=== PATIENT | male | born 1950 | race Caucasian/White ===

== ENCOUNTER 2017-02-15 12:33 | Emergency (ER) | payer OTHER ==
[~2017-02-15] VITALS: Ht 182.9 cm; Wt 84.5 kg
[~2017-02-15 12:33] MED LIST: IBUP-103 PO; PROP60TA19 PO
[2017-02-15 12:34] VITALS: TEMP 36.5; Ht 182.9 cm; Wt 84.5 kg
--- NOTE | 2017-02-15 13:03 | EMERGENCY ROOM VISIT NOTE ---
History First contact with patient: 12:52 Chief Complaint: WOUND INFECTION Stated Complaint: CYST/LUMP ON R BUTTOCK Nursing Triage Summary: pt developed "a lump on right buttock" red and hot and growing, no drainage History of Present Illness The patient is a 67 year old male who presents to the Emergency Room via private vehicle with complaints of "Cyst/lump on R buttock"/ the patient states that he has history of systems developing on his body however he developed pain in the right cranial region this past and notes swelling that has been progressing. He states that there is been no drainage. He does have a fissure on the other side. He notes that he has had cysts for years but has not seen anybody specifically for these. He rates the right gluteal pain as a 5/10. He notes night sweats but is unsure if he's had fevers. Review of Systems A complete 10-point Review of Systems was discussed with the patient, with pertinent positives and negatives listed in the History of Present Illness. All remaining Review of Systems questions can be considered negative unless otherwise specified. Past Medical/Surgical History Hernia repair, renal calculi, essential tremor, cysts Family History Essential tremor Social History Smoking Status: Never Smoker Patient lives locally with . Current/Historical Medications Scheduled Ciprofloxacin Hcl (Cipro), 500 MG PO BID Metronidazole (Flagyl), 500 MG PO TID Propranolol HCl (Propranolol HCl), 60 MG PO BID Physical Exam Vital Signs Date Time Temp Pulse Resp B/P (MAP) Pulse Ox O2 Delivery O2 Flow Rate FiO2 02/15/17 17:05 72 18 138/78 97 02/15/17 15:00 80 20 140/80 98 Room Air 02/15/17 13:57 83 20 141/78 97 Room Air 02/15/17 12:34 36.5 85 20 153/81 96 Room Air Physical Exam VITAL SIGNS - Vital signs and nursing notes were reviewed. Stable. Afebrile. GENERAL -67-year-old male appearing his stated age who is in no acute distress. Communicates well with provider and answers questions appropriately. SKIN - Without rashes. On the right medial and superior portion of the right gluteal/right posterior scrotal region there is a 3 cm circular palpable region that appears to be low density. There is no erythema. Minimal tenderness to palpation. HEAD - NC/AT. Medical Decision & Procedures ER Provider Diagnostic Interpretation: RIGHT PERINEUM ULTRASOUND CLINICAL HISTORY: R anterior gluteal/posterior scrotal palpable lump. COMPARISON STUDY: None. FINDINGS: Increase echogenicity within the subcutaneous fat consistent with inflammatory change. There is a 4.5 x 3.3 x 2.1 cm subcutaneous fluid collection within the right perineum. IMPRESSION: A 4.5 x 3.3 x 2.1 cm subcutaneous fluid collection within the right perineum. This likely represents an abscess. Electronically signed by: Home Harrell M.D. 02/15/2017 2:37 PM Dictated Date/Time: 02/15/2017 2:35 PM PELVIS W/IV CONT ONLY (CT) HISTORY: Right perirectal lump/scrotal collection. TECHNIQUE: Multiaxial CT images of the pelvis are performed following the use of intravenous contrast. COMPARISON STUDY: Gluteal ultrasound 02/15/2017. FINDINGS: Confirmation of the 4.0 x 2.5 cm right anterior perianal/perineal peripheral enhancing fluid collection consistent with an abscess. There is associated soft tissue thickening within the right side of the external sphincter of the rectum and edema within the right intersphincteric space suggestive of a small fistula. The prostate gland is enlarged measuring 6.4 cm in diameter. Normal bladder. Small fat-containing right inguinal hernia. Colonic diverticulosis. Small fat-containing umbilical hernia. Trace bilateral hydroceles. No suspicious lytic or blastic osseous lesions. IMPRESSION: A 4.0 x 2.5 cm right perianal abscess. There is also suggestion of a small fistula extending into the right perirectal location which would be expected with the perianal abscess. Electronically signed by: Home Harrell M.D. 02/15/2017 3:39 PM Dictated Date/Time: 02/15/2017 3:30 PM Laboratory Results 02/15/17 14:50 Red Blood Count 5.45, Mean Corpuscular Volume 82.8, Mean Corpuscular Hemoglobin 27.2, Mean Corpuscular Hemoglobin Concent 32.8, Mean Platelet Volume 9.3, Neutrophils (%) (Auto) 56.5, Lymphocytes (%) (Auto) 34.8, Monocytes (%) (Auto) 7.9, Eosinophils (%) (Auto) 0.4, Basophils (%) (Auto) 0.1, Neutrophils # (Auto) 6.21, Lymphocytes # (Auto) 3.82, Monocytes # (Auto) 0.87, Eosinophils # (Auto) 0.04, Basophils # (Auto) 0.01 02/15/17 14:50 Test 02/15/17 14:50 White Blood Count 10.98 K/uL (4.8-10.8) Red Blood Count 5.45 M/uL (4.7-6.1) Hemoglobin 14.8 g/dL (14.0-18.0) Hematocrit 45.1 % (42-52) Mean Corpuscular Volume 82.8 fL (80-100) Mean Corpuscular Hemoglobin 27.2 pg (25-34) Mean Corpuscular Hemoglobin Concent 32.8 g/dl (32-36) Platelet Count 121 K/uL (130-400) Mean Platelet Volume 9.3 fL (7.4-10.4) Neutrophils (%) (Auto) 56.5 % Lymphocytes (%) (Auto) 34.8 % Monocytes (%) (Auto) 7.9 % Eosinophils (%) (Auto) 0.4 % Basophils (%) (Auto) 0.1 % Neutrophils # (Auto) 6.21 K/uL (1.4-6.5) Lymphocytes # (Auto) 3.82 K/uL (1.2-3.4) Monocytes # (Auto) 0.87 K/uL (0.11-0.59) Eosinophils # (Auto) 0.04 K/uL (0-0.5) Basophils # (Auto) 0.01 K/uL (0-0.2) RDW Standard Deviation 43.8 fL (36.4-46.3) RDW Coefficient of Variation 14.5 % (11.5-14.5) Immature Granulocyte % (Auto) 0.3 % Immature Granulocyte # (Auto) 0.03 K/uL (0.00-0.02) Anion Gap 3.0 mmol/L (3-11) Est Creatinine Clear Calc Drug Dose 134.3 ml/min Estimated GFR () 121.4 Estimated GFR (Non- 104.8 BUN/Creatinine Ratio 27.0 (10-20) Calcium Level 9.1 mg/dl (8.5-10.1) Medical Decision Patient was seen and evaluated as above. He presents to us today with swelling/ cyst of the right anterior medial buttock. On exam this region does appear to be tender but there is no induration, or erythema. He does have other cysts throughout his body appreciated to visual inspection externally. His vital signs were stable. Decision was made to obtain an ultrasound of the region to identify its contents/composition. It is no evidence of foreign gangrene on exam. Ultrasound reveals what is likely to be an abscess however the concern on exam is that this is in between the perirectal and scrotal region likely in the perineum. With the history of fissure in the past I will order a CT scan of the pelvis with IV contrast to evaluate for such. Abscess noted. Reviewed with attending, Dr. Bowers. Patient presented, region was dressed with Betadine, and sterilely draped. The patient was anesthetized with 3 mL's 1% buffered lidocaine with epinephrine. An 18-gauge was then directed away from the sphincter without success. Dr. Bowers and I then, bluntly dissected to successfully reach the pocket which was expressed, and thoroughly irrigated. Culture was sent to the lab for evaluation. He'll be placed upon Cipro and Flagyl. Patient's sphincter tone was intact post procedure. He appears stable for outpatient management. Region was dressed. He is to return in 2 days for packing removal. They were educated upon management, educated upon worrisome symptoms which to return, had questions prior to discharge, and was discharged home in good condition. In evaluation treatment this patient following differential diagnoses were entertained: Perirectal abscess, 48 gangrene, cellulitis, cyst, among others. He is also to follow up regarding the lump on the left side of the neck. He notes that he is to follow-up with Dr. Mcmanus later this week/early next week. Medication Reconcilliation Current Medication List: was personally reviewed by wa Blood Pressure Screening Patient's blood pressure: Elevated blood pressure Blood pressure disposition: Elevated BP felt to be situational, Referred to PCP Impression Primary Impression: Perianal abscess Departure Information Dispostion Home / Self-Care Condition GOOD Prescriptions Metronidazole (Flagyl) 500 Mg Tab 500 MG PO TID for 7 Days, #21 TAB Prov: Arturo Pond PA-C 02/15/17 Ciprofloxacin Hcl (CIPRO) 500 Mg Tab 500 MG PO BID for 7 Days, #14 TAB Prov: Arturo Pond PA-C 02/15/17 Referrals No Doctor, Assigned (PCP) Patient Instructions My [facility] Additional Instructions You were seen in the emergency Department for a perirectal abscess. At this time even prescribed Flagyl and Cipro. Please do not drink alcohol with these medications. Please stay well hydrated and eat healthy. Please keep the area clean. The packing is to be removed in 2 days. Please return to have this performed. Please follow-up regarding the mass on the left side of her neck with her family doctor. Please call to establish this. Please return with any new/concerning symptoms.
[2017-02-15] MEDS ORDERED: LIDOCAINE/EPINEPHRINE 1% 20 ML VIAL INFIL STA (14:08)
--- NOTE | 2017-02-15 14:39 | DIAGNOSTIC IMAGING REPORT ---
RIGHT PERINEUM ULTRASOUND CLINICAL HISTORY: R anterior gluteal/posterior scrotal palpable lump. COMPARISON STUDY: None. FINDINGS: Increase echogenicity within the subcutaneous fat consistent with inflammatory change. There is a 4.5 x 3.3 x 2.1 cm subcutaneous fluid collection within the right perineum. IMPRESSION: A 4.5 x 3.3 x 2.1 cm subcutaneous fluid collection within the right perineum. This likely represents an abscess. Electronically signed by: Home Harrell M.D. 02/15/2017 2:37 PM Dictated Date/Time: 02/15/2017 2:35 PM
[2017-02-15 15:02] LABS: BASO % 0.1 %; BASO ABS # 0.01 K/uL (0-0.2); COMPLETE YES; EOS % 0.4 %; HEMATOCRIT 45.1 % (42-52); IG% 0.3 %; LYMPH % 34.8 %; LYMPH ABS # 3.82 K/uL (1.2-3.4); MEAN CELL VOLUME 82.8 fL (80-100); MEAN CORPUSCULAR HEMOGLOBIN 27.2 pg (25-34); MEAN CORPUSCULAR HGB CONC 32.8 g/dl (32-36); MEAN PLATELET VOLUME 9.3 fL (7.4-10.4); MONO % 7.9 %; NEUT % 56.5 %; PLATELET COUNT 121 K/uL (130-400); RED BLOOD COUNT 5.45 M/uL (4.7-6.1); WHITE BLOOD COUNT 10.98 K/uL (4.8-10.8)
[2017-02-15 15:25] LABS: CALCIUM 9.1 mg/dl (8.5-10.1); CREATININE 0.57 mg/dl (0.60-1.40); POTASSIUM 4.1 mmol/L (3.5-5.1)
[2017-02-15] MEDS ORDERED: OPTIRAY 320 IV PRN (15:30)
--- NOTE | 2017-02-15 15:40 | DIAGNOSTIC IMAGING REPORT ---
PELVIS W/IV CONT ONLY (CT) HISTORY: Right perirectal lump/scrotal collection. TECHNIQUE: Multiaxial CT images of the pelvis are performed following the use of intravenous contrast. COMPARISON STUDY: Gluteal ultrasound 02/15/2017. FINDINGS: Confirmation of the 4.0 x 2.5 cm right anterior perianal/perineal peripheral enhancing fluid collection consistent with an abscess. There is associated soft tissue thickening within the right side of the external sphincter of the rectum and edema within the right intersphincteric space suggestive of a small fistula. The prostate gland is enlarged measuring 6.4 cm in diameter. Normal bladder. Small fat-containing right inguinal hernia. Colonic diverticulosis. Small fat-containing umbilical hernia. Trace bilateral hydroceles. No suspicious lytic or blastic osseous lesions. IMPRESSION: A 4.0 x 2.5 cm right perianal abscess. There is also suggestion of a small fistula extending into the right perirectal location which would be expected with the perianal abscess. Electronically signed by: Home Harrell M.D. 02/15/2017 3:39 PM Dictated Date/Time: 02/15/2017 3:30 PM
--- NOTE | 2017-02-15 16:25 | EMERGENCY ROOM VISIT NOTE ---
ED Visit Note First contact with patient: 12:52 I have personally seen and evaluated the patient with the PA. I agree with the diagnosis and management decisions and have been personally involved in the case. I was present for the I&D procedure. Patient tolerated the procedure well. Patient will be discharged on Cipro and Flagyl 7 days. Patient was cleansed and packed by Arturo Pond PA-C, please see his notes for further details of the history, physical and visit.
[2017-02-15] MEDS ORDERED: CIPR-255 PO (16:37)
[2017-02-15] MEDS ORDERED: METR-163 PO (16:37)
[2017-02-15 17:05] VITALS: BP 138/78; PULSE 72; O2SAT 97
[2017-02-15 18:43] LABS: ISTAT CREATININE 0.6 mg/dl (0.6-1.3); ISTAT HEMOGLOBIN 14.6 g/dl (14.0-18.0); ISTAT IONIZED CALCIUM 1.18 mmol/l (1.12-1.32)
== END 2017-02-15 17:07 | disposition home or self-care (01) ==
LOC: C.EDB 12:34 → C.EDD 17:07
DX: K61.0 Anal abscess (principal); G25.0 Essential tremor

== ENCOUNTER 2017-02-18 10:43 | Emergency (ER) | payer OTHER ==
[~2017-02-18] VITALS: Ht 208.3 cm; Wt 81.0 kg
[~2017-02-18 10:43] MED LIST changes: +CIPR-255 PO; +METR-163 PO
[2017-02-18 10:52] VITALS: Ht 208.3 cm; Wt 81.0 kg
[2017-02-18 11:33] VITALS: BP 140/90; PULSE 60; TEMP 36.4
--- NOTE | 2017-02-18 16:14 | EMERGENCY ROOM VISIT NOTE ---
History First contact with patient: 10:53 Chief Complaint: OTHER COMPLAINT Stated Complaint: NEEDS PACKING REMOVED;HAD AN ASSIT History of Present Illness The patient is a 67 year old male who presents to the Emergency Room for packing removal from a perianal cyst that was drained in our department 2 days ago. The patient has been taking Cipro and Flagyl antibiotics as prescribed. He does report improving pain and minimal drainage. He has been having bowel movements without any significant discomfort, and denies any fever or chills. Review of Systems 6 system review was performed and was negative except for pertinent positives and negatives as indicated in history of present illness Past Medical/Surgical History Medical Problems: (1) Elevated Prostate Specific Antigen [Psa] (2) Iron Defic Anemia Nos Family History Unremarkable Social History Smoking Status: Never Smoker Alcohol Use: none Occupation Status: retired Current/Historical Medications Scheduled Ciprofloxacin Hcl (Cipro), 500 MG PO BID Metronidazole (Flagyl), 500 MG PO TID Propranolol HCl (Propranolol HCl), 60 MG PO BID Physical Exam Vital Signs Date Time Temp Pulse Resp B/P (MAP) Pulse Ox O2 Delivery O2 Flow Rate FiO2 02/18/17 11:33 36.4 60 19 140/90 02/18/17 10:52 36.4 60 19 140/90 Room Air Physical Exam GASTROINTESTINAL: Examination shows no packing in the perianal cyst. There is no significant erythema. Moderate edema is still noted without any purulent drainage. The wound was thoroughly explored to show no evidence for retained packing. Medical Decision & Procedures ED Course Patient history and physical exam were performed. Nurse's notes were reviewed. I did review culture results from 2 days ago, showing Escherichia coli that is pansensitive. The patient was instructed to continue and finish his Cipro and Flagyl antibiotics as previously prescribed. Return to the emergency department for progressively worsening swelling, pain or drainage. The patient was happy with plan of care, and voiced understanding of all discharge instructions. Medical Decision Blood Pressure Screening Patient's blood pressure: Normal blood pressure Impression Primary Impression: Perianal abscess Departure Information Dispostion Home / Self-Care Forms HOME CARE DOCUMENTATION FORM, IMPORTANT VISIT INFORMATION Patient Instructions My [facility] Additional Instructions Continue and finish the current antibiotics that you are taking. Keep the wound clean and covered with an antibiotic ointment until it heals. Return to the emergency department for any re-developing swelling, pain, redness or fever.
== END 2017-02-18 11:35 | disposition home or self-care (01) ==
LOC: C.EDB 10:45 → C.EDD 11:35
DX: K61.0 Anal abscess (principal); R97.20 Elevated prostate specific antigen [PSA]; D50.9 Iron deficiency anemia, unspecified

== ENCOUNTER → 2017-02-26 | Outpatient (CLI) | payer OTHER ==
[~2017-02-26] MED LIST changes: -IBUP-103 PO; -METR-163 PO; +MULT-506 PO; +OXYC-57 PO
--- NOTE | 2017-02-26 11:52 | DIAGNOSTIC IMAGING REPORT ---
ULTRASOUND SOFT TISSUES NECK CLINICAL HISTORY: Left-sided neck mass. COMPARISON STUDY: No priors. FINDINGS: Real-time, grayscale, and color flow sonography of the left neck is performed at the site of palpable concern. There is a heterogeneously hypoechoic nodule identified adjacent to the left parotid gland. This measures 2.5 x 1.2 x 2.0 cm and demonstrates internal flow on color imaging. There is a second slightly more inferior adjacent irregular and heterogeneously hypoechoic nodule. This is located just deep to the dermal surface and measures 1.9 x 1.0 x 1.6 cm. This also shows flow on color imaging. IMPRESSION: There are 2 heterogeneous and irregular hypoechoic nodules identified in the left neck at the indicated site of interest. The appearance is most suggestive of abnormal lymph nodes. Follow-up with ENT is recommended. Fine-needle aspiration should be considered for further assessment. Electronically signed by: Shiva Brownlee M.D. 02/26/2017 11:51 AM Dictated Date/Time: 02/26/2017 11:48 AM
== END | disposition home or self-care (01) ==
LOC: C.ULTR 10:48
PROVIDERS: ATTEND Neuromusculoskeletal Medicine & OMM
DX: R22.1 Localized swelling, mass and lump, neck (principal)

== ENCOUNTER → 2017-03-04 | Outpatient (CLI) | payer OTHER ==
[~2017-03-04] MED LIST changes: -MULT-506 PO; -OXYC-57 PO
--- NOTE | 2017-03-04 13:10 | DIAGNOSTIC IMAGING REPORT ---
ULTRASOUND GUIDED FINE NEEDLE ASPIRATION OF LEFT NECK SUPERFICIAL MASS AND ENLARGED LEFT LEVEL 2 CERVICAL LYMPH NODE CLINICAL HISTORY: Mass of lateral left neck. COMPARISON STUDY: Neck ultrasound February 26, 2017. PROCEDURE: Sonography of the left neck again demonstrated a 1.9 cm superficial left upper neck mass centered within the dermis. An enlarged 2.5 cm left level 2 cervical lymph node was also noted. These findings were targeted for fine needle aspiration. The procedure, risks and benefits were discussed with the patient and informed written consent was obtained. The procedure was performed by Dr. Myers following a timeout. Skin of the left neck was prepped and draped in sterile fashion and local anesthesia was achieved with 1% lidocaine. Under direct ultrasound guidance, 2 25-gauge fine needle aspirations of the superficial lesion were performed followed by 2 22-gauge fine needle aspirations of this lesion. 3 25-gauge fine needle aspirations of the left level 2 cervical lymph node were then performed. The patient tolerated the procedure well and no immediate complications were evident. IMPRESSION: Ultrasound guided fine needle aspiration of a 1.9 cm left neck superficial mass and an enlarged left level 2 cervical lymph node. Electronically signed by: Nithin Myers M.D. 03/04/2017 1:08 PM Dictated Date/Time: 03/04/2017 1:04 PM
== END | disposition home or self-care (01) ==
LOC: C.ULTR 10:15
PROVIDERS: ATTEND Surgery
DX: R22.1 Localized swelling, mass and lump, neck (principal); C79.89 Secondary malignant neoplasm of other specified sites

== ENCOUNTER → 2017-03-12 | Outpatient (CLI) | payer OTHER ==
[~2017-03-12] MED LIST changes: +MULT-506 PO
[2017-03-12 14:43] LABS: ALT/SGPT 35 U/L (12-78); AST/SGOT 22 U/L (15-37); BLOOD UREA NITROGEN 18 mg/dl (7-18); CALCIUM 9.7 mg/dl (8.5-10.1); CARBON DIOXIDE 29 mmol/L (21-32); CREATININE 0.55 mg/dl (0.60-1.40); GLUCOSE 119 mg/dl (70-99); SODIUM 139 mmol/L (136-145)
[2017-03-12 14:46] LABS: ALKALINE PHOSPHATASE 66 U/L (45-117); TOTAL PROTEIN 7.5 gm/dl (6.4-8.2)
== END | disposition home or self-care (01) ==
LOC: C.LAB 12:33
PROVIDERS: ATTEND Surgery
DX: C79.9 Secondary malignant neoplasm of unspecified site (principal); C43.9 Malignant melanoma of skin, unspecified

== ENCOUNTER → 2017-03-14 | Day surgery (SDC) | payer OTHER ==
[2017-03-12 11:48] VITALS: Ht 181.6 cm; Wt 84.1 kg
[~2017-03-14] VITALS: Ht 181.6 cm; Wt 84.1 kg
[~2017-03-14] MED LIST changes: +ATROPINE SULFATE 0.1 MG/ML 5ML SYR IV PRN; +BUPIVACAINE 0.5 % 5 MG/1 ML MPF 30ML VIAL ONE; +CEFAZOLIN 2000MG IV PUSH 10 ML IV SCH; -CIPR-255 PO; +DEXAMETHASONE SOD INJ 4 MG/ML VIAL ONE; +EpHEDrine SULFATE INJ 50 MG/ML AMP IV PRN; +EpHEDrine SULFATE INJ 50 MG/ML AMP ONE; +FENTANYL CITRATE INJ 50 MCG/1 ML 2 ML VIAL IV PRN; +FENTANYL CITRATE INJ 50 MCG/1 ML 2 ML VIAL ONE; +GLYCOPYRROLATE INJ 0.2 MG/ML VIAL ONE; +KETOROLAC TROMETHAMINE 15 MG/ML VIAL IV. PRN; +LACTATED RINGER'S 1000ML 1,000 ML IV SCH; +LIDOCAINE HCL 2% 2 ML VIAL (20MG/ML) ONE; +MIDAZOLAM HCL 1 MG/ML 2ML VIAL ONE; +MoRPHine SULFATE 2 MG/ML CARP IV PRN; +MoRPHine SULFATE 4 MG/ML 1 ML CARP\\VIAL IV PRN; +ONDANSETRON INJ 2 MG/ML 2 ML VIAL IV PRN; +ONDANSETRON INJ 2 MG/ML 2 ML VIAL ONE; +OXYC-57 PO; +OXYCODONE/ACETAMINOPHEN 5-325 TAB PO PRN; +PATIENT'S HEIGHT AND/OR WEIGHT NEEDED SCH; +PROPOFOL IV EMULSION 10 MG/ML 20 ML VIAL IV ONE; +SODIUM CHLORIDE 0.9% 1000ML 1,000 ML IV SCH; +SODIUM CHLORIDE 0.9% INJ 10 ML VIAL ONE
--- NOTE | 2017-03-14 07:09 | History & Physical Bridge - SC ---
H&P Re-Evaluation Bridge Note: I have examined the patient, reviewed the History & Physical and in the interval since the performance of the History & Physical I have noted the following changes of clinical significance: plan for excision left neck mass, left cervical lymph node biopsy, consent signed, risks discussed. No changes noted
--- NOTE | 2017-03-14 08:08 | [facility] Post Operative Brief Note ---
Immediate Operative Summary Operative Date Mar 14, 2017. Pre-Operative Diagnosis Left Mass Lateral Neck, Skin Lesion, Subcutaneous Cyst Post-Operative Diagnosis Same Procedure(s) Performed Left Neck Mass And Left Cervical Lymph Node Excisional Biopsy Surgeon Dr. Avina Clinical Supervisor Surgeon(s) None Estimated Blood Loss 3 ML Findings Consistent with Post-Op Diagnosis Specimens A. Left Neck Mass, Long Suture Lateral, Short Suture Superior, sent PERMANENT B. Left Cervical Lymph Node, Sent FRESH, History of FNA of Melanoma Drains None Anesthesia Type General Complication(s) none Disposition Accompanied Pt To Recover: no Disposition: Recovery Room / PACU
--- NOTE | 2017-03-14 08:24 | [facility] Operative Report ---
Operative Report Operative Date Mar 14, 2017. Pre-Operative Diagnosis Left Mass Lateral Neck, Skin Lesion, Subcutaneous Cyst Post-Operative Diagnosis Same Procedure(s) Performed Left Neck Mass And Left Cervical Lymph Node Excisional Biopsy Surgeon Dr. Avina Oven Builder Surgeon(s) None Estimated Blood Loss 3 ML Findings 7 cm x 2.5 cm elliptical incision performed in oblique fashion and left neck to excise skin lesion. Platysma was divided overlying the lymph node of lymph node was excised. Good hemostasis. Specimens A. Left Neck Mass, Long Suture Lateral, Short Suture Superior, sent PERMANENT B. Left Cervical Lymph Node, Sent FRESH, History of FNA of Melanoma Drains none Anesthesia LMA Complication(s) None Disposition Recovery Room / PACU Indications 67-year-old male with left neck skin lesion, FNA showed epithelial cells and possible basal cell carcinoma. He also has a left submandibular lymph node that had an FNA performed and revealed metastatic melanoma, and not enough tissue was obtained for further pathologic testing. Plan for wide local excision of left neck mass and excisional biopsy of left cervical lymph node. The risks of the procedure were discussed, all questions were answered, and the patient agreed to proceed with surgery as planned. Description of Procedure The patient was properly identified, consented, and taken to the operating room where he was placed in the supine position. General anesthesia was induced. SCDs and a safety belt were placed. Preoperative antibiotics were administered. The patient's head was rotated to the right and his left neck and lower face was prepped and draped in the standard sterile fashion. Surgical timeout was performed and all parties were in agreement that this was the correct patient and procedure to be performed and we continued as planned. Local anesthetic was injected along the skin incision. A 7 x 2.5 cm elliptical incision was made overlying the mass in a natural skin crease in order to obtain clear margins on the cutaneous lesion. This was deepened down through the full thickness of the dermis and lifted off the subcutaneous tissue. The specimen was oriented with 3-0 silk suture. The submandibular lymph node was palpable in the medial portion of the incision. The platysma was opened for a short distance overlying the lymph node. The lymph node had a very dark appearance consistent with melanoma. The lymph node was circumferentially dissected, the lymphovascular bundle was ligated with 3-0 silk tie. The lymph node was completely excised and sent fresh to pathology. The wound was irrigated and hemostasis was confirmed. The platysma was closed with interrupted 3-0 Vicryl sutures. There was some tension at the midpoint of the incision and flaps were raised overlying the platysma superiorly and inferiorly for 2 cm. The skin was closed with interrupted 3-0 Vicryl deep dermal sutures. Due to the tension, the skin was closed with 4-0 Prolene simple interrupted sutures on the medial and lateral edges, and 3-0 Prolene interrupted simple sutures in the midportion of the incision. A sterile dressing was placed over the wound. The patient was extubated in the operating room and taken to the PACU where he recovered without apparent incident. All sponge, instrument and needle counts were correct at the conclusion of the procedure. The patient tolerated the procedure well. I attest to the content of the Intraoperative Record and any orders documented therein. Any exceptions are noted below.
--- NOTE | 2017-03-14 08:33 | Discharge Instructions-SurgCtr ---
Discharge Instructions Date of Service Mar 14, 2017. Visit Reason for Visit: Mass Lateral Neck, Skin Lesion, Subcutaneous Cyst Discharge Discharge Diagnosis / Problem: left neck skin mass, left cervical lymphadenopathy Discharge Goals Goal(s): Decrease discomfort Activity Recommendations Activity Limitations: resume your previous activity Lifting Limitations: gradually increase as tolerated Shower/Bathe: tomorrow Driving or Machine Use: resume 1 day after discharge Anesthesia . Post Anesthesia Instructions: If you have had General Anesthesia or IV Sedation: * Do not drive today. * Resume driving when surgeon permits. * Do not make important decisions or sign legal documents today. * Call surgeon for: 1. Temperature elevations greater than 101 degrees F. 2. Uncontrollable pain. 3. Excessive bleeding. 4. Persistent nausea and vomiting. 5. Medication intolerance (nausea, vomiting or rash). * For nausea and vomiting use only clear liquids such as: tea, soda, bouillon until nausea subsides, then gradually increase diet as tolerated. * If you have any concerns or questions, call your surgeon's office. If physician is unavailable and it is an emergency, call 911 or go to the nearest emergency room. . Instructions / Follow-Up Instructions / Follow-Up Follow-up in 7-10 days for suture removal and pathology results. Diet Recommendations Home Diet: resume previous diet Procedures Procedures Performed: Left Neck Mass And Left Cervical Lymph Node Excisional Biopsy Pending Studies Studies pending at discharge: yes List of pending studies: Pathology results Medical Emergencies . Who to Call and When: Medical Emergencies: If at any time you feel your situation is an emergency, please call 911 immediately. . Non-Emergent Contact Non-Emergency issues call your: Surgeon Contact Number: [phone] . . "Provider Documentation" section prepared by Giancarlo Avina. . [place] Drug Monitoring Program Search Results: no issues identified
[2017-03-14 08:45] VITALS: TEMP 36.5
[2017-03-14 09:11] VITALS: BP 145/89; PULSE 60; O2SAT 98
--- NOTE | 2017-03-14 09:49 | Anesthesia Progress Nt - [facility] ---
Anesthesia Post Op Note Date & Time Mar 14, 2017 at 09:49 Vital Signs Pain Intensity: 0 Vital Signs Past 12 Hours Date Time Temp Pulse Resp B/P (MAP) Pulse Ox O2 Delivery O2 Flow Rate FiO2 03/14/17 09:11 60 16 145/89 (107) 98 Room Air 03/14/17 08:45 36.5 63 16 138/81 (100) 96 Room Air 03/14/17 08:42 61 92 03/14/17 08:42 61 03/14/17 08:37 63 10 03/14/17 08:37 64 10 97 03/14/17 08:36 71 16 96 03/14/17 08:36 69 16 03/14/17 08:35 36.5 64 12 125/77 94 Room Air 03/14/17 08:35 125/77 03/14/17 08:34 119/79 03/14/17 08:31 67 12 97 03/14/17 08:31 67 12 03/14/17 08:30 124/78 03/14/17 08:26 66 10 122/81 97 03/14/17 08:26 68 10 03/14/17 08:21 68 16 03/14/17 08:21 67 16 132/76 98 03/14/17 08:16 66 11 133/75 97 03/14/17 08:16 66 11 03/14/17 08:11 36.4 55 16 123/76 97 Mask 6 03/14/17 08:11 61 11 03/14/17 08:11 61 11 123/76 97 03/14/17 06:31 36.4 52 18 121/71 (88) 96 Room Air Notes Mental Status: alert / awake / arousable, participated in evaluation Pt Amnestic to Procedure: Yes Nausea / Vomiting: adequately controlled Pain: adequately controlled Airway Patency, RR, SpO2: stable & adequate BP & HR: stable & adequate Hydration State: stable & adequate Anesthetic Complications: no major complications apparent
== END | disposition home or self-care (01) ==
LOC: X.SURG 06:20
PROVIDERS: ATTEND Surgery
DX: L98.9 Disorder of the skin and subcutaneous tissue, unspecified (principal); C77.0 Secondary and unspecified malignant neoplasm of lymph nodes of head, face and neck; C44.91 Basal cell carcinoma of skin, unspecified; I10 Essential (primary) hypertension; G20 Parkinson's disease; Z98.890 Other specified postprocedural states

== ENCOUNTER → 2017-03-17 | Outpatient (CLI) | payer OTHER ==
[~2017-03-17] MED LIST changes: -ATROPINE SULFATE 0.1 MG/ML 5ML SYR IV PRN; -BUPIVACAINE 0.5 % 5 MG/1 ML MPF 30ML VIAL ONE; -CEFAZOLIN 2000MG IV PUSH 10 ML IV SCH; -DEXAMETHASONE SOD INJ 4 MG/ML VIAL ONE; -EpHEDrine SULFATE INJ 50 MG/ML AMP IV PRN; -EpHEDrine SULFATE INJ 50 MG/ML AMP ONE; -FENTANYL CITRATE INJ 50 MCG/1 ML 2 ML VIAL IV PRN; -FENTANYL CITRATE INJ 50 MCG/1 ML 2 ML VIAL ONE; -GLYCOPYRROLATE INJ 0.2 MG/ML VIAL ONE; -KETOROLAC TROMETHAMINE 15 MG/ML VIAL IV. PRN; -LACTATED RINGER'S 1000ML 1,000 ML IV SCH; -LIDOCAINE HCL 2% 2 ML VIAL (20MG/ML) ONE; -MIDAZOLAM HCL 1 MG/ML 2ML VIAL ONE; -MoRPHine SULFATE 2 MG/ML CARP IV PRN; -MoRPHine SULFATE 4 MG/ML 1 ML CARP\\VIAL IV PRN; -ONDANSETRON INJ 2 MG/ML 2 ML VIAL IV PRN; -ONDANSETRON INJ 2 MG/ML 2 ML VIAL ONE; -OXYCODONE/ACETAMINOPHEN 5-325 TAB PO PRN; -PATIENT'S HEIGHT AND/OR WEIGHT NEEDED SCH; -PROPOFOL IV EMULSION 10 MG/ML 20 ML VIAL IV ONE; -SODIUM CHLORIDE 0.9% 1000ML 1,000 ML IV SCH; -SODIUM CHLORIDE 0.9% INJ 10 ML VIAL ONE
== END | disposition home or self-care (01) ==
LOC: C.LABBFT 14:07
PROVIDERS: ATTEND Neuromusculoskeletal Medicine & OMM
DX: R30.0 Dysuria (principal); Z00.00 Encounter for general adult medical examination without abnormal findings; R97.20 Elevated prostate specific antigen [PSA]

== ENCOUNTER → 2017-03-19 | Outpatient (CLI) | payer OTHER ==
--- NOTE | 2017-03-19 13:05 | DIAGNOSTIC IMAGING REPORT ---
PET/CT FULL BODY HISTORY: Melanoma C43.9 MALIGNANT MELANOMA SKIN TECHNIQUE: PET/CT was performed from the base of the skull through the pelvis following the intravenous administration of 13.37 mCi of F18-FDG. Non-contrast CT imaging was performed over the same range without breath-hold for attenuation correction of PET images and anatomic correlation, but not for primary interpretation as it is not of standard diagnostic quality. CT DOSE: COMPARISON: None. FINDINGS: HEAD AND NECK: There is no FDG-avid disease or significant lymphadenopathy in the imaged portions of the head and the neck. CHEST: There is no FDG-avid disease in the chest. There is no axillary, mediastinal, or hilar lymphadenopathy. There is no pleural or pericardial effusion. There is no air-space disease or suspicious lung nodule. ABDOMEN/PELVIS: Below the diaphragm, tracer is distributed physiologically in the gastrointestinal and genitourinary tracts. There is no significant lymphadenopathy and no FDG-avid disease. MUSCULOSKELETAL: There is no FDG-avid or destructive bone lesion. Increased activity in the palmar aspects of the hands presumably secondary to muscular activity. EXTREMITIES: No abnormal activity characteristics IMPRESSION: There is no definite evidence of recurrent FDG-avid disease. The above report was generated using voice recognition software. It may contain grammatical, syntax or spelling errors. Electronically signed by: Benjamin Mock M.D. 03/19/2017 1:04 PM Dictated Date/Time: 03/19/2017 12:59 PM
== END | disposition home or self-care (01) ==
LOC: C.PET 10:14
PROVIDERS: ATTEND Surgery
DX: C43.9 Malignant melanoma of skin, unspecified (principal); C79.9 Secondary malignant neoplasm of unspecified site

== ENCOUNTER → 2017-03-27 | Outpatient (CLI) | payer OTHER | END | disposition home or self-care (01) | LOC: C.PATHSPEC 17:35 | PROVIDERS: ATTEND Dermatology | DX: L81.4 Other melanin hyperpigmentation (principal); C44.619 Basal cell carcinoma of skin of left upper limb, including shoulder; C44.519 Basal cell carcinoma of skin of other part of trunk; C44.311 Basal cell carcinoma of skin of nose ==

== ENCOUNTER → 2017-06-13 | Outpatient (CLI) | payer OTHER | END | disposition home or self-care (01) | LOC: C.LABSPEC 14:10 | PROVIDERS: ATTEND Internal Medicine Hematology | DX: C77.0 Secondary and unspecified malignant neoplasm of lymph nodes of head, face and neck (principal) ==

== ENCOUNTER 2018-02-19 16:21 | Inpatient (IN) ==
[2018-02-19 18:30] LABS: Hematocrit (blood only) 43.4 % (42-52); Hemoglobin 14.6 g/dL (14.0-18.0); Mean Corpuscular Hgb Conc 33.6 g/dL (32-36); Mean Corpuscular Volume 79.9 fL (80-100); RDW Coefficient of Variation 14.6 % (11.5-14.5); RDW Standard Deviation 42.2 fL (36.4-46.3); Red Blood Count 5.43 M/uL (4.7-6.1); White Blood Count 10.31 K/uL (4.8-10.8)
[2018-02-19 18:35] LABS: Albumin Level 2.9 gm/dl (3.4-5.0); BUN Creatinine Ratio 44.3 (10-20); Calcium 9.4 mg/dl (8.5-10.1); Creatinine Clr Calc Pharmacy 124.1 ml/min; Est GFR (African American) 118.9; Est GFR (Non-African American) 102.6; Potassium 3.6 mmol/L (3.5-5.1)
[2018-02-19 18:37] LABS: Albumin Globulin Ratio 0.6 (0.9-2); Bilirubin,Total 1.4 mg/dl (0.1-1); Globulin 4.6 gm/dl (2.5-4.0); Total Protein 7.5 gm/dl (6.4-8.2)
[2018-02-19 18:58] LABS: Appearance Urine Clear (Clear); Bacteria Urine Automated 2+ (Negative); Bilirubin Urine Negative (Negative); Color Urine Dark Yellow; Glucose Urine UA Negative (Negative); Ketones Urine Negative (Negative); Leukocyte Esterase Urine Trace (Negative); Nitrite Urine Positive (Negative); Protein Urine 1+ (Negative); Specific Gravity Urine 1.025 (1.000-1.030); Urobilinogen Urine Positive (Negative)
--- NOTE | 2018-02-19 19:35 | Ultrasound Report ---
ABDOMINAL ULTRASOUND, RIGHT UPPER QUADRANT HISTORY: RUQ pain. COMPARISON: PET CT 03/19/2017. FINDINGS: Pancreas: Not well visualized due to overlying bowel gas. Liver: Unremarkable. Gallbladder: Thickened and heterogeneous wall measuring up to 7 mm. There appears to be trace pericho lecystic fluid. There is a single gallstone measuring 3 cm. CBD: 5 mm. Right kidney: No hydronephrosis. A 7 mm stone, unchanged. IMPRESSION: 1. Thickened and heterogeneous gallbladder wall with trace pericholecystic fluid and a 3 cm gallstone . Findings are suspicious for acute cholecystitis. 2. Right-sided nephrolithiasis. No hydronephrosis. Electronically signed by: Home Harrell M.D. 02/19/2018 7:34 PM
[2018-02-19 20:14] LABS: Mean Platelet Volume 10.8 fL (7.4-10.4); Platelet Count 79 K/uL (130-400)
[2018-02-19 20:15] LABS: ALC (manual) 4.79 K/uL (1.2-3.4); Lymphocytes # (manual) 4.79 K/uL (1.2-3.4); Lymphocytes % (manual) 46.5 %; Monocytes # (manual) 0.55 K/uL (0.11-0.59); Monocytes % (manual) 5.3 %; Neutrophils % (manual) 48.2 %
[2018-02-19] MEDS ORDERED: SODIUM CHLORIDE 0.9% 1000ML 1,000 ML IV STA (21:42)
[2018-02-19] MEDS ORDERED: cefOXitin 2,000 MG/60 ML BAG IV STA (21:42)
--- NOTE | 2018-02-19 21:52 | Emergency Department Note ---
Entered by Rosalva Lou acting as a scribe for ED Provider Note CHIEF COMPLAINT: Illness. HISTORY OF PRESENT ILLNESS: The patient is a 68 year old male who presents to the Emergency Room with complaints of RUQ abdominal pain. His states he ate dinner last night around 2029, and after eating, took his Propanolol and then developed RUQ pain and the hiccups. His pain eventually resolved but the hiccups have not and he has been unable to sleep because of that. He reports he ate two pieces of toast today. The patient has a history of metastatic melanoma for which he is currently taking chemotherapy. Pt denies LOC, headache, fevers, chills, diaphoresis, visual changes, neck pain , chest pain, breathing difficulties, nausea, vomiting, back pain, melena, hematochezia, urinary symptoms, numbness, weakness, lymphadenopathy, rash, or other complaints. REVIEW OF SYSTEMS: See HPI for pertinent positives and negatives. A total of ten systems were reviewed and were otherwise negative. PMHx/PSHx: Metastatic Melanoma. Essential Tremor. SOCIAL HISTORY: Patient lives at home. PHYSICAL EXAM: GENERAL: Awake, alert, well-appearing, in no distress HENT: Normocephalic, atraumatic. Oropharynx unremarkable. EYES: Normal conjunctiva. Sclera non-icteric. NECK: Inspection normal. Non-tender. Supple. No nuchal rigidity. FROM. No masses. RESPIRATORY: Clear to auscultation. No wheezes. No rales. Normal respiratory effort. CARDIAC: Normal rate. Normal rhythm. No murmurs. No rubs. Extremities warm and well perfused. Pulses equal. No JVD. GI: Soft, non-distended. No tenderness to palpation. No rebound or guarding. No masses. RECTAL: Deferred. MUSCULOSKELETAL: Atraumatic. Chest examination reveals no tenderness. The back is symmetrical on inspection without obvious abnormality. There is no CVA tenderness to palpation. No joint edema. LOWER EXTREMITIES: Calves are equal size bilaterally and non-tender. No edema. No discoloration. NEURO: Normal sensorium. No sensory or motor deficits noted. SKIN: No rash or jaundice noted. EMERGENCY DEPARTMENT COURSE: 1807: Past medical records reviewed. The patient was evaluated in room C6, and a complete history and physical examination were performed. 2019: I reevaluated the patient. He is resting comfortably. I discussed his results and my recommendation he remain in the hospital for further evaluation and management and he verbalized complete understanding and agreement. 2021: I discussed the patients case with Dr. Mejía, [facility] General Surgery. The patient will be further evaluated. 2033: I discussed the patients case with Dr. Hernandez, [facility] Hospitalist. The patient will be further evaluated. MEDICAL DECISION MAKING: Triage Nursing notes reviewed and agree them. Additional history obtained from his significant other. The patient's history was concerning for abdominal pain. Differential diagnosis: Etiologies such as biliary pathology, UTI, pancreatitis, obstruction, appendicitis, diverticulitis, PUD, mesenteric ischemia, aortic pathology, infections, inflammatory bowel disease, renal colic, as well as others were entertained. Physical examination findings: As above. ER treatment provided: Saline hydration IV Mefoxin On reassessment the patient felt better. Diagnostics interpreted by me: The labs revealed an unremarkable CBC. Chemistry panel did reveal elevated LFTs. These are new compared to his prior values of 3 weeks ago. Imaging studies: Ultrasound revealed findings concerning for acute cholecystitis. Consultation: A consultation was placed with the [facility] surgery and internal medicine team. The case was discussed and diagnostics were reviewed. The patient was evaluated in the ER for further treatment by internal medicine. IMPRESSION: Acute cholecystitis. PLAN: Admit. The scribe's documentation has been prepared under my direction and personally reviewed by me in its entirety. I confirm that the note above accurately reflects all work, treatment, procedures, and medical decision making performed by me. Impression & Plan Acute cholecystitis Past Med/Surg History Medical History Essential tremor Social History Feels Safe at Home: Yes Smoking Status: Never smoker Results & Data Vital Signs Vital Signs - 24 hr 02/19/18 17:03 02/19/18 17:59 02/19/18 18:38 Temperature 36.9 C Temperature Source Oral Sepsis Recent Fever Within 48 Hours No Sepsis New/Unexplained Change in Mental Status No Sepsis Action Taken by Nursing No Action Required Pulse Rate 65 Pulse Rate [Finger] 68 Pulse Rhythm Regular Pulse Rhythm [Finger] Pulse Strength Normal Pulse Strength [Finger] Respiratory Rate 20 20 Respiratory Effort / Characteristics Non-Labored Respiratory Depth Normal Respiratory Pattern Regular Blood Pressure 126/65 Blood Pressure [Right Arm] 107/66 Blood Pressure Mean 85 Blood Pressure Mean [Right Arm] 79 Blood Pressure Position Sitting Blood Pressure Position [Right Arm] Pulse Oximetry 95 97 97 Oxygen Delivery Method Room Air Room Air Room Air 02/19/18 19:32 02/19/18 21:09 Temperature Temperature Source Sepsis Recent Fever Within 48 Hours Sepsis New/Unexplained Change in Mental Status Sepsis Action Taken by Nursing Pulse Rate Pulse Rate [Finger] 68 69 Pulse Rhythm Pulse Rhythm [Finger] Regular Regular Pulse Strength Pulse Strength [Finger] Normal Normal Respiratory Rate 20 20 Respiratory Effort / Characteristics Non-Labored Spontaneous Non-Labored Spontaneous Respiratory Depth Normal Normal Respiratory Pattern Regular Regular Blood Pressure Blood Pressure [Right Arm] 117/73 117/73 Blood Pressure Mean Blood Pressure Mean [Right Arm] 87 87 Blood Pressure Position Blood Pressure Position [Right Arm] Sitting Sitting Pulse Oximetry 95 94 Oxygen Delivery Method Room Air Room Air Home Medications Current Medication List: was personally reviewed by me Laboratory Data Attestation: I reviewed the patient's lab results. Result diagrams: 02/19/18 18:10 02/19/18 18:10 Lab Results 02/19/18 02/19/18 02/19/18 Range/Units 18:10 18:10 18:35 WBC 10.31 (4.8-10.8) K/uL RBC 5.43 (4.7-6.1) M/uL Hgb 14.6 (14.0-18.0) g/dL Hct 43.4 (42-52) % MCV 79.9 L (80-100) fL MCH 26.9 (25-34) pg MCHC 33.6 (32-36) g/dL RDW Std Deviation 42.2 (36.4-46.3) fL RDW Coeff of Stella 14.6 H (11.5-14.5) % Plt Count 79 L (130-400) K/uL MPV 10.8 H (7.4-10.4) fL Neutrophils % (Manual) 48.2 % Lymphocytes % (Manual) 46.5 % Monocytes % (Manual) 5.3 % Neutrophils # (Manual) 4.97 (1.4-6.5) K/uL Total Absolute Neuts 4.97 (1.4-6.5) K/uL Lymphocytes # (Manual) 4.79 H (1.2-3.4) K/uL Total Abs Lymphocytes 4.79 H (1.2-3.4) K/uL Monocytes # (Manual) 0.55 (0.11-0.59) K/uL Platelet Estimate Decreased (Normal) Sodium 134 L (136-145) mmol/L Potassium 3.6 (3.5-5.1) mmol/L Chloride 100 (98-107) mmol/L Carbon Dioxide 27 (21-32) mmol/L Anion Gap 7.0 (3-11) BUN 26 H (7-18) mg/dl Creatinine 0.59 L (0.6-1.4) mg/dl Est Cr Clr Drug Dosing 124.1 ml/min Est GFR ( Amer) 118.9 Est GFR (Non-Af Amer) 102.6 BUN/Creatinine Ratio 44.3 H (10-20) Glucose 105 H (70-99) mg/dl Calcium 9.4 (8.5-10.1) mg/dl Magnesium 2.0 (1.8-2.4) mg/dl Total Bilirubin 1.4 H (0.1-1) mg/dl AST 65 H (15-37) U/L ALT 84 H (12-78) U/L Alkaline Phosphatase 97 (45-117) U/L Total Protein 7.5 (6.4-8.2) gm/dl Albumin 2.9 L (3.4-5.0) gm/dl Globulin 4.6 H (2.5-4.0) gm/dl Albumin/Globulin Ratio 0.6 L (0.9-2) Lipase 135 (73-393) U/L Urine Color Dark Yellow Urine Appearance Clear (Clear) Urine pH 6.0 (4.5-7.5) Ur Specific [place] 1.025 (1.000-1.030) Urine Protein 1+ H (Negative) Urine Glucose (UA) Negative (Negative) Urine Ketones Negative (Negative) Urine Blood 1+ H (Negative) Urine Nitrite Positive H (Negative) Urine Bilirubin Negative (Negative) Urine Urobilinogen Positive H (Negative) Ur Leukocyte Esterase Trace H (Negative) Urine WBC (Auto) 5-10 H (0-5) /hpf Urine RBC (Auto) 5-10 H (0-4) /hpf U Hyaline Cast (Auto) 1-5 (0-5) /lpf U Epithel Cells (Auto) 10-20 H (0-5) /lpf Urine Bacteria (Auto) 2+ H (Negative) Imaging Data Radiologist's Impression: Radiology results as stated below per my review and the radiologist's interpretation: ABDOMINAL ULTRASOUND, RIGHT UPPER QUADRANT HISTORY: RUQ pain. COMPARISON: PET CT 03/19/2017. FINDINGS: Pancreas: Not well visualized due to overlying bowel gas. Liver: Unremarkable. Gallbladder: Thickened and heterogeneous wall measuring up to 7 mm. There appears to be trace pericholecystic fluid. There is a single gallstone measuring 3 cm. CBD: 5 mm. Right kidney: No hydronephrosis. A 7 mm stone, unchanged. IMPRESSION: 1. Thickened and heterogeneous gallbladder wall with trace pericholecystic fluid and a 3 cm gallstone. Findings are suspicious for acute cholecystitis. 2. Right-sided nephrolithiasis. No hydronephrosis. Electronically signed by: Home Harrell M.D. 02/19/2018 7:34 PM Blood Pressure Blood Pressure Findings: Normal blood pressure Blood Pressure Disposition: did not require urgent referral Discharge Plan Visit Data Chief Complaint: Illness Stated Complaint: HICCUPS, GALLBLADDER ED Provider: Marbin Gonzalez Discharge Problem: Acute cholecystitis Patient Disposition: Being Evaluated by Hospitalist Forms Stand Alone Forms: My [facility] Prescriptions Prescriptions: No Action multivitamin Tablet 1 tab PO DAILY RF: 0 propranolol 60 mg tablet 60 mg PO BID RF: 0 calcium carbonate [Tums] 200 mg calcium (500 mg) Tablet,Chewable 200 mg PO TID PRN (Reason: REFLUX) RF: 0 nivolumab [Opdivo] 100 mg/10 mL Solution 1 dose IV MONTHLY RF: 0 Referrals Referrals: Keith Mcmanus DO [Primary Care Provider] - The scribe's documentation has been prepared under my direction and personally reviewed by me in its entirety. I confirm that the note above accurately reflects all work, treatment, procedures, and medical decision making performed by me.
--- NOTE | 2018-02-19 22:21 | History & Physical Report ---
Date of Service February 19, 2018 Assessment & Plan (1) Acute cholecystitis: Mr. 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 -Admit to med/surg -Patient received a dose of 2 g of cefoxitin in the emergency department - continue cefoxitin -Consult general surgery for help with management -N.p.o. at midnight in case of intervention -AST and ALT elevated, as well as total bilirubin. Lipase normal -LR at 120 mls/hour -Of note, UA is contaminated, but concerning for an infection. Patient is asymptomatic from a urinary standpoint. Urine culture sent. Cefoxitin will cover for urinary source as well. (2) Thrombocytopenia: -Patient's platelets, as per review of outpatient records, have generally run low at 130-140 -Patient's platelet count 79 at this time - ?possibly related to treatment with nivolumab -continue to monitor (3) Intractable hiccups: -Trial of 25mg of chlorpromazine to help with intractable hiccups (4) Malignant melanoma metastatic to lymph node: -Patient follows with Courtney Harvey PA-C at [facility]c ( [facility] [place]) -Patient planning to receive 1 year therapy with the Nivolumab -Due for next dose on March 04 (5) Essential tremor: -Continue home propanolol (6) DVT prophylaxis: -SCD knees CODE STATUS: Full Disposition: Admit to med/surg F/E/N: N.p.o. in case of intervention tomorrow. Maintenance fluids with LR at 120 mls/hr. History of Present Illness Primary Care Provider: Keith Mcmanus DO Mr. 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 He states that this began at 8:30 PM last night and has occurred nonstop since then. He states that the most that he would get is 2 minutes of rest at any given time. He denies any abdominal pain, nausea, vomiting, fever or chills. He does state that on Friday night, he had one episode of pain in his back that radiated to his right side, however this resolved without any intervention. He also reports having had loose bowel movements lately, without overt diarrhea or the presence of blood in his stool. He notes that his urine is darker than usual, however denies dysuria or frequency. He states that he was told that darker urine could be a side effect of his medication (nivolumab). He has never had any surgeries on his abdomen, and has no history of trouble with his gallbladder. Of note, he is a non-smoker and does not use recreational drugs. He is an occasional alcohol drinker. With regards to his malignant melanoma, he receives the Nivolumab on a monthly basis, and is due for his next dose on March 04. His last dose was given to him 2 weeks ago. Allergies Allergy/AdvReac Type Severity Reaction Status Date / Time No Known Allergies Allergy Unverified 02/19/18 20:38 Home Medications Home Medications Medication Instructions Recorded Confirmed Type calcium carbonate [Tums] 200 mg PO TID PRN 02/19/18 02/19/18 History multivitamin 1 tab PO DAILY 02/19/18 02/19/18 History nivolumab [Opdivo] 1 dose IV MONTHLY 02/19/18 02/19/18 History propranolol 60 mg PO BID 02/19/18 02/19/18 History Past Med/Surg History Medical History Essential tremor (Chronic) Malignant melanoma Surgical History H/O inguinal hernia repair H/O lymph node excision Social History Current Living Situation: Spouse Other Information That Helps Us Care for You: No Feels Safe at Home: Yes Safety Concerns: Feels Safe At This Time Smoking Status: Never smoker Do You Dip or Chew Tobacco: No Hx Alcohol Use: Yes Alcohol type: beer and hard liquor Alcohol Intake Frequency : holidays/special occasions only Hx Substance Use: No Beliefs That Will Affect Care: None Communication Ability: Effective Review of Systems Constitutional: no fever, no chills, no fatigue and no weakness Respiratory: no cough and no dyspnea Cardiovascular: no chest pain, no palpitations, no syncope, no edema and no calf pain Gastrointestinal: + heartburn and + diarrhea/loose stools; no abdominal pain, no nausea, no vomiting, no constipation and no blood in stools hiccups Genitourinary (Male): no dysuria, no urinary frequency, no urinary hesitancy and no flank pain Right-sided low back pain Integumentary: no rash and no new lesions Physical Exam 2 Vital Signs (Past 24 Hours): Last Vital Signs Temp 36.9 C 02/19/18 17:03 Pulse 66 02/19/18 22:03 Resp 17 02/19/18 22:03 BP 117/73 02/19/18 21:09 Pulse Ox 98 02/19/18 22:03 Constitutional: WD/WN, vitals as above Frequently hiccuping. Tremor present in bilateral arms Eyes: PERRL, conjunctivae normal, anicteric sclerae ENMT: external ear and nose normal, oropharynx normal Respiratory: normal respiratory effort, lungs clear to auscultation Cardiovascular: RRR, no murmur, no edema Vessels: radial pulses present Extremities: no calf tenderness and no pedal edema Gastrointestinal (Abdomen): normal bowel sounds, soft, nontender, no hepatosplenomegaly Goodman sign negative. No flank pain. Musculoskeletal: Lower backup engineer to palpation, worse on the right side Results & Data Laboratory Results Laboratory Results - last 24 hr 02/19/18 02/19/18 02/19/18 18:10 18:10 18:35 WBC 10.31 RBC 5.43 Hgb 14.6 Hct 43.4 MCV 79.9 L MCH 26.9 MCHC 33.6 RDW Std Deviation 42.2 RDW Coeff of Stella 14.6 H Plt Count 79 L MPV 10.8 H Neutrophils % (Manual) 48.2 Lymphocytes % (Manual) 46.5 Monocytes % (Manual) 5.3 Neutrophils # (Manual) 4.97 Total Absolute Neuts 4.97 Lymphocytes # (Manual) 4.79 H Total Abs Lymphocytes 4.79 H Monocytes # (Manual) 0.55 Platelet Estimate Decreased Sodium 134 L Potassium 3.6 Chloride 100 Carbon Dioxide 27 Anion Gap 7.0 BUN 26 H Creatinine 0.59 L Est Cr Clr Drug Dosing 124.1 Est GFR ( Amer) 118.9 Est GFR (Non-Af Amer) 102.6 BUN/Creatinine Ratio 44.3 H Glucose 105 H Calcium 9.4 Magnesium 2.0 Total Bilirubin 1.4 H AST 65 H ALT 84 H Alkaline Phosphatase 97 Total Protein 7.5 Albumin 2.9 L Globulin 4.6 H Albumin/Globulin Ratio 0.6 L Lipase 135 Urine Color Dark Yellow Urine Appearance Clear Urine pH 6.0 Ur Specific [place] 1.025 Urine Protein 1+ H Urine Glucose (UA) Negative Urine Ketones Negative Urine Blood 1+ H Urine Nitrite Positive H Urine Bilirubin Negative Urine Urobilinogen Positive H Ur Leukocyte Esterase Trace H Urine WBC (Auto) 5-10 H Urine RBC (Auto) 5-10 H U Hyaline Cast (Auto) 1-5 U Epithel Cells (Auto) 10-20 H Urine Bacteria (Auto) 2+ H Supervising Physician Co-Signing Physician Notes Attending addendum: I have physically seen this patient, have supervised the medical residents activities, and agree with the H&P unless as otherwise noted. Assessment and Plan: Acute cholecystitis-- Admit to medical surgical nonmonitored bed. NPO except essential medications. Serial CBC with differential, chemistry profile and magnesium levels. LR at 20 mils per hour. Continue cefoxitin begun in ED. Consult general surgery. Remainder of orders and notations as noted. Resident Activity Tracking Resident Involvement: Resident Care Provided Care Provided: Adult Hospital Medicine
[2018-02-19] MEDS ORDERED: CHLORPROMAZINE HCL 25 MG TABLET PO ONE (23:26)
[2018-02-20] MEDS ORDERED: CALCIUM CARBONATE 500 MG CHEWABLE TAB PO PRN (00:27)
[2018-02-20] MEDS: LACTATED RINGER'S 1,000 ML IV SCH ×3 (00:47→18:19)
[2018-02-20] MEDS: PROPRANOLOL HCL 20 MG TAB PO SCH ×3 (01:47→21:05)
[2018-02-20] MEDS: cefOXitin 2,000 MG in DEXTROSE 5% 50 ML IV SCH ×3 (05:36→21:05)
--- NOTE | 2018-02-20 08:51 | Surgery Consultation ---
Date of Consultation February 20, 2018 Assessment & Plan (1) Acute cholecystitis: 68 year old male with history of malignant melanoma and essential tremor presented to emergency department with nonstop hiccups and RUQ abdominal pain and back pain after eating. Labs show no leukocytosis but elevated t. bili and LFTS. Lipase wnl. US showing thickened gallbladder wall with pericholecystic fluid and 3 cm gallstone. Repeat am labs still pending. Nontender benign abdomen on examination today. Plan: Will plan for laparoscopic cholecystectomy possible open by Dr. Becerra tomorrow am. Will discuss with medical team in regards to his thrombocytopenia and medical clearance for surgery given his chemotherapy regimen. Continue IV antibiotics Continue IV fluids Continue PO Meds today Awaiting results of repeat labs today Will call later today after medicine team evaluates for final plan and optimization for procedure tomorrow. Discussed patient with Dr. Becerra who agrees with above and will evaluate patient later today. (2) Thrombocytopenia: History of Present Illness Reason for Consultation: Acute Cholecystitis Requesting Physician: Guerda Martin Attending Physician: Ronen Mroales DO History of Present Illness Kobe is a pleasant 68 year-old male with medical history including malignant melanoma and essential tremor who presented to emergency department last evening with complaint of RUQ abdominal pain and hiccups. Kobe states he has not been able to eat for the past couple of days. Had two pieces of toast yesterday. Last Friday he had a cheese steak sub in which he noticed pain in the back between his shoulder blades and then around his right abdomen. Has never had pain like this before. States he has had hiccups for the past few days which have been nonstop. Denies of any fever, chills, nausea, vomiting, chest pain/pressure, shortness of breath, difficulty breathing, constipation, blood in stools, black/tarry stools, difficulty urinating, blood in urine. States he has noticed some loose stools in the past couple of days. He is currently being treated for malignant melanoma with IV Opdivo monthly. He believes his next treatment in March 04. He states his urine tends to be darker since starting the Opdivo. No blood thinning agents. ER work-up included labs which showed no leukocytosis. CMP showed elevated LFTS and T. bili. Ultrasound of the RUQ showed thickening gallbladder wall at 7 mm with pericholecystic fluid and a 3 cm stone. No mention of CBD or caliber. Bo. bili 1.4 AST- 65 ALT- 84 ALK- 98 Lipase- 135 Since admission he states he still is having hiccups but denies of any abdominal pain. Denies fever, chills, nausea, or vomiting. Allergies Allergy/AdvReac Type Severity Reaction Status Date / Time No Known Allergies Allergy Unverified 02/19/18 20:38 Home Medications Home Medications Medication Instructions Recorded Confirmed Type calcium carbonate [Tums] 200 mg PO TID PRN 02/19/18 02/19/18 History multivitamin 1 tab PO DAILY 02/19/18 02/19/18 History nivolumab [Opdivo] 1 dose IV MONTHLY 02/19/18 02/19/18 History propranolol 60 mg PO BID 02/19/18 02/19/18 History Patient History Medical History Essential tremor Malignant melanoma Surgical History H/O inguinal hernia repair H/O lymph node excision Social History Current Living Situation: Spouse Other Information That Helps Us Care for You: No Feels Safe at Home: Yes Safety Concerns: Feels Safe At This Time Smoking Status: Never smoker Do You Dip or Chew Tobacco: No Hx Alcohol Use: Yes Alcohol type: beer and hard liquor Alcohol Intake Frequency : holidays/special occasions only Hx Substance Use: No Beliefs That Will Affect Care: None Preferred Language: Armenian Communication Ability: Effective Overlock Collar Setter Required: No Review of Systems Constitutional: as per Subjective / HPI Physical Exam 2 Vital Signs (Past 24 Hours): Last Vital Signs Temp 36.6 C 02/20/18 07:25 Pulse 63 02/20/18 07:25 Resp 14 02/20/18 07:25 BP 116/70 02/20/18 07:25 Pulse Ox 95 02/20/18 07:25 Constitutional: WD/WN, vitals as above no acute distress Eyes: PERRL, conjunctivae normal, anicteric sclerae Neck: trachea midline Respiratory: normal respiratory effort, lungs clear to auscultation no respiratory distress, no labored breathing, no retractions and does not use accessory muscles Cardiovascular: RRR, no murmur, no edema Gastrointestinal (Abdomen): Inspection/Auscultation: abdomen normal to inspection; abdomen not distended Percussion/Palpation: abdomen soft and + hernia (umbilical hernia, nontender, reducible); abdomen nontender, no guarding and abdomen not rigid Skin: no rashes, warm and dry Neurologic: Motor/Sensory: + tremor Psychiatric: A+Ox3, euthymic affect Results & Data Laboratory Results 02/20/18 02/20/18 02/19/18 Range/Units 08:35 08:35 18:35 WBC 5.31 (4.8-10.8) K/uL RBC 4.77 (4.7-6.1) M/uL Hgb 12.7 L (14.0-18.0) g/dL Hct 38.4 L (42-52) % MCV 80.5 (80-100) fL MCH 26.6 (25-34) pg MCHC 33.1 (32-36) g/dL RDW Std Deviation 43.1 (36.4-46.3) fL RDW Coeff of Stella 14.8 H (11.5-14.5) % Plt Count Pending (130-400) K/uL MPV (7.4-10.4) fL Neutrophils % (Manual) % Lymphocytes % (Manual) % Monocytes % (Manual) % Neutrophils # (Manual) (1.4-6.5) K/uL Total Absolute Neuts (1.4-6.5) K/uL Lymphocytes # (Manual) (1.2-3.4) K/uL Total Abs Lymphocytes (1.2-3.4) K/uL Monocytes # (Manual) (0.11-0.59) K/uL Platelet Estimate (Normal) Sodium Pending (136-145) mmol/L Potassium Pending (3.5-5.1) mmol/L Chloride Pending (98-107) mmol/L Carbon Dioxide Pending (21-32) mmol/L Anion Gap Pending (3-11) BUN Pending (7-18) mg/dl Creatinine Pending (0.6-1.4) mg/dl Est Cr Clr Drug Dosing Pending ml/min Est GFR ( Amer) Pending Est GFR (Non-Af Amer) Pending BUN/Creatinine Ratio Pending (10-20) Glucose Pending (70-99) mg/dl Calcium Pending (8.5-10.1) mg/dl Magnesium (1.8-2.4) mg/dl Total Bilirubin Pending (0.1-1) mg/dl AST Pending (15-37) U/L ALT Pending (12-78) U/L Alkaline Phosphatase Pending (45-117) U/L Total Protein Pending (6.4-8.2) gm/dl Albumin Pending (3.4-5.0) gm/dl Globulin Pending (2.5-4.0) gm/dl Albumin/Globulin Ratio Pending (0.9-2) Lipase (73-393) U/L Urine Color Dark Yellow Urine Appearance Clear (Clear) Urine pH 6.0 (4.5-7.5) Ur Specific [place] 1.025 (1.000-1.030) Urine Protein 1+ H (Negative) Urine Glucose (UA) Negative (Negative) Urine Ketones Negative (Negative) Urine Blood 1+ H (Negative) Urine Nitrite Positive H (Negative) Urine Bilirubin Negative (Negative) Urine Urobilinogen Positive H (Negative) Ur Leukocyte Esterase Trace H (Negative) Urine WBC (Auto) 5-10 H (0-5) /hpf Urine RBC (Auto) 5-10 H (0-4) /hpf U Hyaline Cast (Auto) 1-5 (0-5) /lpf U Epithel Cells (Auto) 10-20 H (0-5) /lpf Urine Bacteria (Auto) 2+ H (Negative) Hepatitis C Ab Screen 02/19/18 02/19/18 02/19/18 Range/Units 18:10 18:10 18:10 WBC 10.31 (4.8-10.8) K/uL RBC 5.43 (4.7-6.1) M/uL Hgb 14.6 (14.0-18.0) g/dL Hct 43.4 (42-52) % MCV 79.9 L (80-100) fL MCH 26.9 (25-34) pg MCHC 33.6 (32-36) g/dL RDW Std Deviation 42.2 (36.4-46.3) fL RDW Coeff of Stella 14.6 H (11.5-14.5) % Plt Count 79 L (130-400) K/uL MPV 10.8 H (7.4-10.4) fL Neutrophils % (Manual) 48.2 % Lymphocytes % (Manual) 46.5 % Monocytes % (Manual) 5.3 % Neutrophils # (Manual) 4.97 (1.4-6.5) K/uL Total Absolute Neuts 4.97 (1.4-6.5) K/uL Lymphocytes # (Manual) 4.79 H (1.2-3.4) K/uL Total Abs Lymphocytes 4.79 H (1.2-3.4) K/uL Monocytes # (Manual) 0.55 (0.11-0.59) K/uL Platelet Estimate Decreased (Normal) Sodium 134 L (136-145) mmol/L Potassium 3.6 (3.5-5.1) mmol/L Chloride 100 (98-107) mmol/L Carbon Dioxide 27 (21-32) mmol/L Anion Gap 7.0 (3-11) BUN 26 H (7-18) mg/dl Creatinine 0.59 L (0.6-1.4) mg/dl Est Cr Clr Drug Dosing 124.1 ml/min Est GFR ( Amer) 118.9 Est GFR (Non-Af Amer) 102.6 BUN/Creatinine Ratio 44.3 H (10-20) Glucose 105 H (70-99) mg/dl Calcium 9.4 (8.5-10.1) mg/dl Magnesium 2.0 (1.8-2.4) mg/dl Total Bilirubin 1.4 H (0.1-1) mg/dl AST 65 H (15-37) U/L ALT 84 H (12-78) U/L Alkaline Phosphatase 97 (45-117) U/L Total Protein 7.5 (6.4-8.2) gm/dl Albumin 2.9 L (3.4-5.0) gm/dl Globulin 4.6 H (2.5-4.0) gm/dl Albumin/Globulin Ratio 0.6 L (0.9-2) Lipase 135 (73-393) U/L Urine Color Urine Appearance (Clear) Urine pH (4.5-7.5) Ur Specific [place] (1.000-1.030) Urine Protein (Negative) Urine Glucose (UA) (Negative) Urine Ketones (Negative) Urine Blood (Negative) Urine Nitrite (Negative) Urine Bilirubin (Negative) Urine Urobilinogen (Negative) Ur Leukocyte Esterase (Negative) Urine WBC (Auto) (0-5) /hpf Urine RBC (Auto) (0-4) /hpf U Hyaline Cast (Auto) (0-5) /lpf U Epithel Cells (Auto) (0-5) /lpf Urine Bacteria (Auto) (Negative) Hepatitis C Ab Screen Pending Diagnostic Findings ABDOMINAL ULTRASOUND, RIGHT UPPER QUADRANT HISTORY: RUQ pain. COMPARISON: PET CT 03/19/2017. FINDINGS: Pancreas: Not well visualized due to overlying bowel gas. Liver: Unremarkable. Gallbladder: Thickened and heterogeneous wall measuring up to 7 mm. There appears to be trace pericholecystic fluid. There is a single gallstone measuring 3 cm. CBD: 5 mm. Right kidney: No hydronephrosis. A 7 mm stone, unchanged. IMPRESSION: 1. Thickened and heterogeneous gallbladder wall with trace pericholecystic fluid and a 3 cm gallstone. Findings are suspicious for acute cholecystitis. 2. Right-sided nephrolithiasis. No hydronephrosis.
[2018-02-20 08:52] LABS: Hematocrit (blood only) 38.4 % (42-52); Hemoglobin 12.7 g/dL (14.0-18.0); Mean Corpuscular Hgb Conc 33.1 g/dL (32-36); Mean Corpuscular Volume 80.5 fL (80-100); RDW Coefficient of Variation 14.8 % (11.5-14.5); RDW Standard Deviation 43.1 fL (36.4-46.3); Red Blood Count 4.77 M/uL (4.7-6.1); White Blood Count 5.31 K/uL (4.8-10.8)
[2018-02-20] MEDS: MULTIVITAMIN TAB PO SCH (09:01)
[2018-02-20 09:18] LABS: Mean Platelet Volume 9.8 fL (7.4-10.4); Platelet Count 50 K/uL (130-400)
[2018-02-20 09:19] LABS: Albumin Level 2.3 gm/dl (3.4-5.0); BUN Creatinine Ratio 28.8 (10-20); Calcium 8.5 mg/dl (8.5-10.1); Creatinine Clr Calc Pharmacy 93.9 ml/min; Est GFR (Non-African American) 91.5; Potassium 3.4 mmol/L (3.5-5.1)
[2018-02-20 09:24] LABS: Albumin Globulin Ratio 0.7 (0.9-2); Bilirubin,Total 1.3 mg/dl (0.1-1); Globulin 3.5 gm/dl (2.5-4.0); Total Protein 5.8 gm/dl (6.4-8.2)
[2018-02-20] MEDS ORDERED: SODIUM CHLORIDE 0.9% 250 ML IV PRN (10:11)
[2018-02-20] MEDS: ACETAMINOPHEN 325 MG TAB PO PRN ×2 (10:31→21:15)
--- NOTE | 2018-02-20 10:38 | Hospitalist Progress Note ---
Date of Service February 20, 2018 Assessment & Plan (1) Acute cholecystitis: - GB U/S with thickening of GB wall and fluid and evidence of gallstone - Cefoxitin 2 g IV Q8H - Clear liquid diet and NPO at midnight - LFTs and total bili are improving and will monitor with CMP in AM - LR at 80 mL/hrs - Gen Surg following - Discussed with Sulma Andrade - planning on surgical intervention in AM pending improvement in platelets Present on Admission?: Yes (2) Preoperative examination: - Patient denies H/O cardiac or pulmonary disease - no H/O DVT/PE/PA/CHF - Reports he can perform is ADLs without difficulty. Reports progressive weakness/fatigue from deconditioning and does take some time to ambulate stairs however denies exertional CP or SOB. 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 No active signs of bleeding but will transfuse 2 units platelets and monitor with labs - Pending improvement in platelets medically patient would be optimal for surgical intervention (3) Thrombocytopenia: - This is likely in the setting of multiple myeloma/Opdivo treatment - no active signs of bleeding - Average platelets for him are 130-140 however he states his platelets have been lower - Transfuse 2 units of platelets and monitor Present on Admission?: Yes (4) Intractable hiccups: - Reports temporary relief with Thorazine - Continue Thorazine 25 mg TID ROSELYN and monitor Present on Admission?: Yes (5) Essential tremor: - Follows with [facility] - has some elements of Parkinsonism as well - Propranolol 60 mg BID Present on Admission?: Yes (6) Multiple myeloma: - This is with progression into the lymph nodes - follows with Heme/Onc [facility] (Courtney Harvey PA-C) - Currently on Opdivo with next dose on March 04, 2018 Present on Admission?: Yes (7) DVT prophylaxis: - SCDs Disposition: Await surgical intervention Subjective Patient reports feeling well overall today. Continues to have intractable hiccups. Reports temporary relief with Thorazine and will schedule this TID and monitor for improvement. Denies abdominal pain, N/V/D. Platelets are at 50 today and likely some dilution as this dropped from 79. He reports he has been lower. No signs of bleeding. Will transfuse platelets given plan for surgery tomorrow. He denies H/O cardiac disease or PA/PE/DVT. He reports he is able to complete ADLs and walk a flight of stairs without exertional CP or SOB but does endorse progressive generalized weakness and fatigue with this type of activity as he reports deconditioning since retiring and his treatment Once his platelets counts are more acceptable. He would be medically optimal for surgical intervention Constitutional: no fever and no chills Eyes: no worsening vision Ear, Nose, Mouth, Throat: no sore throat, no hoarseness and no dysphagia Respiratory: no cough and no dyspnea Cardiovascular: no chest pain, no orthopnea, no palpitations, no edema and no calf pain Gastrointestinal: no abdominal pain, no nausea, no vomiting, no constipation and no diarrhea/loose stools Genitourinary (Male): no dysuria Musculoskeletal: no swelling, no myalgia and no body aches Integumentary: no rash Physical Exam 2 Vital Signs (Past 24 Hours): Last Vital Signs Temp 36.6 C 02/20/18 07:25 Pulse 63 02/20/18 07:25 Resp 14 02/20/18 07:25 BP 116/70 02/20/18 07:25 Pulse Ox 95 02/20/18 07:25 Constitutional: well developed and well nourished; no acute distress and not ill appearing Eyes: + anicteric sclerae ENMT: Throat: uvula midline; no posterior oropharynx abnormality Neck: trachea midline Respiratory: normal respiratory effort, lungs clear to auscultation Cardiovascular: Rate/Rhythm: regular rate and regular rhythm Heart Sounds: no murmur Gastrointestinal (Abdomen): Inspection/Auscultation: normal bowel sounds Percussion/Palpation: abdomen soft; abdomen nontender Musculoskeletal: Head/Neck/Chest: normocephalic, head atraumatic and neck supple Skin: no rashes, warm and dry Neurologic: moves all extremities Psychiatric: A+Ox3, euthymic affect _ (1) Multiple myeloma Multiple myeloma remission status: not in remission Qualified Code(s): C90.00 - Multiple myeloma not having achieved remission
[2018-02-20] MEDS: PANTOprazole 40 MG TAB PO SCH (11:07)
[2018-02-20] MEDS: CHLORPROMAZINE HCL 25 MG TABLET PO SCH ×2 (11:07→13:53)
[2018-02-20] MEDS ORDERED: CHLORPROMAZINE HCL 25 MG TABLET PO PRN (20:53)
[2018-02-20] MEDS ORDERED: SODIUM CHLORIDE 0.9% 1000ML 500 ML IV ONE (22:31)
[2018-02-20] MEDS: ACETAMINOPHEN 1,000 MG/100 ML VIAL IV SCH (23:43)
[2018-02-21] MEDS: LACTATED RINGER'S 1,000 ML IV SCH (04:02)
[2018-02-21] MEDS: cefOXitin 2,000 MG in DEXTROSE 5% 50 ML IV SCH ×3 (05:38→20:55)
[2018-02-21] MEDS: ACETAMINOPHEN 1,000 MG/100 ML VIAL IV SCH ×3 (06:26→23:26)
[2018-02-21 06:29] LABS: Hematocrit (blood only) 36.6 % (42-52); Mean Corpuscular Hgb Conc 32.8 g/dL (32-36); Mean Corpuscular Volume 81.2 fL (80-100); RDW Coefficient of Variation 14.9 % (11.5-14.5); RDW Standard Deviation 43.8 fL (36.4-46.3); Red Blood Count 4.51 M/uL (4.7-6.1); White Blood Count 4.33 K/uL (4.8-10.8)
[2018-02-21 06:31] LABS: Mean Platelet Volume 9.9 fL (7.4-10.4); Platelet Count 52 K/uL (130-400)
[2018-02-21] MEDS ORDERED: fentaNYL citrate 100 MCG/2 ML VIAL ONE (06:47)
[2018-02-21] MEDS ORDERED: MIDAZOLAM HCL 1 MG/ML 2ML VIAL ONE (07:03)
[2018-02-21 07:10] LABS: Albumin Globulin Ratio 0.7 (0.9-2); Albumin Level 2.1 gm/dl (3.4-5.0); BUN Creatinine Ratio 12.5 (10-20); Bilirubin,Total 1.8 mg/dl (0.1-1); Creatinine Clr Calc Pharmacy 64.2 ml/min; Est GFR (African American) 75.1; Est GFR (Non-African American) 64.8; Globulin 3.1 gm/dl (2.5-4.0); Potassium 3.5 mmol/L (3.5-5.1); Total Protein 5.2 gm/dl (6.4-8.2)
--- NOTE | 2018-02-21 07:10 | Anesthesiology Consultation ---
Date of Service February 21, 2018 Assessment & Plan (1) Encounter for pre-operative examination: Chart Review Chart Review: Acceptable Risk for Surgery and Patient NOT seen in Pre Admission Testing Consults Requested none The patient will be transfused 2 units of pheresed platelets before ssurgery. ASA ASA3 Proposed Anesthesia Anesthesia Type: General Risk / Benefits Reviewed With: PT / POA / Parent / Guardian, Accepts Plan and Informed Consent Obtained NPO Date Last Intake of Fluids: 02/21/18 Time Last Intake of Fluids: 00:00 Date Last Intake of Solids: 02/21/18 Time Last Intake of Solids: 00:00 History Surgery Operation Date: 02/21/18 07:30 Proposed Procedures p Laparoscopic Cholecystectomy, Possible Cholangiogram - Levy Becerra MD Height/Weight Height: 5 ft 11 in Weight: 80.9 kg Allergies Allergy/AdvReac Type Severity Reaction Status Date / Time No Known Allergies Allergy Unverified 02/19/18 20:38 Medications Home Medications Medication Instructions Recorded Confirmed Last Taken calcium carbonate [Tums] 200 mg PO TID PRN 02/19/18 02/19/18 Unknown multivitamin 1 tab PO DAILY 02/19/18 02/19/18 Unknown nivolumab [Opdivo] 1 dose IV MONTHLY 02/19/18 02/19/18 Unknown propranolol 60 mg PO BID 02/19/18 02/19/18 Unknown Active Medications Generic Name Dose Route Start Last Admin Trade Name Freq PRN Reason Stop Dose Admin Acetaminophen 650 mg 02/20/18 09:02 02/20/18 21:15 Tylenol PO 03/22/18 09:01 650 mg Q4H PRN Administration Mild Pain Lactated Ringer's 1,000 mls @ 80 mls/hr 02/20/18 00:27 02/21/18 06:42 Lr IV 03/22/18 00:26 80 mls/hr .[id number] ROSELYN Infusion Cefoxitin Sodium 2,000 mg/ 60 mls @ 100 mls/hr 02/20/18 06:00 02/21/18 06:22 Dextrose IV 03/02/18 05:59 Infused Q8H ROSELYN Infusion Acetaminophen 1,000 mg in 100 mls @ 400 mls/hr 02/20/18 23:00 02/21/18 06:42 Ofirmev IV 03/22/18 22:59 Infused Q8H ROSELYN Infusion Multivitamins 1 tab 02/20/18 09:00 02/20/18 09:01 Multivitamin PO 03/22/18 08:59 1 tab DAILY ROSELYN Administration Pantoprazole Sodium 40 mg 02/20/18 10:15 02/20/18 11:07 Protonix PO 03/22/18 10:14 40 mg QAM ROSELYN Administration Propranolol HCl 60 mg 02/20/18 00:27 02/20/18 21:05 Inderal PO 03/22/18 00:26 60 mg BID ROSELYN Administration Past Medical History Medical History Essential tremor (Chronic) Malignant melanoma Past Surgical History Surgical History H/O inguinal hernia repair H/O lymph node excision Social History Smoking Status: Never smoker Do You Dip or Chew Tobacco: No Hx Alcohol Use: Yes Alcohol type: beer and hard liquor alcohol intake frequency: holidays/special occasions only Hx Substance Use: No Review of Systems Respiratory: no dyspnea Cardiovascular: no chest pain Physical Exam Vital Signs Last Vital Signs Temp 36.6 C 02/21/18 06:44 Pulse 50 L 02/21/18 06:44 Resp 17 02/21/18 06:44 BP 106/53 L 02/21/18 06:44 Pulse Ox 95 02/21/18 06:44 Testing Electrocardiogram Date: 02/19/18 Findings: + NSR @ (69 bpm) Laboratory Results 02/21/18 06:11 02/21/18 06:11 Blood Type A Positive 02/20/18 10:23 Antibody Screen NEGATIVE 02/20/18 10:23 Urine Color Dark Yellow 02/19/18 18:35 Urine Appearance Clear (Clear) 02/19/18 18:35 Urine pH 6.0 (4.5-7.5) 02/19/18 18:35 Ur Specific [place] 1.025 (1.000-1.030) 02/19/18 18:35 Urine Protein 1+ (Negative) H 02/19/18 18:35 Urine Glucose (UA) Negative (Negative) 02/19/18 18:35 Urine Ketones Negative (Negative) 02/19/18 18:35 Urine Nitrite Positive (Negative) H 02/19/18 18:35 Ur Leukocyte Esterase Trace (Negative) H 02/19/18 18:35 Urine WBC (Auto) 5-10 /hpf (0-5) H 02/19/18 18:35 Urine RBC (Auto) 5-10 /hpf (0-4) H 02/19/18 18:35 U Hyaline Cast (Auto) 1-5 /lpf (0-5) 02/19/18 18:35 U Epithel Cells (Auto) 10-20 /lpf (0-5) H 02/19/18 18:35 Urine Bacteria (Auto) 2+ (Negative) H 02/19/18 18:35 02/19/18 18:35 Urine Culture - Preliminary Urine,Clean Catch Escherichia coli Laboratory Tests 02/21/18 02/21/18 06:11 06:11 WBC 4.33 L Hgb 12.0 L Hct 36.6 L Plt Count 52 L Sodium 139 Potassium 3.5 Chloride 105 Carbon Dioxide 29 BUN 14 Creatinine 1.14 D
[2018-02-21] MEDS ORDERED: SODIUM CHLORIDE 0.9% 250 ML IV PRN (07:23)
--- NOTE | 2018-02-21 07:33 | History & Physical Bridge Note ---
Date of Service February 21, 2018 History & Physical Bridge Note I have examined the patient, reviewed the History & Physical and in the interval since the performance of the History & Physical I have noted the following changes of clinical significance: no changes noted. We will, give two units of platelets prior to operative start. Risks explained to patient.
[2018-02-21] MEDS ORDERED: BUPIVACAINE/EPINEPHRINE 0.5% MPF 1:200,000 30 ML VIAL ONE (07:56)
[2018-02-21] MEDS ORDERED: DiphenhydrAMINE HCL 50 MG/ML VIAL ONE (08:02)
[2018-02-21] MEDS ORDERED: ePHEDrine sulfate 50 MG/ML AMP IV PRN (08:07)
[2018-02-21] MEDS ORDERED: ATROPINE SULFATE 0.1 MG/ML 5ML SYR IV PRN (08:07)
[2018-02-21] MEDS ORDERED: HYDROmorphone INJ 2 MG/ML SYR/VIAL IV PRN (08:07)
[2018-02-21] MEDS ORDERED: DEXAMETHASONE SOD INJ 4 MG/ML VIAL ONE (08:47)
[2018-02-21] MEDS ORDERED: LIDOCAINE HCL 2% 2 ML VIAL/AMP(20MG/ML) INFIL ONE (08:47)
[2018-02-21] MEDS ORDERED: GLYCOPYRROLATE 0.2 MG/ML VIAL ONE (08:47)
[2018-02-21] MEDS ORDERED: ONDANSETRON INJ 2 MG/ML 2 ML VIAL ONE (08:47)
[2018-02-21] MEDS ORDERED: NEOSTIGMINE METHYLSULFATE 5 MG/5 ML SYR ONE (08:47)
[2018-02-21] MEDS ORDERED: PROPOFOL IV EMULSION 10 MG/ML 20 ML VIAL IV ONE (08:47)
[2018-02-21] MEDS ORDERED: ePHEDrine sulfate 50 MG/ML SYR ONE (09:34)
--- NOTE | 2018-02-21 09:45 | Post Operative Brief Note ---
Immediate Post Op Note v1 Date of Surgery February 21, 2018 Pre & Post Diagnosis Operation Date: 02/21/18 07:30 Pre-Op Diagnosis: ACUTE CHOLECYSTITIS Post-Op Diagnosis: ACUTE GANGRENOUS CHOLECYSTITIS Procedure Operation Date: 02/21/18 07:30 Actual Procedures p Laparoscopic Cholecystectomy - Levy Becerra MD Surgeon Levy Becerra MD Bowling Alley Refinisher NONE Estimated Blood Loss 100 Findings Consistent with Post-Op Diagnosis Drains Kasi Drain (19fr)
--- NOTE | 2018-02-21 10:03 | Anesthesiology Progress Note ---
Date of Service February 21, 2018 Anesthesia Post Procedure Vital Signs Vital Signs: Temp Pulse Pulse Resp BP BP BP 02/21/18 07:57 36.8 C 49 L 16 95/55 L 02/21/18 06:44 36.6 C 50 L 17 106/53 L 02/21/18 03:12 36.7 C 106/56 L 107/61 02/20/18 23:33 37.7 C H 68 16 95/55 L 02/20/18 22:21 38.1 C H 02/20/18 22:15 38.5 C H 71 24 89/40 L 02/20/18 22:12 89/40 L 02/20/18 20:37 37.3 C 85 24 105/53 L 02/20/18 17:37 36.6 C 60 18 102/63 02/20/18 17:10 36.6 C 54 L 18 96/59 L 02/20/18 16:40 36.7 C 53 L 18 99/67 L 02/20/18 16:22 36.5 C 59 L 18 97/49 L 02/20/18 16:08 36.5 C 63 18 102/48 L 02/20/18 15:36 36.8 C 63 18 102/51 L 02/20/18 14:33 37.2 C 64 18 96/49 L 02/20/18 13:35 36.7 C 70 18 101/50 L 02/20/18 13:00 36.7 C 65 17 105/61 02/20/18 12:35 37.2 C 68 16 110/64 02/20/18 12:20 37.2 C 68 16 98/59 L 02/20/18 12:02 37.2 C 62 18 99/46 L Pulse Ox 02/21/18 07:57 94 02/21/18 06:44 95 02/21/18 03:12 02/20/18 23:33 93 02/20/18 22:21 02/20/18 22:15 92 02/20/18 22:12 02/20/18 20:37 94 02/20/18 17:37 95 02/20/18 17:10 02/20/18 16:40 95 02/20/18 16:22 95 02/20/18 16:08 96 02/20/18 15:36 96 02/20/18 14:33 95 02/20/18 13:35 02/20/18 13:00 93 02/20/18 12:35 94 02/20/18 12:20 94 02/20/18 12:02 94 Pain Intensity Right Back: Pain Intensity: 4 Right Hip: Pain Intensity: 5 Notes Mental Status: alert / awake / arousable Patient Amnestic to Procedure: Yes Nausea / Vomiting: adequately controlled Pain: adequately controlled Airway Patency, RR, SpO2: stable & adequate BP & HR: stable & adequate Hydration State: stable & adequate Anesthetic Complications: no major complications apparent and Pt Satisfied with anesthetic care
[2018-02-21] MEDS ORDERED: HYDROmorphone INJ 0.5 MG/0.5 ML SYR ONE (10:04)
--- NOTE | 2018-02-21 10:38 | Operative Report ---
DATE OF OPERATION: 02/21/2018 PREOPERATIVE DIAGNOSIS: Acute cholecystitis. POSTOPERATIVE DIAGNOSIS: Acute gangrenous cholecystitis. PROCEDURE PERFORMED: Laparoscopic cholecystectomy with extensive lysis of adhesions and difficult dissection. SURGEON: Levy Becerra MD. SCREEN TENDER: None. ANESTHESIA: General endotracheal of 0.5% Marcaine with epinephrine local. ESTIMATED BLOOD LOSS: 100 mL. DRAINS: Kasi drain left in the gallbladder fossa. COMPLICATIONS: None. SPECIMENS: Gallbladder sent to pathology. INDICATION FOR PROCEDURE: This is a 68-year-old male who was admitted with some vague abdominal discomfort. He had an ultrasound which shows acutely inflamed gallbladder. He had a thrombocytopenia, was admitted by medicine, was hydrated, given platelets and IV antibiotics, and will be taken to OR for laparoscopic cholecystectomy. He understands the risks of an open procedure, common bile duct injury, retained common bile duct stone, postop bile leak, bleeding, and wound problems. DESCRIPTION OF PROCEDURE: Patient was taken to the OR and underwent excellent general endotracheal anesthesia. His abdomen was prepped and draped in normal sterile fashion. A transverse supraumbilical incision was made. Dissection was taken down to identify his anterior fascia. Two Vicryls were placed in either side of midline. The midline was incised sharply. Madai trocar was then inserted. Good pneumoperitoneum achieved to 15 mmHg pressure. An 11 subxiphoid and two 5 lateral ports were placed in normal fashion. Gallbladder was identified, was acutely inflamed with gangrenous wall. This was aspirated, and this allowed the machuca to be grasped. The gallbladder was friable, had multiple dense adhesions. Fundus was grasped and retracted superiorly. The neck initially was identified as little higher, but once dissection was done, the neck was found to be somewhat lower. This was an extensive dissection. We took over 30 minutes to identify the structures with these dense adhesions and inflamed tissue. Once the neck was identified, this was put on tension. A good cystic duct was identified. This was skeletonized. The cystic artery was also identified. The medial and lateral window was created between the gallbladder and the gallbladder fossa to ensure that these structures were going into the gallbladder. Once this critical view was seen, 3 clips were placed distally on the cystic duct and 1 proximally. Cystic duct was transected. 2 clips were placed proximally in the cystic artery and 1 distally in the cystic artery, and cystic artery transected. The gallbladder which was friable basically had to be piecemealed out off the gallbladder fossa. Once this was done, there were 2 large stones within it. These were all placed within an Endobag and brought out. The abdomen was then irrigated out and suctioned clear. There was probably about 100 mL of blood loss. The gallbladder fossa did not show any active bleeding, but this was cauterized, and then a Surgicel was packed. A Kasi drain was then brought out from the lateral stab incisions and put into the gallbladder fossa. This was secured with a nylon suture. The ports were removed, and pneumoperitoneum was decompressed. 0 Vicryl was used to close the fascial defect. Interrupted Vicryl was used to close the subcutaneous and skin incisions. Steri-Strips and benzoin were used to reinforce the incision. Sterile dressing was applied. Patient tolerated the procedure well without complications, sent to recovery for a period of observation and be sent to floor for his care. I attest to the content of the Intraoperative Record and any orders documented therein. Any exception s are noted below.
[2018-02-21] MEDS ORDERED: OXYCODONE/ACETAMINOPHEN 5mg/325mg TAB PO PRN ×2 (11:01)
[2018-02-21] MEDS ORDERED: ONDANSETRON INJ 2 MG/ML 2 ML VIAL IV PRN (11:01)
[2018-02-21] MEDS ORDERED: MoRPHine SULFATE 4 MG/ML 1 ML CARP\\VIAL IV PRN (11:01)
[2018-02-21] MEDS ORDERED: MoRPHine SULFATE 2 MG/ML CARP IV PRN (11:01)
[2018-02-21] MEDS: PROPRANOLOL HCL 20 MG TAB PO SCH ×2 (11:12→20:55)
[2018-02-21] MEDS: MULTIVITAMIN TAB PO SCH (11:12)
[2018-02-21] MEDS: PANTOprazole 40 MG TAB PO SCH (11:13)
--- NOTE | 2018-02-21 12:53 | Hospitalist Progress Note ---
Date of Service February 21, 2018 Assessment & Plan (1) Acute cholecystitis: - S/P Lap Lorena with lysis adhesions and evidence of gangrenous gallbladder - Cefoxitin 2 g IV Q8H - Clear liquid diet and will advance as tolerated - Gen Surg following - appreciate surgical management Present on Admission?: Yes (2) Thrombocytopenia: - This is likely in the setting of multiple myeloma/Opdivo treatment however given the gangrenous findings maybe some suppression due to infection/ illness - Average platelets for him are 130-140 however he states his platelets have been lower - Transfused 2 units of platelets but minimal changes in labs; Had additional 2 units prior to surgery and will monitor Present on Admission?: Yes (3) Intractable hiccups: - Continue Thorazine 25 mg TID PRN but likely will stay resolved given surgical intervention Present on Admission?: Yes (4) Essential tremor: - Follows with [facility] - has some elements of Parkinsonism as well - Propranolol 60 mg BID Present on Admission?: Yes (5) Multiple myeloma: - This is with progression into the lymph nodes - follows with Heme/Onc [facility] (Courtney Harvey PA-C) - Currently on Opdivo with next dose on March 04, 2018 Present on Admission?: Yes (6) DVT prophylaxis: - SCDs Disposition: Continue antibiotics and advanced diet; Possible D/C next 2 days Subjective Reports feeling well post-operatively. Feels like he has a lot of gas but hasn' t pass much yet. Some mild radiation into the shoulder. Hiccups are resolved. Verbalizes no complaints at this time Constitutional: no fever and no chills Ear, Nose, Mouth, Throat: + dry mouth; no sore throat Respiratory: no cough and no dyspnea Cardiovascular: no chest pain Gastrointestinal: + abdominal pain (minimal at RLQ incision) and + bloating; no nausea, no vomiting, no constipation and no diarrhea/loose stools Genitourinary (Male): no dysuria Physical Exam 2 Vital Signs (Past 24 Hours): Last Vital Signs Temp 36.4 C L 02/21/18 12:45 Pulse 55 L 02/21/18 12:45 Resp 16 02/21/18 12:45 BP 119/72 02/21/18 12:45 Pulse Ox 92 02/21/18 12:45 Constitutional: well developed and well nourished; no acute distress and not ill appearing Eyes: + anicteric sclerae ENMT: Throat: uvula midline; no posterior oropharynx abnormality Neck: trachea midline Respiratory: normal respiratory effort, lungs clear to auscultation Cardiovascular: Rate/Rhythm: regular rate and regular rhythm Heart Sounds: no murmur Gastrointestinal (Abdomen): Inspection/Auscultation: normal bowel sounds Percussion/Palpation: abdomen soft MYRON drain present; mild tenderness around incision regions Musculoskeletal: Head/Neck/Chest: normocephalic, head atraumatic and neck supple Skin: no rashes, warm and dry Neurologic: moves all extremities Psychiatric: A+Ox3, euthymic affect _ (1) Multiple myeloma Multiple myeloma remission status: not in remission Qualified Code(s): C90.00 - Multiple myeloma not having achieved remission
[2018-02-21] MEDS ORDERED: SODIUM CHLORIDE 0.9% 1000ML 500 ML IV ONE (22:17)
[2018-02-21] MEDS: D5W AND 1/2NSS + 20MEQ KCL 20 MEQ/1,000 ML BAG IV SCH (23:07)
[2018-02-22] MEDS: cefOXitin 2,000 MG in DEXTROSE 5% 50 ML IV SCH ×3 (05:16→22:25)
[2018-02-22 06:40] LABS: Mean Corpuscular Hgb Conc 32.4 g/dL (32-36); Mean Corpuscular Volume 80.8 fL (80-100); Mean Platelet Volume 10.3 fL (7.4-10.4); Platelet Count 84 K/uL (130-400); RDW Standard Deviation 44.3 fL (36.4-46.3); Red Blood Count 4.58 M/uL (4.7-6.1); White Blood Count 7.19 K/uL (4.8-10.8)
[2018-02-22 07:01] LABS: Eosinophils # (auto) 0.02 K/uL (0-0.5); Eosinophils % (auto) 0.3 %; Immature Granulocytes # (auto) 0.03 K/uL (0.00-0.02); Immature Granulocytes % (auto) 0.4 %; Lymphocytes # (auto) 1.33 K/uL (1.2-3.4); Lymphocytes % (auto) 18.5 %; Monocytes # (auto) 0.38 K/uL (0.11-0.59); Monocytes % (auto) 5.3 %; Neutrophils # (auto) 5.43 K/uL (1.4-6.5); Neutrophils % (auto) 75.5 %
[2018-02-22] MEDS: D5W AND 1/2NSS + 20MEQ KCL 20 MEQ/1,000 ML BAG IV SCH ×3 (07:06→22:28)
[2018-02-22] MEDS: ACETAMINOPHEN 1,000 MG/100 ML VIAL IV SCH ×3 (07:08→23:44)
[2018-02-22 07:15] LABS: BUN Creatinine Ratio 9.3 (10-20); Calcium 8.1 mg/dl (8.5-10.1); Creatinine Clr Calc Pharmacy 67.8 ml/min; Est GFR (African American) 80.2; Est GFR (Non-African American) 69.2; Potassium 3.7 mmol/L (3.5-5.1)
[2018-02-22 07:18] LABS: Albumin Globulin Ratio 0.6 (0.9-2); Globulin 3.4 gm/dl (2.5-4.0); Total Protein 5.4 gm/dl (6.4-8.2)
[2018-02-22] MEDS: PROPRANOLOL HCL 20 MG TAB PO SCH ×2 (08:27→20:06)
[2018-02-22] MEDS: PANTOprazole 40 MG TAB PO SCH (08:27)
[2018-02-22] MEDS: MULTIVITAMIN TAB PO SCH (08:27)
--- NOTE | 2018-02-22 08:52 | Surgery Progress Note ---
Date of Service February 22, 2018 Assessment & Plan (1) Acute cholecystitis: -s/p lap beatrice for gangrenous cholecystitis -will need 1-2 more days of IV abx -low UOP responded to bolus -H/H stable -advance diet -ambulate Present on Admission?: Yes (2) Thrombocytopenia: -plts 84 this AM after 4 units Present on Admission?: Yes Subjective Constitutional: no fever and no chills Respiratory: + pain on inspiration; no cough Cardiovascular: no chest pain and no dyspnea Gastrointestinal: + abdominal pain (mild); no nausea and no vomiting Physical Exam 2 Vital Signs (Past 24 Hours): Last Vital Signs Temp 37.3 C 02/22/18 07:21 Pulse 63 02/22/18 07:21 Resp 14 02/22/18 07:21 BP 120/63 02/22/18 07:21 Pulse Ox 92 02/22/18 07:21 Constitutional: no acute distress Respiratory: normal respiratory effort, lungs clear to auscultation Cardiovascular: RRR, no murmur, no edema Gastrointestinal (Abdomen): Inspection/Auscultation: normal bowel sounds and + abdominal surgical scar Percussion/Palpation: + abdomen tender (mild) and abdomen soft Drain serosanguinous, slowing Musculoskeletal: Head/Neck/Chest: normocephalic and head atraumatic Skin: no rashes, warm and dry
--- NOTE | 2018-02-22 11:13 | Hospitalist Progress Note ---
Date of Service February 22, 2018 Assessment & Plan (1) Acute cholecystitis: - S/P Lap Lorena with lysis adhesions and evidence of gangrenous gallbladder - Cefoxitin 2 g IV Q8H - Diet has been advanced and tolerating without issue - Passing flatus but no BM yet - encourage ambulation - Gen Surg following - appreciate surgical management - anticipating 1-2 days IV Abx prior to discharge Present on Admission?: Yes (2) Thrombocytopenia: - This is likely in the setting of multiple myeloma/Opdivo treatment however given the gangrenous findings maybe some suppression due to infection/ illness in addition to dilution - Average platelets for him are 130-140 however he states his platelets have been lower - Platelets at 84 currently - has been transfused 4 units platelets this admission Present on Admission?: Yes (3) Intractable hiccups: - Continue Thorazine 25 mg TID PRN but currently remains resolved - this was likely due to diaphragmatic irritation given cholecystitis Present on Admission?: Yes (4) Essential tremor: - Follows with [facility] - has some elements of Parkinsonism as well - Propranolol 60 mg BID Present on Admission?: Yes (5) Multiple myeloma: - This is with progression into the lymph nodes - follows with Heme/Onc [facility] (Courtney Harvey PA-C) - Currently on Opdivo with next dose on March 04, 2018 Present on Admission?: Yes (6) DVT prophylaxis: - SCDs Disposition: Continue antibiotics; Encourage ambulation; Possible D/C next 1-2 days Subjective Patient feeling really well today. Passing gas but no bowel movement. Planning on ambulating the halls today. Tolerating diet and has been advanced. No further hiccups Platelets are trending up. Is growing pansensitive e. coli in his urine Constitutional: no fever and no chills Ear, Nose, Mouth, Throat: no sore throat and no dysphagia Respiratory: no cough and no dyspnea Cardiovascular: no chest pain, no palpitations and no edema Gastrointestinal: + abdominal pain (minimal at incisions sites - controlled); no bloating, no nausea, no vomiting and no diarrhea/loose stools Genitourinary (Male): no dysuria Integumentary: no rash Physical Exam 2 Vital Signs (Past 24 Hours): Last Vital Signs Temp 37.3 C 02/22/18 07:21 Pulse 63 02/22/18 07:21 Resp 14 02/22/18 07:21 BP 120/63 02/22/18 07:21 Pulse Ox 92 02/22/18 07:21 Constitutional: well developed and well nourished; no acute distress and not ill appearing Eyes: + anicteric sclerae ENMT: Throat: uvula midline; no posterior oropharynx abnormality Neck: trachea midline Respiratory: normal respiratory effort, lungs clear to auscultation Cardiovascular: Rate/Rhythm: regular rate and regular rhythm Heart Sounds: no murmur Gastrointestinal (Abdomen): Inspection/Auscultation: normal bowel sounds Percussion/Palpation: abdomen soft MYRON drain present Musculoskeletal: Head/Neck/Chest: normocephalic, head atraumatic and neck supple Skin: no rashes, warm and dry Neurologic: moves all extremities Psychiatric: A+Ox3, euthymic affect _ (1) Multiple myeloma Multiple myeloma remission status: not in remission Qualified Code(s): C90.00 - Multiple myeloma not having achieved remission
[2018-02-23] MEDS: cefOXitin 2,000 MG in DEXTROSE 5% 50 ML IV SCH ×3 (06:11→21:32)
[2018-02-23] MEDS: ACETAMINOPHEN 1,000 MG/100 ML VIAL IV SCH ×2 (08:24→17:06)
[2018-02-23] MEDS: PROPRANOLOL HCL 20 MG TAB PO SCH ×2 (08:24→21:38)
[2018-02-23] MEDS: MULTIVITAMIN TAB PO SCH (08:27)
[2018-02-23] MEDS: PANTOprazole 40 MG TAB PO SCH (08:27)
[2018-02-23 08:29] LABS: Hematocrit (blood only) 39.7 % (42-52); Mean Corpuscular Hgb Conc 32.7 g/dL (32-36); Mean Corpuscular Volume 80.4 fL (80-100); Platelet Count 128 K/uL (130-400); RDW Coefficient of Variation 15.2 % (11.5-14.5); RDW Standard Deviation 44.7 fL (36.4-46.3); Red Blood Count 4.94 M/uL (4.7-6.1); White Blood Count 13.89 K/uL (4.8-10.8)
[2018-02-23 08:58] LABS: BUN Creatinine Ratio 10.8 (10-20); Calcium 8.2 mg/dl (8.5-10.1); Creatinine Clr Calc Pharmacy 104.6 ml/min; Est GFR (African American) 110.8; Est GFR (Non-African American) 95.6; Potassium 3.8 mmol/L (3.5-5.1)
[2018-02-23 09:02] LABS: Albumin Globulin Ratio 0.5 (0.9-2); Bilirubin,Total 1.1 mg/dl (0.2-1); Globulin 3.9 gm/dl (2.5-4.0); Total Protein 5.9 gm/dl (6.4-8.2)
--- NOTE | 2018-02-23 09:39 | Anesthesiology Progress Note ---
Date of Service February 23, 2018 Anesthesia Post Procedure Vital Signs Vital Signs: Temp Pulse Resp BP BP Pulse Ox 02/23/18 07:15 36.8 C 56 L 15 131/84 94 02/22/18 23:19 37.3 C 60 16 127/69 94 02/22/18 20:02 37.0 C 65 15 135/75 95 02/22/18 15:50 36.5 C 65 18 116/69 95 02/22/18 11:12 36.8 C 58 L 16 102/55 L 96 Pain Intensity Right Back: Pain Intensity: 4 Right Hip: Pain Intensity: 5 Bilateral Abdomen: Pain Intensity: 1 Notes Mental Status: alert / awake / arousable and participated in evaluation Patient Amnestic to Procedure: Yes Nausea / Vomiting: adequately controlled Pain: adequately controlled Airway Patency, RR, SpO2: stable & adequate BP & HR: stable & adequate Hydration State: stable & adequate Anesthetic Complications: no major complications apparent and Pt Satisfied with anesthetic care
--- NOTE | 2018-02-23 12:14 | Surgery Progress Note ---
Date of Service February 23, 2018 Assessment & Plan (1) Acute cholecystitis: -POD # 2 s/p lap beatrice for gangrenous cholecystitis -afebrile - increase in wbc today to 13.89K - pain minimal - tolerating diet - kolby drain with 80 cc serosanguineous last shift Plan: Given increase in wbc today, plan to continue IV abx Repeat am cbc Continue prn pain medicaiton as needed OOB to chair and ambulate continue kolby drain to bulb suction Continue regular diet Dr. Hernandez has seen and examined pt, agrees with above (2) Thrombocytopenia: -plts 128 this AM after 4 units Subjective "feeling great" tolerated regular diet no nausea or vomiting no abdominal pain urinating without difficulty hiccups resolved Physical Exam 2 Vital Signs (Past 24 Hours): Last Vital Signs Temp 36.8 C 02/23/18 07:15 Pulse 56 L 02/23/18 07:15 Resp 15 02/23/18 07:15 BP 131/84 02/23/18 07:15 Pulse Ox 94 02/23/18 07:15 Constitutional: WD/WN, vitals as above no acute distress Respiratory: normal respiratory effort; no respiratory distress Gastrointestinal (Abdomen): Inspection/Auscultation: abdomen normal to inspection and + abdominal surgical drain present (serosanguineous); abdomen not distended Percussion/Palpation: abdomen soft; abdomen nontender, no guarding and abdomen not rigid Skin: no rashes, warm and dry + incision (Covered with dry dressings, intact) Psychiatric: A+Ox3, euthymic affect Results & Data Laboratory Results 02/23/18 02/23/18 Range/Units 08:13 08:13 WBC 13.89 H (4.8-10.8) K/uL RBC 4.94 (4.7-6.1) M/uL Hgb 13.0 L (14.0-18.0) g/dL Hct 39.7 L (42-52) % MCV 80.4 (80-100) fL MCH 26.3 (25-34) pg MCHC 32.7 (32-36) g/dL RDW Std Deviation 44.7 (36.4-46.3) fL RDW Coeff of Stella 15.2 H (11.5-14.5) % Plt Count 128 L D (130-400) K/uL MPV 11.0 H (7.4-10.4) fL Sodium 135 L (136-145) mmol/L Potassium 3.8 (3.5-5.1) mmol/L Chloride 103 (98-107) mmol/L Carbon Dioxide 25 (21-32) mmol/L Anion Gap 7.0 (3-11) BUN 8 (7-18) mg/dl Creatinine 0.70 D (0.6-1.4) mg/dl Est Cr Clr Drug Dosing 104.6 ml/min Est GFR ( Amer) 110.8 Est GFR (Non-Af Amer) 95.6 BUN/Creatinine Ratio 10.8 (10-20) Glucose 115 H (70-99) mg/dl Calcium 8.2 L (8.5-10.1) mg/dl Total Bilirubin 1.1 H (0.2-1) mg/dl AST 22 (15-37) U/L ALT 46 (12-78) U/L Alkaline Phosphatase 93 (45-117) U/L Total Protein 5.9 L (6.4-8.2) gm/dl Albumin 2.0 L (3.4-5.0) gm/dl Globulin 3.9 (2.5-4.0) gm/dl Albumin/Globulin Ratio 0.5 L (0.9-2)
--- NOTE | 2018-02-23 12:31 | Hospitalist Progress Note ---
Date of Service February 23, 2018 Assessment & Plan (1) Acute cholecystitis: - S/P Lap Lorena with lysis adhesions and evidence of gangrenous gallbladder - Cefoxitin 2 g IV Q8H - Diet has been advanced and tolerating without issue - Passing flatus but no BM yet and not feeling constipated - encourage ambulation - Did have an increase in WBC count on AM labs and will continue another day of IV Abx - CBC in AM - Gen Surg following - discussed with Sulma Andrade PA-C - plan as above (2) Thrombocytopenia: - This is likely in the setting of multiple myeloma/Opdivo treatment however given the gangrenous findings maybe some suppression due to infection/ illness in addition to dilution - Average platelets for him are 130-140 however he states his platelets have been lower - Platelets at 128 currently - has been transfused 4 units platelets this admission (3) Intractable hiccups: - Continue Thorazine 25 mg TID PRN but currently remains resolved - this was likely due to diaphragmatic irritation given cholecystitis (4) Essential tremor: - [place]s [place] [facility] - has some elements of Parkinsonism as well - Propranolol 60 mg BID (5) Multiple myeloma: - This is with progression into the lymph nodes - follows with Heme/Onc [facility] (Courtney Harvey PA-C) - Currently on Opdivo with next dose on March 04, 2018 (6) DVT prophylaxis: - SCDs Disposition: Continue antibiotics; Encourage ambulation; Possible D/C next 1-2 days Subjective Reports feeling well today. Tolerating a diet and having no pain per his report. Is up ambulating and continues to pass gas but reports no bowel movement yet but does not feel constipation Physical Exam 2 Vital Signs (Past 24 Hours): Last Vital Signs Temp 36.8 C 02/23/18 07:15 Pulse 56 L 02/23/18 07:15 Resp 15 02/23/18 07:15 BP 131/84 02/23/18 07:15 Pulse Ox 94 02/23/18 07:15 Constitutional: well developed and well nourished; no acute distress and not ill appearing Eyes: + anicteric sclerae ENMT: Throat: uvula midline; no posterior oropharynx abnormality Neck: trachea midline Respiratory: normal respiratory effort, lungs clear to auscultation Cardiovascular: Rate/Rhythm: regular rate and regular rhythm Heart Sounds: no murmur Gastrointestinal (Abdomen): Inspection/Auscultation: normal bowel sounds Percussion/Palpation: abdomen soft dressing applied that is C/D/I with MYRON present with minimal serosang draining Musculoskeletal: Head/Neck/Chest: normocephalic, head atraumatic and neck supple Skin: no rashes, warm and dry Neurologic: moves all extremities Psychiatric: A+Ox3, euthymic affect _ (1) Multiple myeloma Multiple myeloma remission status: not in remission Qualified Code(s): C90.00 - Multiple myeloma not having achieved remission
[2018-02-24] MEDS: ACETAMINOPHEN 1,000 MG/100 ML VIAL IV SCH ×3 (00:14→18:01)
[2018-02-24] MEDS: cefOXitin 2,000 MG in DEXTROSE 5% 50 ML IV SCH ×3 (05:30→21:09)
[2018-02-24 06:42] LABS: Hematocrit (blood only) 37.9 % (42-52); Hemoglobin 12.3 g/dL (14.0-18.0); Mean Corpuscular Hgb Conc 32.5 g/dL (32-36); Mean Corpuscular Volume 80.8 fL (80-100); Mean Platelet Volume 9.8 fL (7.4-10.4); Platelet Count 158 K/uL (130-400); RDW Coefficient of Variation 15.1 % (11.5-14.5); Red Blood Count 4.69 M/uL (4.7-6.1); White Blood Count 12.02 K/uL (4.8-10.8)
[2018-02-24 07:17] LABS: Albumin Level 2.1 gm/dl (3.4-5.0); BUN Creatinine Ratio 11.2 (10-20); Calcium 8.1 mg/dl (8.5-10.1); Creatinine Clr Calc Pharmacy 83.2 ml/min; Est GFR (African American) 100.9; Potassium 3.9 mmol/L (3.5-5.1)
[2018-02-24 07:19] LABS: Albumin Globulin Ratio 0.5 (0.9-2); Bilirubin,Total 1.2 mg/dl (0.2-1); Total Protein 6.1 gm/dl (6.4-8.2)
[2018-02-24] MEDS: PROPRANOLOL HCL 20 MG TAB PO SCH ×2 (08:50→20:56)
[2018-02-24] MEDS: PANTOprazole 40 MG TAB PO SCH (08:51)
[2018-02-24] MEDS: MULTIVITAMIN TAB PO SCH (08:51)
--- NOTE | 2018-02-24 12:07 | Hospitalist Progress Note ---
Date of Service February 24, 2018 Assessment & Plan (1) Acute cholecystitis: - S/p lap cholecystectomy with lysis adhesions and evidence of gangrenous gallbladder on 02/21/18. - General surgery following, appreciate input. - Tolerating diet without complications. - Continue Cefoxitin 2 gm IV q8hr in setting of leukocytosis. - Has not had a BM yet; will continue to monitor post operatively. - Monitor CBC qAM -- H/H has remained stable. (2) Thrombocytopenia: - Likely related to Opdivo therapy in addition to acute infection/ dilution from IV fluids. - Plt decreased to 50 on 02/20, now improved to 158 this morning. - Received transfusion support during this admission-2 packs on 02/20 and 2 packs on 02/21 just prior to surgery. (3) UTI (urinary tract infection): - UC positive for >100K colonies E. coli. - On Cefoxitin as noted above; can convert to PO abx at discharge per sensitivities. (4) Intractable hiccups: - Continue Thorazine 25 mg TID PRN. (5) Essential tremor: - Follows with [facility] [place] [facility]; has some elements of Parkinsonism as well. - Continue Propranolol 60 mg BID. (6) Malignant melanoma metastatic to lymph node: - Follows with heme/onc at [facility]-Courtney Harvey PA-C. - Currently receiving immunotherpay with Nivolumab; next dose due on 03/04/2018 - - will need to be evaluated prior to dose due to recent active infection. (7) DVT prophylaxis: - SCDs; no pharmacologic ppx indicated. Disposition: Discharge pending improvement in WBC count; likely over next 24- 48 hours. Supervising Physician Co-Signing Physician Notes PA Supervision Note: I did not personally see or examine the patient today, but I verified all urrutia points of DARA Quijano's assessment and plan with the following exceptions/ additions: None Subjective Patient is doing well overall today. He states pain in abdomen now improved, has drain in place with minimal output. He has not had a BM since admission but is passing gas. Has been tolerating diet without issues. Per surgery, will keep patient for another 24 hours due to leukocytosis/need for ongoing IV abx. Review of Systems All systems reviewed & are unremarkable except as noted in HPI & below Constitutional: no fever and no chills Respiratory: no cough and no dyspnea Cardiovascular: no chest pain, no palpitations and no edema Gastrointestinal: no abdominal pain, no nausea, no vomiting, no constipation and no diarrhea/loose stools Genitourinary (Male): no difficulty urinating Musculoskeletal: no joint pain Allergy / Immunological: no rash Physical Exam 2 Vital Signs (Past 24 Hours): Last Vital Signs Temp 37.4 C 02/24/18 07:15 Pulse 60 02/24/18 07:15 Resp 16 02/24/18 07:15 BP 139/77 02/24/18 07:15 Pulse Ox 93 02/24/18 07:15 Physical Exam: General: Resting comfortably in no apparent distress HEENT: NC/AT; PERRLA with EOMI; Dales conjunctiva, MMM. Neck: Supple and nontender Cardiac: RRR w/o murmurs, gallops or rubs Lungs: CTA bilaterally; No rhonchi, wheezing, or rales Abdomen: Dressing intact with drain/serosanguinous output; Bowel normoactive X 4; No tenderness to light palpation. Extremities: Warm. No cyanosis or edema present Neuro: No focal weakness Skin: Erythematous maculopapular lesions on back, chronic rash per patient. Results & Data Laboratory Results 02/24/18 02/24/18 Range/Units 06:13 06:13 WBC 12.02 H (4.8-10.8) K/uL RBC 4.69 L (4.7-6.1) M/uL Hgb 12.3 L (14.0-18.0) g/dL Hct 37.9 L (42-52) % MCV 80.8 (80-100) fL MCH 26.2 (25-34) pg MCHC 32.5 (32-36) g/dL RDW Std Deviation 44.0 (36.4-46.3) fL RDW Coeff of Stella 15.1 H (11.5-14.5) % Plt Count 158 (130-400) K/uL MPV 9.8 (7.4-10.4) fL Sodium 135 L (136-145) mmol/L Potassium 3.9 (3.5-5.1) mmol/L Chloride 100 (98-107) mmol/L Carbon Dioxide 29 (21-32) mmol/L Anion Gap 6.0 (3-11) BUN 10 (7-18) mg/dl Creatinine 0.88 (0.6-1.4) mg/dl Est Cr Clr Drug Dosing 83.2 ml/min Est GFR ( Amer) 100.9 Est GFR (Non-Af Amer) 87.0 BUN/Creatinine Ratio 11.2 (10-20) Glucose 86 (70-99) mg/dl Calcium 8.1 L (8.5-10.1) mg/dl Total Bilirubin 1.2 H (0.2-1) mg/dl AST 39 H (15-37) U/L ALT 57 (12-78) U/L Alkaline Phosphatase 105 (45-117) U/L Total Protein 6.1 L (6.4-8.2) gm/dl Albumin 2.1 L (3.4-5.0) gm/dl Globulin 4.0 (2.5-4.0) gm/dl Albumin/Globulin Ratio 0.5 L (0.9-2)
--- NOTE | 2018-02-24 12:08 | Surgery Progress Note ---
Date of Service February 24, 2018 doing better, no nausea, no vomiting, no BM yet, T 37.4, WBC 12,000 KOLBY 20ml/8h bloody Assessment & Plan (1) Acute cholecystitis: -POD # 2 s/p lap beatrice for gangrenous cholecystitis -afebrile - increase in wbc today to 13.89K - pain minimal - tolerating diet - kolby drain with 80 cc serosanguineous last shift Plan: Given increase in wbc today, plan to continue IV abx Repeat am cbc Continue prn pain medicaiton as needed OOB to chair and ambulate continue kolby drain to bulb suction Continue regular diet 02/24/2018 doing better, but T 37.4, wbc 12,000 continue IV antibiotic may repeat labs in am, will F/U Dr. Hernandez has seen and examined pt, agrees with above (2) Thrombocytopenia: -plts 128 this AM after 4 units Subjective "feeling great" tolerated regular diet no nausea or vomiting no abdominal pain urinating without difficulty hiccups resolved Respiratory: + pain on inspiration; no cough Gastrointestinal: + abdominal pain (mild); no nausea and no vomiting Physical Exam 2 Vital Signs (Past 24 Hours): Last Vital Signs Temp 37.4 C 02/24/18 07:15 Pulse 60 02/24/18 07:15 Resp 16 02/24/18 07:15 BP 139/77 02/24/18 07:15 Pulse Ox 93 02/24/18 07:15 Constitutional: WD/WN, vitals as above Neck: trachea midline, no thyromegaly Respiratory: normal respiratory effort, lungs clear to auscultation Cardiovascular: RRR, no murmur, no edema Gastrointestinal (Abdomen): normal bowel sounds, soft, nontender, no hepatosplenomegaly Percussion/Palpation: abdomen soft some tenderness, all incisions intact, no redness, Neurologic: awake Psychiatric: Orientation: alert and oriented x 3 Results & Data Laboratory Results Abnormal lab results 02/24/18 02/24/18 Range/Units 06:13 06:13 WBC 12.02 H (4.8-10.8) K/uL RBC 4.69 L (4.7-6.1) M/uL Hgb 12.3 L (14.0-18.0) g/dL Hct 37.9 L (42-52) % RDW Coeff of Stella 15.1 H (11.5-14.5) % Sodium 135 L (136-145) mmol/L Calcium 8.1 L (8.5-10.1) mg/dl Total Bilirubin 1.2 H (0.2-1) mg/dl AST 39 H (15-37) U/L Total Protein 6.1 L (6.4-8.2) gm/dl Albumin 2.1 L (3.4-5.0) gm/dl Albumin/Globulin Ratio 0.5 L (0.9-2)
[2018-02-25] MEDS: ACETAMINOPHEN 1,000 MG/100 ML VIAL IV SCH ×2 (00:46→07:49)
[2018-02-25] MEDS: cefOXitin 2,000 MG in DEXTROSE 5% 50 ML IV SCH (05:46)
[2018-02-25 07:17] LABS: Eosinophils # (auto) 0.02 K/uL (0-0.5); Eosinophils % (auto) 0.2 %; Hematocrit (blood only) 35.3 % (42-52); Hemoglobin 11.5 g/dL (14.0-18.0); Immature Granulocytes # (auto) 0.05 K/uL (0.00-0.02); Immature Granulocytes % (auto) 0.5 %; Lymphocytes # (auto) 2.69 K/uL (1.2-3.4); Lymphocytes % (auto) 27.8 %; Mean Corpuscular Hgb Conc 32.6 g/dL (32-36); Mean Corpuscular Volume 79.7 fL (80-100); Mean Platelet Volume 9.5 fL (7.4-10.4); Monocytes # (auto) 0.66 K/uL (0.11-0.59); Monocytes % (auto) 6.8 %; Neutrophils # (auto) 6.26 K/uL (1.4-6.5); Neutrophils % (auto) 64.7 %; Platelet Count 170 K/uL (130-400); RDW Coefficient of Variation 14.8 % (11.5-14.5); RDW Standard Deviation 43.1 fL (36.4-46.3); Red Blood Count 4.43 M/uL (4.7-6.1); White Blood Count 9.68 K/uL (4.8-10.8)
[2018-02-25 07:48] LABS: Albumin Level 1.9 gm/dl (3.4-5.0); BUN Creatinine Ratio 13.7 (10-20); Calcium 8.3 mg/dl (8.5-10.1); Creatinine Clr Calc Pharmacy 83.2 ml/min; Est GFR (African American) 100.9; Potassium 3.9 mmol/L (3.5-5.1)
[2018-02-25 07:51] LABS: Albumin Globulin Ratio 0.5 (0.9-2); Bilirubin,Total 1.2 mg/dl (0.2-1); Globulin 3.8 gm/dl (2.5-4.0); Total Protein 5.7 gm/dl (6.4-8.2)
[2018-02-25] MEDS: MULTIVITAMIN TAB PO SCH (09:28)
[2018-02-25] MEDS: PROPRANOLOL HCL 20 MG TAB PO SCH (09:28)
[2018-02-25] MEDS: PANTOprazole 40 MG TAB PO SCH (09:28)
--- NOTE | 2018-02-25 10:39 | Surgery Progress Note ---
Date of Service February 25, 2018 Assessment & Plan (1) Acute cholecystitis: -POD # 4 s/p lap beatrice for gangrenous cholecystitis - afebrile - leukocytosis resolved - no abdominal pain - tolerating diet - kolby drain with 12 cc serosanguineous output last shift Plan: Okay from surgical standpoint for discharge today Reviewed discharge instructions Rx for Augmentin for 7 days and PO Percocet prn pain F/u surgical office in 1 week removed KOLBY drain Dr. Gonzalez has seen pt, agrees with above. Subjective "feeling great" tolerated regular diet no nausea or vomiting no abdominal pain urinating without difficulty no fevers, chills, or sweats last night Physical Exam 2 Vital Signs (Past 24 Hours): Last Vital Signs Temp 37.3 C 02/25/18 07:24 Pulse 59 L 02/25/18 07:24 Resp 17 02/25/18 07:24 BP 129/76 02/25/18 07:24 Pulse Ox 95 02/25/18 07:24 Constitutional: WD/WN, vitals as above no acute distress Eyes: PERRL, conjunctivae normal, anicteric sclerae Neck: trachea midline Respiratory: normal respiratory effort; no respiratory distress, no labored breathing, no retractions and does not use accessory muscles Gastrointestinal (Abdomen): Inspection/Auscultation: abdomen normal to inspection and + abdominal surgical drain present (serosanguineous); abdomen not distended Percussion/Palpation: abdomen soft; abdomen nontender, no guarding and abdomen not rigid Skin: no rashes, warm and dry + incision (Covered with dry dressings, intact) Neurologic: Motor/Sensory: + tremor Psychiatric: A+Ox3, euthymic affect
--- NOTE | 2018-02-25 11:30 | Discharge Summary ---
Date of Service February 25, 2018 Admission HPI Per Admitting Provider Mr. 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 He states that this began at 8:30 PM last night and has occurred nonstop since then. He states that the most that he would get is 2 minutes of rest at any given time. He denies any abdominal pain, nausea, vomiting, fever or chills. He does state that on Friday night, he had one episode of pain in his back that radiated to his right side, however this resolved without any intervention. He also reports having had loose bowel movements lately, without overt diarrhea or the presence of blood in his stool. He notes that his urine is darker than usual, however denies dysuria or frequency. He states that he was told that darker urine could be a side effect of his medication (nivolumab). He has never had any surgeries on his abdomen, and has no history of trouble with his gallbladder. Of note, he is a non-smoker and does not use recreational drugs. He is an occasional alcohol drinker. With regards to his malignant melanoma, he receives the Nivolumab on a monthly basis, and is due for his next dose on March 04. His last dose was given to him 2 weeks ago. Admission Exam Per Admitting Provider Constitutional: WD/WN, vitals as above Frequently hiccuping. Tremor present in bilateral arms Eyes: PERRL, conjunctivae normal, anicteric sclerae ENMT: external ear and nose normal, oropharynx normal Respiratory: normal respiratory effort, lungs clear to auscultation Cardiovascular: RRR, no murmur, no edema Vessels: radial pulses present Extremities: no calf tenderness and no pedal edema Gastrointestinal (Abdomen): normal bowel sounds, soft, nontender, no hepatosplenomegaly Goodman sign negative. No flank pain. Musculoskeletal: Lower back hoe operator to palpation, worse on the right side Principal Diagnosis Acute Gangrenous Cholecystitis Discharge Exam General: Resting comfortably in no apparent distress HEENT: NC/AT; PERRLA with EOMI; Sutter conjunctiva, MMM. Neck: Supple and nontender Cardiac: RRR w/o murmurs, gallops or rubs Lungs: CTA bilaterally; No rhonchi, wheezing, or rales Abdomen: Dressing intact with drain/serosanguinous output; Bowel normoactive X 4; Nontender to light palpation. Extremities: Warm. No cyanosis or edema present Neuro: No focal weakness Skin: Erythematous maculopapular lesions on back Discharge Data Allergies Allergy/AdvReac Type Severity Reaction Status Date / Time No Known Allergies Allergy Unverified 02/19/18 20:38 Consultations Consult General Surgery Procedures Performed 1. Operation Date: 02/21/18 07:30 Laparoscopic Cholecystectomy - Levy Becerra MD 2. Transfusion of 4 units of platelets (apheresed) Ordered Studies gall bladder u/s - IMPRESSION: 1. Thickened and heterogeneous gallbladder wall with trace pericholecystic fluid and a 3 cm gallstone. Findings are suspicious for acute cholecystitis. 2. Right-sided nephrolithiasis. No hydronephrosis. Hospital Course (1) Acute cholecystitis: Patient was admitted on 02/19/18 for acute cholecystitis. General surgery was consulted and completed a lap beatrice on 02/21/18; he had a gangrenous gallbladder along with adhesions. Cefoxitin was ordered for empiric coverage and continued until day of discharge; CBC was monitored daily and leukocytosis resolved. Diet was advanced as tolerated. He will be transitioned to oral Augmentin & complete a course of oral abx at home. Drain was removed on day of discharge; f/u with surgery is scheduled on 03/05/2018. (2) Thrombocytopenia: Platelet count dropped to 50 on 02/20, likely related to acute infection/ dilution vs. therapy. He received transfusion support on 02/20 and 02/21. Platelet count improved prior to discharge and will be monitored via outpatient heme/onc provider. Discharge platelet count was 170. (3) UTI (urinary tract infection): Urine culture was positive for 100K colonies E. coli on admission. He completed a course of Cefoxitin IV. (4) Intractable hiccups: Thorazine was ordered as needed. (5) Essential tremor: Propanolol was continued as prescribed. (6) Malignant melanoma metastatic to lymph node: He follows with heme/onc at [facility] and is currently receiving immunotherapy with Nivolumab. He is scheduled for his next dose on 03/04/2018. (7) Rash: Patient had erythematous maculopapular lesions on his back, likely related to a contact dermatitis. He was instructed to use OTC topical hydrocortisone cream as needed. (8) DVT prophylaxis: SCDs were ordered. He was stable for discharge to home on 02/25/2018 and will follow up with his PCP and general surgery as an outpatient. Total Time Total Time Spent Total Time Spent (In Minutes): >30 minutes Total Time Includes: Examination of the Patient, Discharge Planning, Medication Reconciliation, Communication With Other Providers and Other Discharge Plan Discharge Items Patient Disposition: Home - Self-Care Reason For Visit: ACUTE CHOLECYSTITIS Discharge Diagnosis: Acute cholecystitis (gangrenous) Discharge Goals: Decrease discomfort and Increase independence Activity: Per 'Additional Instructions' section Bathing: Keep incision dry Exercise/Sports: Wait until after follow-up appointment Non-emergency contact: Primary Care Provider and Surgeon Call non-emergency contact if: your pain is not controlled, your pain is worsening, your pain is concerning for you, you have a fever, your temperature is above 101, your wound has increased redness and your wound has increased drainage Follow-up/Referrals: Keith Mcmanus DO [Primary Care Provider] - 03/04/18 10:00 am (Please, follow up with Dr. Keith Mcmanus on FridayMarch 04 at 10:00 am. *If you need to change this appointment, call the office at [phone].) Levy Becerra MD [Physician] - 03/05/18 2:30 pm (Please, follow up at [facility] with Dr. Becerra's junior assistant manager, Sulma Andarde PA-C on March 05 at 2:30 pm. *This office is located at [address] [place] [address] in [place]. The office phone number is [phone].) Diet: Regular Addtl Provider Instructions: Activity Instructions: No heavy lifting over 20 pounds for 3 weeks No strenuous activity until cleared by surgeon No submerging incisions underwater for 2 weeks (no bathing, swimming, or hot tubs) No driving while taking narcotic pain medication or until you are pain free You may shower. Gently allow water to run over incisions and pat dry. Walking and light activity is encouraged daily to prevent blood clots from forming in your legs. Wound Care: Leave steri strips on incisions for a total of 7 days from your surgery and then remove. They may fall off on their own that is okay. Medications: You will be given prescription for narcotic pain medication (Percocet) as needed for moderate to severe pain. Take as directed. This medication may cause drowsiness and constipation. You may take extra strength Ibuprofen (with food) as needed for mild pain. You may also take extra strength Tylenol for mild pain if you are no longer taking the Percocet as Percocet has Tylenol in it. To avoid constipation: Drink plenty of fluids daily, daily walking, and avoid foods that constipate. You may take OTC stool softener (Colace) daily or twice a day while taking pain medication. If those measures do not work, you may take Miralax or Milk of Magnesia. Please take Augmentin twice daily as prescribed for prevention of infection. Please use an over the counter Hydrocortisone cream for rash on back. Appointments: Please follow up with general surgery as scheduled on 03/05/2018. Please follow up with your primary care provider as scheduled on 03/04/2018. Prescriptions: New oxycodone-acetaminophen [Percocet] 5-325 mg tablet 1 tab PO Q6H PRN (Reason: pain) Qty: 12 RF: 0 amoxicillin-pot clavulanate [Augmentin] 875-125 mg tablet 1 tab PO BID Qty: 14 RF: 0 docusate sodium [Colace] 100 mg capsule 100 mg PO BID PRN (Reason: constipation) Qty: 10 RF: 0 ibuprofen 400 mg tablet 400 mg PO Q8H PRN (Reason: mild pain) Qty: 10 RF: 0 Continue multivitamin Tablet 1 tab PO DAILY RF: 0 propranolol 60 mg tablet 60 mg PO BID RF: 0 calcium carbonate [Tums] 200 mg calcium (500 mg) Tablet,Chewable 200 mg PO TID PRN (Reason: REFLUX) RF: 0 nivolumab [Opdivo] 100 mg/10 mL Solution 1 dose IV MONTHLY RF: 0 Visit Report Forms: [employer] Stand-Alone Forms: [facility] [employer], Opio[facility] Pain [facility] Discharge Orders: Discharge Order (Routine); Ordered 02/25/18 Ordered By: Marivel Quijano Admission Data Admit Date/Time: 02/19/18 23:26 Attending Provider: Ani Gaitan Admit Provider: Guerda Martin Primary Care Provider: Keith Mcmanus Other Providers: Delroy Hernandez ; Kobe Ryder ; Brittanie Moreno ; Mehran Martin ; Sulma Dao ; Mane Mejía ; Dima Roche Jr ; Bill Abebe ; Nir Diaz ; Kim Kendall ; Giancarlo Avina ; Dani Collado ; Ronen Morales Service: Medical Other Interventions: Discharge Summary Assessment (RN) Last Done: 02/25/18 12:51 Pending Studies at Discharge: No DC Date/Time DO NOT enter until pt leaves facility: 02/25/18 13:24 Supervising Physician Co-Signing Physician Notes Attending Discharge Note & Attestation - Pt seen/examined, chart reviewed, care plan d/w DARA Quijano on day of discharge. I agree w/ the urrutia components of her discharge summary. 68yo male who presented with acute cholecystitis. He ultimately underwent laparoscopic cholecystectomy by Dr. Levy Becerra. The gall bladder was found to be GANGRENOUS at the time of the operation. The case was complicated by extensive adhesions requiring additional dissection. His hospitalization was complicated by thrombocytopenia requiring the transfusion of 4 units of apheresed platelets (2 units the day before his surgery, and 2 units on the day of surgery). Post-op his diet was advanced as tolerated. He was continued on broad-spectrum IV antibiotics due to the gangrenous nature of his cholecystitis. At discharge he will complete a course of oral augmentin. Discharge exam - gen - NAD eyes - anicteric mouth - MMM heart - RRR, s1, s2 lungs - CTA b/l abd - soft, NT, ND, BS+ ext - no edema skin - abdominal wall incisions c/d/i He will f/u with gen surgery and PCP within 1 week of discharge. Josesito Cavanaugh MD
== END 2018-02-25 13:24 | disposition home or self-care (01) | DRG 418 ==
LOC: ED 16:21 → SUATTDRO 23:26 → 3N 23:26
DX: C79.89 Secondary malignant neoplasm of other specified sites; R06.6 Hiccough; K81.0 Acute cholecystitis; C90.00 Multiple myeloma not having achieved remission; G25.0 Essential tremor; K56.50 Intestinal adhesions [bands], unspecified as to partial versus complete obstruction; D69.59 Other secondary thrombocytopenia

== ENCOUNTER 2018-04-14 11:55 | Inpatient (IN) ==
[2018-04-14] MEDS ORDERED: SODIUM CHLORIDE 0.9% 1000ML 1,000 ML IV SCH (13:00)
[2018-04-14] MEDS ORDERED: ONDANSETRON INJ 2 MG/ML 2 ML VIAL IV STA (13:00)
[2018-04-14 13:09] LABS: Basophils # (auto) 0.01 K/uL (0-0.2); Basophils % (auto) 0.1 %; Hematocrit (blood only) 35.6 % (42-52); Hemoglobin 10.9 g/dL (14.0-18.0); Immature Granulocytes # (auto) 0.02 K/uL (0.00-0.02); Immature Granulocytes % (auto) 0.2 %; Lymphocytes # (auto) 1.84 K/uL (1.2-3.4); Lymphocytes % (auto) 16.8 %; Mean Corpuscular Hgb Conc 30.6 g/dL (32-36); Mean Corpuscular Volume 74.3 fL (80-100); Mean Platelet Volume 8.5 fL (7.4-10.4); Monocytes # (auto) 0.79 K/uL (0.11-0.59); Monocytes % (auto) 7.2 %; Neutrophils % (auto) 75.7 %; Platelet Count 139 K/uL (130-400); RDW Coefficient of Variation 15.5 % (11.5-14.5); Red Blood Count 4.79 M/uL (4.7-6.1); White Blood Count 10.96 K/uL (4.8-10.8)
[2018-04-14] MEDS: MoRPHine SULFATE 4 MG/ML 1 ML CARP\\VIAL IV PRN ×2 (13:10→15:08)
[2018-04-14 13:23] LABS: Albumin Level 2.6 gm/dl (3.4-5.0); BUN Creatinine Ratio 34.5 (10-20); Calcium 8.5 mg/dl (8.5-10.1); Creatinine Clr Calc Pharmacy 159.1 ml/min; Est GFR (African American) 131.7; Est GFR (Non-African American) 113.6; Potassium 3.6 mmol/L (3.5-5.1)
[2018-04-14 13:25] LABS: Albumin Globulin Ratio 0.6 (0.9-2); Globulin 4.1 gm/dl (2.5-4.0); INR 1.2 (0.9-1.1); Prothrombin Time 12.1 Seconds (9.0-12.0); Total Protein 6.7 gm/dl (6.4-8.2)
--- NOTE | 2018-04-14 13:28 | Emergency Department Note ---
Entered by Amee Crockett acting as a scribe for James Sadler DO History of Present Illness General Chief complaint: Back Injury/Pain Stated complaint: BACK PAIN Source: patient History of Present Illness Provider complaint: lower back pain Onset (ago): week(s) (over the last couple of weeks) Location: back Radiation: other (hips) Maximum Pain Intensity: 8 Quality: + other (pain) Associated symptoms: + denies other symptoms (denies bowel or urine incontinence ); no fever/chills The patient is a 68 year old male who presents to the Emergency Room with complaints of lower back pain over the last couple of weeks. The patient rates his pain at an 8/10. He states that his pain also radiates across his hips. The patient states that he walks with a walker and states that he has not felt steady enough to walk recently. He states that he had an X-Ray done 1 week ago which showed arthritis of his spine and states that he was told that there may be an infection there. The patient denies bowel and bladder incontinence but states that his urine has been darker over the last 2 months. The patient also denies having fevers. He states that Dr. Lilly referred him here. The patient states that he has malignant melanoma and states that he has been on chemotherapy for about 8 months. He states that he does not have a pacemaker and also denies a history of a stroke. He denies tobacco or alcohol use. The patient denies recent falls. 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 Home Medications Home Medications Medication Instructions Recorded Confirmed Type multivitamin 1 tab PO DAILY 02/19/18 04/14/18 History nivolumab [Opdivo] 1 dose IV MONTHLY 02/19/18 04/14/18 History propranolol 60 mg PO BID 02/19/18 04/14/18 History ibuprofen 400 mg PO Q8H PRN #10 tab 02/25/18 04/14/18 Rx Allergies Allergy/AdvReac Type Severity Reaction Status Date / Time No Known Allergies Allergy Unverified 04/14/18 12:38 Past Med/Surg History Medical History Essential tremor (Chronic) Kidney stones Malignant melanoma Surgical History Hx laparoscopic cholecystectomy H/O inguinal hernia repair H/O lymph node excision Social History Current Living Situation: Spouse Other Information That Helps Us Care for You: No Feels Safe at Home: Yes Safety Concerns: Feels Safe At This Time Smoking Status: Never smoker Do You Dip or Chew Tobacco: No Hx Alcohol Use: No Hx Substance Use: No Beliefs That Will Affect Care: None Preferred Language: Telugu Communication Ability: Effective Supervisor Finish End Required: No Review of Systems See HPI for pertinent positives & negatives. and A total of 10 systems reviewed and were otherwise negative Physical Exam Vital Signs Vital Signs - 24 hr 04/14/18 12:11 04/14/18 13:02 04/14/18 15:11 Temperature 36.3 C L Temperature Source Oral Sepsis Recent Fever Within 48 Hours No Sepsis Action Taken by Nursing No Action Required Pulse Rate 55 L Pulse Rate [Right Finger] 89 Pulse Rhythm [Right Finger] Regular Pulse Strength [Right Finger] Normal Respiratory Rate 16 22 Respiratory Effort / Characteristics Non-Labored Spontaneous Respiratory Depth Normal Respiratory Pattern Regular Blood Pressure 135/74 Blood Pressure [Left Arm] 137/102 H Blood Pressure Mean 94 Blood Pressure Mean [Left Arm] 113 Blood Pressure Position Sitting Blood Pressure Position [Left Arm] Lying Pulse Oximetry 98 98 Oxygen Delivery Method Room Air Room Air Room Air 04/14/18 18:25 Temperature 37.1 C Temperature Source Oral Sepsis Recent Fever Within 48 Hours Sepsis Action Taken by Nursing Pulse Rate Pulse Rate [Right Finger] 57 L Pulse Rhythm [Right Finger] Regular Pulse Strength [Right Finger] Normal Respiratory Rate 16 Respiratory Effort / Characteristics Non-Labored Respiratory Depth Normal Respiratory Pattern Regular Blood Pressure Blood Pressure [Left Arm] 146/83 H Blood Pressure Mean Blood Pressure Mean [Left Arm] 104 Blood Pressure Position Blood Pressure Position [Left Arm] Lying Pulse Oximetry 96 Oxygen Delivery Method Room Air GENERAL: Patient is awake and alert. He is somewhat anxious and appears to be uncomfortable. EYES: The conjunctivae are clear. The pupils are round and reactive. EARS, NOSE, MOUTH AND THROAT: The nose is without any evidence of any deformity. Mucous membranes are moist tongue is midline NECK: The neck is nontender and supple. RESPIRATORY: Normal respiratory effort is noted there is no evidence of wheezing rhonchi or rales CARDIOVASCULAR: Regular rate and rhythm noted there no murmurs rubs or gallops normal S1 normal S2 GASTROINTESTINAL: The abdomen is soft. Bowel sounds are present in all quadrants. Abdomen is nontender BACK: Significant lumbar midline tenderness is noted to palpation. Range of motion elicits significant pain. MUSCULOSKELETAL/EXTREMITIES: There is no evidence of gross deformity full range of motion is noted in the hips and shoulders SKIN: There is no obvious evidence of any rash. There are no petechiae, pallor or cyanosis noted. NEUROLOGIC: Patient is awake alert and oriented x3 strength is symmetric patellar reflexes are absent bilaterally. Patient has difficulty lifting each leg off the bed. Course 1350: Past medical records reviewed. The patient was evaluated in room C6, and a complete history and physical examination were performed. 1519: I discussed the patient's case with Dr. Steven who recommended antibiotics for the patient. 1538: I discussed the patient's case with Dr. Beverly Fitzgerald who will evaluate the patient for further management. 1540: I updated the patient who verbalized agreement and understanding of the treatment plan. Consultations Consultation #1: Dr. Steven Time: 15:19 Consultation #2: Dr. Beverly Fitzgerald Time: 15:38 Administered Medications Gadobutrol (Gadavist 65ml) 7.5 ml IV ONCE PRN PRN Reason: Interaction Checking Stop: 04/18/18 14:39 Last Admin: 04/14/18 14:40 Dose: 7.5 ml Morphine Sulfate (Morphine Sulfate) 4 mg IV Q15M PRN PRN Reason: Pain Stop: 04/28/18 12:59 Last Admin: 04/14/18 15:08 Dose: 4 mg Admin: 04/14/18 13:10 Dose: 4 mg Morphine Sulfate (Morphine Sulfate) 0.5 mg IV Q4H PRN PRN Reason: Pain Stop: 04/28/18 18:41 Last Admin: 04/14/18 19:32 Dose: 0.5 mg Propranolol HCl (Inderal) 60 mg PO BID ROSELYN Stop: 05/14/18 20:59 Last Admin: 04/14/18 20:17 Dose: 60 mg Discontinued Medications Sodium Chloride (Nss 1000ml) 1,000 mls @ 999 mls/hr IV .Q1H1M ROSELYN Stop: 04/14/18 14:00 Last Infusion: 04/14/18 14:52 Dose: 0 mls/hr Admin: 04/14/18 13:10 Dose: 999 mls/hr Ceftriaxone Sodium 2,000 mg/ (Dextrose) 70 mls @ 100 mls/hr IV NOW STA Stop: 04/14/18 16:00 Last Infusion: 04/14/18 17:15 Dose: 0 mls/hr Admin: 04/14/18 16:08 Dose: 100 mls/hr Vancomycin HCl 1,500 mg/ (Sodium Chloride) 530 mls @ 200 mls/hr IV NOW ONE Stop: 04/14/18 17:57 Last Infusion: 04/14/18 19:24 Dose: 0 mls/hr Admin: 04/14/18 16:38 Dose: 200 mls/hr Morphine Sulfate (Morphine Sulfate) Confirm Administered Dose 4 mg .ROUTE .STK- MED ONE Stop: 04/14/18 19:32 Last Admin: 04/14/18 19:55 Dose: Not Given Ondansetron HCl (Zofran) 4 mg IV NOW STA Stop: 04/14/18 13:01 Last Admin: 04/14/18 13:11 Dose: 4 mg Medical Decision Making Differential Diagnosis Differential diagnosis: Etiologies such as muscular strain, fracture, metastatic disease, disc herniation, sciatica, epidural abscess, vertebral osteomyelitis, discitis, spinal epidural hematoma, cord compression, cauda equina/conus medullaris syndrome, aortic disease, infection, shingles, renal colic, gastrointestinal, acute exacerbation of chronic back pain, as well as others were entertained. Medical Records Attestation: I reviewed the patient's medical records. Home Medications Current Medication List: was personally reviewed by me Laboratory Data Attestation: I reviewed the patient's lab results. Result diagrams: 04/14/18 12:56 04/14/18 12:56 Lab Results 04/14/18 04/14/18 04/14/18 Range/Units 12:56 12:56 12:56 WBC 10.96 H (4.8-10.8) K/uL RBC 4.79 (4.7-6.1) M/uL Hgb 10.9 L (14.0-18.0) g/dL Hct 35.6 L (42-52) % MCV 74.3 L (80-100) fL MCH 22.8 L (25-34) pg MCHC 30.6 L (32-36) g/dL RDW Std Deviation 42.0 (36.4-46.3) fL RDW Coeff of Stella 15.5 H (11.5-14.5) % Plt Count 139 (130-400) K/uL MPV 8.5 (7.4-10.4) fL Immature Gran % (Auto) 0.2 % Neut % (Auto) 75.7 % Lymph % (Auto) 16.8 % Richardson % (Auto) 7.2 % Eos % (Auto) 0.0 % Baso % (Auto) 0.1 % Immature Gran # (Auto) 0.02 (0.00-0.02) K/uL Neut # (Auto) 8.30 H (1.4-6.5) K/uL Lymph # (Auto) 1.84 (1.2-3.4) K/uL Richardson # (Auto) 0.79 H (0.11-0.59) K/uL Eos # (Auto) 0.00 (0-0.5) K/uL Baso # (Auto) 0.01 (0-0.2) K/uL Microcytosis Present Ovalocytes 1+ PT 12.1 H (9.0-12.0) Seconds INR 1.2 H (0.9-1.1) Sodium 134 L (136-145) mmol/L Potassium 3.6 (3.5-5.1) mmol/L Chloride 100 (98-107) mmol/L Carbon Dioxide 28 (21-32) mmol/L Anion Gap 6.0 (3-11) BUN 16 (7-18) mg/dl Creatinine 0.46 L (0.6-1.4) mg/dl Est Cr Clr Drug Dosing 159.1 ml/min Est GFR ( Amer) 131.7 Est GFR (Non-Af Amer) 113.6 BUN/Creatinine Ratio 34.5 H (10-20) Glucose 119 H (70-99) mg/dl Calcium 8.5 (8.5-10.1) mg/dl Total Bilirubin 1.0 (0.2-1) mg/dl AST 21 (15-37) U/L ALT 34 (12-78) U/L Alkaline Phosphatase 96 (45-117) U/L Total Protein 6.7 (6.4-8.2) gm/dl Albumin 2.6 L (3.4-5.0) gm/dl Globulin 4.1 H (2.5-4.0) gm/dl Albumin/Globulin Ratio 0.6 L (0.9-2) Lipase 146 (73-393) U/L Urine Color Urine Appearance (Clear) Urine pH (4.5-7.5) Ur Specific [place] (1.000-1.030) Urine Protein (Negative) Urine Glucose (UA) (Negative) Urine Ketones (Negative) Urine Blood (Negative) Urine Nitrite (Negative) Urine Bilirubin (Negative) Urine Urobilinogen (Negative) Ur Leukocyte Esterase (Negative) Urine WBC (Auto) (0-5) /hpf Urine RBC (Auto) (0-4) /hpf U Hyaline Cast (Auto) (0-5) /lpf U Epithel Cells (Auto) (0-5) /lpf Urine Bacteria (Auto) (Negative) 04/14/18 Range/Units 18:15 WBC (4.8-10.8) K/uL RBC (4.7-6.1) M/uL Hgb (14.0-18.0) g/dL Hct (42-52) % MCV (80-100) fL MCH (25-34) pg MCHC (32-36) g/dL RDW Std Deviation (36.4-46.3) fL RDW Coeff of Stella (11.5-14.5) % Plt Count (130-400) K/uL MPV (7.4-10.4) fL Immature Gran % (Auto) % Neut % (Auto) % Lymph % (Auto) % Richardson % (Auto) % Eos % (Auto) % Baso % (Auto) % Immature Gran # (Auto) (0.00-0.02) K/uL Neut # (Auto) (1.4-6.5) K/uL Lymph # (Auto) (1.2-3.4) K/uL Richardson # (Auto) (0.11-0.59) K/uL Eos # (Auto) (0-0.5) K/uL Baso # (Auto) (0-0.2) K/uL Microcytosis Ovalocytes PT (9.0-12.0) Seconds INR (0.9-1.1) Sodium (136-145) mmol/L Potassium (3.5-5.1) mmol/L Chloride (98-107) mmol/L Carbon Dioxide (21-32) mmol/L Anion Gap (3-11) BUN (7-18) mg/dl Creatinine (0.6-1.4) mg/dl Est Cr Clr Drug Dosing ml/min Est GFR ( Amer) Est GFR (Non-Af Amer) BUN/Creatinine Ratio (10-20) Glucose (70-99) mg/dl Calcium (8.5-10.1) mg/dl Total Bilirubin (0.2-1) mg/dl AST (15-37) U/L ALT (12-78) U/L Alkaline Phosphatase (45-117) U/L Total Protein (6.4-8.2) gm/dl Albumin (3.4-5.0) gm/dl Globulin (2.5-4.0) gm/dl Albumin/Globulin Ratio (0.9-2) Lipase (73-393) U/L Urine Color Dark Yellow Urine Appearance Clear (Clear) Urine pH 6.5 (4.5-7.5) Ur Specific [place] 1.024 (1.000-1.030) Urine Protein Negative (Negative) Urine Glucose (UA) Negative (Negative) Urine Ketones Trace H (Negative) Urine Blood Trace H (Negative) Urine Nitrite Negative (Negative) Urine Bilirubin Negative (Negative) Urine Urobilinogen Positive H (Negative) Ur Leukocyte Esterase Negative (Negative) Urine WBC (Auto) 1-5 (0-5) /hpf Urine RBC (Auto) 10-30 H (0-4) /hpf U Hyaline Cast (Auto) 1-5 (0-5) /lpf U Epithel Cells (Auto) 5-10 H (0-5) /lpf Urine Bacteria (Auto) Negative (Negative) Imaging Data Radiologist's Impression: Radiology results as stated below per my review and the radiologist's interpretation: MR lumbar spine wo/w con CLINICAL HISTORY: Persistent back pain. HISTORY OF MALIGNANT MELANOMA. TECHNIQUE: Sagittal and axial T1, T2 and STIR images were obtained. Images were acquired before and after the administration of 7.5 cc of intravenous Gadavist. COMPARISON STUDY: Image radiographic study dated 04/09/2018 OBSERVATIONS: There is abnormal marrow edema centered on the L1-2 disc, and L5-S1 disc. There is increased T2 signal involving the L1-2 disc at L5-S1 disc. There are endplate destructive changes at the L1-2 level. There is abnormal paraspinal edema at the L1-2 level with equivocal tiny paraspinal abscesses. The findings are viewed as highly suspicious for discitis osteomyelitis at the L1-2 level, and to a lesser extent the L5-S1 level. L1-2: As stated above there is suspected discitis/osteomyelitis. There is a circumferential disc bulge. There is minimal spinal canal narrowing. There is minimal enhancement of the anterior epidural soft tissues. L2-3: There is a circumferential disc bulge with mild spinal canal narrowing. There is no significant foraminal stenosis L3-4: There is a circumferential disc bulge with moderate spinal stenosis. There is no significant foraminal narrowing L4-5: No disc protrusions or extrusions. No evidence of spinal canal or neural foraminal compromise. L5-S1: As stated above, there is a suspected early discitis/osteomyelitis. There is no significant spinal or foraminal stenosis. The conus medullaris and cauda equina appear normal. IMPRESSION: 1. Endplate marrow edema, destructive endplate changes, increased T2 signal within the disc, an inflammatory changes within the paraspinal musculature at the L1-2 level. The findings are highly suspicious for discitis/osteomyelitis 2. Although less pronounced than at the L1-2 level, there is also evidence for endplate marrow edema at the L5-S1 level with increased T2 signal within the disc. A second level of discitis/osteomyelitis is suspected 3. In addition there are multilevel spondylitic changes with moderate spinal stenosis at the L3-4 level. Electronically signed by: Jimenez Begum M.D. 04/14/2018 3:00 PM Blood Pressure Blood Pressure Findings: Elevated blood pressure Blood Pressure Disposition: further management by hospitalist RAINE Arambula The patient is a 68-year-old male who presented to the emergency department for an evaluation of back pain. The patient is a history of metastatic melanoma. He was seen by his primary back surgeon and was sent to the emergency department for concerns of possible metastatic disease versus infection based on plain x-rays. I discussed patient's laboratory and radiographic studies with him. He was treated with IV pain medication but also IV antibiotics after the MRI was consistent with infection. I discussed the patient's condition with his primary back specialist as well as the on-call [facility] hospitalist group. They have agreed to evaluate the patient in the emergency department for further management and disposition. Impression & Plan Osteomyelitis of lumbar spine, Low back pain, Weakness Discharge Plan Visit Data *Final* Discharge Date/Time: 04/14/18 18:04 Chief Complaint: Back Injury/Pain Stated Complaint: BACK PAIN ED Provider: James Sadler Discharge Problem: Osteomyelitis of lumbar spine, Low back pain, Weakness Patient Disposition: Admitted As Inpatient Discharge Instructions Interventions: ED Discharge Assessment Last Done: 04/14/18 18:04 The scribe's documentation has been prepared under my direction and personally reviewed by me in its entirety. I confirm that the note above accurately reflects all work, treatment, procedures, and medical decision making performed by me.
[2018-04-14 13:35] LABS: Microcytosis Present; Ovalocytes 1+
[2018-04-14] MEDS ORDERED: GADOBUTROL 65ML VIAL IV PRN (14:40)
--- NOTE | 2018-04-14 15:01 | Magnetic Resonance Report ---
MR lumbar spine wo/w con CLINICAL HISTORY: Persistent back pain. HISTORY OF MALIGNANT MELANOMA. TECHNIQUE: Sagittal and axial T1, T2 and STIR images were obtained. Images were acquired before and a fter the administration of 7.5 cc of intravenous Gadavist. COMPARISON STUDY: Image radiographic study dated 04/09/2018 OBSERVATIONS: There is abnormal marrow edema centered on the L1-2 disc, and L5-S1 disc. There is increased T2 signa l involving the L1-2 disc at L5-S1 disc. There are endplate destructive changes at the L1-2 level. Th ere is abnormal paraspinal edema at the L1-2 level with equivocal tiny paraspinal abscesses. The find ings are viewed as highly suspicious for discitis osteomyelitis at the L1-2 level, and to a lesser ex tent the L5-S1 level. L1-2: As stated above there is suspected discitis/osteomyelitis. There is a circumferential disc bulg e. There is minimal spinal canal narrowing. There is minimal enhancement of the anterior epidural sof t tissues. L2-3: There is a circumferential disc bulge with mild spinal canal narrowing. There is no significant foraminal stenosis L3-4: There is a circumferential disc bulge with moderate spinal stenosis. There is no significant fo raminal narrowing L4-5: No disc protrusions or extrusions. No evidence of spinal canal or neural foraminal compromise. L5-S1: As stated above, there is a suspected early discitis/osteomyelitis. There is no significant sp inal or foraminal stenosis. The conus medullaris and cauda equina appear normal. IMPRESSION: 1. Endplate marrow edema, destructive endplate changes, increased T2 signal within the disc, an infla mmatory changes within the paraspinal musculature at the L1-2 level. The findings are highly suspicio us for discitis/osteomyelitis 2. Although less pronounced than at the L1-2 level, there is also evidence for endplate marrow edema at the L5-S1 level with increased T2 signal within the disc. A second level of discitis/osteomyelitis is suspected 3. In addition there are multilevel spondylitic changes with moderate spinal stenosis at the L3-4 lev el. Electronically signed by: Jimenez Begum M.D. 04/14/2018 3:00 PM
[2018-04-14] MEDS ORDERED: VANCOMYCIN CONSULT ACTIVE PRN ×2 (15:19→18:42)
[2018-04-14] MEDS ORDERED: cefTRIAXone SODIUM 2,000 MG in DEXTROSE 5% 50 ML IV STA (15:19)
[2018-04-14] MEDS ORDERED: VANCOMYCIN HCL 1,500 MG in SODIUM CHLORIDE 0.9% 500 ML IV ONE (15:19)
--- NOTE | 2018-04-14 16:14 | History & Physical Report ---
Date of Service April 14, 2018 Assessment & Plan (1) Osteomyelitis of lumbar spine: Noted on MRI States pain started post-op lap beatrice for gangrenous gallbladder 02/21 Ortho c/s pending Vanco, rocephin in the ED, will continue with vanco Blood cx pending WBC mildly elevated, monitor (2) Essential tremor: continue home meds (3) Malignant melanoma metastatic to lymph node: Dx approx 1 yr ago Post-op Ongoing chemo Q2-4weeks, currently on hold due to recent health issues (4) Lipoma: Noted on upper t-spine findings c/w lipoma, states this has been present for some time (5) DVT prophylaxis: SCDs History of Present Illness Primary Care Provider: Keith Mcmanus, DO 68 y/o M c/o intractable back pain. Pt states that this pain started just after he had a lap beatrice on 02/21. He states he had no back pain prior to this. Pt states that at first he thought it was related to his surgery, however it has continued to worsen to the point that he cannot ambulate due to pain. He is able to ambulate somewhat with a walker, but this has become minimal. Feels it is only limited by pain and that he could bear weight if he had to. No bowel/ bladder incontinence. His appetite is decreased related to pain as well. Pain is midline in his lower back. It does not radiate b/l or into LE at all. Pt denies fever, SOB, chest pain, abd pain, n/v/c/d, LE pain or swelling. Pt states that his pain was so intense that he made an appt with Dr. Steven. He was seen today and sent to the ED for emergent imaging. Pt is s/p vanco and rocephin in the ED. He states that the pain is somewhat better, but it has been replaced by a burning sensation. Pt is supposed to be taking a Q2-4 week chemo medication for his melanoma, however he states this has been on hold due to his recent health issues. He was to have an appt with oncology tomorrow to discuss this. Allergies Allergy/AdvReac Type Severity Reaction Status Date / Time No Known Allergies Allergy Unverified 04/14/18 12:38 Home Medications Home Medications Medication Instructions Recorded Confirmed Type multivitamin 1 tab PO DAILY 02/19/18 04/14/18 History nivolumab [Opdivo] 1 dose IV MONTHLY 02/19/18 04/14/18 History propranolol 60 mg PO BID 02/19/18 04/14/18 History ibuprofen 400 mg PO Q8H PRN #10 tab 02/25/18 04/14/18 Rx Past Med/Surg History Medical History Essential tremor (Chronic) Malignant melanoma Surgical History H/O inguinal hernia repair H/O lymph node excision Social History Current Living Situation: Spouse Feels Safe at Home: Yes Smoking Status: Never smoker Hx Alcohol Use: Yes Alcohol type: beer and hard liquor Alcohol Intake Frequency : holidays/special occasions only Hx Substance Use: No Beliefs That Will Affect Care: None Preferred Language: Azeri Visual Impairment: No Limitations Review of Systems Pertinent positives and negatives reviewed in HPI--all others negative Physical Exam 2 Vital Signs (Past 24 Hours): Last Vital Signs Temp 36.3 C L 04/14/18 12:11 Pulse 89 04/14/18 15:11 Resp 22 04/14/18 15:11 BP 137/102 H 04/14/18 15:11 Pulse Ox 98 04/14/18 15:11 Constitutional: WD/WN, vitals as above Eyes: normal visual caban by confrontation and + anicteric sclerae Neck: normal visual inspection and trachea midline Respiratory: normal respiratory effort, lungs clear to auscultation Cardiovascular: Rate/Rhythm: regular rate and regular rhythm Gastrointestinal (Abdomen): Inspection/Auscultation: abdomen not distended Percussion/Palpation: abdomen soft; abdomen nontender Musculoskeletal: Head/Neck/Chest: normocephalic and head atraumatic negative for edema, peripheral pulses intact TTP noted midline along L-spine Midline mass noted along upper thoracic t-spine, easily movable, nonTTP, well circumscribed Skin: no rashes, warm and dry Neurologic: awake; not confused Speech / Cognition: normal speech Psychiatric: Orientation: oriented x 3 Affect: mood congruent with affect ( appears in pain) Results & Data Diagnostic Findings L-spine MRI: 1. Endplate marrow edema, destructive endplate changes, increased T2 signal within the disc, an inflammatory changes within the paraspinal musculature at the L1-2 level. The findings are highly suspicious for discitis/ osteomyelitis 2. Although less pronounced than at the L1-2 level, there is also evidence for endplate marrow edema at the L5-S1 level with increased T2 signal within the disc. A second level of discitis/osteomyelitis is suspected 3. In addition there are multilevel spondylitic changes with moderate spinal stenosis at the L3-4 level. Code Status & VTE Plan Code Status Full code VTE Prophylaxis Plan VTE Prophylaxis will be ordered: Yes
[2018-04-14] MEDS ORDERED: ONDANSETRON INJ 2 MG/ML 2 ML VIAL IV PRN (18:42)
[2018-04-14] MEDS ORDERED: IBUPROFEN 200 MG TAB PO PRN (18:42)
[2018-04-14] MEDS ORDERED: MAGNESIUM HYDROXIDE SUSP 30 ML UDC PO PRN (18:42)
[2018-04-14] MEDS ORDERED: MoRPHine SULFATE 4 MG/ML 1 ML CARP\\VIAL ONE ×2 (19:31→23:31)
[2018-04-14] MEDS: MoRPHine SULFATE 2 MG/ML CARP IV PRN ×2 (19:32→23:35)
[2018-04-14] MEDS: PROPRANOLOL HCL 20 MG TAB PO SCH (20:17)
[2018-04-14 20:23] LABS: Appearance Urine Clear (Clear); Bacteria Urine Automated Negative (Negative); Bilirubin Urine Negative (Negative); Blood Urine Trace (Negative); Color Urine Dark Yellow; Glucose Urine UA Negative (Negative); Ketones Urine Trace (Negative); Leukocyte Esterase Urine Negative (Negative); Nitrite Urine Negative (Negative); Protein Urine Negative (Negative); Specific Gravity Urine 1.024 (1.000-1.030); Urobilinogen Urine Positive (Negative); pH Urine 6.5 (4.5-7.5)
[2018-04-15] MEDS: VANCOMYCIN HCL 1,250 MG in SODIUM CHLORIDE 0.9% 250 ML IV SCH ×4 (00:32→23:42)
[2018-04-15 06:39] LABS: Eosinophils # (auto) 0.03 K/uL (0-0.5); Eosinophils % (auto) 0.5 %; Hematocrit (blood only) 31.7 % (42-52); Hemoglobin 9.5 g/dL (14.0-18.0); Immature Granulocytes # (auto) 0.02 K/uL (0.00-0.02); Immature Granulocytes % (auto) 0.3 %; Lymphocytes # (auto) 2.08 K/uL (1.2-3.4); Lymphocytes % (auto) 32.2 %; Mean Corpuscular Volume 75.5 fL (80-100); Mean Platelet Volume 8.4 fL (7.4-10.4); Monocytes # (auto) 0.59 K/uL (0.11-0.59); Monocytes % (auto) 9.1 %; Neutrophils # (auto) 3.74 K/uL (1.4-6.5); Neutrophils % (auto) 57.9 %; Platelet Count 128 K/uL (130-400); RDW Coefficient of Variation 15.6 % (11.5-14.5); RDW Standard Deviation 42.9 fL (36.4-46.3); White Blood Count 6.46 K/uL (4.8-10.8)
[2018-04-15 07:14] LABS: Calcium 8.1 mg/dl (8.5-10.1); Creatinine Clr Calc Pharmacy 187.7 ml/min; Est GFR (African American) 140.9; Est GFR (Non-African American) 121.6; Potassium 3.7 mmol/L (3.5-5.1)
[2018-04-15] MEDS: PROPRANOLOL HCL 20 MG TAB PO SCH ×2 (08:36→21:13)
[2018-04-15] MEDS: MULTIVITAMIN TAB PO SCH (08:36)
[2018-04-15] MEDS ORDERED: MoRPHine SULFATE 4 MG/ML 1 ML CARP\\VIAL ONE ×3 (08:42→21:11)
[2018-04-15] MEDS: MoRPHine SULFATE 2 MG/ML CARP IV PRN ×3 (08:44→21:16)
--- NOTE | 2018-04-15 14:28 | Hospitalist Progress Note ---
Date of Service April 15, 2018 Assessment & Plan (1) Osteomyelitis of lumbar spine: Noted on MRI States pain started post-op lap beatrice for gangrenous gallbladder 02/21 Ortho c/s pending, ID c/s pending darwin Mercedes in the ED, will continue Blood cx pending WBC wnl today PT/OT (2) Essential tremor: continue home meds (3) Malignant melanoma metastatic to lymph node: Dx approx 1 yr ago Post-op Ongoing chemo Q2-4weeks, currently on hold due to recent health issues (4) Lipoma: Noted on upper t-spine findings c/w lipoma, states this has been present for some time (5) Microscopic hematuria: On U/A on admission. Patient does have history of E.Coli UTI in January. Will defer urine culture as patient has already started abx. Will need to repeat UA or follow up after discharge. (6) DVT prophylaxis: SCDs, hold on chemoprophylaxis until seen by surgery Subjective Mr. Abad' pain is better controlled than when he arrived to the ED but is still painful whenever he moves. He does not have radiation to his legs but does have burning pain across his pelvis with movement. No numbness or loss of bowel or bladder. No aches or chills, afebrile Review of Systems All systems reviewed & are unremarkable except as noted in HPI & below Physical Exam 2 Vital Signs (Past 24 Hours): Last Vital Signs Temp 36.7 C 04/15/18 07:10 Pulse 57 L 04/15/18 07:10 Resp 16 04/15/18 07:10 BP 140/76 04/15/18 07:10 Pulse Ox 97 04/15/18 07:10 Physical Exam: Abnormal lab results 04/14/18 04/15/18 04/15/18 Range/Units 18:15 06:11 06:11 RBC 4.20 L (4.7-6.1) M/uL Hgb 9.5 L (14.0-18.0) g/dL Hct 31.7 L (42-52) % MCV 75.5 L (80-100) fL MCH 22.6 L (25-34) pg MCHC 30.0 L (32-36) g/dL RDW Coeff of Stella 15.6 H (11.5-14.5) % Plt Count 128 L (130-400) K/uL Creatinine 0.39 L (0.6-1.4) mg/dl BUN/Creatinine Rat io 31.0 H (10-20) Calcium 8.1 L (8.5-10.1) mg/dl Urine Ketones Trace H (Negative) Urine Blood Trace H (Negative) Urine Urobilinogen Positive H (Negative) Urine RBC (Auto) 10-30 H (0-4) /hpf U Epithel Cells (A uto) 5-10 H (0-5) /lpf Results & Data Laboratory Results Abnormal lab results 04/14/18 04/15/18 04/15/18 Range/Units 18:15 06:11 06:11 RBC 4.20 L (4.7-6.1) M/uL Hgb 9.5 L (14.0-18.0) g/dL Hct 31.7 L (42-52) % MCV 75.5 L (80-100) fL MCH 22.6 L (25-34) pg MCHC 30.0 L (32-36) g/dL RDW Coeff of Stella 15.6 H (11.5-14.5) % Plt Count 128 L (130-400) K/uL Creatinine 0.39 L (0.6-1.4) mg/dl BUN/Creatinine Ratio 31.0 H (10-20) Calcium 8.1 L (8.5-10.1) mg/dl Urine Ketones Trace H (Negative) Urine Blood Trace H (Negative) Urine Urobilinogen Positive H (Negative) Urine RBC (Auto) 10-30 H (0-4) /hpf U Epithel Cells (Auto) 5-10 H (0-5) /lpf
[2018-04-15] MEDS ORDERED: VANCOMYCIN TROUGH ONE (15:30)
[2018-04-15] MEDS: cefTRIAXone SODIUM 2,000 MG in DEXTROSE 5% 50 ML IV SCH (15:45)
[2018-04-15] MEDS: ACETAMINOPHEN 325 MG TAB PO PRN ×2 (15:52→21:13)
--- NOTE | 2018-04-15 17:29 | Pharmacy Report ---
Pharmacy Abx Initial Consult - Date of Service April 15, 2018 - Pharmacy Dosing Scope Date of Consult: 04/14/18 Consultation requested by: Dr. Cody Pharmacy is consulted to initiate vancomycin IV dosing therapy, order appropriate labs and adjust drug dose/frequency. - Subjective The patient is a 68 year old M admitted on 04/14/18 16:13. - Objective Height: 5 ft 11 in Weight: 76 kg Vital Signs (Past 12hrs): Vital Signs Temp Pulse Resp BP Pulse Ox 04/15/18 14:57 36.8 C 61 16 120/63 96 04/15/18 07:10 36.7 C 57 L 16 140/76 97 Lab Results (24hrs): Laboratory Tests (24 Hours) 04/15/18 04/15/18 04/15/18 15:20 06:11 06:11 WBC 6.46 Neut # (Auto) 3.74 Creatinine 0.39 L Est Cr Clr Drug Dosing 187.7 Vancomycin Trough 14.8 Micro Results: 04/14/18 12:56 Blood Culture - Pending Blood - Assessment & Plan Assessment 68 year old M admitted with osteomyelitis of lumbar spine * h/o malignant melanoma metastatic to lymph node - chemo regimen currently on hold * pt is post-op lap beatrice for gangrenous gallbladder 02/21 * GNB reported in 02/25 Plan Continue Vancomycin IV * Loading dose: 1500 mg * Maintenance dose: 1250 mg IV (16.4 mg/kg) every 8 hours * Goal trough level for osteo : 15 - 20 mcg/mL * Trough level drawn prior to 4th total dose resulted at 14.8 mcg/mL. Level was drawn slightly prior to steady state. I anticipate level to increase with continued dosing. We continue current dose and repeat trough level 04/16 @ 3530. Ceftraixone 2000 mg IV q24h added due to GNB in [facility] will continue to follow and will adjust dose/frequency as necessary. Thank you.
[2018-04-16] MEDS ORDERED: MoRPHine SULFATE 4 MG/ML 1 ML CARP\\VIAL ONE ×4 (04:33→17:01)
[2018-04-16] MEDS: MoRPHine SULFATE 2 MG/ML CARP IV PRN ×2 (04:35→08:37)
[2018-04-16] MEDS ORDERED: VANCOMYCIN TROUGH ONE (07:30)
[2018-04-16 08:23] LABS: Creatinine Clr Calc Pharmacy 174.3 ml/min; Est GFR (African American) 136.7
[2018-04-16] MEDS: VANCOMYCIN HCL 1,250 MG in SODIUM CHLORIDE 0.9% 250 ML IV SCH (08:39)
[2018-04-16] MEDS: PROPRANOLOL HCL 20 MG TAB PO SCH ×2 (08:43→20:39)
[2018-04-16] MEDS: MULTIVITAMIN TAB PO SCH (08:43)
[2018-04-16 08:58] LABS: Eosinophils # (auto) 0.04 K/uL (0-0.5); Eosinophils % (auto) 0.5 %; Hematocrit (blood only) 31.9 % (42-52); Hemoglobin 9.7 g/dL (14.0-18.0); Immature Granulocytes # (auto) 0.04 K/uL (0.00-0.02); Immature Granulocytes % (auto) 0.5 %; Lymphocytes # (auto) 2.31 K/uL (1.2-3.4); Lymphocytes % (auto) 30.5 %; Mean Corpuscular Hgb Conc 30.4 g/dL (32-36); Mean Corpuscular Volume 74.7 fL (80-100); Monocytes # (auto) 0.75 K/uL (0.11-0.59); Monocytes % (auto) 9.9 %; Neutrophils # (auto) 4.43 K/uL (1.4-6.5); Neutrophils % (auto) 58.6 %; Platelet Count 136 K/uL (130-400); RDW Coefficient of Variation 15.7 % (11.5-14.5); RDW Standard Deviation 42.2 fL (36.4-46.3); Red Blood Count 4.27 M/uL (4.7-6.1); White Blood Count 7.57 K/uL (4.8-10.8)
[2018-04-16] MEDS ORDERED: MoRPHine SULFATE 4 MG/ML 1 ML CARP\\VIAL IV PRN (09:21)
[2018-04-16 09:26] LABS: BUN Creatinine Ratio 33.8 (10-20); Calcium 8.4 mg/dl (8.5-10.1); Creatinine Clr Calc Pharmacy 215.3 ml/min; Est GFR (African American) 149.1; Est GFR (Non-African American) 128.7; Potassium 3.8 mmol/L (3.5-5.1)
[2018-04-16 09:54] LABS: Microcytosis Present; Smudge Cells Present
[2018-04-16] MEDS ORDERED: HEPARIN SOD 5,000 UNIT/0.5 ML VIAL SQ STA (10:35)
--- NOTE | 2018-04-16 10:35 | Infectious Disease Consult ---
Date of Consultation April 16, 2018 Assessment & Plan (1) Osteomyelitis of lumbar spine: Patient with lumbar osteomyelitis with discitis with possible second sacral focus. Suspect urinary source of gram-negative, possibly E. coli previously identified. Will continue patient on ceftriaxone pending final identification and sensitivities. Will need prolonged IV antibiotics. Vancomycin discontinued. Will follow. (2) Diskitis: History of Present Illness Reason for Consultation: Osteomyelitis Attending Physician: Andrew Rivera MD History of Present Illness 68-year-old male with history of metastatic melanoma on chemotherapy, status post admission in January for gangrenous cholecystitis, who states that ever since his surgery in January he has been having lumbar back pain, steadily increasing in intensity to the point where he was finding it almost impossible to ambulate. He has not had any bowel or bladder incontinence. He came to the hospital and now has been found to scan evidence of lumbar discitis and osteomyelitis with possible second sacral focus developing.. Has been started empirically on vancomycin and ceftriaxone. Blood cultures now reported positive for gram-negative bacilli. Of note is patient had positive urine culture in January for E. coli. Pain currently 6 out of 10 in intensity lower mid back. Allergies Allergy/AdvReac Type Severity Reaction Status Date / Time No Known Allergies Allergy Unverified 04/14/18 12:38 Home Medications Home Medications Medication Instructions Recorded Confirmed Type multivitamin 1 tab PO DAILY 02/19/18 04/14/18 History nivolumab [Opdivo] 1 dose IV MONTHLY 02/19/18 04/14/18 History propranolol 60 mg PO BID 02/19/18 04/14/18 History ibuprofen 400 mg PO Q8H PRN #10 tab 02/25/18 04/14/18 Rx Patient History Medical History Essential tremor (Chronic) Kidney stones Malignant melanoma Surgical History Hx laparoscopic cholecystectomy H/O inguinal hernia repair H/O lymph node excision Social History marital status: Current Living Situation: Spouse Other Information That Helps Us Care for You: No Feels Safe at Home: Yes Safety Concerns: Feels Safe At This Time Smoking Status: Never smoker Do You Dip or Chew Tobacco: No Hx Alcohol Use: No Hx Substance Use: No Beliefs That Will Affect Care: None Communication Ability: Effective Review of Systems All systems were reviewed and are negative except as per HPI Physical Exam 2 Vital Signs (Past 24 Hours): Last Vital Signs Temp 37.1 C 04/16/18 07:31 Pulse 61 04/16/18 08:45 Resp 16 04/16/18 07:31 BP 151/81 H 04/16/18 08:45 Pulse Ox 95 04/16/18 07:31 Constitutional: WD/WN, vitals as above comfortable; no acute distress Eyes: PERRL, conjunctivae normal, anicteric sclerae ENMT: external ear and nose normal, oropharynx normal Neck: trachea midline, no thyromegaly neck nontender Respiratory: normal respiratory effort, lungs clear to auscultation normal percussion; does not use accessory muscles Cardiovascular: Rate/Rhythm: regular rate and regular rhythm Heart Sounds: normal S1 and normal S2; no gallop, no murmur and no cardiac rub Vessels: normal peripheral pulses; no JVD Gastrointestinal (Abdomen): normal bowel sounds, soft, nontender, no hepatosplenomegaly Musculoskeletal: no cyanosis or clubbing, extremities motor strength 5/5 Spine: thoracic spine normal to inspection and + lumbar spinal tenderness ( Upper lumbar spine); no cervical spinal tenderness Skin: no rashes, warm and dry normal turgor; no lesions Neurologic: patellar DTR's 2+ bilat, sensation intact no focal motor deficits Psychiatric: A+Ox3, euthymic affect Orientation: cooperative Lymphatic: no cervical or axillary lymphadenopathy no inguinal lymphadenopathy Results & Data Laboratory Results Short CBC 04/16/18 Range/Units 08:42 WBC 7.57 (4.8-10.8) K/uL Hgb 9.7 L (14.0-18.0) g/dL Hct 31.9 L (42-52) % Plt Count 136 (130-400) K/uL BMP 04/16/18 04/16/18 07:37 08:42 Sodium 136 Potassium 3.8 Chloride 102 Carbon Dioxide 29 BUN 12 Creatinine 0.42 L 0.34 L Glucose 99 Calcium 8.4 L Diagnostic Findings Microbiology 04/14/18 15:54 Blood Blood Culture - Preliminary Gram negative bacilli 04/14/18 12:56 Blood Blood Culture - Preliminary No growth to date. MR lumbar spine wo/w con CLINICAL HISTORY: Persistent back pain. HISTORY OF MALIGNANT MELANOMA. TECHNIQUE: Sagittal and axial T1, T2 and STIR images were obtained. Images were acquired before and after the administration of 7.5 cc of intravenous Gadavist. COMPARISON STUDY: Image radiographic study dated 04/09/2018 OBSERVATIONS: There is abnormal marrow edema centered on the L1-2 disc, and L5-S1 disc. There is increased T2 signal involving the L1-2 disc at L5-S1 disc. There are endplate destructive changes at the L1-2 level. There is abnormal paraspinal edema at the L1-2 level with equivocal tiny paraspinal abscesses. The findings are viewed as highly suspicious for discitis osteomyelitis at the L1-2 level, and to a lesser extent the L5-S1 level. L1-2: As stated above there is suspected discitis/osteomyelitis. There is a circumferential disc bulge. There is minimal spinal canal narrowing. There is minimal enhancement of the anterior epidural soft tissues. L2-3: There is a circumferential disc bulge with mild spinal canal narrowing. There is no significant foraminal stenosis L3-4: There is a circumferential disc bulge with moderate spinal stenosis. There is no significant foraminal narrowing L4-5: No disc protrusions or extrusions. No evidence of spinal canal or neural foraminal compromise. L5-S1: As stated above, there is a suspected early discitis/osteomyelitis. There is no significant spinal or foraminal stenosis. The conus medullaris and cauda equina appear normal. IMPRESSION: 1. Endplate marrow edema, destructive endplate changes, increased T2 signal within the disc, an inflammatory changes within the paraspinal musculature at the L1-2 level. The findings are highly suspicious for discitis/osteomyelitis 2. Although less pronounced than at the L1-2 level, there is also evidence for endplate marrow edema at the L5-S1 level with increased T2 signal within the disc. A second level of discitis/osteomyelitis is suspected 3. In addition there are multilevel spondylitic changes with moderate spinal stenosis at the L3-4 level. Electronically signed by: Jimenez Begum M.D. 04/14/2018 3:00 PM Dictated: 04/14/18 0711
[2018-04-16] MEDS ORDERED: MoRPHine SULFATE 2 MG/ML CARP IV PRN (10:37)
[2018-04-16] MEDS: ACETAMINOPHEN 500 MG TAB PO SCH ×2 (11:50→22:07)
--- NOTE | 2018-04-16 11:52 | XRay Report ---
XR lumbar spine 2-3V CLINICAL HISTORY: 68 years-old Male presenting with back pain. TECHNIQUE: Frontal, lateral, and coned in lateral views of the lumbar spine were obtained. COMPARISON: MR from 04/14/2018 and plain radiographs from 04/09/2018. FINDINGS: No significant scoliosis. Ill-defined endplates at L1-2 as evident on MR. The appearance is stable to minimally progressed since the prior radiograph there is mild vertebral body height loss of L1. Marielle ining vertebral bodies grossly normal in height and alignment. Intervertebral disc height loss at sev eral levels to a mild degree. Ill-defined inferior endplate of L5 suggested. Multilevel osteophytosis . Multilevel osseous neural foraminal narrowing. Underlying osteopenia may be present. Nonobstructive bowel gas pattern. Cholecystectomy clips. Nephrolithiasis. IMPRESSION: 1. Slight interval progression of osseous erosion at L1-2 and potentially at L5-S1. This raises conc bashir for worsening discitis osteomyelitis. 2. Multilevel degenerative changes with multilevel osseous neural foraminal narrowing. Electronically signed by: Miguelito Monroy M.D. 04/16/2018 11:51 AM
--- NOTE | 2018-04-16 15:26 | Hospitalist Progress Note ---
Date of Service April 16, 2018 Assessment & Plan (1) Osteomyelitis of lumbar spine: Noted on MRI States pain started post-op lap beatrice for gangrenous gallbladder 02/21 Ortho and ID consulted - repeat imaging Xray ordered by ortho showing stable to mild increase in discitis Continue Rocephin per ID Blood cx growing gram negative bacilli WBC wnl today PT/OT (2) Essential tremor: continue home meds (3) Malignant melanoma metastatic to lymph node: Dx approx 1 yr ago Post-op Ongoing chemo Q2-4weeks, currently on hold due to recent health issues Left a message with Dr. Longo's office to touch base on patient's condition and discuss future chemo (4) Lipoma: Noted on upper t-spine findings c/w lipoma, states this has been present for some time (5) Microscopic hematuria: On U/A on admission. Patient does have history of E.Coli UTI in January. Will defer urine culture as patient has already started abx. Will need to repeat UA or follow up after discharge. (6) DVT prophylaxis: SCDs, heparin subq Subjective Mr. Abad pain is not well controlled today. There is no radiation to his legs , no saddle anesthesia or loss of control of bowel or bladder. He does have a burning pain across his pelvis to his back. I did have an extended phone call with Irlanda his per patient's request to update her. She requested that I get in touch with Dr. Longo's office, left a message with them and am awaiting return call. Review of Systems All systems reviewed & are unremarkable except as noted in HPI & below Physical Exam 2 Vital Signs (Past 24 Hours): Last Vital Signs Temp 36.4 C L 04/16/18 11:57 Pulse 58 L 04/16/18 11:57 Resp 16 04/16/18 11:57 BP 139/74 04/16/18 11:57 Pulse Ox 94 04/16/18 11:57 Physical Exam: General: no distress Eyes: normal inspection, PERLL Respiratory: chest non tender, clear to auscultation, normal breath sounds, no respiratory distress, no accessory muscle use Cardiac: regular rate and rhythm, no rub or gallop, no murmur, no edema, no jvd GI/: active bowel sounds, no abd pain or tenderness, soft, non distended Extremities: normal range of motion, normal strength, tenderness over lumbar spine to palpation Neuro/Psych: alert and oriented x 3, normal mood and affect Skin: normal color, dry Results & Data Laboratory Results Abnormal lab results 04/16/18 04/16/18 04/16/18 Range/Units 07:37 08:42 08:42 RBC 4.27 L (4.7-6.1) M/uL Hgb 9.7 L (14.0-18.0) g/dL Hct 31.9 L (42-52) % MCV 74.7 L (80-100) fL MCH 22.7 L (25-34) pg MCHC 30.4 L (32-36) g/dL RDW Coeff of Stella 15.7 H (11.5-14.5) % Immature Gran # (Auto) 0.04 H (0.00-0.02) K/uL Coles # (Auto) 0.75 H (0.11-0.59) K/uL Creatinine 0.42 L 0.34 L (0.6-1.4) mg/dl BUN/Creatinine Ratio 33.8 H (10-20) Calcium 8.4 L (8.5-10.1) mg/dl
[2018-04-16] MEDS: cefTRIAXone SODIUM 2,000 MG in DEXTROSE 5% 50 ML IV SCH (16:04)
[2018-04-16] MEDS: HEPARIN SOD 5,000 UNIT/0.5 ML VIAL SQ SCH (20:39)
--- NOTE | 2018-04-16 20:50 | Consultation Report ---
DATE OF CONSULTATION: 04/14/2018 CHIEF COMPLAINT: Intractable back pain. HISTORY OF PRESENT ILLNESS: Kobe is a pleasant gentleman. I met him for the first time on 04/14/2018 in my office. It was quite obvious to me that he could barely ambulate and could not get up on his feet, had weakness, lethargy, malaise and weight loss. I sent him to the Emergency Room for evaluation and treatment by the ER personnel and he was admitted to the medical service for evaluation and treatment and treatment for what appeared to be an osteomyelitis of the spine. PAST MEDICAL HISTORY: Positive for malignant melanoma, essential tremor. PAST SURGICAL HISTORY: Lymph node resection, hernia repair, cholecystectomy. SOCIAL HISTORY: Nonsmoker. Lives at home. Does drink alcohol daily. No substance abuse. REVIEW OF SYSTEMS: Denies any blurred vision, double vision, tinnitus, vertigo. He had no chest pain, shortness of breath. No nausea or vomiting. He did have some loss of appetite. PHYSICAL EXAMINATION: VITAL SIGNS: He had a temperature of 36.3, pulse 80, respiratory rate 22, blood pressure stable. HEENT: Pupils react to light and accommodation. Ear, nose and throat clear. CARDIAC: Normal rate, rhythm. LUNGS: Clear. ABDOMEN: Soft, nontender. MUSCULOSKELETAL: He has significant pain with percussion to lumbar spine, decreased range in motion. NEUROLOGIC: He also has an intact neurological examination of lower extremities. IMAGING: Demonstrates significant edema, some endplate destruction on plain films on MRI scan, highly suspicious for discitis, osteomyelitis. I looked at the radiology interpretations. I agree there does not appear to be any epidural abscess. ASSESSMENT: Significant discitis and osteomyelitis L1-L2, lumbar spine. PLAN: We will treat him in a brace and antibiotics. If he fails, he will need surgical intervention. I would try to give this one 2-3 weeks of failure before we embark upon surgical intervention. Surgery has a significant amount of morbidity with it but it certainly could be done. If he does need surgical intervention, he may need to be transferred to a higher level of service. DAVID
[2018-04-16] MEDS: MoRPHine SULFATE 4 MG/ML 1 ML CARP\\VIAL IV PRN (21:23)
[2018-04-17] MEDS: ACETAMINOPHEN 500 MG TAB PO SCH ×3 (05:49→22:03)
[2018-04-17 07:09] LABS: Creatinine Clr Calc Pharmacy 162.7 ml/min; Est GFR (African American) 132.9; Est GFR (Non-African American) 114.7
--- NOTE | 2018-04-17 08:14 | Progress Note ---
DATE: 04/17/2018 SUBJECTIVE: He is improving and stabilizing in my opinion. He remains afebrile. He is alert, oriented, taking p.o., pain controlled. ASSESSMENT: Osteomyelitis of the spine L1-L2. PLAN: He is fitted for his brace. Will continue IV antibiotics. He will need a PICC line. I anticipate him getting home from the hospital within the next 1-4 days.
[2018-04-17] MEDS: MULTIVITAMIN TAB PO SCH (08:53)
[2018-04-17] MEDS: PROPRANOLOL HCL 20 MG TAB PO SCH ×2 (08:56→20:48)
[2018-04-17] MEDS: HEPARIN SOD 5,000 UNIT/0.5 ML VIAL SQ SCH ×2 (08:57→20:49)
[2018-04-17] MEDS: MoRPHine SULFATE 4 MG/ML 1 ML CARP\\VIAL IV PRN ×2 (09:56→20:44)
[2018-04-17] MEDS ORDERED: POLYETHYLENE (MIRALAX) 17 GM PACK PO PRN (10:00)
--- NOTE | 2018-04-17 16:16 | Hospitalist Progress Note ---
Date of Service April 17, 2018 Assessment & Plan (1) Osteomyelitis of lumbar spine: Noted on MRI States pain started post-op lap beatrice for gangrenous gallbladder 02/21 Ortho and ID consulted - repeat imaging Xray ordered by ortho showing stable to mild increase in discitis - ortho will have patient wear brace and continue with antibiotics for 2-3 weeks and then reevaluate the need for surgery Continue Rocephin per ID Blood cx growing carranza sensitive E.Coli WBC wnl today PT/OT (2) Essential tremor: continue home meds (3) Malignant melanoma metastatic to lymph node: Dx approx 1 yr ago Post-op Ongoing chemo Q2-4weeks, currently on hold due to recent health issues Left a message with Dr. Longo's office to touch base on patient's condition and discuss future chemo but did not receive call back. Patient should be set up for follow up appt at discharge (4) Lipoma: Noted on upper t-spine findings c/w lipoma, states this has been present for some time (5) Microscopic hematuria: On U/A on admission. Patient does have history of E.Coli UTI in January. Will defer urine culture as patient has already started abx. Will need to repeat UA or follow up after discharge. (6) DVT prophylaxis: SCDs, heparin subq Subjective Patient continues to have pain per nursing but he does report overall feeling that he is improving Review of Systems All systems reviewed & are unremarkable except as noted in HPI & below Physical Exam 2 Vital Signs (Past 24 Hours): Last Vital Signs Temp 36.7 C 04/17/18 15:05 Pulse 67 04/17/18 15:05 Resp 18 04/17/18 15:05 BP 115/74 04/17/18 15:05 Pulse Ox 94 04/17/18 15:05 Physical Exam: General: no distress Eyes: normal inspection, PERLL Respiratory: chest non tender, clear to auscultation, normal breath sounds, no respiratory distress, no accessory muscle use Cardiac: regular rate and rhythm, no rub or gallop, no murmur, no edema, no jvd GI/: active bowel sounds, no abd pain or tenderness, soft, non distended Extremities: normal range of motion, normal strength, tender to palpation over lumbar spine Neuro/Psych: alert and oriented x 3, normal mood and affect Skin: normal color, dry Results & Data Laboratory Results Abnormal lab results 04/17/18 Range/Units 06:23 Creatinine 0.45 L (0.6-1.4) mg/dl
[2018-04-17] MEDS: cefTRIAXone SODIUM 2,000 MG in DEXTROSE 5% 50 ML IV SCH (16:28)
[2018-04-17] MEDS ORDERED: HEPARIN 100 UNIT/ML 5ML FLUSH FLUSH PRN (18:19)
[2018-04-17] MEDS: OXYCODONE HCL IR 5 MG TAB (IMMEDIATE RELEASE) PO PRN (18:52)
--- NOTE | 2018-04-17 21:09 | Infectious Disease Progress Nt ---
Date of Service April 17, 2018 Assessment & Plan (1) Osteomyelitis of lumbar spine: Patient with lumbar osteomyelitis with discitis with possible second sacral focus. Blood now growing E. coli, suggesting urinary tract as source of infection. Patient to continue on IV ceftriaxone with follow-up MRI scan in 1- 2 weeks to assess response. Will follow. (2) Diskitis: Subjective Seen in follow-up for discitis and vertebral osteomyelitis. Pain slightly better controlled. Remains afebrile. Blood culture growing E. coli, sensitive to ceftriaxone. Tolerating antibiotics without apparent difficulty. Orthopedic consult noted. Review of Systems All systems reviewed & are unremarkable except as noted in HPI & below Physical Exam 2 Vital Signs (Past 24 Hours): Last Vital Signs Temp 36.7 C 04/17/18 15:05 Pulse 67 04/17/18 15:05 Resp 18 04/17/18 15:05 BP 115/74 04/17/18 15:05 Pulse Ox 94 04/17/18 15:05 Constitutional: WD/WN, vitals as above comfortable; no acute distress Eyes: PERRL, conjunctivae normal, anicteric sclerae ENMT: external ear and nose normal, oropharynx normal Neck: trachea midline, no thyromegaly neck nontender Respiratory: normal respiratory effort, lungs clear to auscultation normal percussion; does not use accessory muscles Cardiovascular: Rate/Rhythm: regular rate and regular rhythm Heart Sounds: normal S1 and normal S2; no gallop, no murmur and no cardiac rub Vessels: normal peripheral pulses; no JVD Gastrointestinal (Abdomen): normal bowel sounds, soft, nontender, no hepatosplenomegaly Musculoskeletal: no cyanosis or clubbing, extremities motor strength 5/5 Spine: thoracic spine normal to inspection and + lumbar spinal tenderness ( Upper lumbar spine); no cervical spinal tenderness Skin: no rashes, warm and dry normal turgor; no lesions Neurologic: patellar DTR's 2+ bilat, sensation intact no focal motor deficits Psychiatric: A+Ox3, euthymic affect Orientation: cooperative Lymphatic: no cervical or axillary lymphadenopathy no inguinal lymphadenopathy Results & Data Laboratory Results [facility] 04/17/18 06:23 Creatinine 0.45 L Diagnostic Findings Microbiology 04/14/18 15:54 Blood Blood Culture - Final Escherichia coli 04/14/18 12:56 Blood Blood Culture - Preliminary No growth to date. XR lumbar spine 2-3V CLINICAL HISTORY: 68 years-old Male presenting with back pain. TECHNIQUE: Frontal, lateral, and coned in lateral views of the lumbar spine were obtained. COMPARISON: MR from 04/14/2018 and plain radiographs from 04/09/2018. FINDINGS: No significant scoliosis. Ill-defined endplates at L1-2 as evident on MR. The appearance is stable to minimally progressed since the prior radiograph there is mild vertebral body height loss of L1. Remaining vertebral bodies grossly normal in height and alignment. Intervertebral disc height loss at several levels to a mild degree. Ill-defined inferior endplate of L5 suggested. Multilevel osteophytosis. Multilevel osseous neural foraminal narrowing. Underlying osteopenia may be present. Nonobstructive bowel gas pattern. Cholecystectomy clips. Nephrolithiasis. IMPRESSION: 1. Slight interval progression of osseous erosion at L1-2 and potentially at L5 -S1. This raises concern for worsening discitis osteomyelitis. 2. Multilevel degenerative changes with multilevel osseous neural foraminal narrowing. Electronically signed by: Miugelito Monroy M.D. 04/16/2018 11:51 AM Dictated: 04/16/18 1148 Transcribed: 04/16/18 1148
[2018-04-17 23:59] VITALS: O2SAT 95
[2018-04-18] MEDS: ACETAMINOPHEN 500 MG TAB PO SCH ×2 (05:12→13:54)
[2018-04-18] MEDS: MoRPHine SULFATE 4 MG/ML 1 ML CARP\\VIAL IV PRN ×2 (05:30→12:45)
[2018-04-18 06:12] LABS: Eosinophils # (auto) 0.07 K/uL (0-0.5); Hematocrit (blood only) 32.4 % (42-52); Hemoglobin 9.7 g/dL (14.0-18.0); Immature Granulocytes # (auto) 0.04 K/uL (0.00-0.02); Immature Granulocytes % (auto) 0.6 %; Lymphocytes # (auto) 2.43 K/uL (1.2-3.4); Lymphocytes % (auto) 34.4 %; Mean Corpuscular Hgb Conc 29.9 g/dL (32-36); Mean Platelet Volume 8.5 fL (7.4-10.4); Monocytes # (auto) 0.61 K/uL (0.11-0.59); Monocytes % (auto) 8.6 %; Neutrophils # (auto) 3.92 K/uL (1.4-6.5); Neutrophils % (auto) 55.4 %; Platelet Count 137 K/uL (130-400); RDW Coefficient of Variation 15.7 % (11.5-14.5); RDW Standard Deviation 42.8 fL (36.4-46.3); Red Blood Count 4.32 M/uL (4.7-6.1); White Blood Count 7.07 K/uL (4.8-10.8)
[2018-04-18 06:50] LABS: BUN Creatinine Ratio 29.4 (10-20); Calcium 8.3 mg/dl (8.5-10.1); Creatinine Clr Calc Pharmacy 178.6 ml/min; Est GFR (African American) 138.1; Est GFR (Non-African American) 119.1; Potassium 4.3 mmol/L (3.5-5.1)
[2018-04-18] MEDS: MULTIVITAMIN TAB PO SCH (09:20)
[2018-04-18] MEDS: PROPRANOLOL HCL 20 MG TAB PO SCH (09:23)
[2018-04-18] MEDS: HEPARIN SOD 5,000 UNIT/0.5 ML VIAL SQ SCH (09:23)
[2018-04-18] MEDS: OXYCODONE HCL IR 5 MG TAB (IMMEDIATE RELEASE) PO PRN ×3 (09:45→16:03)
--- NOTE | 2018-04-18 09:50 | Progress Note ---
DATE: 04/18/2018 SUBJECTIVE: He is alert, oriented. There is still significant mechanical back pain. He is able to get out of bed to a chair and ambulate to the bathroom. He is taking p.o. He is having a small bowel movement. OBJECTIVE: Vital signs are stable. White count is no longer elevated, 7.07. Hemoglobin 9.7. Recent x-rays demonstrate some consolidation of his osteomyelitis. He does have relative stability of the vertebral level. I do not think he is grossly unstable. IMPRESSION: Osteomyelitis of spine. PLAN: We will continue 3-6 weeks of IV antibiotics, back brace for support. I think he is stable to go home or rehab today and would like to see him back in the office in 10-12 days if possible.
--- NOTE | 2018-04-18 13:01 | CT Scan Report ---
CT lumbar spine wo con HISTORY: 68 years-old Male fluid collection over spine continued acute low back pain COMPARISON: MRI lumbar spine 04/14/2018 TECHNIQUE: Multiple axial CT images of the lumbar spine were obtained without the use of IV contrast. A dose lowering technique was used consistent with the principals of ALARA. FINDINGS: Demineralized appearance of the bones. Endplate erosive/lytic changes at L1-L2 with moderate paraspin al edema tracking into the psoas musculature, right greater than left redemonstrated compatible with acute discitis osteomyelitis. Additionally, there are endplate erosive/lytic changes and fragmentatio n at L5-S1 compatible with additional site of discitis/osteomyelitis. There is unchanged mild retropu lsion of 4 mm at L1-L2. No high-grade central canal or foraminal narrowing. No epidural abscess colle ction definitively seen. Nonobstructing right nephrolithiasis. No aortic aneurysm. Multilevel discogenic degenerative changes with annular disc bulging, posterior disc osteophyte compl ex formations with facet arthropathy and ligament of flavum thickening redemonstrated resulting in va rying degrees of central canal and foraminal narrowing, most pronounced at L1-L2. No significant bustamante ge from comparison. IMPRESSION: 1. Endplate erosive/lytic changes at L1-L2 and a lesser extent at L5-S1 redemonstrated compatible wit h areas of acute discitis/osteomyelitis. Paravertebral edema at L1-L2 extends into the psoas musculat ure. 2. No definite epidural abscess collection identified. 3. Multilevel degenerative changes as above with varying degrees of central canal and foraminal narro wing, better assessed on comparison MRI from 04/14/2018. The above report was generated using voice recognition software. It may contain grammatical, syntax o r spelling errors. Electronically signed by: Cory Garza M.D. 04/18/2018 12:59 PM
[2018-04-18 15:35] VITALS: TEMP 98.2
[2018-04-18] MEDS: cefTRIAXone SODIUM 2,000 MG in DEXTROSE 5% 50 ML IV SCH (15:50)
--- NOTE | 2018-04-18 16:06 | Discharge Summary ---
Date of Service April 18, 2018 Admission HPI Per Admitting Provider 68 y/o M c/o intractable back pain. Pt states that this pain started just after he had a lap beatrice on 02/21. He states he had no back pain prior to this. Pt states that at first he thought it was related to his surgery, however it has continued to worsen to the point that he cannot ambulate due to pain. He is able to ambulate somewhat with a walker, but this has become minimal. Feels it is only limited by pain and that he could bear weight if he had to. No bowel/ bladder incontinence. His appetite is decreased related to pain as well. Pain is midline in his lower back. It does not radiate b/l or into LE at all. Pt denies fever, SOB, chest pain, abd pain, n/v/c/d, LE pain or swelling. Pt states that his pain was so intense that he made an appt with Dr. Steven. He was seen today and sent to the ED for emergent imaging. Pt is s/p lisao and huehin in the ED. He states that the pain is somewhat better, but it has been replaced by a burning sensation. Pt is supposed to be taking a Q2-4 week chemo medication for his melanoma, however he states this has been on hold due to his recent health issues. He was to have an appt with oncology tomorrow to discuss this. Principal Diagnosis discitis/osteomyelitis Discharge Exam Constitutional WD/WN, vitals as above Respiratory normal respiratory effort, lungs clear to auscultation Cardiovascular RRR, no murmur, no edema Gastrointestinal (Abdomen) normal bowel sounds, soft, nontender, no hepatosplenomegaly Musculoskeletal no cyanosis or clubbing, extremities motor strength 5/5 Skin no rashes, warm and dry Neurologic moves all extremities and awake Psychiatric A+Ox3, euthymic affect Discharge Data Allergies Allergy/AdvReac Type Severity Reaction Status Date / Time No Known Allergies Allergy Unverified 04/14/18 12:38 Consultations 04/14/18 15:40 ED Decision to Admit Stat 04/14/18 18:42 Consult Case Management - Discharge Planning Routine Consult Orthopedic Surgery Routine 04/15/18 14:00 Consult Infectious Diseases Routine Ordered Studies 04/14/18 13:00 MR lumbar spine wo/w con Stat 04/18/18 11:57 CT lumbar spine wo con Routine Hospital Course (1) Osteomyelitis of lumbar spine: Noted on MRI States pain started post-op lap beatrice for gangrenous gallbladder 02/21 Ortho and ID consulted - repeat imaging Xray ordered by ortho showing stable to mild increase in discitis - ortho will have patient wear brace and continue with antibiotics for 2-3 weeks and then reevaluate the need for surgery. Patient to follow up with surgery in 10-12 days Continue 2g IV daily Rocephin per ID Blood cx growing carranza sensitive E.Coli WBC wnl today CT lumbar spine repeated today for soft lump over spine. Patient reports it has been there for sometime but looked more pronounced to me today and was very tender to palpation. CT showed: IMPRESSION: 1. Endplate erosive/lytic changes at L1-L2 and a lesser extent at L5-S1 redemonstrated compatible with areas of acute discitis/osteomyelitis. Paravertebral edema at L1-L2 extends into the psoas musculature. 2. No definite epidural abscess collection identified. 3. Multilevel degenerative changes as above with varying degrees of central canal and foraminal narrowing, better assessed on comparison MRI from 2018. (2) Essential tremor: continue home meds (3) Malignant melanoma metastatic to lymph node: Dx approx 1 yr ago Post-op Ongoing chemo Q2-4weeks, currently on hold due to recent health issues Left a message with Dr. Longo's office to touch base on patient's condition and discuss future chemo but did not receive call back. Patient should be set up for follow up appt at discharge. Nurse Navigator will try to get in touch with their office again on Friday. (4) Microscopic hematuria: On U/A on admission. Patient does have history of E.Coli UTI in January and he had microscopic hematuria at that time as well. Will defer urine culture as patient has already started abx. Will need to repeat UA and follow up after discharge with pcp. (5) DVT prophylaxis: SCDs, heparin subq Total Time Total Time Spent Total Time Spent (In Minutes): greater than 30 minutes Total Time Includes: Examination of the Patient, Discharge Planning, Medication Reconciliation and Communication With Other Providers Discharge Plan Discharge Items Patient Disposition: Transfer Inpatient Rehab Fac Reason For Visit: DISCITIS Discharge Diagnosis: Discitis, osteomyelitis of lumbar spine Discharge Goals: Decrease discomfort Activity: Per 'Additional Instructions' section Non-emergency contact: Primary Care Provider Call non-emergency contact if: you have any medication questions Follow-up/Referrals: Marbin Steven, DO [Surgeon] - (needs follow up in 10 to 14 days) Diet: Heart Healthy Addtl Provider Instructions: Recommend weekly cmp, prp bloodwork or frequency per infectious disease while on Rocephin IV therapy. Please continue on IV ceftriaxone 2g with follow-up MRI scan in 1-2 weeks to assess progress. Date of discontinuing ceftriaxone therapy to be determined by infectious disease. Follow up with surgery in 10 - 12 days. Back brace should be worn for support. Patient will need to follow up with Dr. Longo's office concerning when to restart chemotherapy. Patient should have repeat U/A to assess for resolution of microscopic hematuria that was seen on admission. Prescriptions: New polyethylene glycol 3350 [Miralax] 17 gram Powder In Packet 17 g PO DAILY PRN (Reason: constipation) 7 Days Qty: 7 RF: 0 acetaminophen [Pain Reliever] 500 mg Tablet 1,000 mg PO Q8 30 Days Qty: 180 RF: 0 oxycodone 5 mg Tablet 5 mg PO Q4H PRN (Reason: pain) Qty: 20 RF: 0 ceftriaxone 2 gram recon soln 2 gm IV DAILY Qty: 30 RF: 0 Continue multivitamin Tablet 1 tab PO DAILY RF: 0 propranolol 60 mg tablet 60 mg PO BID RF: 0 nivolumab [Opdivo] 100 mg/10 mL Solution 1 dose IV MONTHLY RF: 0 Discontinued ibuprofen 400 mg tablet 400 mg PO Q8H PRN (Reason: mild pain) Qty: 10 RF: 0 Stand-Alone Forms: [facility]/Other Patient Handouts: PICC, PICC Care Dc Discharge Orders: Discharge Order (Routine); Ordered 04/18/18 Ordered By: Courtney Buenrostro Skilled Items Patient informed of condition?: Yes DNR: No Discharge Level of Care: Acute rehab Communicable Disease: No Discharge Prognosis: Stable Admission Data Admit Date/Time: 04/14/18 16:13 Attending Provider: Andrew Rivera Admit Provider: Sulma Cody Primary Care Provider: Keith Mcmanus Other Providers: Sulma Cody ; Marbin Steven ; Constantine Bolanos Service: Surgical Services
[2018-04-18 16:17] VITALS: BP 110/68; PULSE 76
--- NOTE | 2018-04-21 13:37 | Coding Query ---
CODING QUERY To promote full compliance with coding requirements relating to patient care, provider participation is requested in all cases of label coder uncertainty. Please assist us with the question(s) below: Coding Question(s): There is documentation of Osteomyelitis of the Lumbar Spine with Discitis and Infectious Disease Progress Note on 04/17/18 documents blood now growing E.Coli, suggesting urinary tract as source of infection. The Discharge Summary documents Microscopic Hematuria on U/A on admission and states that patient does have a history of E.Coli UTI in January and had microscopic hematuria at that time as well and that the Urine Culture was deferred as the patient was already started on antibiotics. Please specify below, in your clinical opinion. ( ) Patient was treated for possible UTI during this admission ( ) Patient had history of UTI and No possible UTI was treated during this admission (xx) treated for discitis and lumbar osteomyelitis, which is possibly from previous E coli uti, concurrent uti this admission cannot be determined without culture. Physician's Response(s): Thank you Katheryn Corona Principal Diagnosis: "that condition established after study, to be chiefly responsible for occasioning the admission of the patient to the hospital for care." Co-Existing Principal Diagnosis: "when two or more diagnoses equally meet the criteria for principal diagnosis as determined by the circumstances of admission, diagnostic work up, and/or therapy provided, and the Alphabetic Index, Tabular List, or another coding guideline does not provide sequencing direction, any one of the diagnoses may be sequenced first." "When the physician has documented what appears to be a current diagnosis in the body of the record, but has not included the diagnosis in the final diagnostic statement, the physician should be asked whether the diagnosis should be added." (Source Coding [facility] 2 QTR90. p3-4) DAVID
== END 2018-04-18 17:11 | DRG 540 ==
LOC: ED 11:55 → SUATTDRO 16:13 → 3N 16:13

== ENCOUNTER 2018-05-11 14:45 | Inpatient (IN) ==
--- NOTE | 2018-05-11 15:52 | XRay Report ---
XR chest 1V portable HISTORY: 68 years-old Male Sepsis acute sepsis COMPARISON: PET CT 03/19/2017 TECHNIQUE: Portable AP view of the chest FINDINGS: Cardiomediastinal and hilar silhouettes are within normal limits. Left-sided PICC is noted, distal ti p terminating within the expected region of the proximal SVC. Mild right hemidiaphragmatic elevation. Surgical clips project over the neck. There is no pneumothorax, pleural effusion, focal airspace con solidation or overt pulmonary edema. Mild blunting of the right costophrenic angle, likely secondary to scarring/atelectasis. Degenerative changes are noted about the shoulders and spine. IMPRESSION: No acute process. The above report was generated using voice recognition software. It may contain grammatical, syntax o r spelling errors. Electronically signed by: Cory Garza M.D. 05/11/2018 3:50 PM
[2018-05-11 16:00] LABS: Basophils # (auto) 0.02 K/uL (0-0.2); Basophils % (auto) 0.4 %; Eosinophils # (auto) 0.03 K/uL (0-0.5); Eosinophils % (auto) 0.6 %; Hematocrit (blood only) 35.7 % (42-52); Immature Granulocytes # (auto) 0.01 K/uL (0.00-0.02); Immature Granulocytes % (auto) 0.2 %; Lymphocytes # (auto) 0.74 K/uL (1.2-3.4); Lymphocytes % (auto) 14.8 %; Mean Corpuscular Hgb Conc 30.8 g/dL (32-36); Mean Corpuscular Volume 76.1 fL (80-100); Mean Platelet Volume 9.1 fL (7.4-10.4); Platelet Count 127 K/uL (130-400); RDW Coefficient of Variation 19.2 % (11.5-14.5); RDW Standard Deviation 53.3 fL (36.4-46.3); Red Blood Count 4.69 M/uL (4.7-6.1)
[2018-05-11 16:10] LABS: INR 1.2 (0.9-1.1); Partial Thromboplastin Ratio 0.9; Partial Thromboplastin Time 25.2 Seconds (21.0-31.0); Prothrombin Time 11.9 Seconds (9.0-12.0)
[2018-05-11 16:12] LABS: BUN Creatinine Ratio 49.7 (10-20); Calcium 8.6 mg/dl (8.5-10.1); Creatinine Clr Calc Pharmacy 139.5 ml/min; Est GFR (African American) 125.2; Potassium 4.1 mmol/L (3.5-5.1)
[2018-05-11 16:15] LABS: Albumin Globulin Ratio 0.7 (0.9-2); Bilirubin,Total 0.5 mg/dl (0.2-1); Globulin 4.2 gm/dl (2.5-4.0); Total Protein 7.2 gm/dl (6.4-8.2)
[2018-05-11 17:33] LABS: Appearance Urine Clear (Clear); Bacteria Urine Automated Negative (Negative); Bilirubin Urine Negative (Negative); Blood Urine Negative (Negative); Color Urine Dark Yellow; Glucose Urine UA Negative (Negative); Ketones Urine Trace (Negative); Leukocyte Esterase Urine Negative (Negative); Nitrite Urine Positive (Negative); Protein Urine Trace (Negative); RBC Urine Automated 0-4 /hpf (0-4); Specific Gravity Urine 1.033 (1.000-1.030); Urobilinogen Urine Negative (Negative)
[2018-05-11] MEDS ORDERED: SODIUM CHLORIDE 0.9% 1000ML 500 ML IV ONE (17:50)
--- NOTE | 2018-05-11 19:41 | History & Physical Report ---
Date of Service May 11, 2018 Assessment & Plan (1) Generalized weakness: The differential for this is broad, but the most likely appears to be a combination of deconditioning, malnutrition, weight loss, and pain -all related to his acute situation with his discitis and paraspinal abscesses. Suspect his hyponatremia is "effect rather than cause" given his poor p.o. intake and weight loss, and his sodium is not low enough to really represent a problem here in and of itself. He shows no signs or symptoms of new or acute infection or neurologic compromise Medication side effect is possible, but right now he notes that the pain medicines he is on really gives him just enough control to be able to participate with therapy. (Will stop the scheduled Tylenol due to his transaminitis, see below) (2) Osteomyelitis of lumbar spine: Repeat blood cultures are pending Continue Rocephin (3) Anemia: Follow periodically (4) Hyponatremia: Appears to be due to his poor oral intake and weight loss, encourage p.o. intake, gentle hydration, follow (5) Diskitis: See above continue Rocephin (6) Microscopic hematuria: Outpatient follow-up (7) Malignant melanoma metastatic to lymph node: This obviously is on the differential for his weakness, but it seems less likely to be the culprit, should his weakness persist, then oncology input on this may be necessary. That said, without evidence of diffuse metastatic disease, it seems far less likely. (8) Thrombocytopenia: Close periodic follow-up (9) Low back pain: Due to his discitis/paraspinal abscesses. Continue antibiotics. Continue fentanyl patch and Soma for now, continue oxycodone. Low threshold to try to wean all 3 of these given that they may also be contributing to his weakness. Give trial of Voltaren gel. PT/OT eval and treat (10) Essential tremor: (11) Transaminitis: Most likely relates to his scheduled Tylenol, versus other medication effect, versus less likely any true liver issues. Hold Tylenol follow LFTs. Low threshold for imaging. (12) Weight loss: Appears to relate more to poor oral intake than his melanoma. Encourage oral intake, start Remeron as an appetite stimulant, low threshold to start Marinol. Boost shakes 3 times daily, dietitian eval and treat. (13) DVT prophylaxis: Lovenox, follow platelets. (14) Discharge planning issues: PT/OT eval and treat, we discussed the possibility of revisiting a rehab placement, he is giving this consideration. Admit to [facility] History of Present Illness Chief Complaint: Weakness Primary Care Provider: Keith Mcmanus DO Patient is a very pleasant 68-year-old male who presents with weakness. While he endorses an acuity to the weakness, as he is allowed to elaborate mostly it has been an ongoing problem. He had cholecystectomy in late January, about 6 weeks later had low back pain from osteomyelitis, and has been on antibiotics since. He notes a significant amount of weakness all over, but is focused in his legs. He was here in the hospital started on IV antibiotics and went to [facility]. There he was making progress, and he noted that he was discharged home because they deemed him to be functionally independent, that was about 2 days ago, and he notes that once he was home his felt he was not is functional or independent as he needed to be. Again here he notes that he is feeling weaker now than he was whenever he left [facility], but has a hard time distinguishing exactly what it is other than being weak all over, with a leg predominance of the weakness. He specifically notes having a hard time getting off the toilet. He does not endorse any falls at home. He notes a significant amount of low back pain. This pain seems to be worse with movement, and radiates to the hips bilaterally more than anything. He loosely endorses a bit of a burning pain down his legs from the knees down, but this seems much harder to describe, quantify, or put into circumstances. He has not had any fevers chills or sweats. No bowel or bladder incontinence, no saddle anesthesia. He does endorse poor appetite, and feeling like it is hard to get food down, noting that he has to drink a lot whenever he is eating. He notes he is lost about 20 pounds over the course of this low back illness. He denies any other focal complaints that are new. Allergies Allergy/AdvReac Type Severity Reaction Status Date / Time No Known Allergies Allergy Unverified 05/11/18 16:30 Home Medications Home Medications Medication Instructions Recorded Confirmed Type Opdivo 1 dose IV MONTHLY 02/19/18 05/11/18 History multivitamin 1 tab PO DAILY 02/19/18 05/11/18 History propranolol 60 mg PO BID 02/19/18 05/11/18 History acetaminophen [Pain Reliever] 1,000 mg PO Q8 30 Days #180 tab 04/18/18 05/11/18 Rx ceftriaxone 2 gm IV DAILY #30 ea 04/18/18 05/11/18 Rx oxycodone 5 mg PO Q4H PRN #20 tab 04/18/18 05/11/18 Rx carisoprodol [Soma] 350 mg PO TID PRN 05/11/18 05/11/18 History fentanyl 1 patch TRANSDERMAL Q72H 05/11/18 05/11/18 History Past Med/Surg History Medical History Essential tremor (Chronic) Kidney stones Malignant melanoma Surgical History H/O inguinal hernia repair H/O lymph node excision Hx laparoscopic cholecystectomy Social History Preferred Language: [place] Beliefs That Will Affect Care: None marital status: Current Living Situation: Spouse Feels Safe at Home: Yes Smoking Status: Never smoker Hx Alcohol Use: No Hx Substance Use: No Review of Systems All systems reviewed & are unremarkable except as noted in HPI & below Physical Exam Vital Signs (Past 24 Hours): Last Vital Signs Temp 36.7 C 05/11/18 15:02 Pulse 77 05/11/18 18:01 Resp 25 H 05/11/18 18:01 BP 114/71 05/11/18 18:30 Pulse Ox 94 05/11/18 18:30 Physical Exam: Generalhe is awake alert oriented x3, pleasant but fatigued appearing, appears in a mild degree of pain whenever he is laying still, and more pain whenever he is moving. HEENT normocephalic atraumatic mucous membranes may be slightly dry, neck supple with full range of motion. Cardio regular without rubs murmurs gallops Lungs clear to auscultation bilaterally no rales rhonchi wheezes good effort no accessory muscle use Abdomen soft nondistended nontender Extremities no cyanosis clubbing or edema no calf tenderness Skin no rashes no pallor or icterus, due to pain and positioning in the ER bed I am not able to get a full skin exam of his back, will do this as soon as conditions allow Neuro shows cranial nerves II through XII to be grossly intact, gross motor is surprisingly about 5- out of 5 may be 4+ out of 5 bilateral lower extremities, and 5 out of 5 and equal upper extremities bilaterally. He shows no focal sensory deficits to confrontational light touch Mental status shows good recent and remote recall normal mood and affect good judgment and insight Musculoskeletal examexcept for his pain with movement I can see no gross defor mities, again full exam was difficult due to pain and positioning, but no gross deformities noted. Results & Data Laboratory Results Lab Results 05/11/18 05/11/18 05/11/18 Range/Units 15:37 15:37 15:37 WBC 5.00 (4.8-10.8) K/uL RBC 4.69 L (4.7-6.1) M/uL Hgb 11.0 L (14.0-18.0) g/dL Hct 35.7 L (42-52) % MCV 76.1 L (80-100) fL MCH 23.5 L (25-34) pg MCHC 30.8 L (32-36) g/dL RDW Std Deviation 53.3 H (36.4-46.3) fL RDW Coeff of Stella 19.2 H (11.5-14.5) % Plt Count 127 L (130-400) K/uL MPV 9.1 (7.4-10.4) fL Immature Gran % (Auto) 0.2 % Neut % (Auto) 78.0 % Lymph % (Auto) 14.8 % Saunders % (Auto) 6.0 % Eos % (Auto) 0.6 % Baso % (Auto) 0.4 % Immature Gran # (Auto) 0.01 (0.00-0.02) K/uL Neut # (Auto) 3.90 (1.4-6.5) K/uL Lymph # (Auto) 0.74 L (1.2-3.4) K/uL Saunders # (Auto) 0.30 (0.11-0.59) K/uL Eos # (Auto) 0.03 (0-0.5) K/uL Baso # (Auto) 0.02 (0-0.2) K/uL PT 11.9 (9.0-12.0) Seconds INR 1.2 H (0.9-1.1) APTT 25.2 (21.0-31.0) Seconds PTT Ratio 0.9 Sodium (136-145) mmol/L Potassium (3.5-5.1) mmol/L Chloride (98-107) mmol/L Carbon Dioxide (21-32) mmol/L Anion Gap (3-11) BUN (7-18) mg/dl Creatinine (0.6-1.4) mg/dl Est Cr Clr Drug Dosing ml/min Est GFR ( Amer) Est GFR (Non-Af Amer) BUN/Creatinine Ratio (10-20) Glucose (70-99) mg/dl Lactate (0.4-2.0) mmol/L Calcium (8.5-10.1) mg/dl Total Bilirubin (0.2-1) mg/dl AST (15-37) U/L ALT (12-78) U/L Alkaline Phosphatase (45-117) U/L Troponin I < 0.015 (0-0.045) ng/ml Total Protein (6.4-8.2) gm/dl Albumin (3.4-5.0) gm/dl Globulin (2.5-4.0) gm/dl Albumin/Globulin Ratio (0.9-2) Urine Color Urine Appearance (Clear) Urine pH (4.5-7.5) Ur Specific [place] (1.000-1.030) Urine Protein (Negative) Urine Glucose (UA) (Negative) Urine Ketones (Negative) Urine Blood (Negative) Urine Nitrite (Negative) Urine Bilirubin (Negative) Urine Urobilinogen (Negative) Ur Leukocyte Esterase (Negative) Urine WBC (Auto) (0-5) /hpf Urine RBC (Auto) (0-4) /hpf U Hyaline Cast (Auto) (0-5) /lpf U Epithel Cells (Auto) (0-5) /lpf Urine Bacteria (Auto) (Negative) 05/11/18 05/11/18 05/11/18 Range/Units 15:37 15:37 17:20 WBC (4.8-10.8) K/uL RBC (4.7-6.1) M/uL Hgb (14.0-18.0) g/dL Hct (42-52) % MCV (80-100) fL MCH (25-34) pg MCHC (32-36) g/dL RDW Std Deviation (36.4-46.3) fL RDW Coeff of Stella (11.5-14.5) % Plt Count (130-400) K/uL MPV (7.4-10.4) fL Immature Gran % (Auto) % Neut % (Auto) % Lymph % (Auto) % Saunders % (Auto) % Eos % (Auto) % Baso % (Auto) % Immature Gran # (Auto) (0.00-0.02) K/uL Neut # (Auto) (1.4-6.5) K/uL Lymph # (Auto) (1.2-3.4) K/uL Saunders # (Auto) (0.11-0.59) K/uL Eos # (Auto) (0-0.5) K/uL Baso # (Auto) (0-0.2) K/uL PT (9.0-12.0) Seconds INR (0.9-1.1) APTT (21.0-31.0) Seconds PTT Ratio Sodium 131 L (136-145) mmol/L Potassium 4.1 (3.5-5.1) mmol/L Chloride 98 (98-107) mmol/L Carbon Dioxide 25 (21-32) mmol/L Anion Gap 8.0 (3-11) BUN 26 H (7-18) mg/dl Creatinine 0.52 L (0.6-1.4) mg/dl Est Cr Clr Drug Dosing 139.5 ml/min Est GFR ( Amer) 125.2 Est GFR (Non-Af Amer) 108.0 BUN/Creatinine Ratio 49.7 H (10-20) Glucose 114 H (70-99) mg/dl Lactate 1.5 (0.4-2.0) mmol/L Calcium 8.6 (8.5-10.1) mg/dl Total Bilirubin 0.5 (0.2-1) mg/dl AST 61 H (15-37) U/L ALT 102 H (12-78) U/L Alkaline Phosphatase 260 H (45-117) U/L Troponin I (0-0.045) ng/ml Total Protein 7.2 (6.4-8.2) gm/dl Albumin 3.0 L (3.4-5.0) gm/dl Globulin 4.2 H (2.5-4.0) gm/dl Albumin/Globulin Ratio 0.7 L (0.9-2) Urine Color Dark Yellow Urine Appearance Clear (Clear) Urine pH 5.0 (4.5-7.5) Ur Specific [place] 1.033 H (1.000-1.030) Urine Protein Trace H (Negative) Urine Glucose (UA) Negative (Negative) Urine Ketones Trace H (Negative) Urine Blood Negative (Negative) Urine Nitrite Positive H (Negative) Urine Bilirubin Negative (Negative) Urine Urobilinogen Negative (Negative) Ur Leukocyte Esterase Negative (Negative) Urine WBC (Auto) 1-5 (0-5) /hpf Urine RBC (Auto) 0-4 (0-4) /hpf U Hyaline Cast (Auto) 1-5 (0-5) /lpf U Epithel Cells (Auto) 10-20 H (0-5) /lpf Urine Bacteria (Auto) Negative (Negative) Diagnostic Findings MRI OF THE LUMBAR SPINE WITHOUT CONTRAST CLINICAL HISTORY: Acute back pain. Osteomyelitis. COMPARISON STUDY: Lumbar spine MRI April 14, 2018. Lumbar spine CT April 18, 2018. TECHNIQUE: Utilizing a 1.5 Danika magnet and dedicated coil, multiplanar, multiecho imaging of the lumbar spine was performed without IV contrast. FINDINGS: For purposes of numbering on this exam, the L5-S1 disc space is assigned to axial image 33 of 37. Endplate erosive changes of the inferior endplate of L1 and superior endplate of L2 as well as the inferior endplate of L5 and superior endplate of S1 are noted. T2 signal within these discs with marrow signal abnormality within the L1, L2, L5 and S1 vertebral bodies is consistent with discitis and osteomyelitis. Marrow signal abnormality within these vertebral bodies is unchanged or minimally increased since exam of April 14, 2018. Evaluation of the lumbar spine is suboptimal given the lack of postcontrast imaging. No epidural abscess is identified. The conus terminates at the mid L1 level. Edema extending to the left psoas muscle is again noted. Two left psoas small muscle fluid collections measure up to 1.3 x 0.8 cm. These are more conspicuous than on previous exams. No additional fluid collections are identified. No additional sites of discitis are noted. There is no intracana licular mass. L1-2: Posterior disc osteophyte complex results in moderate central canal and lateral recess narrowing. This is unchanged. There is mild narrowing of the left neural foramen and moderate narrowing of the right neural foramen. L2-3: There is disc space narrowing. Central canal and neural foramen are patent. L3-4: There is mild disc bulge. There is mild narrowing of the central canal and lateral recesses. There is mild narrowing of the right neural foramen. L4-5: Central canal and neural foramen are patent. L5-S1: Central canal and neural foramen are patent. IMPRESSION: 1. Redemonstration of discitis and osteomyelitis at the L1-L2 and L5-S1 levels as shown on MRI of April 14, 2018. Marrow signal abnormality similar to prior study. No epidural abscess. Two small left psoas muscle fluid collections at the L1-L2 level. These originally reflected small abscesses. Sterility at this time cannot be assessed by MRI. 2. Moderate multilevel degenerative changes of the lumbar spine, most advanced at L1-L2, as described above. Electronically signed by: Nithin Myers M.D. 05/08/2018 11:34 AM XR chest 1V portable HISTORY: 68 years-old Male Sepsis acute sepsis COMPARISON: PET CT 03/19/2017 TECHNIQUE: Portable AP view of the chest FINDINGS: Cardiomediastinal and hilar silhouettes are within normal limits. Left-sided PICC is noted, distal tip terminating within the expected region of the proximal SVC. Mild right hemidiaphragmatic elevation. Surgical clips project over the neck. There is no pneumothorax, pleural effusion, focal airspace consolidation or overt pulmonary edema. Mild blunting of the right costophrenic angle, likely secondary to scarring/atelectasis. Degenerative changes are noted about the sh oulders and spine. IMPRESSION: No acute process. The above report was generated using voice recognition software. It may contain grammatical, syntax or spelling errors. Electronically signed by: Cory Garza M.D. 05/11/2018 3:50 PM ECG Additional Comments: difficult to interpret due to wandering baseline, no acute changes noted (1) Anemia Anemia type: unspecified type Qualified Code(s): D64.9 - Anemia, unspecified
--- NOTE | 2018-05-11 20:07 | Emergency Department Note ---
Entered by Yifan Jimenez acting as a scribe for History of Present Illness General Chief complaint: Weakness Source: patient Limitations: no limitations History of Present Illness Provider complaint: Weakness Onset (ago): day(s) (2) Location: upper extremity, lower extremity, left and right Pain Consistency: + other (worsening) Maximum Pain Intensity: 6 Current Pain Intensity: 7 (7/10 back pain) Quality: + other (weakness) Associated symptoms: + loss of appetite; no fever/chills and no nausea/vomiting Treatments prior to arrival: none The patient is a 68 year old male who presents to the Emergency Room with complaints of worsening weakness for the past 2 days. The patient was admitted to the hospital on April 14 for osteomyelitis of the lumbar spine. His blood cultures grew-out E. coli and he was discharged to [facility] on IV- Ceftriaxone. The patient was discharged home from [facility] this past Friday, 2 days ago. He notes that since he has been home he has felt increasin gly weak. His weakness is generalized and not localized to the legs. The patient states that he is able to transfer from his wheel chair to his walker, but there was and episode when he sat down on the toilet and was unable to stand up. He notes that the weakness is diffuse and is not localized to one extremity. He denies any chills, vomiting, or chest pain. The patient states that he does not look at his stool and is unsure if there has been any hematochezia. He notes that he still does have back pain, which he currently rates as a 7/10 in severity. The patient adds that he has not had much of an appetite and has not been eating well. His urine is "dark" intermittently as well. Home Medications Home Medications Medication Instructions Recorded Confirmed Type Opdivo 1 dose IV MONTHLY 02/19/18 05/11/18 History multivitamin 1 tab PO DAILY 02/19/18 05/11/18 History propranolol 60 mg PO BID 02/19/18 05/11/18 History acetaminophen [Pain Reliever] 1,000 mg PO Q8 30 Days #180 tab 04/18/18 05/11/18 Rx ceftriaxone 2 gm IV DAILY #30 ea 04/18/18 05/11/18 Rx oxycodone 5 mg PO Q4H PRN #20 tab 04/18/18 05/11/18 Rx carisoprodol [Soma] 350 mg PO TID PRN 05/11/18 05/11/18 History fentanyl 1 patch TRANSDERMAL Q72H 05/11/18 05/11/18 History Allergies Allergy/AdvReac Type Severity Reaction Status Date / Time No Known Allergies Allergy Unverified 05/11/18 16:30 Past Med/Surg History Medical History Essential tremor (Chronic) Kidney stones Malignant melanoma Surgical History H/O inguinal hernia repair H/O lymph node excision Hx laparoscopic cholecystectomy Social History Preferred Language: Albanian Beliefs That Will Affect Care: None marital status: Current Living Situation: Spouse Feels Safe at Home: Yes Smoking Status: Never smoker Hx Alcohol Use: No Hx Substance Use: No Review of Systems See HPI for pertinent positives & negatives. and A total of 10 systems reviewed and were otherwise negative Physical Exam Vital Signs Vital Signs - 24 hr 05/11/18 15:02 05/11/18 15:08 05/11/18 15:27 Temperature 36.7 C Temperature Source Oral Sepsis Recent Fever Within 48 Hours No Sepsis New/Unexplained Change in Mental Status No Sepsis Action Taken by Nursing No Action Required Pulse Rate 72 Pulse Rate [Apical] Pulse Rate from SpO2 Sensor Pulse Rhythm Regular Pulse Strength Normal Respiratory Rate 15 Respiratory Effort / Characteristics Non-Labored Respiratory Depth Normal Respiratory Pattern Regular Blood Pressure 94/51 L Blood Pressure [Right Arm] Blood Pressure Mean 65 Blood Pressure Mean [Right Arm] Pulse Oximetry 95 94 94 Oxygen Delivery Method Room Air Room Air Room Air 05/11/18 17:17 05/11/18 17:30 05/11/18 18:01 Temperature Temperature Source Sepsis Recent Fever Within 48 Hours Sepsis New/Unexplained Change in Mental Status Sepsis Action Taken by Nursing Pulse Rate 76 77 Pulse Rate [Apical] 76 Pulse Rate from SpO2 Sensor 75 75 Pulse Rhythm Pulse Strength Respiratory Rate 22 22 25 H Respiratory Effort / Characteristics Respiratory Depth Respiratory Pattern Blood Pressure 124/70 117/74 Blood Pressure [Right Arm] 118/75 Blood Pressure Mean 88 88 Blood Pressure Mean [Right Arm] 89 Pulse Oximetry 95 92 91 Oxygen Delivery Method Room Air Room Air Room Air 05/11/18 18:30 Temperature Temperature Source Sepsis Recent Fever Within 48 Hours Sepsis New/Unexplained Change in Mental Status Sepsis Action Taken by Nursing Pulse Rate Pulse Rate [Apical] Pulse Rate from SpO2 Sensor 80 Pulse Rhythm Pulse Strength Respiratory Rate Respiratory Effort / Characteristics Respiratory Depth Respiratory Pattern Blood Pressure 114/71 Blood Pressure [Right Arm] Blood Pressure Mean 85 Blood Pressure Mean [Right Arm] Pulse Oximetry 94 Oxygen Delivery Method Room Air Constitutional: Vital signs reviewed. Eyes: Pupils are equal round reactive to light. Conjunctiva are noninjected. ENT: Pharynx is clear without erythema or exudate. Mucous membranes are dry. Neck supple without meningeal signs. Respiratory: Clear to auscultation bilaterally. Breath sounds are equal bilaterally. Cardiovascular: Regular rate and rhythm. No rubs or gallops. GI: Soft, nondistended and nontender. Bowel sounds are present. Musculoskeletal: No peripheral edema. No lower extremity tenderness. Back brace in place. Integumentary: No cyanosis. Neurological: The patient is awake and alert. No focal deficits. Psychiatric: Normal affect. Course 1511: Past medical records reviewed. The patient was evaluated in room C4, and a complete history and physical examination were performed. 1753: I checked on the patient. His BP is improved. He still complains of feeling very weak and does not feel like he is well enough to go home. 1811: I reviewed the patient's case with Dr. Kenyatta ESPAÑA Hospitalist. He will evaluate the patient for further management. Administered Medications Discontinued Medications Sodium Chloride (Nss 1000ml) 500 mls @ 999 mls/hr IV .Q31M ONE Stop: 05/11/18 18:20 Last Infusion: 05/11/18 18:29 Dose: 0 mls/hr Documented by: [id number] Admin: 05/11/18 17:58 Dose: 999 mls/hr Documented by: [id number] Medical Decision Making Differential Diagnosis Differential Diagnosis includes: Sepsis, UTI, pneumonia, bacteremia, Dehydration, electrolyte or metabolic abnormality Medical Records Attestation: I reviewed the patient's medical records. Home Medications Current Medication List: was personally reviewed by me Laboratory Data Attestation: I reviewed the patient's lab results. Result diagrams: 05/11/18 15:37 05/11/18 15:37 Lab Results 03/18/19 03/18/19 03/18/19 Range/Units 15:37 15:37 15:37 WBC 5.00 (4.8-10.8) K/uL RBC 4.69 L (4.7-6.1) M/uL Hgb 11.0 L (14.0-18.0) g/dL Hct 35.7 L (42-52) % MCV 76.1 L (80-100) fL MCH 23.5 L (25-34) pg MCHC 30.8 L (32-36) g/dL RDW Std Deviation 53.3 H (36.4-46.3) fL RDW Coeff of Stella 19.2 H (11.5-14.5) % Plt Count 127 L (130-400) K/uL MPV 9.1 (7.4-10.4) fL Immature Gran % (Auto) 0.2 % Neut % (Auto) 78.0 % Lymph % (Auto) 14.8 % [place] % (Auto) 6.0 % Eos % (Auto) 0.6 % Baso % (Auto) 0.4 % Immature Gran # (Auto) 0.01 (0.00-0.02) K/uL Neut # (Auto) 3.90 (1.4-6.5) K/uL Lymph # (Auto) 0.74 L (1.2-3.4) K/uL [place] # (Auto) 0.30 (0.11-0.59) K/uL Eos # (Auto) 0.03 (0-0.5) K/uL Baso # (Auto) 0.02 (0-0.2) K/uL PT 11.9 (9.0-12.0) Seconds INR 1.2 H (0.9-1.1) APTT 25.2 (21.0-31.0) Seconds PTT Ratio 0.9 Sodium (136-145) mmol/L Potassium (3.5-5.1) mmol/L Chloride (98-107) mmol/L Carbon Dioxide (21-32) mmol/L Anion Gap (3-11) BUN (7-18) mg/dl Creatinine (0.6-1.4) mg/dl Est Cr Clr Drug Dosing ml/min Est GFR ( Amer) Est GFR (Non-Af Amer) BUN/Creatinine Ratio (10-20) Glucose (70-99) mg/dl Lactate (0.4-2.0) mmol/L Calcium (8.5-10.1) mg/dl Total Bilirubin (0.2-1) mg/dl AST (15-37) U/L ALT (12-78) U/L Alkaline Phosphatase (45-117) U/L Troponin I < 0.015 (0-0.045) ng/ml Total Protein (6.4-8.2) gm/dl Albumin (3.4-5.0) gm/dl Globulin (2.5-4.0) gm/dl Albumin/Globulin Ratio (0.9-2) Urine Color Urine Appearance (Clear) Urine pH (4.5-7.5) Ur Specific Sun (1.000-1.030) Urine Protein (Negative) Urine Glucose (UA) (Negative) Urine Ketones (Negative) Urine Blood (Negative) Urine Nitrite (Negative) Urine Bilirubin (Negative) Urine Urobilinogen (Negative) Ur Leukocyte Esterase (Negative) Urine WBC (Auto) (0-5) /hpf Urine RBC (Auto) (0-4) /hpf U Hyaline Cast (Auto) (0-5) /lpf U Epithel Cells (Auto) (0-5) /lpf Urine Bacteria (Auto) (Negative) 05/11/18 05/11/18 05/11/18 Range/Units 15:37 15:37 17:20 WBC (4.8-10.8) K/uL RBC (4.7-6.1) M/uL Hgb (14.0-18.0) g/dL Hct (42-52) % MCV (80-100) fL MCH (25-34) pg MCHC (32-36) g/dL RDW Std Deviation (36.4-46.3) fL RDW Coeff of Stella (11.5-14.5) % Plt Count (130-400) K/uL MPV (7.4-10.4) fL Immature Gran % (Auto) % Neut % (Auto) % Lymph % (Auto) % [place] % (Auto) % Eos % (Auto) % Baso % (Auto) % Immature Gran # (Auto) (0.00-0.02) K/uL Neut # (Auto) (1.4-6.5) K/uL Lymph # (Auto) (1.2-3.4) K/uL [place] # (Auto) (0.11-0.59) K/uL Eos # (Auto) (0-0.5) K/uL Baso # (Auto) (0-0.2) K/uL PT (9.0-12.0) Seconds INR (0.9-1.1) APTT (21.0-31.0) Seconds PTT Ratio Sodium 131 L (136-145) mmol/L Potassium 4.1 (3.5-5.1) mmol/L Chloride 98 (98-107) mmol/L Carbon Dioxide 25 (21-32) mmol/L Anion Gap 8.0 (3-11) BUN 26 H (7-18) mg/dl Creatinine 0.52 L (0.6-1.4) mg/dl Est Cr Clr Drug Dosing 139.5 ml/min Est GFR ( Amer) 125.2 Est GFR (Non-Af Amer) 108.0 BUN/Creatinine Ratio 49.7 H (10-20) Glucose 114 H (70-99) mg/dl Lactate 1.5 (0.4-2.0) mmol/L Calcium 8.6 (8.5-10.1) mg/dl Total Bilirubin 0.5 (0.2-1) mg/dl AST 61 H (15-37) U/L ALT 102 H (12-78) U/L Alkaline Phosphatase 260 H (45-117) U/L Troponin I (0-0.045) ng/ml Total Protein 7.2 (6.4-8.2) gm/dl Albumin 3.0 L (3.4-5.0) gm/dl Globulin 4.2 H (2.5-4.0) gm/dl Albumin/Globulin Ratio 0.7 L (0.9-2) Urine Color Dark Yellow Urine Appearance Clear (Clear) Urine pH 5.0 (4.5-7.5) Ur Specific Sun 1.033 H (1.000-1.030) Urine Protein Trace H (Negative) Urine Glucose (UA) Negative (Negative) Urine Ketones Trace H (Negative) Urine Blood Negative (Negative) Urine Nitrite Positive H (Negative) Urine Bilirubin Negative (Negative) Urine Urobilinogen Negative (Negative) Ur Leukocyte Esterase Negative (Negative) Urine WBC (Auto) 1-5 (0-5) /hpf Urine RBC (Auto) 0-4 (0-4) /hpf U Hyaline Cast (Auto) 1-5 (0-5) /lpf U Epithel Cells (Auto) 10-20 H (0-5) /lpf Urine Bacteria (Auto) Negative (Negative) Imaging Data Attestation: I personally reviewed and interpreted this imaging study as follows: Radiologist's Impression: XR chest 1V portable HISTORY: 68 years-old Male Sepsis acute sepsis COMPARISON: PET CT 03/19/2017 TECHNIQUE: Portable AP view of the chest FINDINGS: Cardiomediastinal and hilar silhouettes are within normal limits. Left-sided P ICC is noted, distal tip terminating within the expected region of the proximal SVC. Mild right hemidiaphragmatic elevation. Surgical clips project over the neck. There is no pneumothorax, pleural effusion, focal airspace consolidation or overt pulmonary edema. Mild blunting of the right costophrenic angle, likely secondary to scarring/atelectasis. Degenerative changes are noted about the shoulders and spine. IMPRESSION: No acute process. The above report was generated using voice recognition software. It may contain grammatical, syntax or spelling errors. Electronically signed by: Cory Garza M.D. 05/11/2018 3:50 PM ECG Data Attestation: I personally reviewed and interpreted this ECG as follows: Indication: weakness Rate (beats per minute): 70 Rhythm: normal sinus Findings: no ST elevation Blood Pressure Blood Pressure Findings: Low blood pressure Blood Pressure Disposition: further management by hospitalist RAINE Narrative I did perform a limited focused review of portions of the patient's old chart on the electronic medical record. The patient was recently admitted for osteom yelitis of the [facility]. His cultures grew out E. coli. I did evaluate the patient as noted above. The patient is presenting with generalized weakness. He states his back pain is stable and has not worsened. IV access was established. The patient was placed on a continuous cardiac technologist. His initial blood pressure was slightly low but he states this is not abnormal for him as he takes propanolol for familiar tremors. His blood pressure did improve spontaneously. I did order and personally review the patient's 12-lead EKG and chest x-ray as described above. His twelve-lead EKG does not show any acute process. His chest x-ray does not demonstrate pneumonia. Urinalysis does not show a UTI. I did order and review the patient's blood work as noted in the electronic medical record. He has anemia and mild hyponatremia. He was given normal saline IV. I did discuss the test r esults with the patient. He states he still feels very weak and so I did discuss the case with the hospitalist and case supervisor. Impression & Plan Generalized weakness, Osteomyelitis of lumbar spine, Anemia, Hyponatremia Discharge Plan Visit Data Chief Complaint: Weakness ED Provider: Andrew Smith Discharge Problem: Generalized weakness, Osteomyelitis of lumbar spine, Anemia, Hyponatremia Patient Disposition: Being Evaluated by Hospitalist Forms Stand Alone Forms: My [facility] Prescriptions Prescriptions: No Action multivitamin Tablet 1 tab PO DAILY RF: 0 propranolol 60 mg tablet 60 mg PO BID RF: 0 Opdivo 100 mg/10 mL Solution 1 dose IV MONTHLY RF: 0 carisoprodol [Soma] 350 mg Tablet 350 mg PO TID PRN (Reason: Muscle Spasm) RF: 0 fentanyl 25 mcg/hr Patch 72 Hour 1 patch TRANSDERMAL Q72H RF: 0 acetaminophen [Pain Reliever] 500 mg Tablet 1,000 mg PO Q8 30 Days Qty: 180 RF: 0 oxycodone 5 mg Tablet 5 mg PO Q4H PRN (Reason: pain) Qty: 20 RF: 0 ceftriaxone 2 gram recon soln 2 gm IV DAILY Qty: 30 RF: 0 Referrals Referrals: Keith Mcmanus DO [Primary Care Provider] - Discharge Problem: Anemia Qualifiers: Anemia type: unspecified type Qualified Code(s): D64.9 - Anemia, unspecified The scribe's documentation has been prepared under my direction and personally reviewed by me in its entirety. I confirm that the note above accurately reflects all work, treatment, procedures, and medical decision making performed by me.
[2018-05-11] MEDS ORDERED: OXYCODONE HCL IR 5 MG TAB (IMMEDIATE RELEASE) ONE (20:48)
[2018-05-11] MEDS ORDERED: MAGNESIUM HYDROXIDE SUSP 30 ML UDC PO PRN (21:26)
[2018-05-11] MEDS ORDERED: POLYETHYLENE (MIRALAX) 17 GM PACK PO PRN (21:26)
[2018-05-11] MEDS ORDERED: fentaNYL 25 MCG/HR TDSY TD SCH (21:26)
[2018-05-11] MEDS ORDERED: ONDANSETRON INJ 2 MG/ML 2 ML VIAL IV PRN (21:26)
[2018-05-11] MEDS: PROPRANOLOL HCL 20 MG TAB PO SCH (22:15)
[2018-05-11] MEDS: MIRTAZAPINE TAB 15 MG TAB PO SCH (22:15)
[2018-05-11] MEDS: DICLOFENAC SOD 1% GEL 100 GM TUBE EXT SCH (22:16)
[2018-05-12] MEDS ORDERED: CHECK FENTANYL PATCH PLACEMENT SCH
[2018-05-12] MEDS: CHECK FENTANYL PATCH PLACEMENT SCH ×3 (00:22→17:01)
[2018-05-12 06:46] LABS: Albumin Level 2.8 gm/dl (3.4-5.0); BUN Creatinine Ratio 46.4 (10-20); Calcium 8.3 mg/dl (8.5-10.1); Creatinine Clr Calc Pharmacy 181.7 ml/min; Est GFR (African American) 140.9; Est GFR (Non-African American) 121.6; Potassium 3.9 mmol/L (3.5-5.1)
[2018-05-12 06:51] LABS: Albumin Globulin Ratio 0.9 (0.9-2); Bilirubin,Total 0.6 mg/dl (0.2-1); Globulin 3.1 gm/dl (2.5-4.0); Total Protein 5.9 gm/dl (6.4-8.2)
[2018-05-12] MEDS: CARISOPRODOL 350 MG TABLET PO PRN ×2 (08:31→17:36)
[2018-05-12] MEDS: OXYCODONE HCL IR 5 MG TAB (IMMEDIATE RELEASE) PO PRN ×3 (08:31→18:02)
[2018-05-12] MEDS: PROPRANOLOL HCL 20 MG TAB PO SCH ×2 (08:32→20:41)
[2018-05-12] MEDS: MULTIVITAMIN TAB PO SCH (08:32)
[2018-05-12] MEDS: DICLOFENAC SOD 1% GEL 100 GM TUBE EXT SCH ×4 (08:33→20:28)
[2018-05-12] MEDS: ENOXAPARIN INJ 40 MG/0.4 ML SYR SQ SCH (08:34)
[2018-05-12] MEDS ORDERED: NON-FORMULARY MEDICATION (Ceftriaxone 2 GM) IV SCH (09:00)
[2018-05-12] MEDS: cefTRIAXone SODIUM 2,000 MG in DEXTROSE 5% 50 ML IV SCH (09:00)
[2018-05-12 09:11] LABS: Ferritin 837.1 ng/ml (8-388)
[2018-05-12] MEDS: SODIUM CHLORIDE 0.9% 1000ML 1,000 ML IV SCH ×2 (09:35→22:16)
--- NOTE | 2018-05-12 17:17 | Hospitalist Progress Note ---
Date of Service May 12, 2018 Assessment & Plan (1) Generalized weakness: The differential for this is broad, but the most likely appears to be a combination of deconditioning, malnutrition, weight loss, and pain -all related to his acute situation with his discitis and paraspinal abscesses. He shows no signs or symptoms of new or acute infection or neurologic compromise Medication side effect is possible, but right now he notes that the pain medicines he is on really gives him just enough control to be able to participate with therapy. (2) Osteomyelitis of lumbar spine: Repeat blood cultures are pending Continue Rocephin This seems to be midstream in treatment. No clear signs of failure, or worsening. (3) Anemia: Microcytic, given his weight loss and malnutrition, check iron studies. While it is probably more of an anemia of chronic disease picture, for completeness sake we will to make sure he is up-to-date on his colonoscopy. (4) Hyponatremia: Appears to be due to his poor oral intake and weight loss, encourage p.o. intake, gentle hydration, follow. This did improve a little bit overnight (5) Diskitis: See above, continue Rocephin (6) Microscopic hematuria: Outpatient follow-up (7) Malignant melanoma metastatic to lymph node: This obviously is on the differential for his weakness, but it seems less likely to be the culprit, should his weakness persist, then oncology input on this may be necessary. Because he otherwise does not show diffuse metastatic disease this seems less likely. (8) Thrombocytopenia: Close periodic follow-up (9) Low back pain: Due to his discitis/paraspinal abscesses. Continue antibiotics. Continue fentanyl patch and Soma for now, continue oxycodone. Low threshold to try to wean all 3 of these given that they may also be contributing to his weakness (see above otherwise). Trial of Voltaren gel. PT/OT eval and treat (10) Essential tremor: (11) Transaminitis: Most likely relates to his scheduled Tylenol, versus other medication effect, versus less likely any true liver issues. Holding Tylenol, LFTs improved a little bit. Low threshold to image if fails to improve or recurs. (12) Weight loss: Appears to relate more to poor oral intake than his melanoma. Encourage oral intake, started Remeron as an appetite stimulant, too soon to see if it is going to improve, but it did help him sleep, low threshold to start Marinol. Boost shakes 3 times daily, dietitian eval and treat. (13) DVT prophylaxis: Lovenox, follow platelets. (14) Discharge planning issues: PT/OT eval and treat, we discussed the possibility of revisiting a rehab placement, he is giving this consideration, although it sounds like now the main discussion with him and his will be home with home health versus SNF.. Subjective Feeling about the same. Pain about the same. Not making much urine. Notes hiccups over the last day or so, but nothing chronic with that. He would like a protein shake, ate may be half of his breakfast. No new symptoms. Called and updated, she is appreciative of care. Otherwise. Review of Systems All systems reviewed & are unremarkable except as noted in HPI & below Physical Exam Vital Signs (Past 24 Hours): Last Vital Signs Temp 36.7 C 05/12/18 15:57 Pulse 65 05/12/18 15:57 Resp 20 05/12/18 15:57 BP 110/53 L 05/12/18 15:57 Pulse Ox 96 05/12/18 15:57 Physical Exam: General he is awake alert oriented x3 pleasant no distress. HEENT normal cephalic atraumatic mucous membranes are moist. Breathing is unlabored no accessory muscle use. Skin shows no rashes no pallor or icterus. Neuro shows his resting tremor, no other focal neuro deficits. Mental status shows good recent and remote recall, normal mood and affect good judgment and insight. (1) Anemia Anemia type: unspecified type Qualified Code(s): D64.9 - Anemia, unspecified
[2018-05-12] MEDS: ALUMINUM/MAGNESIUM SUSP 30 ML UDC PO PRN (17:32)
[2018-05-12] MEDS: MIRTAZAPINE TAB 15 MG TAB PO SCH (20:42)
[2018-05-13] MEDS: ALUMINUM/MAGNESIUM SUSP 30 ML UDC PO PRN (03:03)
[2018-05-13] MEDS: OXYCODONE HCL IR 5 MG TAB (IMMEDIATE RELEASE) PO PRN ×4 (03:03→18:14)
[2018-05-13 06:32] LABS: Albumin Level 2.5 gm/dl (3.4-5.0); BUN Creatinine Ratio 50.3 (10-20); Calcium 7.9 mg/dl (8.5-10.1); Creatinine Clr Calc Pharmacy 181.7 ml/min; Est GFR (African American) 140.9; Est GFR (Non-African American) 121.6
[2018-05-13 06:35] LABS: Albumin Globulin Ratio 0.8 (0.9-2); Bilirubin,Total 0.5 mg/dl (0.2-1); Total Protein 5.5 gm/dl (6.4-8.2)
[2018-05-13] MEDS: MULTIVITAMIN TAB PO SCH (08:10)
[2018-05-13] MEDS: PROPRANOLOL HCL 20 MG TAB PO SCH ×2 (08:11→21:10)
[2018-05-13] MEDS: ENOXAPARIN INJ 40 MG/0.4 ML SYR SQ SCH (08:12)
[2018-05-13] MEDS: FERROUS GLUCONATE 324 MG TAB PO SCH (08:12)
[2018-05-13] MEDS: DICLOFENAC SOD 1% GEL 100 GM TUBE EXT SCH ×4 (08:12→21:11)
[2018-05-13] MEDS: CHECK FENTANYL PATCH PLACEMENT SCH ×3 (08:24→15:31)
[2018-05-13] MEDS: cefTRIAXone SODIUM 2,000 MG in DEXTROSE 5% 50 ML IV SCH (08:27)
[2018-05-13] MEDS ORDERED: TRAMADOL HCL 50 MG TABLET PO PRN (09:50)
[2018-05-13] MEDS ORDERED: CEFAZOLIN 1000MG 1,000 MG/7.5 ML SYR IV ONE (09:50)
--- NOTE | 2018-05-13 11:18 | Ultrasound Report ---
US abdomen limited HISTORY: 68 years-old Male transaminitis, fatigue acutely elevated LFTs COMPARISON: Right upper quadrant ultrasound 02/19/2018 TECHNIQUE: Multiple real-time sonographic images of the abdominal right upper quadrant were obtained assessing grayscale appearance and color flow FINDINGS: Pancreas is mostly obscured by bowel gas. Prior cholecystectomy. No intrahepatic biliary ductal dilat ion. The common bile duct is normal, 6 mm. There is ill-defined heterogeneous hypoechoic focus within the sandee hepatis, possibly within the hepatic parenchyma measuring 4.0 x 2.8 x 2.0 cm imaging areas of peripheral flow. No drainable fluid collections. Patent main portal vein. 5 mm nonobstructing calculus of the interpolar right kidney. IMPRESSION: 1. Prior cholecystectomy. 2. No biliary ductal dilation. 3. Ill-defined heterogeneous slightly hypoechoic focus of the sandee hepatis possibly within the hepat ic parenchyma appears new from prior study measuring up to 4.0 cm. Differential considerations would include hepatic mass versus postoperative abscess. Correlation with contrast-enhanced CT of the abdom en is recommended. The above report was generated using voice recognition software. It may contain grammatical, syntax o r spelling errors. Electronically signed by: Cory Garza M.D. 05/13/2018 11:17 AM
[2018-05-13] MEDS: SODIUM CHLORIDE 0.9% 1000ML 1,000 ML IV SCH (11:40)
--- NOTE | 2018-05-13 11:51 | Consultation Report ---
DATE OF CONSULTATION: 05/13/2018 HISTORY OF PRESENT ILLNESS: The patient is delightful. He is admitted with chief complaint of back pain, malaise, deconditioning, malnutrition, weight loss, all secondary to a discitis. He was seen by me in the hospital a month or so earlier. We braced him, got him on medication. He went to [facility]. We had him back in the office. He was not thriving, but he was stabilized. He went back to [facility], but evidently readmitted to the hospital. He has anemia of chronic disease secondary to his infection, ____, discitis. He had malignant melanoma in the past as well. He had thrombocytopenia in the past. ALLERGIES: Negative. MEDICATIONS: Listed on the questionnaire and on the history and physical. They are reviewed by me here as well. MEDICAL HISTORY: Chronic essential tremor, kidney stones. SURGICAL HISTORY: Inguinal hernia, lymph node dissection and cholecystectomy. SOCIAL HISTORY: He is , lives at home. Nonsmoker, nonalcohol user. PHYSICAL EXAMINATION: VITAL SIGNS: Temperature 36.7, pulse 80 and regular, blood pressure controlled 115/80. LABORATORY DATA: White count on the 18th 5.0, hemoglobin 11.0. His spine has pain with percussion. There is no neurological deficit. He actually said to me his back feels a little bit better today. IMAGES: Reviewed. He has some chronic issues, but nothing overly acute. No obvious abscess, mostly a discitis. IMPRESSION: Discitis of the spine, lumbar area. All other comorbidities listed and outlined. PLAN: At this point in time, I would not recommend surgery, but just one opinion. I would recommend medical management, IV antibiotics, brace control, supportive care. I will continue to follow him, but again I am not planning any surgical intervention.
[2018-05-13] MEDS ORDERED: DRONABINOL 2.5 MG CAP PO ONE (13:03)
--- NOTE | 2018-05-13 18:56 | Hospitalist Progress Note ---
Date of Service May 13, 2018 Assessment & Plan (1) Generalized weakness: The differential for this is broad, but the most likely appears to be a combination of deconditioning, malnutrition, weight loss, and pain -all related to his acute situation with his discitis and paraspinal abscesses. Muscle weakness due to (in part) severe protein-calorie malnutrition He shows no signs or symptoms of new or acute infection or neurologic compromise - will check urine culture for completeness Medication side effect is possible, but right now he notes that the pain medicines he is on really gives him just enough control to be able to participate with therapy. (2) Osteomyelitis of lumbar spine: Repeat blood cultures are negative to date, repeat urine culture as above for completeness. Continue Rocephin This seems to be midstream in treatment. No clear signs of failure, or worsening. (3) Anemia: Microcytic, given his weight loss and malnutrition, iron studies do show a degree of iron deficiency. Appears to be mixed iron deficiency and chronic disease, and for completeness sake we will to make sure he is up-to-date on his colonoscopy as an outpatient. (4) Hyponatremia: Appears to be due to his poor oral intake and weight loss, encourage p.o. intake, gentle hydration, follow periodically, overall a stable issue (5) Diskitis: See above, continue Rocephin, agree with spine surgery that he does not appear to warrant surgery right now. (6) Microscopic hematuria: Outpatient follow-up (7) Malignant melanoma metastatic to lymph node: This obviously is on the differential for his weakness, but it seems less likely to be the culprit, should his weakness persist, then oncology input on this may be necessary. Because he otherwise does not show diffuse metastatic disease this seems less likely. (8) Thrombocytopenia: Close periodic follow-up, periodic CBCs. (9) Low back pain: Due to his discitis/paraspinal abscesses. Continue antibiotics. Continue fentanyl patch and Soma for now, continue oxycodone. Low threshold to try to wean all 3 of these given that they may also be contributing to his weakness (see above otherwise). Trial of Voltaren gel. PT/OT eval and treat. He notes a tolerable degree of control right now. (10) Essential tremor: (11) Transaminitis: Most likely relates to his scheduled Tylenol, versus other medication effect, versus less likely any true liver issues. Holding Tylenol, LFTs improved a little bit, but has not improved further. Will check right upper qu adrant ultrasound. -late addendum - RUQ US showing fluid collection vs mass -- doubt mass since nothing noted on imaging/surgery just less than 3months ago - but will ask surgery for opinion - ?needing drainage? (12) Weight loss: Appears to relate more to poor oral intake than his melanoma. Encourage oral intake ongoing (I actually fed him several bites of chicken and most of his protein shake during my visit with him today), started Remeron as an appetite stimulant, but this is not helped a lot, after discussion we will also initiate Marinol and titrate up as tolerated. Boost shakes 3 times daily, dietitian eval and treat. (13) DVT prophylaxis: Lovenox, follow platelets. (14) Discharge planning issues: PT/OT eval and treat, stable for [facility] likely by tomorrow. Subjective Feeling about the same pain aguilera. Tolerable. No appetite. Does have a degree of burning type pain behind his legs only from the knees down, only in the back. He notes this is a little bit worse than it has been before, initially noting that he thought it was new, but whenever I asked him about the fact that he described exactly this type of symptoms whenever I admitted him in the ER, he notes that he is noticing it more now on its probably worsening in intensity, but the same in quality and location. No other new complaints for me. Discussed with , updated extensively. Review of Systems All systems reviewed & are unremarkable except as noted in HPI & below Physical Exam Vital Signs (Past 24 Hours): Last Vital Signs Temp 36.7 C 05/13/18 15:27 Pulse 69 05/13/18 15:27 Resp 20 05/13/18 15:27 BP 115/62 05/13/18 15:27 Pulse Ox 96 05/13/18 15:27 Physical Exam: He is awake and alert no distress HEENT normocephalic atraumatic mucous membranes are moist Breathing is unlabored no accessory muscle use good effort Skin shows no rashes no pallor or icterus Neuro shows no focal deficits, no motor or sensory deficits, the area that he describes as burning behind his legs does not show any changes in sensation Musculoskeletalthe area of burning behind his legs does show a degree of tightness in his calf muscles, no edema no cords no erythema no skin changes He does have the ongoing resting tremor Fair recent and remote recall, normal mood and affect, fair judgment and insight (1) Anemia Anemia type: unspecified type Qualified Code(s): D64.9 - Anemia, unspecified
[2018-05-13] MEDS: MIRTAZAPINE TAB 15 MG TAB PO SCH (21:10)
[2018-05-13] MEDS: DRONABINOL 2.5 MG CAP PO SCH (21:10)
[2018-05-14] MEDS: SODIUM CHLORIDE 0.9% 1000ML 1,000 ML IV SCH ×2 (00:29→17:44)
[2018-05-14] MEDS: CHECK FENTANYL PATCH PLACEMENT SCH ×3 (00:30→17:44)
[2018-05-14] MEDS: OXYCODONE HCL IR 5 MG TAB (IMMEDIATE RELEASE) PO PRN ×3 (01:18→17:47)
[2018-05-14] MEDS ORDERED: CHLORPROMAZINE HCL 25 MG TABLET PO ONE (05:50)
[2018-05-14] MEDS: PROPRANOLOL HCL 20 MG TAB PO SCH ×2 (08:26→21:03)
[2018-05-14] MEDS: MULTIVITAMIN TAB PO SCH (08:26)
[2018-05-14] MEDS: FERROUS GLUCONATE 324 MG TAB PO SCH (08:26)
[2018-05-14] MEDS: DICLOFENAC SOD 1% GEL 100 GM TUBE EXT SCH ×4 (08:26→21:05)
[2018-05-14] MEDS: cefTRIAXone SODIUM 2,000 MG in DEXTROSE 5% 50 ML IV SCH (08:34)
[2018-05-14] MEDS: ENOXAPARIN INJ 40 MG/0.4 ML SYR SQ SCH (08:34)
[2018-05-14] MEDS: DRONABINOL 2.5 MG CAP PO SCH ×3 (08:35→21:02)
[2018-05-14] MEDS: fentaNYL 25 MCG/HR TDSY TD SCH (08:39)
[2018-05-14] MEDS ORDERED: IOVERSOL 100ml IV PRN (09:25)
--- NOTE | 2018-05-14 09:57 | Surgery Consultation ---
Date of Consultation May 14, 2018 Assessment & Plan (1) Elevated LFTs: Pt seen and examined with . Recent imaging, labwork, ED notes, operative notes reviewed. Dr. Mejía reviewed recent abdominal ultrasound with Radiology- recommend CT scan with IV contrast- differential includes hematoma, hepatic mass, postoperative abscess. Pt's abdominal exam is benign- he denies abdominal pain. Biggest complaint is lower back pain. He is tolerating a regular diet. CT scan of abdomen/pelvis with IV contrast ordered- recommendations will be made following results of CT scan. General Surgery will continue to follow. History of Present Illness Reason for Consultation: RUQ fluid collection? s/p Laparoscopic Cholecystectomy (Jan, [address] Becerra) Attending Physician: Minh Cruz DO History of Present Illness Mr. Abad is a 68-year-old male who presented to [facility] ED with complaints of w eakness. Pt was admitted to [facility] back on 04/14/2018 for osteomyelitis of lumbar spine (pt is followed by Dr. Steven). At that time, pt's blood cultures grew E. coli. Pt was discharged to rehab on 04/18/2018 on IV Ceftriaxone. Pt was discharged to home from rehab on 05/09/2018. He developed increasing weakness over the next 2 days and returned to [facility] on 05/11/2018 for evaluation. Pt was admitted for evaluation. Admission bloodwork revealed an elevation in LFTs- AST 44; ALT 90; Alk Phos 240. Tot Bili within normal limits 0.5. Pt is roughly 3 months s/p Laparoscopic Cholecystectomy by Dr. Becerra. Pt states that he was quite sick at the time his gallbladder was taken out. Pathology from 02/23/2018 reveals Acute Necrotizing Cholecystitis, Cholelithiasis, 2 calculi were present. An ultrasound of the abdomen was completed yesterday which shows evidence of prior cholecystectomy, no biliary ductal dilation, and an ill-defined heterogeneous slightly hypoechoic focus of the sandee hepatis possibly within the hepatic parenchyma appears new from prior study measuring up to 4.0 cm. Differential considerations would include hepatic mass versus postoperative abscess. Patient denies abdominal pain- He states that his lower back pain is his major complaint at this time. He is tolerating a regular diet. Patient has been afebrile since admission. Dr. Steven evaluated patient regarding osteomyelitis of lumbar spine and at this time he does not recommend surgical intervention. He recommends medical management, IV antibiotics, brace control, supportive care. Allergies Allergy/AdvReac Type Severity Reaction Status Date / Time No Known Allergies Allergy Unverified 05/11/18 16:30 Home Medications Home Medications Medication Instructions Recorded Confirmed Type Opdivo 1 dose IV MONTHLY 02/19/18 05/11/18 History multivitamin 1 tab PO DAILY 02/19/18 05/11/18 History propranolol 60 mg PO BID 02/19/18 05/11/18 History acetaminophen [Pain Reliever] 1,000 mg PO Q8 30 Days #180 tab 04/18/18 05/11/18 Rx ceftriaxone 2 gm IV DAILY #30 ea 04/18/18 05/11/18 Rx oxycodone 5 mg PO Q4H PRN #20 tab 04/18/18 05/11/18 Rx carisoprodol [Soma] 350 mg PO TID PRN 05/11/18 05/11/18 History fentanyl 1 patch TRANSDERMAL Q72H 05/11/18 05/11/18 History Patient History Medical History Essential tremor (Chronic) Kidney stones Malignant melanoma Surgical History H/O inguinal hernia repair H/O lymph node excision Hx laparoscopic cholecystectomy Social History Preferred Language: Slovenian Communication Ability: Effective Physician Executive Required: No Beliefs That Will Affect Care: None marital status: Current Living Situation: Spouse Other Information That Helps Us Care for You: No Feels Safe at Home: Yes Safety Concerns: Feels Safe At This Time Smoking Status: Never smoker Hx Alcohol Use: No Hx Substance Use: No Physical Exam Vital Signs (Past 24 Hours): Last Vital Signs Temp 36.4 C L 05/14/18 08:39 Pulse 73 05/14/18 08:39 Resp 20 05/14/18 08:39 BP 119/65 05/14/18 08:39 Pulse Ox 95 05/14/18 08:39 Gastrointestinal (Abdomen): Inspection/Auscultation: abdomen not distended Percussion/Palpation: abdomen soft; abdomen nontender
--- NOTE | 2018-05-14 10:05 | CT Scan Report ---
CT SCAN OF THE ABDOMEN AND PELVIS WITH IV CONTRAST CLINICAL HISTORY: Recent cholecystectomy. Elevated hepatic transaminases. Abnormal ultrasound. COMPARISON STUDY: Pelvic CT dated 02/15/2017. PET/CT dated 03/19/2017. Abdominal ultrasound dated 04/25. MRI of the lumbar spine dated 05/08/2018. TECHNIQUE: Following the IV administration of 94 cc of Optiray 320, CT scan of the abdomen and pelvi s is performed from the lung bases to the proximal femora. Images are reviewed in the axial, sagittal , and coronal planes. IV contrast was administered without complication. A dose lowering technique wa s utilized adhering to the principles of ALARA. The examination is compromised by motion artifact. CT DOSE: 398.65 mGy.cm FINDINGS: Lung bases: The heart is normal in size and without pericardial effusion. The coronary arteries are d ensely calcified. There are trace pleural effusions with bibasilar consolidation. Liver: The contrast-enhanced liver is normal in size, contour, and attenuation. There is minimal cent ral intrahepatic biliary ductal dilatation. The hepatic veins and portal veins are patent. Mild perip ortal edema is observed. There is mild heterogeneity within the right lobe of the liver adjacent to g allbladder fossa, best seen on image #161. No rest fluid collection is identified. Gallbladder: The gallbladder is surgically absent, noting clips in the gallbladder fossa. There is tr margarette fluid and stranding in the gallbladder fossa, with no organized fluid collection identified. Spleen: The spleen is enlarged, measuring 17.1 cm in length. Pancreas: Moderately atrophic and grossly unremarkable. Adrenal glands: Unremarkable. Kidneys: The contrast enhanced kidneys are normal in size and without hydronephrosis. The kidneys enh ance symmetrically. There are numerous bilateral nonobstructing renal calculi. The largest stone is p resent on the right and measures 12 mm. A 2.3 cm cyst is seen in the upper pole of the left kidney. Abdominal vasculature: The abdominal aorta is normal in course and caliber noting moderate atheroscle rotic calcification. Bowel: There is moderate to advanced colonic diverticulosis without CT evidence of acute diverticulit is. Colonic fecal retention is observed, greatest in the rectosigmoid. No bowel obstruction is seen. The appendix is well-visualized and normal. Peritoneum: There is no intraperitoneal free air. Trace free fluid is noted in the pelvis. There is a fat-containing umbilical hernia. Lymphadenopathy: Mildly enlarged retroperitoneal lymph nodes measure up to 10 mm in short axis. Pelvic viscera: The prostate gland is enlarged and heterogeneous, measuring 6.3 cm in transverse diam eter. There is median lobe hypertrophy. The bladder wall is thickened and trabeculated indicating chr onic outlet obstruction. Skeletal structures: The skeletal structures are osteopenic. Again seen are changes of discitis/osteo myelitis at L1-L2 and L5-S1. There is marked paravertebral edema identified at L1-L2, with milder par avertebral edema seen at L5-S1. No lytic or blastic lesions are seen. IMPRESSION: 1. Again seen are changes of discitis/osteomyelitis at L1-L2 and L5-S1. There is associated paraverte bral edema. 2. There is mild fluid/stranding in the gallbladder fossa. No organized fluid collection is identifie d. 3. There is mild heterogeneity within the right lobe of liver adjacent to gallbladder fossa, likely c orresponding to the abnormality questioned by ultrasound on 05/13/2018. There is no organized fluid co llection at this site, and this likely represents contusion/postsurgical change. 4. There is mild intrahepatic biliary ductal dilatation, as well as mild periportal edema. 5. Marked splenomegaly. 6. Trace pelvic ascites. 7. Bilateral nephrolithiasis. 8. Moderate to advanced colonic diverticulosis without CT evidence of acute diverticulitis. 9. Prostatomegaly with evidence of chronic bladder outlet obstruction. 10. Trace pleural effusions with bibasilar consolidation. This likely represents atelectasis. Cortica l clinically for evidence of superimposed pneumonia. 11. Additional findings as above. Electronically signed by: Shiva Brownlee M.D. 05/14/2018 10:04 AM
[2018-05-14] MEDS ORDERED: OXYCODONE HCL IR 5 MG TAB (IMMEDIATE RELEASE) PO STA (10:11)
[2018-05-14] MEDS: CARISOPRODOL 350 MG TABLET PO PRN (10:22)
--- NOTE | 2018-05-14 10:45 | Hospitalist Progress Note ---
Date of Service May 14, 2018 Assessment & Plan (1) Generalized weakness: The differential for this is broad, but the most likely appears to be a combination of deconditioning, malnutrition, weight loss, and pain -all related to his acute situation with his discitis and paraspinal abscesses. Muscle weakness due to (in part) severe protein-calorie malnutrition He shows no signs or symptoms of new or acute infection or neurologic compromise -awaiting urine culture for completeness Medication side effect is possible, but right now he notes that the pain medicines he is on really gives him just enough control to be able to participate with therapy. Continue to follow (2) Osteomyelitis of lumbar spine: Repeat blood cultures are negative to date, repeat urine culture as above for completeness. Continue Rocephin This seems to be midstream in treatment. No clear signs of failure, or worsening. Appreciate orthospine input, agree no need for surgery right now. (3) Anemia: Microcytic, given his weight loss and malnutrition, iron studies do show a degree of iron deficiency. Appears to be mixed iron deficiency and chronic disease, and for completeness sake we will to make sure he is up-to-date on his colonoscopy as an outpatient, Follow periodically (4) Hyponatremia: Appears to be due to his poor oral intake and weight loss, encourage p.o. intake, gentle hydration, follow periodically, overall a stable issue, repeat basic metabolic panel tomorrow (5) Diskitis: See above, continue Rocephin, agree with spine surgery that he does not appear to warrant surgery right now. (6) Microscopic hematuria: Outpatient follow-up (7) Malignant melanoma metastatic to lymph node: This obviously is on the differential for his weakness, but it seems less likely to be the culprit, should his weakness persist, then oncology input on this may be necessary. Because he otherwise does not show diffuse metastatic disease this seems less likely. (8) Thrombocytopenia: Close periodic follow-up, periodic CBCs. (9) Low back pain: Due to his discitis/paraspinal abscesses. Continue antibiotics. Continue fentanyl patch and Soma for now, continue oxycodone. Low threshold to try to wean all 3 of these given that they may also be contributing to his weakness (see above otherwise). Ongoing trial of Voltaren gel. PT/OT eval and treat. He overall notes a tolerable degree of control right now. (10) Essential tremor: (11) Transaminitis: Most likely Tylenol related, versus less likely postop changes in the gallbladder fossa. Given that the CT looks much more nondescript in the ultrasound, this likely more of a chemical issue than mechanical/structural. It also could be a little bit of acute changes from his abrupt weight loss and malnutrition. (12) Weight loss: Appears to relate more to poor oral intake than his melanoma. Encouraging oral intake, and continuing to emphasize how critically important this is. Remeron at bedtime is an appetite stimulant, titrate up Marinol as tolerated (is showing no side effects right now). While he has no abdominal complaints/constipation appearing findings, he does have a rather significant stool burden on CT, this may be contributing to his poor appetite as well, we will utilize twice daily MiraLAX. (13) DVT prophylaxis: Lovenox, follow platelets. (14) Discharge planning issues: PT/OT eval and treat, definitely needs SNF, hopefully [facility] in the near future. Subjective Feeling about the same, still no appetite. Not really trying to eat, does not really want to get up with therapy. Knows that he needs to, but just does not feel motivated. No pain or nausea in terms of eating, just no appetite. He does have knee pain right now. Needs to be worse with laying still moving hurts a little bit worse but then feels like it stretches it mostly. No other new abdominal symptoms. Surgery input noted and appreciated. No sedation or confusion on the Marinol. Review of Systems All systems reviewed & are unremarkable except as noted in HPI & below Physical Exam Vital Signs (Past 24 Hours): Last Vital Signs Temp 36.4 C L 05/14/18 08:39 Pulse 73 05/14/18 08:39 Resp 20 05/14/18 08:39 BP 119/65 05/14/18 08:39 Pulse Ox 95 05/14/18 08:39 Physical Exam: Fatigued appearing but otherwise no distress, intention tremor appears to actually be less today. He is awake alert oriented x3, HEENT normocephalic atraumatic mucous membranes are moist, breathing is unlabored no accessory muscle use good effort, extremities show no cyanosis or clubbing may be trace lower extremity edema, no knee effusions bilaterally, he is tender in the muscular region mostly of his proximal calf muscle. This feels a bit tight, gentle stretching/myofascial release attempted without a whole lot of improvement. Patient actually had to ask me to cease due to discomfort. Results & Data Diagnostic Findings CT with nondescript appearance of gallbladder fossa, likely just postop changes. However significant amount of stool was noted. (1) Anemia Anemia type: unspecified type Qualified Code(s): D64.9 - Anemia, unspecified
[2018-05-14] MEDS: POLYETHYLENE (MIRALAX) 17 GM PACK PO SCH ×2 (13:16→21:02)
[2018-05-14] MEDS: MIRTAZAPINE TAB 15 MG TAB PO SCH (21:03)
[2018-05-15] MEDS: CHECK FENTANYL PATCH PLACEMENT SCH ×3 (00:04→18:03)
[2018-05-15] MEDS: OXYCODONE HCL IR 5 MG TAB (IMMEDIATE RELEASE) PO PRN ×5 (01:42→18:51)
[2018-05-15] MEDS: SODIUM CHLORIDE 0.9% 1000ML 1,000 ML IV SCH ×2 (03:21→18:01)
[2018-05-15 05:51] LABS: Hematocrit (blood only) 27.5 % (42-52); Hemoglobin 8.9 g/dL (14.0-18.0); Mean Corpuscular Hgb Conc 32.4 g/dL (32-36); Mean Corpuscular Volume 77.7 fL (80-100); RDW Coefficient of Variation 19.1 % (11.5-14.5); RDW Standard Deviation 55.2 fL (36.4-46.3); Red Blood Count 3.54 M/uL (4.7-6.1); White Blood Count 3.41 K/uL (4.8-10.8)
[2018-05-15 06:20] LABS: BUN Creatinine Ratio 47.5 (10-20); Calcium 7.5 mg/dl (8.5-10.1); Creatinine Clr Calc Pharmacy 186.5 ml/min; Est GFR (African American) 142.4; Est GFR (Non-African American) 122.9; Potassium 3.9 mmol/L (3.5-5.1)
[2018-05-15 06:39] LABS: Anisocytosis Present; Basophils # (auto) 0.05 K/uL (0-0.2); Basophils % (auto) 1.5 %; Eosinophils # (auto) 0.07 K/uL (0-0.5); Eosinophils % (auto) 2.1 %; Immature Granulocytes # (auto) 0.01 K/uL (0.00-0.02); Immature Granulocytes % (auto) 0.3 %; Lymphocytes # (auto) 1.43 K/uL (1.2-3.4); Lymphocytes % (auto) 41.9 %; Mean Platelet Volume 8.3 fL (7.4-10.4); Monocytes # (auto) 0.41 K/uL (0.11-0.59); Neutrophils # (auto) 1.44 K/uL (1.4-6.5); Neutrophils % (auto) 42.2 %; Platelet Count 77 K/uL (130-400); Platelet Estimate Decreased (Normal)
[2018-05-15] MEDS: MULTIVITAMIN TAB PO SCH (08:15)
[2018-05-15] MEDS: FERROUS GLUCONATE 324 MG TAB PO SCH (08:15)
[2018-05-15] MEDS: PROPRANOLOL HCL 20 MG TAB PO SCH ×2 (08:16→20:03)
[2018-05-15] MEDS: ENOXAPARIN INJ 40 MG/0.4 ML SYR SQ SCH (08:16)
[2018-05-15] MEDS: DICLOFENAC SOD 1% GEL 100 GM TUBE EXT SCH ×4 (08:17→20:07)
[2018-05-15] MEDS: POLYETHYLENE (MIRALAX) 17 GM PACK PO SCH ×2 (08:17→20:03)
[2018-05-15] MEDS: cefTRIAXone SODIUM 2,000 MG in DEXTROSE 5% 50 ML IV SCH (08:26)
[2018-05-15] MEDS: DRONABINOL 2.5 MG CAP PO SCH (08:27)
[2018-05-15 09:56] LABS: Albumin Level 2.3 gm/dl (3.4-5.0); Bilirubin Direct 0.2 mg/dl (0-0.2); Bilirubin,Total 0.5 mg/dl (0.2-1)
[2018-05-15] MEDS ORDERED: IRON SUCROSE 100 MG in 0.9 % SODIUM CHLORIDE 100 ML IV SCH (10:00)
[2018-05-15] MEDS ORDERED: KETOROLAC TROMETHAMINE 15 MG/ML VIAL IV ONE (17:00)
--- NOTE | 2018-05-15 18:24 | Hospitalist Progress Note ---
Date of Service May 15, 2018 Assessment & Plan (1) Generalized weakness: The differential for this is broad, but the most likely appears to be a combination of deconditioning, malnutrition, weight loss, and pain -all related to his acute situation with his discitis and paraspinal abscesses. Muscle weakness due to (in part) severe protein-calorie malnutrition He shows no signs or symptoms of new or acute infection or neurologic compromise and secondary workup has been of basically no yield. Medication side effect is possible, but right now he notes that the pain medicines he is on really gives him just enough control to be able to participate with therapy. Continue to follow (2) Osteomyelitis of lumbar spine: Repeat blood cultures are negative to date, repeat urine culture no significant growth as well. Continue Rocephin This seems to be midstream in treatment. No clear signs of failure, or worsening. Appreciate orthospine input, agree no need for surgery right now. (3) Anemia: Microcytic, given his weight loss and malnutrition, iron studies do show a degree of iron deficiency. Appears to be mixed iron deficiency and chronic disease, and for completeness sake we will to make sure he is up-to-date on his colonoscopy as an outpatient, Follow periodically. Replacing iron both IV and oral. (4) Hyponatremia: Appears to be due to his poor oral intake and weight loss, encourage p.o. intake, gentle hydration, follow periodically, overall a stable issue, follow periodically. (5) Diskitis: See above, continue Rocephin, agree with spine surgery that he does not appear to warrant surgery right now. (6) Microscopic hematuria: Outpatient follow-up (7) Malignant melanoma metastatic to lymph node: This obviously is on the differential for his weakness, but it seems less likely to be the culprit, should his weakness persist, then oncology input on this may be necessary. Because he otherwise does not show diffuse metastatic disease this seems less likely. (8) Thrombocytopenia: Close periodic follow-up, periodic CBCs. Overall stable (9) Low back pain: Due to his discitis/paraspinal abscesses. Continue antibiotics. Continue fentanyl patch and Soma for now, continue oxycodone. Low threshold to try to wean all 3 of these given that they may also be contributing to his weakness (see above otherwise). Ongoing trial of Voltaren gel. Given his creatinine being so stable trial of Toradol IV. PT/OT eval and treat. (10) Essential tremor: (11) Transaminitis: Most likely Tylenol related, versus less likely postop changes in the gallbladder fossa. Given that the CT looks much more nondescript in the ultrasound, this likely more of a chemical issue than mechanical/structural. It also could be a little bit of acute changes from his abrupt weight loss and malnutrition. Follow periodically, trend the limit heavily hepatically processed meds (12) Weight loss: Appears to relate more to poor oral intake than his melanoma. Encouraging oral intake, and continuing to emphasize how critically important this is. Remeron at bedtime as appetite stimulant, it does not seem to be causing a whole lot of problems. Was given a therapeutic trial of Marinol, and he does seem to be getting a little bit confused and even medium doses, and unfortunately it is not helping his appetite at all. We will DC. Continue protein shakes. (13) DVT prophylaxis: Lovenox, follow platelets. (14) Discharge planning issues: PT/OT eval and treat, definitely needs SNF, hopefully [facility] in the near future. (15) Urinary retention: Seems to be BPH related given his age/gender, and likely acute due to his current degree of physiologic and mental stress. Straight cath as needed, likely will initiate Flomax, but given that we are trying to minimize chance of further med side effects, we will wait until her current delirium is a little better before initiating yet another new med. (16) Delirium: Seems to actually be a mixed picture of delirium as well as just frustration/probably situational depression from what he is going through. He does appear to have a bit of cognitive slowing, the most likely acute culprit on that being the Marinol which will now be stopped. Reorientation/supportive care. Subjective He notes not feeling very well today. His back pain is about the same and is nothing new comments on his back and radiates to his hips bilaterally. He does seem to have difficulty voiding which is bothering him greatly. He also notes that sometimes he is feeling a little bit more confused and then he gets a little agitated and that is bothering him as well. He is still not eating very well, and still has no real appetite. He has no fevers chills or sweats. No new or changed back pain, no abdominal pain, he has not had much of any bowel movement today, his lower leg pain feels about the same. Nursing notes about 300 mL's on bladder scan Review of Systems All systems reviewed & are unremarkable except as noted in HPI & below Physical Exam Vital Signs (Past 24 Hours): Last Vital Signs Temp 36.3 C L 05/15/18 15:58 Pulse 69 05/15/18 15:58 Resp 18 05/15/18 15:58 BP 107/62 05/15/18 15:58 Pulse Ox 94 05/15/18 15:58 Physical Exam: He is awake and alert to person and place and situation, as far as time he does not get the year correct but then he is able to get the season and month. He does seem a little bit slow to process cognitively. HEENT normocephalic atraumatic mucous membranes are moist. Lungs are clear to auscultation bilaterally no rales rhonchi or wheeze with good effort. Abdomen is soft nondistended except for may be a little bit in his left lower abdomen where it feels full and is mildly tender, no guarding rebound or rigidity. Extremities show no cyanosis or clubbing he has trace bilateral lower extremity edema to his feet. He has good DP pulses. Musculoskeletal exam shows tenderness mostly to his paraspinals lumbar bilaterally, there is no crepitus no erythema no skin changes no open lesions, no clearly notable bony tenderness, although he may have a mild degree of bony tenderness in that area. His calves have an ongoing mild degree of muscular hypertonicity. He shows no focal neuro deficits. His mental status is fairly good recent and remote recall, but worse judgment and insight. (1) Anemia Anemia type: unspecified type Qualified Code(s): D64.9 - Anemia, unspecified
[2018-05-15] MEDS: CARISOPRODOL 350 MG TABLET PO PRN (18:53)
[2018-05-15] MEDS: MIRTAZAPINE TAB 15 MG TAB PO SCH (20:03)
[2018-05-16] MEDS: OXYCODONE HCL IR 5 MG TAB (IMMEDIATE RELEASE) PO PRN ×4 (00:15→21:13)
[2018-05-16] MEDS: CHECK FENTANYL PATCH PLACEMENT SCH ×4 (00:27→23:52)
[2018-05-16 06:48] LABS: Hematocrit (blood only) 28.1 % (42-52); Hemoglobin 8.5 g/dL (14.0-18.0); Mean Corpuscular Hgb Conc 30.2 g/dL (32-36); Mean Corpuscular Volume 77.4 fL (80-100); RDW Coefficient of Variation 19.3 % (11.5-14.5); RDW Standard Deviation 54.2 fL (36.4-46.3); Red Blood Count 3.63 M/uL (4.7-6.1)
[2018-05-16 06:56] LABS: Mean Platelet Volume 8.7 fL (7.4-10.4); Platelet Count 83 K/uL (130-400)
[2018-05-16 07:21] LABS: Anisocytosis Present; Basophils # (auto) 0.02 K/uL (0-0.2); Basophils % (auto) 0.7 %; Eosinophils # (auto) 0.01 K/uL (0-0.5); Eosinophils % (auto) 0.3 %; Immature Granulocytes # (auto) 0.01 K/uL (0.00-0.02); Immature Granulocytes % (auto) 0.3 %; Lymphocytes # (auto) 1.15 K/uL (1.2-3.4); Lymphocytes % (auto) 39.7 %; Monocytes # (auto) 0.37 K/uL (0.11-0.59); Monocytes % (auto) 12.8 %; Neutrophils # (auto) 1.34 K/uL (1.4-6.5); Neutrophils % (auto) 46.2 %; Ovalocytes 1+
[2018-05-16 07:25] LABS: BUN Creatinine Ratio 62.5 (10-20); Blood Urea Nitrogen 20 mg/dl (7-18); Calcium 7.7 mg/dl (8.5-10.1); Carbon Dioxide 24 mmol/L (21-32); Chloride 108 mmol/L (98-107); Creatinine Clr Calc Pharmacy 221.5 ml/min; Est GFR (African American) > 150.0; Est GFR (Non-African American) 131.9; Glucose 83 mg/dl (70-99); Potassium 3.9 mmol/L (3.5-5.1); Sodium 138 mmol/L (136-145)
[2018-05-16] MEDS: KETOROLAC TROMETHAMINE 15 MG/ML VIAL IV PRN ×3 (08:50→23:56)
[2018-05-16] MEDS: cefTRIAXone SODIUM 2,000 MG in DEXTROSE 5% 50 ML IV SCH (08:51)
[2018-05-16] MEDS: POLYETHYLENE (MIRALAX) 17 GM PACK PO SCH ×2 (08:51→21:07)
[2018-05-16] MEDS: FERROUS GLUCONATE 324 MG TAB PO SCH (08:51)
[2018-05-16] MEDS: PROPRANOLOL HCL 20 MG TAB PO SCH ×2 (08:51→21:08)
[2018-05-16] MEDS: MULTIVITAMIN TAB PO SCH (08:51)
[2018-05-16] MEDS: DICLOFENAC SOD 1% GEL 100 GM TUBE EXT SCH ×4 (08:52→21:08)
--- NOTE | 2018-05-16 17:00 | Hospitalist Progress Note ---
Date of Service May 16, 2018 Assessment & Plan (1) Generalized weakness: The differential for this is broad, but the most likely appears to be a combination of deconditioning, malnutrition, weight loss, and pain -all related to his acute situation with his discitis and paraspinal abscesses. Muscle weakness due to (in part) severe protein-calorie malnutrition He shows no signs or symptoms of new or acute infection or neurologic compromise and secondary workup has been of basically no yield. With his delirium/agitation we are giving consideration to brain imaging, but he has no focal neuro deficits, his waxing and waning mental status seems to fit with agitation and delirium, but because of his metastatic skin cancer, we will have a low threshold to do so. Right now he seems to be improving, and most of his delirium appears to have been med side effect related combined with hospital environment. Pain medication side effect is possible, but right now he notes that the pain medicines he is on really gives him just enough control to be able to participate with therapy. Continue to follow (2) Osteomyelitis of lumbar spine: Repeat blood cultures are negative to date, repeat urine culture no significant growth as well. Continue Rocephin ongoing This seems to be midstream in treatment. No clear signs of failure, or worsening. Appreciate ortho-spine input, agree no need for surgery right now. (3) Anemia: Microcytic, given his weight loss and malnutrition, iron studies do show a degree of iron deficiency. Appears to be mixed iron deficiency and chronic disease, and for completeness sake we will to make sure he is up-to-date on his colonoscopy as an outpatient, Follow periodically. Replacing iron both IV and oral. Additional IV iron today (4) Hyponatremia: Appears to be due to his poor oral intake and weight loss, encourage p.o. intake, follow periodically, overall a stable issue, follow periodically. (5) Diskitis: See above, continue Rocephin, agree with spine surgery that he does not appear to warrant surgery right now. (6) Microscopic hematuria: Outpatient follow-up (7) Malignant melanoma metastatic to lymph node: This obviously is on the differential for his weakness, but it seems less likely to be the culprit, should his weakness persist, then oncology input on this may be necessary. Because he otherwise does not show diffuse metastatic disease this seems less likely. See above otherwise (8) Thrombocytopenia: Close periodic follow-up, periodic CBCs. Overall stable (9) Low back pain: Due to his discitis/paraspinal abscesses. Continue antibiotics. Continue fentanyl patch and Soma for now, continue oxycodone. Low threshold to try to wean all 3 of these given that they may also be contributing to his weakness (see above otherwise). Ongoing trial of Voltaren gel. Given his creatinine being so stable trial of Toradol IV. PT/OT eval and treat. Pain appears to be overall stable (10) Essential tremor: (11) Transaminitis: Most likely Tylenol related, versus less likely postop changes in the gallbladder fossa. Given that the CT looks much more nondescript in the ultrasound, this likely more of a chemical issue than mechanical/structural. It also could be a little bit of acute changes from his abrupt weight loss and malnutrition. Follow periodically, try to limit heavily hepatically processed meds (12) Weight loss: Appears to relate more to poor oral intake than his melanoma. Encouraging oral intake, and continuing to emphasize how critically important this is. Remeron at bedtime as appetite stimulant appears to have been a failure, and may have been contributing some to his delirium, therefore we will stop it. Was given a therapeutic trial of Marinol, and he did seem to be getting a little bit confused and even medium doses, and unfortunately it was not helping his appetite at all. We will DC. Continue protein shakes. (13) DVT prophylaxis: Lovenox on hold, follow platelets. (14) Discharge planning issues: PT/OT eval and treat, definitely needs SNF, hopefully [facility] in the near future. (15) Urinary retention: Seems to be BPH related given his age/gender, and likely acute due to his current degree of physiologic and mental stress. Straight cath as needed, likely will initiate Flomax, but given that we are trying to minimize chance of further med side effects, we will wait until her current delirium is a little better before initiating yet another new med. He does not seem to have as much urinary retention today. (16) Delirium: Seems to actually be a mixed picture of delirium as well as just frustration/probably situational depression from what he is going through. He does appear to have a bit of cognitive slowing, the most likely acute culprit appears to have been med side effect of the meds attempting to stimulate his appetite. Both of these have been stopped. Continue reorientation/supportive care, see discussion above on considerations of imaging his brain. Subjective He had a rough night, apparently was calling all night, and was fairly agitated. That said, he actually seems to state to me that he remembers this and feels bad about it. Seems like he is not entirely sure what had happened, but seems to loosely aware that he was not himself. Today he seems to be mentally feeling better, although is a little bit slow to respond he knows he is in the hospital, knows basically what is going on with her medically. He is able to state the year today. He does note that overall he is not feeling like himself and feels very weak. He notes whenever he got up to go to the bathroom he felt extremely lightheaded like he could not necessarily stand. When asked why he thinks that is, he does relate that he is barely been out of bed not eating for the last several days. He has had 2-3 loose bowel movements a day over the last day or 2. Review of Systems All systems reviewed & are unremarkable except as noted in HPI & below Physical Exam Vital Signs (Past 24 Hours): Last Vital Signs Temp 36.8 C 05/16/18 07:43 Pulse 91 H 05/16/18 07:43 Resp 18 05/16/18 07:43 BP 140/71 05/16/18 07:43 Pulse Ox 93 05/16/18 07:43 Physical Exam: He is awake and alert more oriented (technically x3, although he does seem to be a bit slow to respond) HEENT normocephalic atraumatic mucous membranes are moist. Breathing is unlabored no accessory muscle use. Skin shows no rashes no pallor or icterus. Neuro shows no focal deficits. Whenever I saw him earlier whenever he went to get out of bed with assistance to go to the bathroom, he was able to stand with assist of 2 and it appeared extremely weak and shaky during that. (1) Anemia Anemia type: unspecified type Qualified Code(s): D64.9 - Anemia, unspecified
[2018-05-16] MEDS ORDERED: IRON SUCROSE 100 MG in 0.9 % SODIUM CHLORIDE 100 ML IV ONE (20:00)
[2018-05-17] MEDS: OXYCODONE HCL IR 5 MG TAB (IMMEDIATE RELEASE) PO PRN ×4 (01:03→21:14)
[2018-05-17] MEDS: KETOROLAC TROMETHAMINE 15 MG/ML VIAL IV PRN ×2 (07:37→13:29)
[2018-05-17] MEDS: DICLOFENAC SOD 1% GEL 100 GM TUBE EXT SCH ×4 (07:38→21:07)
[2018-05-17] MEDS: PROPRANOLOL HCL 20 MG TAB PO SCH ×2 (07:38→21:08)
[2018-05-17] MEDS: POLYETHYLENE (MIRALAX) 17 GM PACK PO SCH ×2 (07:38→21:06)
[2018-05-17] MEDS: fentaNYL 25 MCG/HR TDSY TD SCH (07:39)
[2018-05-17] MEDS: CHECK FENTANYL PATCH PLACEMENT SCH ×3 (07:39→23:33)
[2018-05-17] MEDS: FERROUS GLUCONATE 324 MG TAB PO SCH (07:39)
[2018-05-17] MEDS: MULTIVITAMIN TAB PO SCH (07:39)
[2018-05-17] MEDS: cefTRIAXone SODIUM 2,000 MG in DEXTROSE 5% 50 ML IV SCH (07:47)
--- NOTE | 2018-05-17 09:54 | CT Scan Report ---
CT OF THE HEAD WITHOUT CONTRAST CLINICAL HISTORY: delirium, hx melanoma COMPARISON STUDY: MRI of the brain September 01, 2015. CT DOSE: 537.48 mGy.cm TECHNIQUE: Helical axial images of the head were obtained without IV contrast. Automated exposure con trol was utilized for the study. A dose lowering technique was utilized adhering to the principles o f ALARA. FINDINGS: No acute intracranial hemorrhage, midline shift or mass effect is present. Brain volume is normal for age. Ventricular system is unremarkable. The basilar cisterns are patent. There are no ext ra-axial collections. Mild white matter hypodensity suggests small vessel disease. There are no findi ngs to suggest acute dural sinus thrombosis or acute territorial infarct. There are no significant ca lvarial abnormalities. There is mild ethmoid sinus mucosal thickening. IMPRESSION: 1. No acute intracranial findings. 2. No evidence for metastatic disease although sensitivity diminished on this unenhanced head CT. Electronically signed by: Nithin Myers M.D. 05/17/2018 9:53 AM
--- NOTE | 2018-05-17 13:16 | Gastrointestinal Consultation ---
Date of Consultation May 17, 2018 Assessment & Plan (1) Weight loss: 68-year-old gentleman with clinical decline after recent cholecystectomy as well as osteomyelitis. 1. Failure to thrive: Looking through his chart and seeing him I feel like that there is a systemic issue that is going on and spent on elucidated thus far, I did review his imaging does not appear that these infectious etiologies in his back are actually metastatic lesions. Given his profound proximal muscle weakness I do think a neurologic as well as a rheumatologic issues need to be ruled out including paraneoplastic syndromes. He is eating this morning per nursing and is him he does have an increasing appetite which is fortunate. I do not think an EGD in the urgent setting is been added much to his case given the fact that he swallowing without issues, certainly this can be considered throughout his hospitalization. I would recommend him having a PPI daily, advance diet as tolerated and check a prealbumin. I would also get a dietitian consult to ensure that he is getting his appropriate nutritional needs via supplements if necessary. 2. Elevated LFTs: Mildly elevated LFTs since cholecystectomy, CT scan with some inflammation/portal edema in the gallbladder fossa. This may be all postsurgical changes no signs of liver dysfunction, would continue to follow and consider serological workup. Also would consider MRI MRCP for the mild dilation of CBD. History of Present Illness Attending Physician: Minh Cruz DO History of Present Illness This is a 68-year-old gentleman whom I been asked to consult on for failure to thrive and poor p.o. intake. He is a 68-year-old gentleman who has had a clinical decline in his health since presenting in the hospital in January for cholecystitis. He underwent an uncomplicated cholecystectomy, discharged home but then returned several weeks later with back pain. He was found to have osteomyelitis, paraspinous abscess, and discitis and multi levels as well as gram-negative rods with E. coli in his blood. He was treated with IV antibiotics and sent to [facility], he was discharged to [facility] but continued to have increasing weakness fatigue and malnutrition with poor p.o. intake. He has a past medical history of for locally advanced melanoma diagnosed in spring 2017 status post excision as well as monoclonal antibody treatment. He also has a history of an essential tremor but otherwise has no significant health issues. In regards to eating, he apparently has no dysphagia, he does have mild heartbur n, but apparently has not been motivated to eat. He has had a constellation of systemic issues including development of pancytopenia, as well as sundowning/mental status changes with addition of Marinol. Over this course of his illness he is lost approximately 20-30 pounds in review of his [facility] outpatient chart as well as inpatient chart. Upon my review today he had eaten about two thirds of his breakfast tray. Allergies Allergy/AdvReac Type Severity Reaction Status Date / Time No Known Allergies Allergy Unverified 05/11/18 16:30 Home Medications Home Medications Medication Instructions Recorded Confirmed Type Opdivo 1 dose IV MONTHLY 02/19/18 05/11/18 History multivitamin 1 tab PO DAILY 02/19/18 05/11/18 History propranolol 60 mg PO BID 02/19/18 05/11/18 History acetaminophen [Pain Reliever] 1,000 mg PO Q8 30 Days #180 tab 04/18/18 05/11/18 Rx ceftriaxone 2 gm IV DAILY #30 ea 04/18/18 05/11/18 Rx oxycodone 5 mg PO Q4H PRN #20 tab 04/18/18 05/11/18 Rx carisoprodol [Soma] 350 mg PO TID PRN 05/11/18 05/11/18 History fentanyl 1 patch TRANSDERMAL Q72H 05/11/18 05/11/18 History Patient History Medical History Essential tremor (Chronic) Kidney stones Malignant melanoma Surgical History H/O inguinal hernia repair H/O lymph node excision Hx laparoscopic cholecystectomy Social History Preferred Language: Sinhala Communication Ability: Effective Gas Fitter Required: No Beliefs That Will Affect Care: None marital status: Current Living Situation: Spouse Other Information That Helps Us Care for You: No Feels Safe at Home: Yes Safety Concerns: Feels Safe At This Time Smoking Status: Never smoker Hx Alcohol Use: No Hx Substance Use: No Review of Systems 10 system review negative except for stated as above Physical Exam Vital Signs (Past 24 Hours): Last Vital Signs Temp 36.5 C 05/17/18 07:24 Pulse 71 05/17/18 07:24 Resp 20 05/17/18 07:24 BP 125/71 05/17/18 07:24 Pulse Ox 93 05/17/18 07:24 Thin Proximal muscle weakness is profound Mild fasciculations, also has an essential tremor, cranial nerves II through XII are intact Heart regular Lungs are clear Abdomen soft nontender nondistended No peripheral edema Results & Data Laboratory Results Lab Results 05/11/18 05/11/18 05/11/18 Range/Units 15:37 15:37 15:37 WBC 5.00 (4.8-10.8) K/uL RBC 4.69 L (4.7-6.1) M/uL Hgb 11.0 L (14.0-18.0) g/dL Hct 35.7 L (42-52) % MCV 76.1 L (80-100) fL MCH 23.5 L (25-34) pg MCHC 30.8 L (32-36) g/dL RDW Std Deviation 53.3 H (36.4-46.3) fL RDW Coeff of Stella 19.2 H (11.5-14.5) % Plt Count 127 L (130-400) K/uL MPV 9.1 (7.4-10.4) fL Immature Gran % (Auto) 0.2 % Neut % (Auto) 78.0 % Lymph % (Auto) 14.8 % [place] % (Auto) 6.0 % Eos % (Auto) 0.6 % Baso % (Auto) 0.4 % Immature Gran # (Auto) 0.01 (0.00-0.02) K/uL Neut # (Auto) 3.90 (1.4-6.5) K/uL Lymph # (Auto) 0.74 L (1.2-3.4) K/uL [place] # (Auto) 0.30 (0.11-0.59) K/uL Eos # (Auto) 0.03 (0-0.5) K/uL Baso # (Auto) 0.02 (0-0.2) K/uL Platelet Estimate (Normal) Anisocytosis Ovalocytes PT 11.9 (9.0-12.0) Seconds INR 1.2 H (0.9-1.1) APTT 25.2 (21.0-31.0) Seconds PTT Ratio 0.9 Sodium (136-145) mmol/L Potassium (3.5-5.1) mmol/L Chloride (98-107) mmol/L Carbon Dioxide (21-32) mmol/L Anion Gap (3-11) BUN (7-18) mg/dl Creatinine (0.6-1.4) mg/dl Est Cr Clr Drug Dosing ml/min Est GFR ( Amer) Est GFR (Non-Af Amer) BUN/Creatinine Ratio (10-20) Glucose (70-99) mg/dl Lactate (0.4-2.0) mmol/L Calcium (8.5-10.1) mg/dl Iron (35-175) mcg/dl Transferrin (200-360) mg/dl Transferrin % Sat (20-50) % Ferritin (8-388) ng/ml Total Bilirubin (0.2-1) mg/dl Direct Bilirubin (0-0.2) mg/dl AST (15-37) U/L ALT (12-78) U/L Alkaline Phosphatase (45-117) U/L Troponin I < 0.015 (0-0.045) ng/ml Total Protein (6.4-8.2) gm/dl Albumin (3.4-5.0) gm/dl Globulin (2.5-4.0) gm/dl Albumin/Globulin Ratio (0.9-2) Urine Color Urine Appearance (Clear) Urine pH (4.5-7.5) Ur Specific Vaughn (1.000-1.030) Urine Protein (Negative) Urine Glucose (UA) (Negative) Urine Ketones (Negative) Urine Blood (Negative) Urine Nitrite (Negative) Urine Bilirubin (Negative) Urine Urobilinogen (Negative) Ur Leukocyte Esterase (Negative) Urine WBC (Auto) (0-5) /hpf Urine RBC (Auto) (0-4) /hpf U Hyaline Cast (Auto) (0-5) /lpf U Epithel Cells (Auto) (0-5) /lpf Urine Bacteria (Auto) (Negative) 05/11/18 05/11/18 05/11/18 Range/Units 15:37 15:37 17:20 WBC (4.8-10.8) K/uL RBC (4.7-6.1) M/uL Hgb (14.0-18.0) g/dL Hct (42-52) % MCV (80-100) fL MCH (25-34) pg MCHC (32-36) g/dL RDW Std Deviation (36.4-46.3) fL RDW Coeff of Stella (11.5-14.5) % Plt Count (130-400) K/uL MPV (7.4-10.4) fL Immature Gran % (Auto) % Neut % (Auto) % Lymph % (Auto) % [place] % (Auto) % Eos % (Auto) % Baso % (Auto) % Immature Gran # (Auto) (0.00-0.02) K/uL Neut # (Auto) (1.4-6.5) K/uL Lymph # (Auto) (1.2-3.4) K/uL [place] # (Auto) (0.11-0.59) K/uL Eos # (Auto) (0-0.5) K/uL Baso # (Auto) (0-0.2) K/uL Platelet Estimate (Normal) Anisocytosis Ovalocytes PT (9.0-12.0) Seconds INR (0.9-1.1) APTT (21.0-31.0) Seconds PTT Ratio Sodium 131 L (136-145) mmol/L Potassium 4.1 (3.5-5.1) mmol/L Chloride 98 (98-107) mmol/L Carbon Dioxide 25 (21-32) mmol/L Anion Gap 8.0 (3-11) BUN 26 H (7-18) mg/dl Creatinine 0.52 L (0.6-1.4) mg/dl Est Cr Clr Drug Dosing 139.5 ml/min Est GFR ( Amer) 125.2 Est GFR (Non-Af Amer) 108.0 BUN/Creatinine Ratio 49.7 H (10-20) Glucose 114 H (70-99) mg/dl Lactate 1.5 (0.4-2.0) mmol/L Calcium 8.6 (8.5-10.1) mg/dl Iron (35-175) mcg/dl Transferrin (200-360) mg/dl Transferrin % Sat (20-50) % Ferritin (8-388) ng/ml Total Bilirubin 0.5 (0.2-1) mg/dl Direct Bilirubin (0-0.2) mg/dl AST 61 H (15-37) U/L ALT 102 H (12-78) U/L Alkaline Phosphatase 260 H (45-117) U/L Troponin I (0-0.045) ng/ml Total Protein 7.2 (6.4-8.2) gm/dl Albumin 3.0 L (3.4-5.0) gm/dl Globulin 4.2 H (2.5-4.0) gm/dl Albumin/Globulin Ratio 0.7 L (0.9-2) Urine Color Dark Yellow Urine Appearance Clear (Clear) Urine pH 5.0 (4.5-7.5) Ur Specific Vaughn 1.033 H (1.000-1.030) Urine Protein Trace H (Negative) Urine Glucose (UA) Negative (Negative) Urine Ketones Trace H (Negative) Urine Blood Negative (Negative) Urine Nitrite Positive H (Negative) Urine Bilirubin Negative (Negative) Urine Urobilinogen Negative (Negative) Ur Leukocyte Esterase Negative (Negative) Urine WBC (Auto) 1-5 (0-5) /hpf Urine RBC (Auto) 0-4 (0-4) /hpf U Hyaline Cast (Auto) 1-5 (0-5) /lpf U Epithel Cells (Auto) 10-20 H (0-5) /lpf Urine Bacteria (Auto) Negative (Negative) 05/12/18 05/12/18 05/13/18 Range/Units 06:03 06:03 05:42 WBC (4.8-10.8) K/uL RBC (4.7-6.1) M/uL Hgb (14.0-18.0) g/dL Hct (42-52) % MCV (80-100) fL MCH (25-34) pg MCHC (32-36) g/dL RDW Std Deviation (36.4-46.3) fL RDW Coeff of Stella (11.5-14.5) % Plt Count (130-400) K/uL MPV (7.4-10.4) fL Immature Gran % (Auto) % Neut % (Auto) % Lymph % (Auto) % [place] % (Auto) % Eos % (Auto) % Baso % (Auto) % Immature Gran # (Auto) (0.00-0.02) K/uL Neut # (Auto) (1.4-6.5) K/uL Lymph # (Auto) (1.2-3.4) K/uL [place] # (Auto) (0.11-0.59) K/uL Eos # (Auto) (0-0.5) K/uL Baso # (Auto) (0-0.2) K/uL Platelet Estimate (Normal) Anisocytosis Ovalocytes PT (9.0-12.0) Seconds INR (0.9-1.1) APTT (21.0-31.0) Seconds PTT Ratio Sodium 133 L 137 (136-145) mmol/L Potassium 3.9 4.0 (3.5-5.1) mmol/L Chloride 99 104 (98-107) mmol/L Carbon Dioxide 29 29 (21-32) mmol/L Anion Gap 5.0 5.0 (3-11) BUN 18 19 H (7-18) mg/dl Creatinine 0.39 L 0.39 L (0.6-1.4) mg/dl Est Cr Clr Drug Dosing 181.7 181.7 ml/min Est GFR ( Amer) 140.9 140.9 Est GFR (Non-Af Amer) 121.6 121.6 BUN/Creatinine Ratio 46.4 H 50.3 H (10-20) Glucose 91 90 (70-99) mg/dl Lactate (0.4-2.0) mmol/L Calcium 8.3 L 7.9 L (8.5-10.1) mg/dl Iron 34 L (35-175) mcg/dl Transferrin 158 L (200-360) mg/dl Transferrin % Sat 15 L (20-50) % Ferritin 837.1 H (8-388) ng/ml Total Bilirubin 0.6 0.5 (0.2-1) mg/dl Direct Bilirubin (0-0.2) mg/dl AST 45 H 44 H (15-37) U/L ALT 87 H 90 H (12-78) U/L Alkaline Phosphatase 228 H 240 H (45-117) U/L Troponin I (0-0.045) ng/ml Total Protein 5.9 L 5.5 L (6.4-8.2) gm/dl Albumin 2.8 L 2.5 L (3.4-5.0) gm/dl Globulin 3.1 3.0 (2.5-4.0) gm/dl Albumin/Globulin Ratio 0.9 0.8 L (0.9-2) Urine Color Urine Appearance (Clear) Urine pH (4.5-7.5) Ur Specific Vaughn (1.000-1.030) Urine Protein (Negative) Urine Glucose (UA) (Negative) Urine Ketones (Negative) Urine Blood (Negative) Urine Nitrite (Negative) Urine Bilirubin (Negative) Urine Urobilinogen (Negative) Ur Leukocyte Esterase (Negative) Urine WBC (Auto) (0-5) /hpf Urine RBC (Auto) (0-4) /hpf U Hyaline Cast (Auto) (0-5) /lpf U Epithel Cells (Auto) (0-5) /lpf Urine Bacteria (Auto) (Negative) 05/15/18 05/15/18 05/15/18 Range/Units 05:24 05:24 08:24 WBC 3.41 L (4.8-10.8) K/uL RBC 3.54 L (4.7-6.1) M/uL Hgb 8.9 L (14.0-18.0) g/dL Hct 27.5 L (42-52) % MCV 77.7 L (80-100) fL MCH 25.1 (25-34) pg MCHC 32.4 (32-36) g/dL RDW Std Deviation 55.2 H (36.4-46.3) fL RDW Coeff of Setlla 19.1 H (11.5-14.5) % Plt Count 77 L (130-400) K/uL MPV 8.3 (7.4-10.4) fL Immature Gran % (Auto) 0.3 % Neut % (Auto) 42.2 % Lymph % (Auto) 41.9 % [place] % (Auto) 12.0 % Eos % (Auto) 2.1 % Baso % (Auto) 1.5 % Immature Gran # (Auto) 0.01 (0.00-0.02) K/uL Neut # (Auto) 1.44 (1.4-6.5) K/uL Lymph # (Auto) 1.43 (1.2-3.4) K/uL [place] # (Auto) 0.41 (0.11-0.59) K/uL Eos # (Auto) 0.07 (0-0.5) K/uL Baso # (Auto) 0.05 (0-0.2) K/uL Platelet Estimate Decreased (Normal) Anisocytosis Present Ovalocytes PT (9.0-12.0) Seconds INR (0.9-1.1) APTT (21.0-31.0) Seconds PTT Ratio Sodium 136 (136-145) mmol/L Potassium 3.9 (3.5-5.1) mmol/L Chloride 106 (98-107) mmol/L Carbon Dioxide 26 (21-32) mmol/L Anion Gap 4.0 (3-11) BUN 18 (7-18) mg/dl Creatinine 0.38 L (0.6-1.4) mg/dl Est Cr Clr Drug Dosing 186.5 ml/min Est GFR ( Amer) 142.4 Est GFR (Non-Af Amer) 122.9 BUN/Creatinine Ratio 47.5 H (10-20) Glucose 86 (70-99) mg/dl Lactate (0.4-2.0) mmol/L Calcium 7.5 L (8.5-10.1) mg/dl Iron (35-175) mcg/dl Transferrin (200-360) mg/dl Transferrin % Sat (20-50) % Ferritin (8-388) ng/ml Total Bilirubin 0.5 (0.2-1) mg/dl Direct Bilirubin 0.2 (0-0.2) mg/dl AST 41 H (15-37) U/L ALT 84 H (12-78) U/L Alkaline Phosphatase 186 H (45-117) U/L Troponin I (0-0.045) ng/ml Total Protein 5.0 L (6.4-8.2) gm/dl Albumin 2.3 L (3.4-5.0) gm/dl Globulin (2.5-4.0) gm/dl Albumin/Globulin Ratio (0.9-2) Urine Color Urine Appearance (Clear) Urine pH (4.5-7.5) Ur Specific Vaughn (1.000-1.030) Urine Protein (Negative) Urine Glucose (UA) (Negative) Urine Ketones (Negative) Urine Blood (Negative) Urine Nitrite (Negative) Urine Bilirubin (Negative) Urine Urobilinogen (Negative) Ur Leukocyte Esterase (Negative) Urine WBC (Auto) (0-5) /hpf Urine RBC (Auto) (0-4) /hpf U Hyaline Cast (Auto) (0-5) /lpf U Epithel Cells (Auto) (0-5) /lpf Urine Bacteria (Auto) (Negative) 05/16/18 05/16/18 Range/Units 06:03 06:03 WBC 2.90 L (4.8-10.8) K/uL RBC 3.63 L (4.7-6.1) M/uL Hgb 8.5 L (14.0-18.0) g/dL Hct 28.1 L (42-52) % MCV 77.4 L (80-100) fL MCH 23.4 L (25-34) pg MCHC 30.2 L (32-36) g/dL RDW Std Deviation 54.2 H (36.4-46.3) fL RDW Coeff of Stella 19.3 H (11.5-14.5) % Plt Count 83 L (130-400) K/uL MPV 8.7 (7.4-10.4) fL Immature Gran % (Auto) 0.3 % Neut % (Auto) 46.2 % Lymph % (Auto) 39.7 % [place] % (Auto) 12.8 % Eos % (Auto) 0.3 % Baso % (Auto) 0.7 % Immature Gran # (Auto) 0.01 (0.00-0.02) K/uL Neut # (Auto) 1.34 L (1.4-6.5) K/uL Lymph # (Auto) 1.15 L (1.2-3.4) K/uL [place] # (Auto) 0.37 (0.11-0.59) K/uL Eos # (Auto) 0.01 (0-0.5) K/uL Baso # (Auto) 0.02 (0-0.2) K/uL Platelet Estimate (Normal) Anisocytosis Present Ovalocytes 1+ PT (9.0-12.0) Seconds INR (0.9-1.1) APTT (21.0-31.0) Seconds PTT Ratio Sodium 138 (136-145) mmol/L Potassium 3.9 (3.5-5.1) mmol/L Chloride 108 H (98-107) mmol/L Carbon Dioxide 24 (21-32) mmol/L Anion Gap 6.0 (3-11) BUN 20 H (7-18) mg/dl Creatinine 0.32 L (0.6-1.4) mg/dl Est Cr Clr Drug Dosing 221.5 ml/min Est GFR ( Amer) > 150.0 Est GFR (Non-Af Amer) 131.9 BUN/Creatinine Ratio 62.5 H (10-20) Glucose 83 (70-99) mg/dl Lactate (0.4-2.0) mmol/L Calcium 7.7 L (8.5-10.1) mg/dl Iron (35-175) mcg/dl Transferrin (200-360) mg/dl Transferrin % Sat (20-50) % Ferritin (8-388) ng/ml Total Bilirubin (0.2-1) mg/dl Direct Bilirubin (0-0.2) mg/dl AST (15-37) U/L ALT (12-78) U/L Alkaline Phosphatase (45-117) U/L Troponin I (0-0.045) ng/ml Total Protein (6.4-8.2) gm/dl Albumin (3.4-5.0) gm/dl Globulin (2.5-4.0) gm/dl Albumin/Globulin Ratio (0.9-2) Urine Color Urine Appearance (Clear) Urine pH (4.5-7.5) Ur Specific Vaughn (1.000-1.030) Urine Protein (Negative) Urine Glucose (UA) (Negative) Urine Ketones (Negative) Urine Blood (Negative) Urine Nitrite (Negative) Urine Bilirubin (Negative) Urine Urobilinogen (Negative) Ur Leukocyte Esterase (Negative) Urine WBC (Auto) (0-5) /hpf Urine RBC (Auto) (0-4) /hpf U Hyaline Cast (Auto) (0-5) /lpf U Epithel Cells (Auto) (0-5) /lpf Urine Bacteria (Auto) (Negative)
[2018-05-17 14:22] LABS: C Reactive Protein 2.15 mg/dl (0-0.29)
--- NOTE | 2018-05-17 14:50 | CT Scan Report ---
CT OF THE CHEST WITHOUT IV CONTRAST CLINICAL HISTORY: weight loss, melanoma COMPARISON STUDY: Chest radiograph May 11, 2018. PET/CT March 19, 2017. CT DOSE: 324.20 mGy.cm TECHNIQUE: Axial images of the chest were obtained without IV contrast. Images were reviewed in the axial, sagittal, and coronal planes. IV contrast was not administered for this examination. Automat ed exposure control was utilized for the study. A dose lowering technique was utilized adhering to t he principles of ALARA. FINDINGS: A 3.4 cm water attenuation subcutaneous abnormality of the left upper back is unchanged si nce PET/CT of March 19, 2017. A left PICC is in place. The heart is mildly enlarged. There is no pe ricardial effusion. There are small bilateral pleural fusions. The lungs are suboptimally assessed gi ibeth significant respiratory motion artifact. There may be mild edema. Bilateral airspace opacities fa vor atelectasis. There is no lobar consolidation. No suspicious pulmonary nodules are identified alth ough sensitivity is diminished on this exam. No suspicious lesions are identified within the bony tho rax. There are no enlarged axillary, mediastinal or hilar lymph nodes. IMPRESSION: 1. No evidence for malignancy within the chest although evaluation of the lungs is compromised by res piratory motion. 2. Small bilateral pleural effusions with associated airspace opacities which favor atelectasis. Poss ible mild pleural edema. 3. 3.4 cm water attenuation subcutaneous abnormality at the left upper back which is unchanged since PET/CT of March 19, 2017. This was not FDG avid. This favors a sebaceous cyst or postsurgical villalpando e. Electronically signed by: Nithin Myers M.D. 05/17/2018 2:48 PM
--- NOTE | 2018-05-17 18:33 | Hospitalist Progress Note ---
Date of Service May 17, 2018 Assessment & Plan (1) Generalized weakness: The differential for this is broad, but the most likely appears to be a combination of deconditioning, malnutrition, weight loss, and pain -all related to his acute situation with his discitis and paraspinal abscesses. Muscle weakness due to (in part) severe protein-calorie malnutrition With his odd delirium where he seems to be simultaneously quite bizarrely acting out but at the same time able to redirect to his situation at hand with a degree of depth of knowledge, is not entirely clear what the situation is. CT head and chest were done to look for malignant type findings, these were negative. It is possible that he is simply more frail than he appeared, given his Opdivo therapy and discitis, but again that seems that would more likely be get a more typical delirium, not this oddly mixed picture. Will ask hematology/oncology for input in regards to his melanoma therapy as a possible culprit for some of his failure to thrive, and also ask for neurology evaluation, as I hesitate to move him to SNF with a goal of nutrition and physical therapy if there are any smoldering underlying diagnoses that are not being identified. Pain medication side effect is possible, but right now he notes that the pain medicines he is on really gives him just enough control to be able to participate with therapy. Continue to follow (2) Osteomyelitis of lumbar spine: Repeat blood cultures are negative to date, repeat urine culture no significant growth as well. Continue Rocephin ongoing This seems to be midstream in treatment. No clear signs of failure, or worsen ing. Appreciate ortho-spine input, agree no need for surgery right now. CRP checked, trend periodically. (3) Anemia: Microcytic, given his weight loss and malnutrition, iron studies do show a degree of iron deficiency. Appears to be mixed iron deficiency and chronic disease, and for completeness sake we will to make sure he is up-to-date on his colonoscopy as an outpatient, Follow periodically. Replacing iron both IV and oral. Continue to follow (4) Hyponatremia: Appears to be due to his poor oral intake and weight loss, encourage p.o. intake, follow periodically, overall a stable issue, follow periodically. (5) Diskitis: See above, continue Rocephin, agree with spine surgery that he does not appear to warrant surgery right now. (6) Microscopic hematuria: Outpatient follow-up (7) Malignant melanoma metastatic to lymph node: This obviously is on the differential for his weakness, but it seems less likely to be the culprit, should his weakness persist, then oncology input on this may be necessary. Because he otherwise does not show diffuse metastatic disease this seems less likely. See above otherwise, we will be asking hematology/oncology for input regarding possible effect of his therapy on his current condition. (8) Thrombocytopenia: Close periodic follow-up, periodic CBCs. Overall stable (9) Low back pain: Due to his discitis/paraspinal abscesses. Continue antibiotics. Continue fentanyl patch and Soma for now, continue oxycodone. Low threshold to try to wean all 3 of these given that they may also be contributing to his weakness (see above otherwise). Stop Voltaren gel, as his skin appeared to be getting irritated from it and it did not seem to be helping much.. Given his creatinine being so stable trial of Toradol IV ongoing. PT/OT eval and treat. Pain appears to be overall stable (10) Essential tremor: (11) Transaminitis: Mild, nonspecific. Continue to follow periodically. GI and surgery input appreciated. (12) Weight loss: Appears to relate more to poor oral intake than his melanoma. Encouraging oral intake, and continuing to emphasize how critically important this is. Remeron at bedtime as appetite stimulant appears to have been a failure, and may have been contributing some to his delirium, and this was stopped. Was given a therapeutic trial of Marinol, and he did seem to be getting a little bit confused and even medium doses, and unfortunately it was not helping his appetite at all, so this was stopped as well. Continue protein shakes, dietitian input. (13) DVT prophylaxis: Lovenox on hold, follow platelets. (14) Discharge planning issues: PT/OT eval and treat, definitely needs SNF, hopefully [facility] in the near future. (15) Urinary retention: Seems to be BPH related given his age/gender, and likely acute due to his current degree of physiologic and mental stress. Straight cath as needed, likel y will initiate Flomax, but given that we are trying to minimize chance of further med side effects, we will wait until her current delirium is a little better before initiating yet another new med. He does not seem to have as much urinary retention today. (16) Delirium: Continue reorientation/supportive care, see discussion above on diagnostic considerations given the somewhat atypical picture for this. It may in fact all be that he is more frail and appeared at baseline, but again as above noted, even with that his delirium seems to be oddly more focused while simultaneously distractible and inattentive, rather than a more classically inattentive delirium. (17) Pancytopenia: Uncertain etiology, seems most likely to be related to his cancer therapy, but the fact that his counts were normal when he first came in begs the question of another underlying process. Hematology/oncology evaluation as above. Subjective Is seen in the room he is calling for help. When I walk in and asked him what he needs help with, he is laying in bed naked from the waist down, with a paper scrub top on top, asking for help taking the scrub top off because he is hot. He is surprisingly easy to calm down, and then he will have a rational discussion, and seems to be aware of where he is in his circumstances, although he is still unable to state the year. He notes his back pain is about the same, he is may be eating a little better today, although still not great. He is still quite weak. Case discussed with gastroenterology extensively, input and thoughtfulness greatly appreciated. Review of Systems All systems reviewed & are unremarkable except as noted in HPI & below Physical Exam Vital Signs (Past 24 Hours): Last Vital Signs Temp 36.8 C 05/17/18 15:46 Pulse 71 05/17/18 15:46 Resp 20 05/17/18 15:46 BP 114/62 05/17/18 15:46 Pulse Ox 92 05/17/18 15:46 Physical Exam: Technically he is alert and oriented x2, but as above noted it is fairly odd that he seems to be still quite aware of his circumstances acutely, while at the same time behaving quite deliriously such as laying half naked on the bed. HEENT normocephalic atraumatic mucous membranes moist. Breathing is unlabored no accessory muscle use. Skin shows no rashes no pallor or icterus. He has is resting tremor. He does appear weak and fatigued. (1) Anemia Anemia type: unspecified type Qualified Code(s): D64.9 - Anemia, unspecified
[2018-05-18] MEDS: OXYCODONE HCL IR 5 MG TAB (IMMEDIATE RELEASE) PO PRN ×3 (02:36→12:47)
[2018-05-18] MEDS: PROPRANOLOL HCL 20 MG TAB PO SCH ×2 (07:39→20:20)
[2018-05-18] MEDS: MULTIVITAMIN TAB PO SCH (07:39)
[2018-05-18] MEDS: FERROUS GLUCONATE 324 MG TAB PO SCH (07:39)
[2018-05-18] MEDS: DICLOFENAC SOD 1% GEL 100 GM TUBE EXT SCH ×4 (07:40→20:21)
[2018-05-18] MEDS: POLYETHYLENE (MIRALAX) 17 GM PACK PO SCH ×2 (07:40→20:20)
[2018-05-18] MEDS: CHECK FENTANYL PATCH PLACEMENT SCH ×3 (07:41→23:51)
--- NOTE | 2018-05-18 08:10 | Family Medicine Progress Note ---
Date of Service May 18, 2018 Assessment & Plan (1) Generalized weakness: Mr. Abad is a 68 year old male with a past medical history of osteomyelitis, discitis and abscess of lumbar spine, malignant melanoma, and recent cholecystectomy who presented to [facility] due to weakness. 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 Does not have a history of baseline dementia - CT head and chest were done to look for malignancies which could be contributing, but these were negative - potentially secondary to Opdivo therapy and infection, on top of his baseline frailty - neurology consulted -> likely multifactorial - related to his multiple medical issues -> MRI brain ordered to r/o stroke Osteomyelitis of lumbar spine - Repeat blood cultures are negative to date, repeat urine culture no significant growth as well. - Continue Rocephin ongoing, will have to determine length of treatment - no signs of clinical worsening. Appreciate ortho-spine input, no need for surgery right now. - CRP 2.15, trend periodically. Anemia - Microcytic, given his weight loss and malnutrition, iron studies do show a degree of iron deficiency. Appears to be mixed iron deficiency and chronic disease. 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 Thrombocytopenia - per heme/onc, likely due to splenomegaly. 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 Continue antibiotics. Continue fentanyl patch and Soma for now, continue oxycodone. - trial of Toradol IV ongoing - PT/OT eval and treat - Pain appears to be overall stable Essential tremor -continue propranolol Transaminitis: - Mild, nonspecific. Repeat CMP tomorrow. Weight loss: - related to poor oral intake - no improvement w/Remeron at bedtime, or with Marinol - continue protein shakes, dietitian input - thank you to GI for input -> Protonix 40mg IV daily -> NPO at midnight for EGD eval tomorrow. -> Bowel regimen: Miralax 17g BID -> check prealbumin level Urinary retention - Seems to be BPH related given his age/gender, and likely acute due to his current degree of physiologic and mental stress - straight cath as needed DVT prophylaxis: Lovenox on hold, follow platelets. Disposition: PT/OT eval and treat. Accepted to [facility] for eventual d/c. 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 Martin. In agreement with the documented findings as noted in the resident documentation with any exceptions or additions as noted here. No acute complaints aside from stable chronic back pain. On examination, S1/S2 nl RRR no MCG. CTAB. Abd NT/ND BS+ve Multifactorial generalized weakness - PT/OT, neurology and heme/onc consultation appreciated - follow ACh testing Atypical delirium - neurology consultation appreciated - MRI brain w/ mild sedation ordered. T/C haldol 0.5mg IV if agitated. Osteomyelitis of lumbar spine - continue rocephin Microcytic anemia - check previous colonoscopy Else see resident documentation as noted. Subjective Mr. Abad reports he has no complaints today. He states he remains with his chronic back pain, but that it is no worse than usual. He is able to tell me where he is, why he is in the hospital, and his full name. He gets confused when asked the date, but is easily reoriented. Constitutional: + fatigue and + weakness; no fever and no chills Respiratory: no cough and no dyspnea Cardiovascular: no chest pain and no calf pain Gastrointestinal: no abdominal pain and no vomiting Physical Exam Vital Signs (Past 24 Hours): Last Vital Signs Temp 36.4 C L 05/18/18 06:51 Pulse 65 05/18/18 06:51 Resp 17 05/18/18 06:51 BP 133/74 05/18/18 06:51 Pulse Ox 95 05/18/18 06:51 Constitutional: WD/WN, vitals as above cooperative appears fatigued, drifts off to sleep easily ENMT: external ear and nose normal, oropharynx normal Respiratory: normal respiratory effort, lungs clear to auscultation Cardiovascular: RRR, no murmur, no edema Gastrointestinal (Abdomen): Inspection/Auscultation: abdomen not distended Percussion/Palpation: abdomen soft; abdomen nontender Neurologic: Motor/Sensory: + tremor Results & Data Laboratory Results Laboratory Results - last 24 hr 05/18/18 05/18/18 05/18/18 11:39 11:40 11:40 WBC 2.75 L RBC 3.86 L Hgb 9.0 L Hct 29.4 L MCV 76.2 L MCH 23.3 L MCHC 30.6 L RDW Std Deviation 53.1 H RDW Coeff of Stella 19.0 H Plt Count 99 L MPV 8.5 Immature Gran % (Auto) 0.0 Neut % (Auto) 52.3 Lymph % (Auto) 29.1 Whitfield % (Auto) 17.5 Eos % (Auto) 0.7 Baso % (Auto) 0.4 Immature Gran # (Auto) 0.00 Neut # (Auto) 1.44 Lymph # (Auto) 0.80 L Whitfield # (Auto) 0.48 Eos # (Auto) 0.02 Baso # (Auto) 0.01 Anisocytosis Present Sodium 137 Potassium 4.0 Chloride 106 Carbon Dioxide 28 Anion Gap 3.0 BUN 19 H Creatinine 0.30 L Est Cr Clr Drug Dosing 236.3 Est GFR ( Amer) > 150.0 Est GFR (Non-Af Amer) 135.5 BUN/Creatinine Ratio 63.3 H Glucose 100 H Calcium 7.4 L Total Bilirubin 0.8 AST 27 ALT 65 Alkaline Phosphatase 138 H Ammonia 28.0 Total Protein 5.2 L Albumin 2.5 L Globulin 2.7 Albumin/Globulin Ratio 0.9 TSH 1.020 Free T4 1.22 Medications Administered Current Inpatient Medications Al Hydrox/Mg Hydrox/Simethicone (Maalox) 30 ml PO Q6H PRN PRN Reason: Dyspepsia Stop: 06/10/18 21:25 Last Admin: 05/13/18 03:03 Dose: 30 ml Documented by: Carisoprodol (Soma) 350 mg PO TID PRN PRN Reason: Muscle Spasm Stop: 06/10/18 21:25 Last Admin: 05/15/18 18:53 Dose: 350 mg Documented by: Diclofenac Sodium (Voltaren 1% Top) 1 appln EXT QID [facility] Stop: 06/10/18 21:25 Last Admin: 05/18/18 16:09 Dose: 1 appln Documented by: Enoxaparin Sodium (Lovenox) 40 mg SQ QAM [facility] Stop: 06/11/18 08:59 Last Admin: 05/15/18 08:16 Dose: 40 mg Documented by: Fentanyl (Duragesic) 25 mcg TD Q3D [facility] Stop: 05/28/18 07:59 Last Admin: 05/17/18 07:39 Dose: 25 mcg Documented by: Ferrous Gluconate (Ferrous Gluconate) 324 mg PO QAM [facility] Stop: 06/12/18 08:59 Last Admin: 05/18/18 07:39 Dose: 324 mg Documented by: Heparin Sodium (Beef Lung) (Heparin Sod 10 Unit/Ml Flush) 5 ml FLUSH PRN PRN PRN Reason: Flush Stop: 06/11/18 02:50 Last Admin: 05/18/18 14:06 Dose: 5 ml Documented by: Ceftriaxone Sodium 2,000 mg/ (Dextrose) 70 mls @ 140 mls/hr IV DAILY [facility] Stop: 06/23/18 08:59 Last Infusion: 05/18/18 08:54 Dose: Infused Documented by: Pantoprazole Sodium 40 mg/ (Syringe) 10 mls @ 5 mls/min IV DAILY@1100 [facility] Stop: 06/17/18 11:29 Last Admin: 05/18/18 12:42 Dose: 5 mls/min Documented by: Lorazepam (Ativan) 0.5 mg in 1 mls @ 1 mls/min IV ONE PRN PRN Reason: Anxiety Stop: 05/18/18 18:00 Last Admin: 05/18/18 14:05 Dose: 1 mls/min Documented by: Ketorolac Tromethamine (Toradol) 15 mg IV Q6H PRN PRN Reason: Pain Stop: 05/20/18 16:52 Last Admin: 05/17/18 13:29 Dose: 15 mg Documented by: Magnesium Hydroxide (Milk Of Magnesia) 30 ml PO Q6H PRN PRN Reason: Constipation Stop: 06/10/18 21:25 Miscellaneous (Order Awaiting Action) 1 ea N/A QS [facility] Stop: 06/11/18 00:00 Last Admin: 05/18/18 16:08 Dose: Not Given Documented by: Miscellaneous (Fentanyl Patch Remove & Waste) 1 ea N/A Q72H [facility] Stop: 06/13/18 07:58 Last Admin: 05/17/18 07:39 Dose: 1 ea Documented by: Miscellaneous (Fentanyl Patch Check Placement) 1 ea N/A QS [facility] Stop: 06/11/18 00:00 Last Admin: 05/18/18 16:08 Dose: 1 ea Documented by: Multivitamins (Multivitamin Tab) 1 tab PO DAILY [facility] Stop: 06/11/18 08:59 Last Admin: 05/18/18 07:39 Dose: 1 tab Documented by: Ondansetron HCl (Zofran) 4 mg IV Q6H PRN PRN Reason: Nausea Stop: 06/10/18 21:25 Last Admin: 05/18/18 11:18 Dose: 4 mg Documented by: Oxycodone HCl (Roxicodone Immediate Rel) 5 mg PO Q4H PRN PRN Reason: pain Stop: 05/25/18 21:25 Last Admin: 05/18/18 12:47 Dose: 5 mg Documented by: Polyethylene Glycol (Miralax Powder Packet) 17 gm PO DAILY PRN PRN Reason: Constipation Stop: 06/10/18 21:25 Polyethylene Glycol (Miralax Powder Packet) 17 gm PO BID [facility] Stop: 06/13/18 10:44 Last Admin: 05/18/18 07:40 Dose: 17 gm Documented by: Propranolol HCl (Inderal) 60 mg PO BID [facility] Stop: 06/10/18 21:25 Last Admin: 05/18/18 07:39 Dose: 60 mg Documented by: Resident Activity Tracking Resident Involvement: Resident Care Provided Care Provided: Adult Hospital Medicine (1) Anemia Anemia type: unspecified type Qualified Code(s): D64.9 - Anemia, unspecified
[2018-05-18] MEDS: cefTRIAXone SODIUM 2,000 MG in DEXTROSE 5% 50 ML IV SCH (08:24)
--- NOTE | 2018-05-18 11:21 | Neurology Consultation ---
Date of Consultation May 18, 2018 Assessment & Plan (1) Generalized weakness: I agree this patient does have a moderate degree of generalized weakness on his examination, especially the quadriceps muscles. Hip flexors and shoulder abduction on the left also seems to be affected. He does not have any associated muscle pain. 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 Metabolic derangement and other medical factors also likely contributes. He probably does not have myasthenia gravis or an acquired inflammatory myopathy. Would recommend an outpatient EMG with repetitive stimulation for further assessment of his weakness. I would also obtain TFTs as hypothyroidism may present with generalized weakness. Would also obtain acetylcholine receptor antibodies although my clinical suspicion for myasthenia gravis is low. (2) Delirium: Patient seems to have a mild delirium. Etiology probably multifactorial and related to his multiple medical or metabolic issues. However, I would recommend obtaining an MRI of the brain to exclude subacute stroke. An EEG would probably not be very helpful as he has not exhibited any clinical signs suggestive of seizure activity and he is quite tremulous which would probably significantly interfere with the study. (3) Essential tremor: Essential tremor. Chronic issue. May be a bit worse in the context of his current medical and metabolic issues. Will continue with current dosage of propranolol. History of Present Illness Reason for Consultation: Weakness, delirium? Assist in evaluating for etiology Requesting Physician: Minh Cruz DO Attending Physician: Efrain Velazquez MD History of Present Illness The patient is a 68-year-old male who was admitted on May 11 with worsening weakness for the past 2 days, occurring after a recent discharge from [facility]. He complains of increasing difficulty at home transfer ring from his wheelchair to walker and using the commode. He complained of feeling generally weak but denies any muscle pain, diplopia, or problems with speech or swal lowing. He had been at [facility] recovering from osteomyelitis and diskitis of the lumbar spine. He has been receiving intravenous ceftriaxone. He does not have a known history of myasthenia gravis, myopathy, or other neuromuscular disease. However, he does have a history of chronic tremor for which he is prescribed propranolol. He has been a bit confused or delirious at times during his hospitalization as well. Currently, the patient recognizes me from the outpatient clinic. He is a bit confused but is able to relay the major aspects of his history of present illness including his general weakness and recent discharge from [facility] and recent issues with osteomyelitis. He complains of some low back pain. Other details as above. Allergies Allergy/AdvReac Type Severity Reaction Status Date / Time No Known Allergies Allergy Unverified 05/11/18 16:30 Home Medications Home Medications Medication Instructions Recorded Confirmed Type Opdivo 1 dose IV MONTHLY 02/19/18 05/11/18 History multivitamin 1 tab PO DAILY 02/19/18 05/11/18 History propranolol 60 mg PO BID 02/19/18 05/11/18 History ceftriaxone 2 gm IV DAILY #30 ea 04/18/18 05/11/18 Rx oxycodone 5 mg PO Q4H PRN #20 tab 04/18/18 05/11/18 Rx carisoprodol [Soma] 350 mg PO TID PRN 05/11/18 05/11/18 History fentanyl 1 patch TRANSDERMAL Q72H 05/11/18 05/11/18 History Patient History Medical History Essential tremor (Chronic) Kidney stones Malignant melanoma Surgical History H/O inguinal hernia repair H/O lymph node excision Hx laparoscopic cholecystectomy Social History Preferred Language: Syriac Communication Ability: Effective Lobster Catcher Required: No Beliefs That Will Affect Care: None marital status: Current Living Situation: Spouse Other Information That Helps Us Care for You: No Feels Safe at Home: Yes Safety Concerns: Feels Safe At This Time Smoking Status: Never smoker Hx Alcohol Use: No Hx Substance Use: No Review of Systems Constitutional: + weakness; no fever and no chills Eyes: no blind spots and no diplopia Ear, Nose, Mouth, Throat: no ear pain and no hearing loss Respiratory: no cough and no dyspnea Cardiovascular: no chest pain and no palpitations Gastrointestinal: no nausea, no vomiting and no constipation Genitourinary (Male): no dysuria Musculoskeletal: as per Subjective / HPI, + back pain and + neck pain; no myalgia Integumentary: no lesions and no sores Neurologic: as per Subjective / HPI Psychiatric: + confusion; no depression and no anxiety Hematologic / Lymphatic: no easy bleeding, no easy bruising and no lymphadenopathy Physical Exam Vital Signs (Past 24 Hours): Last Vital Signs Temp 36.4 C L 05/18/18 06:51 Pulse 65 05/18/18 06:51 Resp 17 05/18/18 06:51 BP 133/74 05/18/18 06:51 Pulse Ox 95 05/18/18 06:51 Physical Exam: The patient is a well-developed elderly male. He is sitting up comfortably in bed. He is alert and oriented to person and hospital only. He exhibits some impairment of recent and remote memory although he does have some impairments of attention and concentration as well. He does recognize me from the outpatient clinic. He is able to relay major details pertaining to his history of present illness but his attention span seems poor as is concentration. He is able to name objects and repeat phrases. He exhibits an age-appropriate fund of knowledge a normal vocabulary. Visual caban full to confrontation. Visual acuity normal. Pupils equal round react to light and accommodation. Eye movements normal. Facial sensation intact. There is no facial weakness or droop. Hearing intact. Palate elevates to midline. Shoulder shrug intact. Tongue protrudes to midline. Sensation intact to all modalities in all 4 limbs. Deep tendon reflexes intact and symmetrical. Plantar responses downgoing. There is no dysdiadochokinesia or dysmetria of [id number] or heel to rios bilaterally. Ophthalmoscopic examination reveals normal-appearing optic discs and posterior segments. No papilledema or hemo rrhages. Carotid pulses normal bilaterally, no bruits to auscultation. Gait and station not tested due to safety concerns. Evaluation of muscle strength does reveal generalized weakness, especially the quadriceps muscles bilaterally with some milder weakness of hip flexion bilaterally and moderate weakness of shoulder abduction bilaterally, left greater than right. He does not have footdrop. Muscle tone normal throughout. There is no atrophy. The patient exhibits a generalized postural and action tremor. He does not have a parkinsonian pill-rolling rest tremor. No rigidity or bradykinesia. Results & Data Laboratory Results WBC 2.9, hemoglobin 8.5, platelet 83, sodium 138, BUN 20, creatinine 0.32, glucose 83, AST 41, ALT 84, CK [address] of the head was completed on May 11, 2018. This study was negative for acute process. Ventricular system normal. No evidence of hydrocephalus. There is mild chronic small vessel ischemic change. Images and report reviewed. A lumbar spine MRI completed May 08, 2018 Re demonstrated findings of diskitis and osteomyelitis at the L1-2 and L5-S1 levels. There fluid collections within the left psoas muscle at the L1-2 level potentially consistent with previously identified small abscesses. An electrocardiogram reveals a normal sinus rhythm, 70 beats per minute.
[2018-05-18 11:55] LABS: Hematocrit (blood only) 29.4 % (42-52); Mean Corpuscular Hgb Conc 30.6 g/dL (32-36); Mean Corpuscular Volume 76.2 fL (80-100); RDW Standard Deviation 53.1 fL (36.4-46.3); Red Blood Count 3.86 M/uL (4.7-6.1); White Blood Count 2.75 K/uL (4.8-10.8)
[2018-05-18 12:09] LABS: Mean Platelet Volume 8.5 fL (7.4-10.4); Platelet Count 99 K/uL (130-400)
[2018-05-18 12:17] LABS: Albumin Level 2.5 gm/dl (3.4-5.0); BUN Creatinine Ratio 63.3 (10-20); Blood Urea Nitrogen 19 mg/dl (7-18); Calcium 7.4 mg/dl (8.5-10.1); Carbon Dioxide 28 mmol/L (21-32); Chloride 106 mmol/L (98-107); Creatinine Clr Calc Pharmacy 236.3 ml/min; Est GFR (African American) > 150.0; Est GFR (Non-African American) 135.5; Glucose 100 mg/dl (70-99); Sodium 137 mmol/L (136-145); T4 Free Thyroxine 1.22 ng/dl (0.8-1.6)
[2018-05-18 12:28] LABS: Alanine Aminotransferase 65 U/L (12-78); Albumin Globulin Ratio 0.9 (0.9-2); Alkaline Phosphatase 138 U/L (45-117); Aspartate Aminotransferase 27 U/L (15-37); Bilirubin,Total 0.8 mg/dl (0.2-1); Globulin 2.7 gm/dl (2.5-4.0); Total Protein 5.2 gm/dl (6.4-8.2)
[2018-05-18] MEDS ORDERED: LORazepam 0.5 MG/1 ML VIAL IV PRN (12:30)
[2018-05-18] MEDS: PANTOprazole 40 MG in SYRINGE 0 ML IV SCH (12:42)
--- NOTE | 2018-05-18 13:00 | Gastroenterology Progress Note ---
Date of Service May 18, 2018 Assessment & Plan (1) Weight loss: 68-year-old gentleman with clinical decline after recent cholecystectomy as well as osteomyelitis. Poor PO intake and FTT. CT head, chest, abd/pelvis, show post beatrice and osteomyelitis changes but otherwise no other infections or infarcts, mets. Previously elevated LFTs now normalizing. - Protonix 40mg IV daily - NPO after midnight for EGD eval tomorrow. - Plunger Scoop Operator consult for nutritional assessment. - Zofran PRN nausea - Bowel regimen: Miralax 17g BID - Consider DC'ing Ferrous Sulfate ? may contribute to nausea. Supervising Physician Co-Signing Physician Notes I performed a history and physical examination of the patient, including specifically on physical exam - soft, nontender abdomen. I have discussed the patient's management with Lisa. Please refer to the nurse practitioner's note for the documented findings and plan of care. patient with multiple comorbids, recent complicated illness and neurological decline, Poor PO intake and weight loss. Plan for EGD tomorrow. Subjective Pt having nausea this AM, refused breakfast. He also didn't eat much during lunch or dinner last night. He denies any abd pain. Just had small BM this AM per RNs' report w/o rectal bleeding. No CP, SOB. Physical Exam Vital Signs (Past 24 Hours): Last Vital Signs Temp 36.4 C L 05/18/18 06:51 Pulse 65 05/18/18 06:51 Resp 17 05/18/18 06:51 BP 133/74 05/18/18 06:51 Pulse Ox 95 05/18/18 06:51 Constitutional: + ill appearing, + thin, well groomed and cooperative Eyes: PERRL, conjunctivae normal, anicteric sclerae ENMT: external ear and nose normal, oropharynx normal Respiratory: normal respiratory effort, lungs clear to auscultation Cardiovascular: RRR, no murmur, no edema Gastrointestinal (Abdomen): normal bowel sounds, soft, nontender, no hepatosplenomegaly Skin: no rashes, warm and dry no jaundice Neurologic: Motor/Sensory: + tremor and + asterixis Psychiatric: A+Ox3, euthymic affect Lymphatic: no lymphedema
[2018-05-18 13:12] LABS: Anisocytosis Present; Basophils # (auto) 0.01 K/uL (0-0.2); Basophils % (auto) 0.4 %; Eosinophils # (auto) 0.02 K/uL (0-0.5); Eosinophils % (auto) 0.7 %; Lymphocytes % (auto) 29.1 %; Monocytes # (auto) 0.48 K/uL (0.11-0.59); Monocytes % (auto) 17.5 %; Neutrophils # (auto) 1.44 K/uL (1.4-6.5); Neutrophils % (auto) 52.3 %
[2018-05-18] MEDS ORDERED: PROPOFOL IV EMULSION 10 MG/ML 20 ML VIAL IV ONE (13:41)
[2018-05-18] MEDS ORDERED: LIDOCAINE HCL 2% 2 ML VIAL/AMP(20MG/ML) INFIL ONE (13:41)
--- NOTE | 2018-05-18 17:24 | Oncology Consultation ---
Date of Consultation May 18, 2018 Assessment & Plan (1) Pancytopenia: 68-year-old male, oncologic diagnosis: - Malignant melanoma involving the left cervical lymph demario region, S/P neck dissection, unknown primary, N2b, stage IIIc, BRAF mutation negative (04/2017) - PET-CT scan done at that time the diagnosis was reported to be negative. - Presently receiving adjuvant immunotherapy with Nivolumab since June 2017. - He did not receive nearby for about 2 months earlier this year when he was admitted hospital for acute discitis involving the lumbar spine. - Restarted Nivolumab, received the last dose on 05/06/2018. He had a normal blood counts at that time. Now admitted hospital for generalized weakness, no signs of infection, no evidence of recurrent disease noted anywhere else in the imaging studies, splenomegaly noted which is a new finding, most likely splenomegaly appears to be acute in nature which is causing pancytopenia in his case. Not sure about the exact cause of splenomegaly in his case, could be related immunotherapy with excessive stimulus of T cells, no hepatitis or colitis noted, thyroid function test is in normal range. Seen by neurology, suspected to have myasthenia gravis but low probability, waiting for acetylcholine receptor antibody result. I would suggest continue with the current supportive treatment, follow-up blood count daily, if he continues to have further drop in the blood count, may consider for steroid therapy. Will follow-up. Thanks for the consultation. Ed Longo MD Hem/Onc History of Present Illness Attending Physician: Efrain Velazquez MD 68-year-old male, Oncology diagnosis: - Malignant melanoma involving the left cervical lymph demario, S/P neck dissection, unknown primary, N2b disease, stage IIIc, BRAF mutation negative. - Presently he is receiving immunotherapy with Nivolumab since june 2017. - Last dose of Nivolumab received on 05/06/2018. There was a break and the treatment for about 2 months when he was admitted at [facility] in February 2018/March 2018 for increasing back pain which occurred few weeks after the oral surgery, had E. coli UTI in January 2018, diagnosed a case of echo discitis and receiving IV Rocephin every day. Blood workup done before the last Nivolumab on 05/06/2018 showed normal kidney and liver function test. WBC 7400, H&H of 11.6/37, Platelet count of 172,000. Now admitted at [facility] on 05/11/2018 (from [facility]), for increasing generalized weakness, he was feeling weaker and weaker, there is no fall reported, also complained of increasing amount of back pain, on fentanyl patch, poor appetite, no fever. Some weight loss over the last few months noted by about 20 lb. Over the last one week he continued to have increasing weakness, poor appetite and intake, receiving IV Rocephin, chronic back pain present, hemodynamically consulted because of pancytopenia. I reviewed his blood workup, when he came back to the hospital, WBC was around 5000, H&H of , Platelet count of 127,000. Now WBC count dropped down to around 2007, H&H of 11/22, MCV 76, Platelet count of 99,000. Normal liver function test noted. Normal thyroid function test noted. CT scan of the abdomen and pelvis done on 05/14/2018: - Findings suggestive of discitis/osteomyelitis involving L1 L2 and L5-S1 lesion noted with SUV paravertebral edema. - Splenomegaly measuring about 17 cm noted. - No findings suggestive recurrence of melanoma noted in the abdomen. I saw him at bedside, earlier he received Ativan for upcoming MRI but he could not finish the test because of increasing tremor, he was quite sleepy but able to answer the question yes/no. No fever, no abdominal discomfort, back pain present. He denies any increasing headache. Weakness present. Allergies Allergy/AdvReac Type Severity Reaction Status Date / Time No Known Allergies Allergy Unverified 05/11/18 16:30 Home Medications Home Medications Medication Instructions Recorded Confirmed Type Opdivo 1 dose IV MONTHLY 02/19/18 05/11/18 History multivitamin 1 tab PO DAILY 02/19/18 05/11/18 History propranolol 60 mg PO BID 02/19/18 05/11/18 History ceftriaxone 2 gm IV DAILY #30 ea 04/18/18 05/11/18 Rx oxycodone 5 mg PO Q4H PRN #20 tab 04/18/18 05/11/18 Rx carisoprodol [Soma] 350 mg PO TID PRN 05/11/18 05/11/18 History fentanyl 1 patch TRANSDERMAL Q72H 05/11/18 05/11/18 History Patient History Medical History Essential tremor (Chronic) Kidney stones Malignant melanoma Surgical History H/O inguinal hernia repair H/O lymph node excision Hx laparoscopic cholecystectomy Social History Preferred Language: Irish Communication Ability: Effective Press Washer Required: No Beliefs That Will Affect Care: None marital status: Current Living Situation: Spouse Other Information That Helps Us Care for You: No Feels Safe at Home: Yes Safety Concerns: Feels Safe At This Time Smoking Status: Never smoker Hx Alcohol Use: No Hx Substance Use: No Review of Systems COuld not obtain as he is sleepy. Physical Exam Vital Signs (Past 24 Hours): Last Vital Signs Temp 36.7 C 05/18/18 15:31 Pulse 70 05/18/18 15:31 Resp 20 05/18/18 15:31 BP 117/62 05/18/18 15:31 Pulse Ox 90 05/18/18 15:31 On exam: - Alert and oriented x3 but somewhat drowsy, thin built man, not in any distress. - HEENT: no icterus, no pallor, Throat: Normal. - Neck: No palpable cervical lymphadenopathy. - Chest: clear to auscultation. - Abdomen: soft, nontender, no hepatomegaly, no splenomegaly. - No focal neuro deficit. - Extremities: no finger clubbing, bilateral leg edema present.. Results & Data Laboratory Results - WBC 2700, H&H of 11/22, MCV 76, Platelet count of 99,000 (05/18/2018) - Normal PT and PTT (05/11/2018) - BUN/creatinine: 19/0.3, sodium 137. Potassium 4.0. - Calcium 7.4. Normal liver function test other than mildly elevated alkaline phosphatase 138. - Ammonia level 28. - TSH 1.0. - Acetylcholine receptor antibody pending. - Ferritin level > 837 (05/12/2018). Diagnostic Findings CT scan of the chest (05/17/2018) - No evidence of malignancy noted - Small bilateral pleural effusion. CT scan of the head (05/17/2018) - No acute intracranial findings noted. CT scan of the abdomen and pelvis: 1. Again seen are changes of discitis/osteomyelitis at L1-L2 and L5-S1. There is associated paravertebral edema. 2. There is mild fluid/stranding in the gallbladder fossa. No organized fluid collection is identified. 3. There is mild heterogeneity within the right lobe of liver adjacent to gallbladder fossa, likely corresponding to the abnormality questioned by ultrasound on 05/13/2018. There is no organized fluid collection at this site, and this likely represents contusion/postsurgical change. 4. There is mild intrahepatic biliary ductal dilatation, as well as mild periportal edema. 5. Marked splenomegaly. 6. Trace pelvic ascites. 7. Bilateral nephrolithiasis. 8. Moderate to advanced colonic diverticulosis without CT evidence of acute diverticulitis. 9. Prostatomegaly with evidence of chronic bladder outlet obstruction. 10. Trace pleural effusions with bibasilar consolidation. This likely represents atelectasis. Cortical clinically for evidence of superimposed pneumonia. 11. Additional findings as above.
[2018-05-19 06:15] LABS: Basophils # (auto) 0.01 K/uL (0-0.2); Basophils % (auto) 0.4 %; Eosinophils # (auto) 0.02 K/uL (0-0.5); Eosinophils % (auto) 0.8 %; Hematocrit (blood only) 28.5 % (42-52); Hemoglobin 8.8 g/dL (14.0-18.0); Lymphocytes # (auto) 1.15 K/uL (1.2-3.4); Lymphocytes % (auto) 44.9 %; Mean Corpuscular Hgb Conc 30.9 g/dL (32-36); Mean Corpuscular Volume 76.2 fL (80-100); Mean Platelet Volume 8.2 fL (7.4-10.4); Monocytes % (auto) 11.7 %; Neutrophils # (auto) 1.08 K/uL (1.4-6.5); Neutrophils % (auto) 42.2 %; Platelet Count 109 K/uL (130-400); RDW Coefficient of Variation 18.9 % (11.5-14.5); RDW Standard Deviation 53.4 fL (36.4-46.3); Red Blood Count 3.74 M/uL (4.7-6.1); White Blood Count 2.56 K/uL (4.8-10.8)
[2018-05-19 06:45] LABS: Albumin Level 2.5 gm/dl (3.4-5.0); BUN Creatinine Ratio 61.6 (10-20); Blood Urea Nitrogen 18 mg/dl (7-18); Calcium 7.5 mg/dl (8.5-10.1); Carbon Dioxide 28 mmol/L (21-32); Chloride 106 mmol/L (98-107); Creatinine Clr Calc Pharmacy 244.4 ml/min; Est GFR (African American) > 150.0; Est GFR (Non-African American) 137.3; Glucose 81 mg/dl (70-99); Potassium 3.9 mmol/L (3.5-5.1); Sodium 140 mmol/L (136-145)
[2018-05-19 06:51] LABS: Alanine Aminotransferase 60 U/L (12-78); Alkaline Phosphatase 127 U/L (45-117); Aspartate Aminotransferase 23 U/L (15-37); Bilirubin,Total 0.6 mg/dl (0.2-1); Globulin 2.5 gm/dl (2.5-4.0); Prealbumin 13.1 mg/dl (20-40)
[2018-05-19 07:38] LABS: RBC Morphology Unremarkable
[2018-05-19] MEDS: DICLOFENAC SOD 1% GEL 100 GM TUBE EXT SCH ×4 (08:10→20:14)
[2018-05-19] MEDS: PANTOprazole 40 MG in SYRINGE 0 ML IV SCH ×2 (08:10→21:13)
[2018-05-19] MEDS: cefTRIAXone SODIUM 2,000 MG in DEXTROSE 5% 50 ML IV SCH (08:10)
[2018-05-19] MEDS: CHECK FENTANYL PATCH PLACEMENT SCH ×3 (08:11→23:58)
[2018-05-19] MEDS ORDERED: LIDOCAINE HCL 2% 2 ML VIAL/AMP(20MG/ML) INFIL ONE ×3 (08:14→15:01)
[2018-05-19] MEDS ORDERED: PROPOFOL IV EMULSION 10 MG/ML 20 ML VIAL IV ONE ×2 (08:14→15:01)
--- NOTE | 2018-05-19 09:13 | Anesthesiology Consultation ---
Date of Service May 19, 2018 Assessment & Plan (1) Encounter for pre-operative examination: Chart Review Chart Review: Acceptable Risk for Surgery NPO Date Last Intake of Fluids: 05/19/18 Time Last Intake of Fluids: 00:00 Date Last Intake of Solids: 05/18/18 Time Last Intake of Solids: 23:00 History Surgery Operation Date: 05/19/18 08:25 Proposed Procedures p Esophagogastroduodenoscopy Dr Blank - Antoni Blank MD Height/Weight Height: 5 ft 11 in Weight: 72.9 kg Allergies Allergy/AdvReac Type Severity Reaction Status Date / Time No Known Allergies Allergy Unverified 05/11/18 16:30 Medications Home Medications Medication Instructions Recorded Confirmed Last Taken Opdivo 1 dose IV MONTHLY 02/19/18 05/11/18 Unknown multivitamin 1 tab PO DAILY 02/19/18 05/11/18 05/11/18 propranolol 60 mg PO BID 02/19/18 05/11/18 05/11/18 ceftriaxone 2 gm IV DAILY #30 ea 04/18/18 05/11/18 05/11/18 oxycodone 5 mg PO Q4H PRN #20 tab 04/18/18 05/11/18 05/11/18 carisoprodol [Soma] 350 mg PO TID PRN 05/11/18 05/11/18 05/11/18 fentanyl 1 patch TRANSDERMAL Q72H 05/11/18 05/11/18 05/11/18 Active Medications Generic Name Dose Route Start Last Admin Trade Name Freq PRN Reason Stop Dose Admin Al Hydrox/Mg Hydrox/Simethicone 30 ml 05/11/18 21:26 05/13/18 03:03 Maalox PO 06/10/18 21:25 30 ml Q6H PRN Administration Dyspepsia Carisoprodol 350 mg 05/11/18 21:26 05/15/18 18:53 Soma PO 06/10/18 21:25 350 mg TID PRN Administration Muscle Spasm Diclofenac Sodium 1 appln 05/11/18 21:26 05/19/18 12:32 Voltaren 1% Top EXT 06/10/18 21:25 Not Given QID ROSELYN Enoxaparin Sodium 40 mg 05/12/18 09:00 05/15/18 08:16 Lovenox SQ 06/11/18 08:59 40 mg QAM ROSELYN Administration Fentanyl 25 mcg 05/14/18 08:00 05/17/18 07:39 Duragesic TD 05/28/18 07:59 25 mcg Q3D ROSELYN Administration Ferrous Gluconate 324 mg 05/13/18 09:00 05/19/18 12:31 Ferrous Gluconate PO 06/12/18 08:59 Not Given QAM ROSELYN Heparin Sodium (Beef Lung) 5 ml 05/12/18 02:51 05/19/18 11:57 Heparin Sod 10 Unit/Ml Flush FLUSH 06/11/18 02:50 5 ml PRN PRN Administration Flush Ceftriaxone Sodium 2,000 mg/ 70 mls @ 140 mls/hr 05/12/18 09:00 05/19/18 08:40 Dextrose IV 06/23/18 08:59 Infused DAILY ROSELYN Infusion Pantoprazole Sodium 40 mg/ 10 mls @ 5 mls/min 05/18/18 11:30 05/19/18 08:10 Syringe IV 06/17/18 11:29 5 mls/min DAILY@1100 ROSELYN Administration Ketorolac Tromethamine 15 mg 05/15/18 16:53 05/19/18 11:57 Toradol IV 05/20/18 16:52 15 mg Q6H PRN Administration Pain Miscellaneous 1 ea 05/12/18 00:00 05/19/18 08:11 Order Awaiting Action N/A 06/11/18 00:00 Not Given QS ROSELYN Miscellaneous 1 ea 05/14/18 07:59 05/17/18 07:39 Fentanyl Patch Remove & Waste N/A 06/13/18 07:58 1 ea Q72H ROSELYN Administration Miscellaneous 1 ea 05/12/18 00:00 05/19/18 08:11 Fentanyl Patch Check Placement N/A 06/11/18 00:00 1 ea QS ROSELYN Administration Multivitamins 1 tab 05/12/18 09:00 05/19/18 12:31 Multivitamin Tab PO 06/11/18 08:59 Not Given DAILY ROSELYN Ondansetron HCl 4 mg 05/11/18 21:26 05/18/18 11:18 Zofran IV 06/10/18 21:25 4 mg Q6H PRN Administration Nausea Oxycodone HCl 5 mg 05/11/18 21:26 05/18/18 12:47 Roxicodone Immediate Rel PO 05/25/18 21:25 5 mg Q4H PRN Administration pain Polyethylene Glycol 17 gm 05/14/18 10:45 05/19/18 11:46 Miralax Powder Packet PO 06/13/18 10:44 Not Given BID ROSELYN Propranolol HCl 60 mg 05/11/18 21:26 05/19/18 11:46 Inderal PO 06/10/18 21:25 Not Given BID ROSELYN Past Medical History Medical History Pancytopenia Delirium Urinary retention Elevated LFTs Weight loss Transaminitis Generalized weakness (Acute) Osteomyelitis of lumbar spine (Acute) Anemia (Acute) Hyponatremia (Acute) Diskitis Microscopic hematuria Thrombocytopenia (Chronic) Melanoma Essential tremor (Chronic) Kidney stones Malignant melanoma Past Surgical History Surgical History H/O inguinal hernia repair H/O lymph node excision Hx laparoscopic cholecystectomy Social History Smoking Status: Never smoker Do You Dip or Chew Tobacco: No Hx Alcohol Use: No Alcohol type: beer and hard liquor alcohol intake frequency: holidays/special occasions only Hx Substance Use: No substance use type: does not use Physical Exam Vital Signs Last Vital Signs Temp 36.1 C L 05/19/18 14:58 Pulse 83 05/19/18 14:58 Resp 20 05/19/18 14:58 BP 119/77 05/19/18 14:58 Pulse Ox 94 05/19/18 14:58 Testing Laboratory Results 05/19/18 06:02 05/19/18 06:02 PT 11.9 Seconds (9.0-12.0) 05/11/18 15:37 INR 1.2 (0.9-1.1) H 05/11/18 15:37 APTT 25.2 Seconds (21.0-31.0) 05/11/18 15:37 Urine Color Dark Yellow 05/11/18 17:20 Urine Appearance Clear (Clear) 05/11/18 17:20 Urine pH 5.0 (4.5-7.5) 05/11/18 17:20 Ur Specific [place] 1.033 (1.000-1.030) H 05/11/18 17:20 Urine Protein Trace (Negative) H 05/11/18 17:20 Urine Glucose (UA) Negative (Negative) 05/11/18 17:20 Urine Ketones Trace (Negative) H 05/11/18 17:20 Urine Nitrite Positive (Negative) H 05/11/18 17:20 Ur Leukocyte Esterase Negative (Negative) 05/11/18 17:20 Urine WBC (Auto) 1-5 /hpf (0-5) 05/11/18 17:20 Urine RBC (Auto) 0-4 /hpf (0-4) 05/11/18 17:20 U Hyaline Cast (Auto) 1-5 /lpf (0-5) 05/11/18 17:20 U Epithel Cells (Auto) 10-20 /lpf (0-5) H 05/11/18 17:20 Urine Bacteria (Auto) Negative (Negative) 05/11/18 17:20 05/11/18 15:40 Blood Culture - Final Blood No growth 05/11/18 15:37 Blood Culture - Final Blood No growth 05/13/18 14:25 Urine Culture - Final Urine,Clean Catch No growth - less than 1,000 colonies/mL.
[2018-05-19] MEDS: POLYETHYLENE (MIRALAX) 17 GM PACK PO SCH ×2 (11:46→20:14)
[2018-05-19] MEDS: PROPRANOLOL HCL 20 MG TAB PO SCH ×2 (11:46→20:15)
--- NOTE | 2018-05-19 11:54 | History & Physical Bridge Note ---
Date of Service May 19, 2018 History & Physical Bridge Note I have examined the patient, reviewed the History & Physical and in the interval since the performance of the History & Physical I have noted the following changes of clinical significance: no changes noted Pt is a 68-year-old gentleman with clinical decline after recent cholecystectomy as well as osteomyelitis. Poor PO intake and FTT. CT head, chest, abd/pelvis, show post beatrice and osteomyelitis changes but otherwise no other infections or infarcts, mets. Previously elevated LFTs now normalizing. He is currently NPO for planned EGD evaluation today. VS, labs reviewed. On exam, he's laying in bed c/o sore throat and dry mouth. Denies any n/v, abd pain. HRR, CTA bilateral lungs but diminished bases, BS present, non tender abd on palpation. GI will give further recs after EGD is completed. Supervising Physician Co-Signing Physician Notes I performed a history and physical examination of the patient, including specifically on physical exam - soft, nontender abdomen. I have discussed the patient's management with Lisa. Please refer to the nurse practitioner's note for the documented findings and plan of care. Spoke to his and consent obtained for EGD to evaluate for dyspepsia and poor appetite.
[2018-05-19] MEDS: KETOROLAC TROMETHAMINE 15 MG/ML VIAL IV PRN ×2 (11:57→23:57)
[2018-05-19] MEDS: MULTIVITAMIN TAB PO SCH (12:31)
[2018-05-19] MEDS: FERROUS GLUCONATE 324 MG TAB PO SCH (12:31)
--- NOTE | 2018-05-19 15:39 | GI REPORT ---
Patient Name: Kobe Abad Procedure Date: 05/19/2018 3:02 PM Date of : 1950 Admit Type: Inpatient Age: 68 Gender: Male Attending MD: Antoni Blank MD Procedure: Upper GI endoscopy Providers: Antoni Blank MD Referring MD: Tremaine Velazquez Indications: Dyspepsia Medicines: Monitored Anesthesia Care Complications: No immediate complications. Estimated Blood Loss: Estimated blood loss: none. Procedure: Pre-Anesthesia Assessment: - Prior to the procedure, a History and Physical was performed, and patient medications and allergies were reviewed. The patient is competent. The risks and benefits of the procedure and the sedation options and risks were discussed with the patient. All questions were answered and informed consent was obtained. Patient identification and proposed procedure were verified by the physician and the nurse in the procedure room. Mental Status Examination: alert and oriented. Airway Examination: normal oropharyngeal airway and neck mobility. Respiratory Examination: clear to auscultation. CV Examination: normal. ASA Grade Assessment: III - A patient with severe systemic disease. After reviewing the risks and benefits, the patient was deemed in satisfactory condition to undergo the procedure. The anesthesia plan was to use monitored anesthesia care (MAC). Immediately prior to administration of medications, the patient was re-assessed for adequacy to receive sedatives. The heart rate, respiratory rate, oxygen saturations, blood pressure, adequacy of pulmonary ventilation, and response to care were monitored throughout the procedure. The physical status of the patient was re-assessed after the procedure. After obtaining informed consent, the endoscope was passed under direct vision. Throughout the procedure, the patient's blood pressure, pulse, and oxygen saturations were monitored continuously. The Scope was introduced through the mouth, and advanced to the second part of duodenum. The upper GI endoscopy was accomplished without difficulty. The patient tolerated the procedure well. Findings: The Z-line was found 40 cm from the incisors. LA Grade B (one or more mucosal breaks greater than 5 mm, not extending between the tops of two mucosal folds) esophagitis with no bleeding was found at the gastroesophageal junction. Biopsies were taken with a cold forceps for histology. Verification of patient identification for the specimen was done by the physician and nurse using the patient's name and date. Inflammation characterized by erythema was found in the gastric body. Biopsies were taken with a cold forceps for Helicobacter pylori testing. The duodenal bulb and second portion of the duodenum were normal. Impression: - LA Grade B reflux esophagitis. Biopsied. - Gastritis. Biopsied. - Normal duodenal bulb and second portion of the duodenum. Recommendation: - Return patient to [facility] for ongoing care. - Follow an antireflux regimen. - Use a proton pump inhibitor PO BID for 2 months. - Repeat upper endoscopy in 2 months to check healing. - Recall GI if needed. Antoni Blank MD 05/19/2018 3:38:32 PM This report has been signed electronically. Note Initiated On: 05/19/2018 3:02 PM Number of Addenda: 0 I attest to the content of the Intraoperative Record and orders documented therein, exceptions below {[id number]}
--- NOTE | 2018-05-19 16:03 | Anesthesiology Progress Note ---
Date of Service May 19, 2018 Anesthesia Post Procedure Vital Signs Vital Signs: Temp Pulse Resp BP BP Pulse Ox 05/19/18 15:39 85 16 114/56 L 97 05/19/18 14:58 97.0 F L 83 20 119/77 94 05/19/18 08:05 97.5 F L 68 20 125/63 93 05/19/18 00:00 97.2 F L 65 18 111/63 91 05/18/18 20:00 81 119/58 L Pain Intensity Lower Back: Pain Intensity: 2 Neck: Pain Intensity: 9 Bilateral Leg: Pain Intensity: 5 Generalized: Pain Intensity: 7 Notes Mental Status: alert / awake / arousable and participated in evaluation Patient Amnestic to Procedure: Yes Nausea / Vomiting: adequately controlled Pain: adequately controlled Airway Patency, RR, SpO2: stable & adequate BP & HR: stable & adequate Hydration State: stable & adequate Anesthetic Complications: no major complications apparent and Pt Satisfied with anesthetic care
--- NOTE | 2018-05-19 17:44 | Family Medicine Progress Note ---
Date of Service May 19, 2018 Assessment & Plan (1) Generalized weakness: Mr. Abad is a 68 year old male with a past medical history of osteomyelitis, discitis and abscess of lumbar spine, malignant melanoma, and recent cholecystectomy who presented to [facility] due to weakness. 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 He is easily reoriented, and does not have the typical waxing and waning nature of delirium, but is rather stuck in the past and unable to recall events after his cholecystectomy. He has been persistently like this. Does not have a history of baseline dementia, but states he is occasionally forgetful and has a low educational level w/limited vocabulary having only completed high school. She also reports he has trouble with word finding when anxious. - CT head and chest were done to look for malignancies which could be contributing, but these were negative - potentially secondary to Opdivo therapy and infection, on top of his baseline frailty - neurology consulted -> likely multifactorial - related to his multiple medical issues -> MRI brain ordered to r/o stroke. Unable to complete this yesterday, given tremors. Will administer diazepam tomorrow and retry. Osteomyelitis of lumbar spine - Repeat blood cultures are negative to date, repeat urine culture no significant growth as well. - Continue Rocephin ongoing, will have to determine length of treatment - no signs of clinical worsening. Appreciate ortho-spine input, no need for surgery right now. - CRP 2.15, trend periodically. Anemia - Microcytic, given his weight loss and malnutrition, iron studies do show a degree of iron deficiency. Appears to be mixed iron deficiency and chronic disease. 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 Thrombocytopenia - per heme/onc, likely due to splenomegaly. 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 Continue antibiotics. Continue fentanyl patch and Soma for now, continue oxycodone. - trial of Toradol IV ongoing - PT/OT eval and treat - Pain appears to be overall stable Essential tremor -continue propranolol Transaminitis - Mild, nonspecific. Repeat CMP tomorrow. Weight loss - related to poor oral intake - no improvement w/Remeron at bedtime, or with Marinol - continue protein shakes, dietitian input - thank you to GI for input -> EGD -> esophagitis and gastritis w/biopsies taken -> Protonix 40mg BID x2 months and repeat EGD -prealbumin level low Urinary retention - Seems to be BPH related given his age/gender, and likely acute due to his current degree of physiologic and mental stress - straight cath as needed DVT prophylaxis: Lovenox on hold, follow platelets. Disposition: PT/OT eval and treat. Accepted to [facility] for eventual d/c. 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 Martin. In agreement with the documented findings as noted in the resident documentation with any exceptions or additions as noted here. Resting comfortably in bed, still complaining of difficulty with recall. AAOx2 without prompting, did check board for date and couldn't quite get to hospital name ("[facility], no [facility]?") but did get current events (president, etc) On examination, resting tremor remains unchanged from previous. S1/S2 nl RRR no MCG. CTAB. Abd NT/ND, BS +Ve Atypical delirium - neurology consultation appreciated - obtain MRI with valium for tremor control tomorrow, continue to monitor mental status Generalized weakness w/ weight loss and gastritis - GI consultation appreciated - PPI therapy BID, follow sendout lab studies, encourage nutritional intake, f/u pathology Osteomyelitis of lumbar spine - continue rocephin Else see resident documentation as noted. Subjective Mr. Abad expresses frustration that he is unable to eat this morning. He would like his procedure over quickly so that he can eat. He reports back pain. He continues to tell me the story of his cholecystectomy when I ask why he is in the hospital, and seems unable to recall events beyond this. He is oriented to person and place, however. Constitutional: + fatigue and + weakness; no fever and no chills Respiratory: no cough and no dyspnea Cardiovascular: no chest pain and no edema Gastrointestinal: no abdominal pain, no nausea and no vomiting Physical Exam Vital Signs (Past 24 Hours): Last Vital Signs Temp 36.3 C L 05/19/18 16:40 Pulse 79 05/19/18 16:40 Resp 20 05/19/18 16:40 BP 118/66 05/19/18 16:40 Pulse Ox 94 05/19/18 16:40 Constitutional: WD/WN, vitals as above cooperative ENMT: external ear and nose normal, oropharynx normal Respiratory: normal respiratory effort, lungs clear to auscultation Cardiovascular: RRR, no murmur, no edema Gastrointestinal (Abdomen): Inspection/Auscultation: abdomen not distended Percussion/Palpation: abdomen soft; abdomen nontender Neurologic: Motor/Sensory: + tremor Psychiatric: Orientation: alert, oriented to person, oriented to place and cooperative; + not oriented to time (thinks this is his hospital admission for his cholecystectomy) Results & Data Laboratory Results Laboratory Results - last 24 hr 05/19/18 05/19/18 06:02 06:02 WBC 2.56 L RBC 3.74 L Hgb 8.8 L Hct 28.5 L MCV 76.2 L MCH 23.5 L MCHC 30.9 L RDW Std Deviation 53.4 H RDW Coeff of Stella 18.9 H Plt Count 109 L MPV 8.2 Immature Gran % (Auto) 0.0 Neut % (Auto) 42.2 Lymph % (Auto) 44.9 [place] % (Auto) 11.7 Eos % (Auto) 0.8 Baso % (Auto) 0.4 Immature Gran # (Auto) 0.00 Neut # (Auto) 1.08 L Lymph # (Auto) 1.15 L [place] # (Auto) 0.30 Eos # (Auto) 0.02 Baso # (Auto) 0.01 RBC Morphology Unremarkable Sodium 140 Potassium 3.9 Chloride 106 Carbon Dioxide 28 Anion Gap 5.0 BUN 18 Creatinine 0.29 L Est Cr Clr Drug Dosing 244.4 Est GFR ( Amer) > 150.0 Est GFR (Non-Af Amer) 137.3 BUN/Creatinine Ratio 61.6 H Glucose 81 Calcium 7.5 L Total Bilirubin 0.6 AST 23 ALT 60 Alkaline Phosphatase 127 H Total Protein 5.0 L Albumin 2.5 L Globulin 2.5 Albumin/Globulin Ratio 1.0 Prealbumin 13.1 L Medications Administered Current Inpatient Medications Al Hydrox/Mg Hydrox/Simethicone (Maalox) 30 ml PO Q6H PRN PRN Reason: Dyspepsia Stop: 06/10/18 21:25 Last Admin: 05/13/18 03:03 Dose: 30 ml Documented by: Carisoprodol (Soma) 350 mg PO TID PRN PRN Reason: Muscle Spasm Stop: 06/10/18 21:25 Last Admin: 05/15/18 18:53 Dose: 350 mg Documented by: Diclofenac Sodium (Voltaren 1% Top) 1 appln EXT QID [facility] Stop: 06/10/18 21:25 Last Admin: 05/19/18 17:20 Dose: 1 appln Documented by: Enoxaparin Sodium (Lovenox) 40 mg SQ QAM [facility] Stop: 06/11/18 08:59 Last Admin: 05/15/18 08:16 Dose: 40 mg Documented by: Fentanyl (Duragesic) 25 mcg TD Q3D [facility] Stop: 05/28/18 07:59 Last Admin: 05/17/18 07:39 Dose: 25 mcg Documented by: Ferrous Gluconate (Ferrous Gluconate) 324 mg PO QAM [facility] Stop: 06/12/18 08:59 Last Admin: 05/19/18 12:31 Dose: Not Given Documented by: Heparin Sodium (Beef Lung) (Heparin Sod 10 Unit/Ml Flush) 5 ml FLUSH PRN PRN PRN Reason: Flush Stop: 06/11/18 02:50 Last Admin: 05/19/18 16:21 Dose: 5 ml Documented by: Ceftriaxone Sodium 2,000 mg/ (Dextrose) 70 mls @ 140 mls/hr IV DAILY [facility] Stop: 06/23/18 08:59 Last Infusion: 05/19/18 08:40 Dose: Infused Documented by: Pantoprazole Sodium 40 mg/ (Syringe) 10 mls @ 5 mls/min IV BID [facility] Stop: 06/18/18 20:59 Ketorolac Tromethamine (Toradol) 15 mg IV Q6H PRN PRN Reason: Pain Stop: 05/20/18 16:52 Last Admin: 05/19/18 11:57 Dose: 15 mg Documented by: Magnesium Hydroxide (Milk Of Magnesia) 30 ml PO Q6H PRN PRN Reason: Constipation Stop: 06/10/18 21:25 Miscellaneous (Order Awaiting Action) 1 ea N/A QS [facility] Stop: 06/11/18 00:00 Last Admin: 05/19/18 17:21 Dose: Not Given Documented by: Miscellaneous (Fentanyl Patch Remove & Waste) 1 ea N/A Q72H [facility] Stop: 06/13/18 07:58 Last Admin: 05/17/18 07:39 Dose: 1 ea Documented by: Miscellaneous (Fentanyl Patch Check Placement) 1 ea N/A QS [facility] Stop: 06/11/18 00:00 Last Admin: 05/19/18 17:21 Dose: 1 ea Documented by: Multivitamins (Multivitamin Tab) 1 tab PO DAILY [facility] Stop: 06/11/18 08:59 Last Admin: 05/19/18 12:31 Dose: Not Given Documented by: Ondansetron HCl (Zofran) 4 mg IV Q6H PRN PRN Reason: Nausea Stop: 06/10/18 21:25 Last Admin: 05/18/18 11:18 Dose: 4 mg Documented by: Oxycodone HCl (Roxicodone Immediate Rel) 5 mg PO Q4H PRN PRN Reason: pain Stop: 05/25/18 21:25 Last Admin: 05/18/18 12:47 Dose: 5 mg Documented by: Polyethylene Glycol (Miralax Powder Packet) 17 gm PO DAILY PRN PRN Reason: Constipation Stop: 06/10/18 21:25 Polyethylene Glycol (Miralax Powder Packet) 17 gm PO BID [facility] Stop: 06/13/18 10:44 Last Admin: 05/19/18 11:46 Dose: Not Given Documented by: Propranolol HCl (Inderal) 60 mg PO BID [facility] Stop: 06/10/18 21:25 Last Admin: 05/19/18 11:46 Dose: Not Given Documented by: Resident Activity Tracking Resident Involvement: Resident Care Provided Care Provided: Adult Hospital Medicine (1) Anemia Anemia type: unspecified type Qualified Code(s): D64.9 - Anemia, unspecified
[2018-05-19] MEDS: OXYCODONE HCL IR 5 MG TAB (IMMEDIATE RELEASE) PO PRN ×2 (18:38→23:57)
[2018-05-20] MEDS: KETOROLAC TROMETHAMINE 15 MG/ML VIAL IV PRN (06:33)
[2018-05-20] MEDS ORDERED: diazePAM 5 MG TABLET PO ONE ×2 (07:43→16:00)
[2018-05-20] MEDS: FERROUS GLUCONATE 324 MG TAB PO SCH (07:56)
[2018-05-20] MEDS: PROPRANOLOL HCL 20 MG TAB PO SCH ×2 (07:56→20:08)
[2018-05-20] MEDS: cefTRIAXone SODIUM 2,000 MG in DEXTROSE 5% 50 ML IV SCH (07:57)
[2018-05-20] MEDS: PANTOprazole 40 MG in SYRINGE 0 ML IV SCH ×2 (07:57→20:08)
[2018-05-20] MEDS: DICLOFENAC SOD 1% GEL 100 GM TUBE EXT SCH ×4 (07:57→20:09)
[2018-05-20] MEDS: MULTIVITAMIN TAB PO SCH (07:57)
[2018-05-20] MEDS: fentaNYL 25 MCG/HR TDSY TD SCH (07:58)
[2018-05-20] MEDS: OXYCODONE HCL IR 5 MG TAB (IMMEDIATE RELEASE) PO PRN ×3 (07:59→20:09)
[2018-05-20] MEDS: CHECK FENTANYL PATCH PLACEMENT SCH ×3 (07:59→23:40)
--- NOTE | 2018-05-20 10:15 | Neurology Progress Note ---
Date of Service May 20, 2018 Assessment & Plan (1) Generalized weakness: Patient continues to exhibit mild to moderate generalized weakness. 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 Unlikely to have myasthenia gravis. Acetylcholine receptor antibodies are pending. I expect patient strength to improve with time an ongoing medical care. An outpatient EMG/nerve conduction study should be considered to further assess for muscle or nerve disease. (2) Delirium: Patient's delirium seems to be a mild, stable, if not significantly improved issue. He is quite attentive and appropriate this morning. Would c ontinue to monitor while in the hospital environment. An MRI of the brain is pending. He should be able to better tolerate this test with propranolol. Diazepam could also be taken prior to the MRI to further address his tremor. The (3) Essential tremor: Chronic essential tremor for which the patient has followed with me in the outpatient setting. He may continue with propranolol. It looks like this medication was restarted last night. His tremor has not responded to dopaminergic therapy in the outpatient setting. He probably does not have Park inson's disease. Subjective Follow-up for weakness, delirium and tremor. The patient continues to complain of a generalized tremor and feeling of gen eralized weakness. He denies muscle pain, diplopia, dysarthria or dysphagia. His tremor is worse with action. His attention and concentration seem normal this morning and he is a reliable historian. He did not tolerate the attempt at MRI due to tremor although his propranolol have been on hold for an EGD. Constitutional: as per Subjective / HPI and + weakness; no fever Eyes: no diplopia Neurologic: as per Subjective / HPI Physical Exam Vital Signs (Past 24 Hours): Last Vital Signs Temp 36.5 C 05/19/18 23:15 Pulse 64 05/19/18 23:15 Resp 20 05/19/18 23:15 BP 129/69 05/19/18 23:15 Pulse Ox 95 05/19/18 23:15 Physical Exam: The patient is alert and fully oriented. Recent and remote memory intact. Attention and concentration are normal. Patient exhibits a normal spontaneous speech pattern as well as an age-appropriate fund of knowledge. Visual caban full to confrontation. Visual acuity normal. Pupils equal round reactive to light and accommodation. Eye movements intact. There is no facial droop. Hearing intact. Tongue and palate midline. Patient continues to exhibit mild to moderate generalized weakness, especially affecting the quadriceps muscles, hip flexors, and shoulder abduction, weakness greater on the left. Patient continues to exhibit a generalized postural and action tremor. No pill-rolling resting tremor. No bradykinesia or rigidity. Results & Data Laboratory Results A CK on May 17 was 86. TFTs on May 18 were normal. Acetylcholine receptor antibodies are pending. Diagnostic Findings A CT of the head completed on May 17, 2018 was negative for hemorrhage or acute findings. No ventriculomegaly. Mild white matter hypodensity consistent with small vessel disease.
[2018-05-20] MEDS: POLYETHYLENE (MIRALAX) 17 GM PACK PO SCH ×2 (12:00→20:08)
--- NOTE | 2018-05-20 12:04 | Family Medicine Progress Note ---
Date of Service May 20, 2018 Assessment & Plan (1) Generalized weakness: Mr. Abad is a 68 year old male with a past medical history of osteomyelitis, discitis and abscess of lumbar spine, malignant melanoma, and recent cholecystectomy who presented to [facility] due to weakness. 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 He has been persistently like this. Does not have a history of baseline dementia, but states he is occasionally forgetful and has a low educational level w/limited vocabulary having only completed high school. She also reports he has trouble with word finding when anxious. - CT head and chest were done to look for malignancies which could be contributing, but these were negative - potentially secondary to Opdivo therapy and infection, on top of his baseline frailty - neurology consulted -> likely multifactorial - related to his multiple medical issues -> MRI brain negative Osteomyelitis of lumbar spine - Continue Rocephin. Per review of Dr. Steven's note - patient meant to be on abx for 3-6 weeks. End of 6th week is May 30. - no signs of clinical worsening. Appreciate ortho-spine input, no need for surgery right now. - CRP 2.15, trend periodically. Anemia - Microcytic, given his weight loss and malnutrition, iron studies do show a degree of iron deficiency. Appears to be mixed iron deficiency and chronic disease. 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 Continue antibiotics. Continue fentanyl patch and Soma for now, continue oxycodone. 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 ID consulted to guide treatment. Also raises the question of HSV encephalitis causing AMS? -prealbumin level low Urinary retention - Seems to be BPH related given his age/gender, and likely acute due to his current degree of physiologic and mental stress - straight cath as needed DVT prophylaxis: Lovenox on hold, follow platelets. Disposition: PT/OT eval and treat. Accepted to [facility] for eventual d/c. 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 Martin. In agreement with the documented findings as noted in the resident documentation with any exceptions or additions as noted here. Increased agitation appreciated today, though once again easily reoriented. AAOx2 (trouble with place, did get date with delay). On examination, S1/S2 nl RRR no mCG, CTAB, abd NT/ND BS +ve. CNII-XII grossly intact as tested, though with poor instruction following Delirium - stable mental status at this time with MRI without evident explanation. ?HSV related 2/2 appearance on EGD Generalized weakness - follow send out lab studies, follow w/ neurology outpatient for EMG Osteomyelitis and diskitis of lumbar spine - rocephin to complete 6 week course Else see resident documentation as noted. Subjective Mr. Abad was found fidgeting with his blanket and gown, and saying "help, help!" When asked what was wrong, he seemed unsure. He continued to fidget with his blankets as I spoke to him, stating that he felt warm. He did not remember undergoing an EGD yesterday, until I reminded him. He was able to understand the plan going forward, regarding completing an MRI today. He seemed more attentive, but continued to have trouble with word finding. Constitutional: + fatigue and + weakness; no fever and no chills Cardiovascular: no chest pain Gastrointestinal: no abdominal pain, no nausea and no vomiting Physical Exam Vital Signs (Past 24 Hours): Last Vital Signs Temp 36.2 C L 05/20/18 11:48 Pulse 63 05/20/18 11:48 Resp 20 05/20/18 11:48 BP 143/75 H 05/20/18 11:48 Pulse Ox 96 05/20/18 11:48 Constitutional: WD/WN, vitals as above cooperative ENMT: external ear and nose normal, oropharynx normal Respiratory: normal respiratory effort, lungs clear to auscultation Cardiovascular: RRR, no murmur, no edema Gastrointestinal (Abdomen): Inspection/Auscultation: abdomen not distended Percussion/Palpation: abdomen soft; abdomen nontender Neurologic: Motor/Sensory: + tremor Psychiatric: Orientation: alert, oriented to person, oriented to place and cooperative; + not oriented to time Results & Data Medications Administered Current Inpatient Medications Al Hydrox/Mg Hydrox/Simethicone (Maalox) 30 ml PO Q6H PRN PRN Reason: Dyspepsia Stop: 06/10/18 21:25 Last Admin: 05/13/18 03:03 Dose: 30 ml Documented by: Carisoprodol (Soma) 350 mg PO TID PRN PRN Reason: Muscle Spasm Stop: 06/10/18 21:25 Last Admin: 05/15/18 18:53 Dose: 350 mg Documented by: Diclofenac Sodium (Voltaren 1% Top) 1 appln EXT QID [facility] Stop: 06/10/18 21:25 Last Admin: 05/20/18 12:01 Dose: Not Given Documented by: Enoxaparin Sodium (Lovenox) 40 mg SQ QAM [facility] Stop: 06/11/18 08:59 Last Admin: 05/15/18 08:16 Dose: 40 mg Documented by: Fentanyl (Duragesic) 25 mcg TD Q3D [facility] Stop: 05/28/18 07:59 Last Admin: 05/20/18 07:58 Dose: 25 mcg Documented by: Ferrous Gluconate (Ferrous Gluconate) 324 mg PO QAM [facility] Stop: 06/12/18 08:59 Last Admin: 05/20/18 07:56 Dose: 324 mg Documented by: Heparin Sodium (Beef Lung) (Heparin Sod 10 Unit/Ml Flush) 5 ml FLUSH PRN PRN PRN Reason: Flush Stop: 06/11/18 02:50 Last Admin: 05/20/18 08:38 Dose: 5 ml Documented by: Ceftriaxone Sodium 2,000 mg/ (Dextrose) 70 mls @ 140 mls/hr IV DAILY [facility] Stop: 06/23/18 08:59 Last Admin: 05/20/18 07:57 Dose: 140 mls/hr Documented by: Pantoprazole Sodium 40 mg/ (Syringe) 10 mls @ 5 mls/min IV BID [facility] Stop: 06/18/18 20:59 Last Admin: 05/20/18 07:57 Dose: 5 mls/min Documented by: Ketorolac Tromethamine (Toradol) 15 mg IV Q6H PRN PRN Reason: Pain Stop: 05/20/18 16:52 Last Admin: 05/20/18 06:33 Dose: 15 mg Documented by: Magnesium Hydroxide (Milk Of Magnesia) 30 ml PO Q6H PRN PRN Reason: Constipation Stop: 06/10/18 21:25 Miscellaneous (Order Awaiting Action) 1 ea N/A QS [facility] Stop: 06/11/18 00:00 Last Admin: 05/20/18 07:59 Dose: Not Given Documented by: Miscellaneous (Fentanyl Patch Remove & Waste) 1 ea N/A Q72H [facility] Stop: 06/13/18 07:58 Last Admin: 05/20/18 07:58 Dose: 1 ea Documented by: Miscellaneous (Fentanyl Patch Check Placement) 1 ea N/A QS [facility] Stop: 06/11/18 00:00 Last Admin: 05/20/18 07:59 Dose: 1 ea Documented by: Multivitamins (Multivitamin Tab) 1 tab PO DAILY [facility] Stop: 06/11/18 08:59 Last Admin: 05/20/18 07:57 Dose: 1 tab Documented by: Ondansetron HCl (Zofran) 4 mg IV Q6H PRN PRN Reason: Nausea Stop: 06/10/18 21:25 Last Admin: 05/18/18 11:18 Dose: 4 mg Documented by: Oxycodone HCl (Roxicodone Immediate Rel) 5 mg PO Q4H PRN PRN Reason: pain Stop: 05/25/18 21:25 Last Admin: 05/20/18 11:59 Dose: 5 mg Documented by: Polyethylene Glycol (Miralax Powder Packet) 17 gm PO DAILY PRN PRN Reason: Constipation Stop: 06/10/18 21:25 Polyethylene Glycol (Miralax Powder Packet) 17 gm PO BID [facility] Stop: 06/13/18 10:44 Last Admin: 05/20/18 12:00 Dose: 17 gm Documented by: Propranolol HCl (Inderal) 60 mg PO BID [facility] Stop: 06/10/18 21:25 Last Admin: 05/20/18 07:56 Dose: 60 mg Documented by: Resident Activity Tracking Resident Involvement: Resident Care Provided Care Provided: Adult Hospital Medicine (1) Anemia Anemia type: unspecified type Qualified Code(s): D64.9 - Anemia, unspecified
--- NOTE | 2018-05-20 15:48 | History & Physical Bridge Note ---
Date of Service May 20, 2018 History & Physical Bridge Note Received a call from Dr. Rodriguez (Pathology) regarding pt's esophageal and stomach bx done during EGD yesterday: some evidence of purulent exudate on esophageal cell samples, no evidence of CMV, Hpylori during staining. No dysplasia, metaplasia. HSV stain is positive. Discussed this with Dr. Blank. Pt is asymptomatic for odynophagia, dysphagia. Already on PPI IV BID. Dr. Blank recommend primary hospitalist to discuss with Infectious Disease team regarding HSV finding and for possible treatment given pt's immunocompromised state. This was relayed to Dr. Velazquez (primary hospitalist) Supervising Physician Co-Signing Physician Notes Patient had mild esophagitis during GD with a single discrete slightly eroded area at GEJ and this is not the typical picture for HSV, in view of the positive stain and his immunocompromised stat and the ?need for Prednisone, would ask ID for evaluation regarding therapy with Acyclovir.
--- NOTE | 2018-05-20 16:29 | Hematology/Oncology Prog Note ---
Date of Service May 20, 2018 Assessment & Plan (1) Pancytopenia: 68-year-old the male, A case of malignant melanoma involving the left cervical lymph demario region, S/P neck dissection, unknown primary, stage IIIc, surgery done in April 2017. - On adjuvant treatment with Nivolumab since june 2017, plan for adjuvant treatment for total 1 year duration. Last dose of Nivolumab received on 05/06/2018. He had a normal blood count at that time. For the last one week he is admitted hospital for generalized weakness, no evidence of recurrence of melanoma noted in the recent imaging studies. Splenomegaly and pancytopenia noted. No fever. I saw him at bedside, he is receiving ceftriaxone once-a-day for the last few weeks for discitis lumbar spine. He is also on pentaprozole. Underwent upper GI endoscopy yesterday, some evidence of some esophagitis noted, HSV stain positive. CMV negative. H. pylori negative. Blood workup done on 05/19/2018: - WBC 2500, H&H of 8.8/28, MCV 76, Platelet count of 109,000. ANC 1000 - BUN/creatinine: 18/0.29. Calcium 7.5. Albumin 2.5. - AST 20, ALT 60, alkaline phosphatase 127. Total bilirubin: 0.6. I saw him at bedside today, feeling somewhat better, no fever, generalized weakness noted but no focal neurological symptoms, denies any abdominal discomfort, no diarrhea, poor oral intake noted, had increasing coughing earlier which has improved, hemodynamically stable. O2 saturation on room air is around 96%. Back pain present, he rates about 5 on the 0 to 10 scale. He is on fentanyl patch. Earlier yesterday I spoke with the hospitalist regarding consideration for prednisone in his case, at 60 mg per day. At present he is not on prednisone treatment. I reviewed his blood workup done yesterday, overall stable pancytopenia noted. Will see how he does in the next few days. If he has further drop in the blood count, we should consider for starting prednisone treatment. Will follow-up. Ed Longo MD Hem/Onc Physical Exam Vital Signs (Past 24 Hours): Last Vital Signs Temp 36.3 C L 05/20/18 15:00 Pulse 70 05/20/18 15:00 Resp 20 05/20/18 15:00 BP 128/73 05/20/18 15:00 Pulse Ox 96 05/20/18 15:00
[2018-05-20] MEDS ORDERED: GADOBUTROL 65ML VIAL IV PRN (17:12)
--- NOTE | 2018-05-20 17:15 | Magnetic Resonance Report ---
MRI OF THE BRAIN WITHOUT AND WITH IV CONTRAST CLINICAL HISTORY: Delirium, tremors, generalized weakness COMPARISON STUDY: 09/01/2015 TECHNIQUE: MRI of the brain was performed from the vertex to the skull base utilizing various T1 and T2 weighted sequences. Following the IV administration of 7 mL of Gadavist contrast, additional enhan alexander images were obtained. FINDINGS: Sagittal T1, axial diffusion, proton density and T2 weighted axial, coronal FLAIR, and pre and post a xial T1-weighted images were acquired. These were supplemented with post gadolinium coronal T1 weight ed images. No intra or extra-axial mass lesions are visualized. Axial diffusion-weighted images reveal no evidence of acute or subacute infarction. There is very slight ventricular prominence, likely secondary to volume loss Proton density T2-weighted and FLAIR images reveal minimal foci of increased T2 signal within the whi te matter, likely on a small vessel basis. There are no abnormal flow voids. There is no evidence of pathologic enhancement. IMPRESSION: 1. No acute intracranial findings 2. No evidence of intracranial mass 2. No evidence of acute or subacute infarction Electronically signed by: Jimenez Begum M.D. 05/20/2018 5:14 PM
[2018-05-21] MEDS: OXYCODONE HCL IR 5 MG TAB (IMMEDIATE RELEASE) PO PRN ×3 (00:48→11:49)
[2018-05-21 05:49] LABS: Basophils # (auto) 0.04 K/uL (0-0.2); Basophils % (auto) 1.4 %; Eosinophils # (auto) 0.04 K/uL (0-0.5); Eosinophils % (auto) 1.4 %; Hematocrit (blood only) 28.9 % (42-52); Hemoglobin 9.1 g/dL (14.0-18.0); Lymphocytes # (auto) 1.19 K/uL (1.2-3.4); Lymphocytes % (auto) 40.6 %; Mean Corpuscular Hgb Conc 31.5 g/dL (32-36); Mean Corpuscular Volume 76.1 fL (80-100); Mean Platelet Volume 8.4 fL (7.4-10.4); Monocytes # (auto) 0.51 K/uL (0.11-0.59); Monocytes % (auto) 17.4 %; Neutrophils # (auto) 1.15 K/uL (1.4-6.5); Neutrophils % (auto) 39.2 %; Platelet Count 130 K/uL (130-400); RDW Coefficient of Variation 18.7 % (11.5-14.5); RDW Standard Deviation 52.2 fL (36.4-46.3); White Blood Count 2.93 K/uL (4.8-10.8)
[2018-05-21 06:17] LABS: BUN Creatinine Ratio 48.3 (10-20); Calcium 7.9 mg/dl (8.5-10.1); Creatinine Clr Calc Pharmacy 194.7 ml/min; Est GFR (African American) 145.6; Est GFR (Non-African American) 125.7; Potassium 3.8 mmol/L (3.5-5.1)
[2018-05-21] MEDS: PROPRANOLOL HCL 20 MG TAB PO SCH (08:31)
[2018-05-21] MEDS: FERROUS GLUCONATE 324 MG TAB PO SCH (08:32)
[2018-05-21] MEDS: MULTIVITAMIN TAB PO SCH (08:33)
[2018-05-21] MEDS: POLYETHYLENE (MIRALAX) 17 GM PACK PO SCH (08:34)
[2018-05-21] MEDS: DICLOFENAC SOD 1% GEL 100 GM TUBE EXT SCH ×2 (08:35→13:51)
[2018-05-21] MEDS: PANTOprazole 40 MG in SYRINGE 0 ML IV SCH (08:35)
[2018-05-21] MEDS: cefTRIAXone SODIUM 2,000 MG in DEXTROSE 5% 50 ML IV SCH (08:36)
[2018-05-21] MEDS: CHECK FENTANYL PATCH PLACEMENT SCH (08:38)
--- NOTE | 2018-05-21 10:28 | Neurology Progress Note ---
Date of Service May 21, 2018 Assessment & Plan (1) Generalized weakness: Generalized weakness, proximal greater than distal, left greater than right. Weakness is probably multifactorial and related to deconditioning and occurs in the context of chronic illness and prolonged bed-bound state. 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 PT/OT. Plan for outpatient EMG/nerve conduction study. Follow-up the results of acetylcholine receptor antibody panel when available. (2) Delirium: Patient's delirium seems to be resolved. Recently completed brain MRI is within normal limits. No evidence for acute or subacute stroke. No significant parenchymal disease other than mild age related atrophy. (3) Essential tremor: Essential tremor. Chronic issue, probably worse in the context of his cu rrent illness. Patient should continue with his current dose of propranolol. Subjective Follow-up for delirium, tremor, and weakness The patient's confusion seems to have resolved or at least has been very minimal. He continues to exhibit a generalized tremor, worse with action. He also complains of feeling generally weak. Constitutional: no fever Eyes: no diplopia Respiratory: no dyspnea Neurologic: as per Subjective / HPI and + generalized weakness; no dizziness and no headache(s) Physical Exam Vital Signs (Past 24 Hours): Last Vital Signs Temp 36.5 C 05/21/18 07:31 Pulse 61 05/21/18 07:31 Resp 16 05/21/18 07:31 BP 114/65 05/21/18 07:31 Pulse Ox 93 05/21/18 07:31 Physical Exam: The patient is alert and fully oriented. Recent and remote memory intact. Attention and concentration normal. Patient exhibits a normal spontaneous speech pattern as well as an age-appropriate fund of knowledge. Processing speed perhaps slightly slow. Visual caban full to confrontation. Visual acuity normal. Pupils equal round react to light and accommodation. Eye movements normal. There is normal facial sensation. No facial droop. Hearing intact. Palate elevates to midline. Shoulder shrug intact. Tongue protrudes to midline. Sensation intact in all 4 limbs. Deep tendon reflexes intact and symmetrical. There is no dysdiadochokinesia or dysmetria of [id number] or heel to rios bilaterally. Patient continues to exhibit quadriceps muscle weakness, greater on the left as well as mild to moderate weakness of shoulder abduction, also greater on the left. He does not have a foot or wrist drop. Muscle tone normal throughout. Patient continues to exhibit generalized postural and action tremor. No pill-rolling resting tremor. No rigidity or bradykinesia. Results & Data Diagnostic Findings Brain MRI completed yesterday. There is very minimal generalized atrophy and minimal foci of increased T2/FLAIR signal consistent with small vessel change. No evidence of acute or subacute stroke. No significant parenchymal pathology identified. Images and report reviewed.
--- NOTE | 2018-05-21 10:59 | Infectious Disease Consult ---
Date of Consultation May 21, 2018 Assessment & Plan (1) HSV infection: 68-year-old male under going treatment for lumbar discitis with vertebral osteomyelitis with E. coli on IV ceftriaxone, also significantly immunocompromise, now with acute change in mental status and herpes simplex esophagitis. No evidence of encephalitis seen on MRI scanning. Have started patient on oral Valtrex 1 g 3 times daily and would give 7-day course, then continue on 1 g daily prophylaxis given immunocompromised status. Will need minimum of 6 weeks of IV antibiotics for his discitis with vertebral osteomyelitis, would like to see in the office prior to discontinuation of IV antibiotics. Will follow. (2) Osteomyelitis of lumbar spine: (3) Diskitis: History of Present Illness Reason for Consultation: HSV esophagitis, AMS,? HSV encephalitis Attending Physician: Efrain Velazquez MD History of Present Illness -year-old male well-known to us from previous infectious disease consultation, with history of recent back surgery complicated by postop IA, and development of surgical site infection requiring operative drainage and placement of antibiotic beads. Cultures of blood and surgical site grew Serratia. Patient was discharged to rehab on IV ertapenem. Is now readmitted with several days of worsening weakness, mental status changes with vision and slurred speech, no reported fever. Still with back pain but improved from last admission. Has had no drainage from his surgical site. Has had difficulty swallowing, and is undergone EGD and pathology shows findings consistent with herpetic esophagitis. No treatment has been started as of yet. Patient currently afebrile, mental status has improved somewhat though still with somewhat difficult to understand speech. Pain currently 2 out of 10 in intensity lower back. Allergies Allergy/AdvReac Type Severity Reaction Status Date / Time No Known Allergies Allergy Unverified 05/11/18 16:30 Home Medications Home Medications Medication Instructions Recorded Confirmed Type Opdivo 1 dose IV MONTHLY 02/19/18 05/11/18 History multivitamin 1 tab PO DAILY 02/19/18 05/11/18 History propranolol 60 mg PO BID 02/19/18 05/11/18 History ceftriaxone 2 gm IV DAILY #30 ea 04/18/18 05/11/18 Rx oxycodone 5 mg PO Q4H PRN #20 tab 04/18/18 05/11/18 Rx carisoprodol [Soma] 350 mg PO TID PRN 05/11/18 05/11/18 History fentanyl 1 patch TRANSDERMAL Q72H 05/11/18 05/11/18 History ferrous gluconate 324 mg PO QAM 30 Days #30 tab 05/21/18 Rx pantoprazole [Protonix] 40 mg PO BID 10 Days #20 tab 05/21/18 Rx valacyclovir 1,000 mg PO TID 7 Days #42 tab 05/21/18 Rx Patient History Medical History Pancytopenia Delirium Urinary retention Elevated LFTs Weight loss Transaminitis Generalized weakness (Acute) Osteomyelitis of lumbar spine (Acute) Anemia (Acute) Hyponatremia (Acute) Diskitis Microscopic hematuria Thrombocytopenia (Chronic) Melanoma Essential tremor (Chronic) Kidney stones Malignant melanoma Surgical History H/O inguinal hernia repair H/O lymph node excision Hx laparoscopic cholecystectomy Social History Preferred Language: Malian Beliefs That Will Affect Care: None marital status: Current Living Situation: Spouse Other Information That Helps Us Care for You: No Feels Safe at Home: Yes Safety Concerns: Feels Safe At This Time Smoking Status: Never smoker Hx Alcohol Use: No Hx Substance Use: No Review of Systems His labs were reviewed and are negative except as per HPI Physical Exam Vital Signs (Past 24 Hours): Last Vital Signs Temp 36.5 C 05/21/18 07:31 Pulse 61 05/21/18 07:31 Resp 16 05/21/18 07:31 BP 114/65 05/21/18 07:31 Pulse Ox 93 05/21/18 07:31 Constitutional: WD/WN, vitals as above comfortable; no acute distress Eyes: PERRL, conjunctivae normal, anicteric sclerae ENMT: external ear and nose normal, oropharynx normal Neck: trachea midline, no thyromegaly neck nontender Respiratory: normal respiratory effort, lungs clear to auscultation normal percussion; does not use accessory muscles Cardiovascular: Rate/Rhythm: regular rate and regular rhythm Heart Sounds: normal S1 and normal S2; no gallop, no murmur and no cardiac rub Vessels: normal peripheral pulses; no JVD Gastrointestinal (Abdomen): normal bowel sounds, soft, nontender, no hepatosplenomegaly Musculoskeletal: no cyanosis or clubbing, extremities motor strength 5/5 Spine: thoracic spine normal to inspection and lumbar spine normal to inspection; no cervical spinal tenderness Skin: no rashes, warm and dry normal turgor; no lesions Site well-healed Neurologic: moves all extremities and awake; no focal motor deficits Speech / Cognition: + abnormal speech Psychiatric: A+Ox3, euthymic affect Orientation: cooperative Lymphatic: no cervical or axillary lymphadenopathy no inguinal lymphadenopathy Results & Data Laboratory Results Short CBC 05/21/18 Range/Units 05:32 WBC 2.93 L (4.8-10.8) K/uL Hgb 9.1 L (14.0-18.0) g/dL Hct 28.9 L (42-52) % Plt Count 130 (130-400) K/uL BMP 05/21/18 05:32 Sodium 138 Potassium 3.8 Chloride 105 Carbon Dioxide 30 BUN 17 Creatinine 0.36 L Glucose 103 H Calcium 7.9 L Diagnostic Findings Microbiology 05/11/18 15:40 Blood Blood Culture - Final No growth 05/11/18 15:37 Blood Blood Culture - Final No growth 05/13/18 14:25 Urine,Clean Catch Urine Culture - Final No growth - less than 1,000 colonies/mL. MRI OF THE BRAIN WITHOUT AND WITH IV CONTRAST CLINICAL HISTORY: Delirium, tremors, generalized weakness COMPARISON STUDY: 09/01/2015 TECHNIQUE: MRI of the brain was performed from the vertex to the skull base utilizing various T1 and T2 weighted sequences. Following the IV administration of 7 mL of Gadavist contrast, additional enhanced images were obtained. FINDINGS: Sagittal T1, axial diffusion, proton density and T2 weighted axial, coronal FLAIR, and pre and post axial T1-weighted images were acquired. These were supplemented with post gadolinium coronal T1 weighted images. No intra or extra-axial mass lesions are visualized. Axial diffusion-weighted images reveal no evidence of acute or subacute infarction. There is very slight ventricular prominence, likely secondary to volume loss Proton density T2-weighted and FLAIR images reveal minimal foci of increased T2 signal within the white matter, likely on a small vessel basis. There are no abnormal flow voids. There is no evidence of pathologic enhancement. IMPRESSION: 1. No acute intracranial findings 2. No evidence of intracranial mass 2. No evidence of acute or subacute infarction
--- NOTE | 2018-05-21 13:34 | Discharge Summary ---
Date of Service May 21, 2018 Admission HPI Per Admitting Provider Patient is a very pleasant 68-year-old male who presents with weakness. While he endorses an acuity to the weakness, as he is allowed to elaborate mostly it has been an ongoing problem. He had cholecystectomy in late January, about 6 weeks later had low back pain from osteomyelitis, and has been on antibiotics since. He notes a significant amount of weakness all over, but is focused in his legs. He was here in the hospital started on IV antibiotics and went to [facility]. There he was making progress, and he noted that he was discharged home because they deemed him to be functionally independent, that was about 2 days ago, and he notes that once he was home his felt he was not is functional or independent as he needed to be. Again here he notes that he is feeling weaker now than he was whenever he left [facility], but has a hard time distinguishing exactly what it is other than being weak all over, with a leg predominance of the weakness. He specifically notes having a hard time getting off the toilet. He does not endorse any falls at home. He notes a significant amount of low back pain. This pain seems to be worse with movement, and radiates to the hips bilaterally more than anything. He loosely endorses a bit of a burning pain down his legs from the knees down, but this seems much harder to describe, quantify, or put into circumstances. He has not had any fevers chills or sweats. No bowel or bladder incontinence, no saddle anesthesia. He does endorse poor appetite, and feeling like it is hard to get food down, noting that he has to drink a lot whenever he is eating. He notes he is lost about 20 pounds over the course of this low back illness. He denies any other focal complaints that are new. Admission Exam Per Admitting Provider Generalhe is awake alert oriented x3, pleasant but fatigued appearing, appears in a mild degree of pain whenever he is laying still, and more pain whenever he is moving. HEENT normocephalic atraumatic mucous membranes may be slightly dry, neck supple with full range of motion. Cardio regular without rubs murmurs gallops Lungs clear to auscultation bilaterally no rales rhonchi wheezes good effort no accessory muscle use Abdomen soft nondistended nontender Extremities no cyanosis clubbing or edema no calf tenderness Skin no rashes no pallor or icterus, due to pain and positioning in the ER bed I am not able to get a full skin exam of his back, will do this as soon as conditions allow Neuro shows cranial nerves II through XII to be grossly intact, gross motor is surprisingly about 5- out of 5 may be 4+ out of 5 bilateral lower extremities, and 5 out of 5 and equal upper extremities bilaterally. He shows no focal sensory deficits to confrontational light touch Mental status shows good recent and remote recall normal mood and affect good judgment and insight Musculoskeletal examexcept for his pain with movement I can see no gross deformities, again full exam was difficult due to pain and positioning, but no gross deformities noted. Principal Diagnosis Weakness, HSV Esophagitis Discharge Exam Constitutional WD/WN, vitals as above cooperative ENMT external ear and nose normal, oropharynx normal Respiratory normal respiratory effort, lungs clear to auscultation Cardiovascular RRR, no murmur, no edema Gastrointestinal (Abdomen) Inspection/Auscultation: abdomen not distended Percussion/Palpation: abdomen soft; abdomen nontender Neurologic Motor/Sensory: + tremor Psychiatric Orientation: alert, oriented to person, oriented to place, oriented to time and cooperative occasional difficulty w/word finding, but otherwise able to carry on a full conversation Discharge Data Allergies Allergy/AdvReac Type Severity Reaction Status Date / Time No Known Allergies Allergy Unverified 05/11/18 16:30 Consultations 05/11/18 18:02 ED Decision to Admit Stat 05/11/18 21:26 Consult Case Management - Discharge Planning Routine 05/12/18 11:27 Consult Orthopedic Surgery Routine 05/13/18 19:04 Consult General Surgery Routine 05/16/18 18:43 Consult Gastroenterology Routine 05/17/18 18:26 Consult Hematology Routine 05/17/18 18:35 Consult Neurology Routine 05/20/18 15:49 Consult Infectious Diseases Routine Procedures Performed Operation Date: 05/19/18 08:25 Actual Procedures p EGD Biopsy Cytology - Antoni Blank MD Ordered Studies 05/13/18 09:12 US abdomen limited Routine 05/14/18 08:20 CT abd pelvis IV con only Routine 05/17/18 09:06 CT head/brain wo con Routine 05/17/18 13:23 CT chest wo con Routine 05/20/18 01:43 MR brain wo/w con Routine Hospital Course (1) Generalized weakness: Mr. Abad is a 68 year old male with a past medical history of osteomyelitis, discitis and abscess of lumbar spine, malignant melanoma, and recent cholecystectomy who presented to [facility] due to weakness. 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 He is confused, but easily reoriented, and does not have the typical waxing and waning nature of delirium, but is rather stuck in the past and unable to recall events after his cholecystectomy. He had been persistently like this during his hospital stay, but has improved. Does not have a history of baseline dementia, but states he is occasionally forgetful, particularly when anxious. - CT head and chest were done to look for malignancies which could be contributing, but these were negative - per my exam, patient was more coherent on day of discharge. He was oriented x3, and was able to carry out a full conversation with me. His also notes improvement in his symptoms, stating he remembered her phone number to call her, and had a full conversation with her. - potentially secondary to Opdivo therapy and infection, on top of his baseline frailty - neurology consulted -> likely multifactorial - related to his multiple medical issues -> MRI brain negative Weight loss - related to poor oral intake - no improvement w/Remeron at bedtime, or with Marinol - continue protein shakes with meals - GI consulted -> EGD -> gastritis and HSV esophagitis, which may have been the cause of his poor appetite & overall decline -> Protonix 40mg BID x2 months and repeat EGD in 2 months - ID consulted -> treat HSV esophagitis with 1g valtrex tid x 7 days, and then patient should remain on 1g daily as a prophylaxis Osteomyelitis of lumbar spine - Continue Rocephin. Per review of Dr. Steven's note - patient meant to be on abx for 3-6 weeks. End of 6th week is May 30. - pt requires f/u with Dr. Bolanos prior to May 30 to determine appropriate length of abx treatment - no signs of clinical worsening. Seen by ortho-spine, no need for surgery right now. - CRP 2.15, trend periodically. Anemia - Microcytic, given his weight loss and malnutrition, iron studies do show a degree of iron deficiency. Appears to be mixed iron deficiency and chronic disease. 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 Continue antibiotics. Continue fentanyl patch and Soma, continue oxycodone. 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: (8) Thrombocytopenia: (9) Low back pain: (10) Essential tremor: (11) Transaminitis: (12) Weight loss: (13) DVT prophylaxis: (14) Discharge planning issues: (15) Urinary retention: (16) Delirium: (17) Pancytopenia: Total Time Total Time Spent Total Time Spent (In Minutes): 30 Discharge Plan Discharge Items Patient Disposition: Transfer [facility] Reason For Visit: WEAKNESS Discharge Diagnosis: Weakness, Esophagitis Discharge Goals: Decrease discomfort, Improve function and Increase independence Activity: Resume your previous activity Non-emergency contact: Primary Care Provider Call non-emergency contact if: you have any medication questions, your symptoms worsen, your pain is not controlled and your temperature is above 101 Follow-up/Referrals: Keith Mcmanus DO [Primary Care Provider] - Diet: Regular Addtl Provider Instructions: Mr. Abad is a 68 year old male with a past medical history of osteomyelitis, discitis and abscess of lumbar spine, malignant melanoma, and recent cholecystectomy who presented to [facility] due to weakness, decrease PO intake and weight loss. 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 He is easily reoriented, and does not have the typical waxing and waning nature of delirium, but is rather stuck in the past and unable to recall events after his cholecystectomy. He had been persistently like this during his hospital stay, but has improved. Does not have a history of baseline dementia, but states he is occasionally forgetful, particularly when anxious. - CT head and chest were done to look for malignancies which could be contributing, but these were negative - MRI brain normal - potentially secondary to Opdivo therapy and infection, on top of his baseline frailty Osteomyelitis of lumbar spine - Continue 2gm of Rocephin daily. Per review of Dr. Steven's note - patient meant to be on abx for 3-6 weeks. End of 6th week is May 30. -> patient needs to follow up with Dr. Bolanos prior to May 30 to determine if he needs a more prolonged course - no signs of clinical worsening. Seen by ortho, who stated no need for surgery right now. - CRP 2.15 whilst in hospital, recommend trending this weekly. Anemia - Microcytic, given his weight loss and malnutrition, iron studies do show a degree of iron deficiency. Appears to be mixed iron deficiency and chronic disease. 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 Continue antibiotics. Continue fentanyl patch and Soma, continue oxycodone. - Pain appears to be overall stable Essential tremor -continue propranolol Weight loss - related to poor oral intake - no improvement w/Remeron at bedtime, or with Marinol - continue protein shakes with meals - GI consulted -> EGD -> gastritis and HSV esophagitis, which may have been the cause of his poor appetite & overall decline -> Protonix 40mg BID x2 months and repeat EGD in 2 months - ID consulted -> treat HSV esophagitis with 1g valtrex tid x 7 days, and then patient should remain on 1g daily as a prophylaxis Prescriptions: New ferrous gluconate 324 mg (38 mg iron) Tablet 324 mg PO QAM 30 Days Qty: 30 RF: 0 pantoprazole [Protonix] 40 mg tablet,delayed release (DR/EC) 40 mg PO BID 10 Days Qty: 20 RF: 0 valacyclovir 500 mg Tablet 1,000 mg PO TID 7 Days Qty: 42 RF: 0 Continued multivitamin Tablet 1 tab PO DAILY RF: 0 propranolol 60 mg tablet 60 mg PO BID RF: 0 Opdivo 100 mg/10 mL Solution 1 dose IV MONTHLY RF: 0 carisoprodol [Soma] 350 mg Tablet 350 mg PO TID PRN (Reason: Muscle Spasm) RF: 0 fentanyl 25 mcg/hr Patch 72 Hour 1 patch TRANSDERMAL Q72H RF: 0 oxycodone 5 mg Tablet 5 mg PO Q4H PRN (Reason: pain) Qty: 20 RF: 0 ceftriaxone 2 gram recon soln 2 gm IV DAILY Qty: 30 RF: 0 Stand-Alone Forms: [facility] Discharge Orders: Discharge Order (Routine); Ordered 05/21/18 Ordered By: Guerda Martin Skilled Items Patient informed of condition?: Yes DNR: No Discharge Level of Care: Skilled Communicable Disease: No Discharge Prognosis: Stable Admission Data Admit Date/Time: 05/11/18 19:39 Attending Provider: Efrain Velazquez Admit Provider: Minh Cruz Primary Care Provider: Keith Mcmanus Other Providers: Bernardino You ; Marbin Steven ; Matilde Gonzalez ; Troy Cerrato ; Ed Longo ; Randy Perdomo ; Debora Patel Service: Medical Other Interventions: Discharge Summary Assessment (RN) Last Done: 05/21/18 14:15 Pending Studies at Discharge: Yes Studies:: Acetylcholine Receptor Antibodies DC Date/Time DO NOT enter until pt leaves facility: 05/21/18 15:11 Supervising Physician Co-Signing Physician Notes Attending attestation Pt seen and examined in concert with Dr. Tarmohamed. In agreement with the documented findings as noted in the resident documentation with any exceptions or additions as noted here. Patient with improved but still waxing and waning attention/mental status today, AAOx2 (nearly got place). Tolerating therapy well with improvement in weakness. On examination, S1/S2 nl RRR no MCG. CTAB. Abd NT/ND BS+ve. CNII-XII grossly intact. No appreciable oral lesions. Generalised weakness with altered mental status - Ach testing sent and results pending. Outpatient follow up with neurology for further evaluation Weight loss with HSV esophagitis - GI and ID consultations in hospital - continue PPI and complete course of valacyclovir. Dietary supplementation Osteomyelitis of lumbar spine - to complete course of rocephin as noted Else see resident documentation as noted. Resident Activity Tracking Resident Involvement: Resident Care Provided Care Provided: Adult Hospital Medicine
[2018-05-21] MEDS ORDERED: VALACYCLOVIR HCL 500 MG TABLET PO SCH (14:00)
--- NOTE | 2018-05-25 07:35 | Coding Query ---
CODING QUERY To promote full compliance with coding requirements relating to patient care, provider participation is requested in all cases of c d reactor operator uncertainty. Please assist us with the question(s) below: Coding Question(s): There is documentation of Weakness in the record, with Progress Notes 05/13/18 - 05/17/18 documenting Muscle Weakness and Progress Notes 05/18/18 - Discharge Summary documenting Generalized Weakness. Please clarify below, in your clinical opinion, regarding the weakness. (x ) Generalized Weakness with Muscle Weakness ( ) Generalized Weakness without Muscle Weakness Physician's Response(s): Thank you Katheryn Corona Principal Diagnosis: "that condition established after study, to be chiefly responsible for occasioning the admission of the patient to the hospital for care." Co-Existing Principal Diagnosis: "when two or more diagnoses equally meet the criteria for principal diagnosis as determined by the circumstances of admission, diagnostic work up, and/or therapy provided, and the Alphabetic Index, Tabular List, or another coding guideline does not provide sequencing direction, any one of the diagnoses may be sequenced first." "When the physician has documented what appears to be a current diagnosis in the body of the record, but has not included the diagnosis in the final diagnostic statement, the physician should be asked whether the diagnosis should be added." ([facility] 2 QTR90. p3-4) DAVID
--- NOTE | 2018-05-25 07:47 | Coding Query ---
CODING QUERY To promote full compliance with coding requirements relating to patient care, provider participation is requested in all cases of remote coders uncertainty. 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 Outpatient follow up with Neurology for further evaluation. Please clarify below, in your clinical opinion, regarding the most likely cause of the weakness. ( ) most likely Critical Illness Myopathy ( ) most likely Myasthenia Gravis ( ) most likely malnutrition ( ) most likely deconditioning ( ) most likely weight loss ( x ) most likely Multifactorial with all of these diagnosis ( ) most likely due to Other: Please Specify Physician's Response(s): Thank you Katheryn Corona Principal Diagnosis: "that condition established after study, to be chiefly responsible for occasioning the admission of the patient to the hospital for care." Co-Existing Principal Diagnosis: "when two or more diagnoses equally meet the criteria for principal diagnosis as determined by the circumstances of admission, diagnostic work up, and/or therapy provided, and the Alphabetic Index, Tabular List, or another coding guideline does not provide sequencing direction, any one of the diagnoses may be sequenced first." "When the physician has documented what appears to be a current diagnosis in the body of the record, but has not included the diagnosis in the final diagnostic statement, the physician should be asked whether the diagnosis should be added." ([facility] 2 QTR90. p3-4) DAVID
== END 2018-05-21 15:11 | DRG 555 ==
LOC: ED 14:45 → SUATTDRO 19:39 → 4E 19:39